=== PATIENT | male | born 1960 | race Caucasian/White ===

== ENCOUNTER 2016-05-01 19:52 | Emergency (ER) | payer MEDICAID ==
[~2016-05-01 19:52] MED LIST: AZITHROMYCIN 250 MG TAB PO SCH; predniSONE 20 MG TAB PO SCH
[2016-05-01] MEDS ORDERED: IPRATROPIUM/ALBUTEROL 3 ML DEYVIAL IH ONE (20:24)
[2016-05-01] MEDS ORDERED: NS 1,000 ML IV ONE (20:24)
[2016-05-01 20:56] LABS: % IMMATURE GRANULYOCYTES 0.2 % (0.0-1.1); ABSOLUTE IMMATURE GRANULOCYTES 0.01 10^3/uL (0.00-0.10); ADD DIFF? NO; ADD MORPH? NO; ADD SCAN? NO; ATYPICAL LYMPHOCYTE FLAG 30 (0-99); FRAGMENT RBC FLAG 0 (0-99); HEMATOCRIT 44.3 % (40.0-51.0); HEMOGLOBIN 16.1 g/dL (13.7-17.5); LEFT SHIFT FLG 10 (0-99); LIPEMIA HEMOLYSIS FLAG 90 (0-99); MEAN CELL HEMOGLOBIN 33.6 pg (27.9-34.1); MEAN CELL HEMOGLOBIN CONCENTR. 36.3 g/dL (32.4-36.7); MEAN CELL VOLUME 92.5 fL (81.5-99.8); PLATELET CLUMPS FLAG 0 (0-99); RED BLOOD CELL COUNT 4.79 10^6/uL (4.40-6.38); RED CELL DISTRIBUTION WIDTH 12.8 % (11.5-15.2)
[2016-05-01 21:10] LABS: ALANINE AMINOTRANSFERASE 50 IU/L (21-72); ALBUMIN 3.5 g/dL (3.5-5.0); ALKALINE PHOSPHATASE 71 IU/L (38-126); ANION GAP 10 mEq/L (8-16); ASPARTATE AMINOTRANSFERASE 47 IU/L (17-59); BILIRUBIN,TOTAL 1.3 mg/dL (0.1-1.4); BILIRUBIN-CONJUGATED 0.2 mg/dL (0.0-0.5); BILIRUBIN-UNCONJUGATED 1.1 mg/dL (0.0-1.1); CALCIUM 8.2 mg/dL (8.5-10.4); CARBON DIOXIDE 26 mEq/l (22-31); CHLORIDE 100 mEq/L (97-110); CREATININE 0.9 mg/dL (0.7-1.3); GLOMERULAR FILTRATION RATE > 60; GLUCOSE 82 mg/dL (70-100); POTASSIUM 4.1 mEq/L (3.5-5.2); SODIUM 136 mEq/L (134-144); TOTAL PROTEIN 6.5 g/dL (6.3-8.2)
--- NOTE | 2016-05-01 21:46 | DX ---
PA and Lateral Chest May 01, 2016 Clinical Indications: Dyspnea. Comparison: April 07, 2016. Findings: The lungs are clear, and no masses are found. The heart and pulmonary vessels are normal. There are no pleural effusions and no pneumothorax. The bones are unremarkable for this age. The lungs appear mildly hyperinflated. There is some flattening of the diaphragm on the lateral. Impression: Mild hyperinflation. Query COPD.
--- NOTE | 2016-05-01 21:53 | EDPHY ---
H & P Stated Complaint: dyspnea, prod cough, chills, NVD, subj fever Time Seen by Provider: 05/01/16 20:12 HPI/ROS: Chief complaint: Cold symptoms, nausea, vomiting and diarrhea History of present illness: This is a 55-year-old male who presents to the emergency department for evaluation of cold symptoms as well as nausea, vomiting and diarrhea. Patient reports the onset of symptoms over the last few days. Primarily is concerned about the cold symptoms which include tactile fevers, sore throat, persistent, wet cough and trouble breathing. He has had associated multiple episodes of vomiting and diarrhea described as nonbloody, nonbilious. Occasional abdominal cramping. He denies precipitating factors. He denies alleviating factors. He denies other associated signs or symptoms. Review of systems: A 10 point review of systems was obtained and other than described above was negative - Personal History Current Tetanus/Diphtheria Vaccine: Yes Current Tetanus Diphtheria and Acellular Pertussis (TDAP): Yes Tetanus Vaccine Date: 2013 - Medical/Surgical History Hx Asthma: Yes Hx Chronic Respiratory Disease: Yes Hx Diabetes: No Hx Cardiac Disease: No Hx Renal Disease: No Hx Cirrhosis: No Hx Alcoholism: No Hx HIV/AIDS: No Hx Splenectomy or Spleen Trauma: No Other PMH: CHRONIC PAIN, RA, COPD/ASTHMA, HEPATITIS (B,C,D,E,F), wears home O2( non compliant),"self medicates for pain," HEROIN ABUSE/IVDA, C diff. DENTAL CARIES, MIGRAINES, PTSD, "broken back", "broken neck" - Social History Smoking Status: Current every day smoker - Physical Exam Exam: General Appearance: Alert, nontoxic. Eyes: Pupils equal and round no pallor or injection. ENT: Tympanic membranes, external auditory canals, external ears and surrounding soft tissue including over the mastoids are unremarkable. Nasopharynx is not injected. There is no rhinorrhea. Oropharynx is mildly injected. There is no edema. There is no exudate. There is no asymmetry. The uvula is midline. No elevation of the tongue. There is no hoarseness, no drooling, no trismus, no stridor. Respiratory: There are no retractions, lungs are clear to auscultation. Cardiovascular: Regular rate and rhythm. Gastrointestinal: Abdomen is soft and non tender, no masses, bowel sounds normal. Neurological: Alert. Strength and sensation intact and symmetrical. No meningismus. Skin: Warm and dry, no rashes. Musculoskeletal: Neck is supple non tender. Extremities are symmetrical, full range of motion. Psychiatric: Patient is oriented X 3, there is no agitation. Constitutional: Initial Vital Signs Heart Rate 91 05/01/16 19:55 Respiratory Rate 18 05/01/16 19:55 Blood Pressure 103/66 05/01/16 19:55 O2 Sat (%) 91 L 05/01/16 19:55 O2 Delivery Mode Room Air O2 (L/minute) 2 Allergies/Adverse Reactions: acetaminophen [Acetaminophen] Allergy (Severe, Verified 04/06/16 22:25) heparin Allergy (Unknown, Verified 04/06/16 22:25) Heparin Analogues Allergy (Unknown, Verified 04/06/16 22:25) propoxyphene HCl [From Darvon] Allergy (Unknown, Verified 04/06/16 22:25) amoxicillin [Amoxicillin] Allergy (Verified 04/06/16 22:25) aspirin [Aspirin] Allergy (Verified 04/06/16 22:25) contrast dye Allergy (Uncoded 05/01/16 20:02) Home Medications: Medication Instructions Recorded Beclomethasone Qvar 40 [Qvar 40 1 puffs IH BID #1 mdi 02/17/16 (*)] Albuterol [Proventil Inhaler HFA 2 puffs IH Q4WA #1 mdi 03/14/16 (*)] AZITHROMYCIN [Z-PACK] 250 mg PO DAILY #6 tab 05/01/16 Dicyclomine 05/01/16 predniSONE 60 mg PO DAILY 2 Days 05/01/16 Medical Decision Making - Diagnostics Imaging: Chest x-ray shows changes likely consistent with COPD ED Course/Re-evaluation: Patient discussed with my secondary supervising physician Dr. Freddy Villanueva. Patient presents to the emergency department for evaluation of cold symptoms, nausea, vomiting and diarrhea. On presentation patient is nontoxic. He is afebrile, vital signs are stable. Physical exam does reveal wheezing. Blood studies are unremarkable. Flu swab is negative. Chest x-ray with changes consistent with COPD. Patient is given a DuoNeb. He is given a dose of prednisone. He remains well appearing with stable vital signs. I have had him walked around the emergency room and his pulse oximetry remained above 90%. Patient will therefore be discharged. He is given an inhaler. He will be given a very short course of prednisone. He is also given a Z-Kelby. These prescriptions are provided for him to ensure he gets the medications. He is discharged. Outpatient follow-up is discussed. This includes following up on his low platelets. Strict return precautions are given. Patient voiced understanding and agreement with plan. Differential Diagnosis: Included but not limited to pneumonia, bronchitis, COPD exacerbation, influenza - Data Points Laboratory Results: Laboratory Results 05/01/16 20:45 05/01/16 20:45 05/01/16 20:45 WBC 4.80 10^3/uL (3.80-9.50) RBC 4.79 10^6/uL (4.40-6.38) Hgb 16.1 g/dL (13.7-17.5) Hct 44.3 % (40.0-51.0) MCV 92.5 fL (81.5-99.8) MCH 33.6 pg (27.9-34.1) MCHC 36.3 g/dL (32.4-36.7) RDW 12.8 % (11.5-15.2) Plt Count 57 L 10^3/uL (150-400) MPV TNP Neut % (Auto) 64.6 % (39.3-74.2) Lymph % (Auto) 24.8 % (15.0-45.0) Saline % (Auto) 8.5 % (4.5-13.0) Eos % (Auto) 1.9 % (0.6-7.6) Baso % (Auto) 0.0 L % (0.3-1.7) Nucleat RBC Rel Count 0.0 % (0.0-0.2) Absolute Neuts (auto) 3.10 10^3/uL (1.70-6.50) Absolute Lymphs (auto) 1.19 10^3/uL (1.00-3.00) Absolute Monos (auto) 0.41 10^3/uL (0.30-0.80) Absolute Eos (auto) 0.09 10^3/uL (0.03-0.40) Absolute Basos (auto) 0.00 L 10^3/uL (0.02-0.10) Absolute Nucleated RBC 0.00 10^3/uL (0-0.01) Immature Gran % 0.2 % (0.0-1.1) Immature Gran # 0.01 10^3/uL (0.00-0.10) Platelet Estimate DECREASED L (ADEQ) Sodium 136 mEq/L (134-144) Potassium 4.1 mEq/L (3.5-5.2) Chloride 100 mEq/L (97-110) Carbon Dioxide 26 mEq/l (22-31) Anion Gap 10 mEq/L (8-16) BUN 10 mg/dL (7-23) Creatinine 0.9 mg/dL (0.7-1.3) Estimated GFR > 60 Glucose 82 mg/dL (70-100) Calcium 8.2 L mg/dL (8.5-10.4) Total Bilirubin 1.3 mg/dL (0.1-1.4) Conjugated Bilirubin 0.2 mg/dL (0.0-0.5) Unconjugated Bilirubin 1.1 mg/dL (0.0-1.1) AST 47 IU/L (17-59) ALT 50 IU/L (21-72) Alkaline Phosphatase 71 IU/L (38-126) Total Protein 6.5 g/dL (6.3-8.2) Albumin 3.5 g/dL (3.5-5.0) Lipase 64.0 IU/L (23-300) Influenza Typ A,B (DFA) NEGATIVE FOR FLU (NEGATIVE) Medications Given: Discontinued Medications Albuterol/Ipratropium (Duoneb) 3 ml IH EDNOW ONE Stop: 05/01/16 20:25 Last Admin: 05/01/16 20:45 Dose: 3 ml Sodium Chloride (Ns) 1,000 mls @ 0 mls/hr IV ONCE ONE PRN Reason: Wide Open Stop: 05/01/16 20:25 Last Admin: 05/01/16 20:30 Dose: 1,000 mls Departure - Departure Disposition: Home, Routine, Self-Care Clinical Impression: Acute bronchitis Qualifiers: Qualifier Code: (J20.9) Acute bronchitis, unspecified Vomiting Qualifiers: Qualifier Code: (R11.2) Nausea with vomiting, unspecified Diarrhea Qualifiers: Qualifier Code: (R19.7) Diarrhea, unspecified Condition: Good Instructions: Acute Bronchitis (ED) Additional Instructions: 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 [Primary Care Provider] - As per Instructions Moses Méndez MD [Medical Doctor] - As per Instructions Prescriptions: AZITHROMYCIN [Z-PACK] 250 mg PO DAILY #6 tab predniSONE 60 mg PO DAILY 2 Days
[2016-05-01] MEDS ORDERED: ALBUTEROL INH PREPACK MDI TAKEHOME ONE (21:55)
[2016-05-01 22:25] LABS: PLATELET COUNT 57 10^3/uL (150-400); PLATELET ESTIMATE DECREASED (ADEQ)
[2016-05-01] MEDS ORDERED: predniSONE 20 MG TAB PO ONE (22:49)
[2016-05-02] MEDS ORDERED: ALBUTEROL INH PREPACK MDI TAKEHOME ONE (00:12)
[2016-05-02] MEDS ORDERED: predniSONE 20 MG TAB ONE (00:12)
[2016-05-02] MEDS ORDERED: AZITHROMYCIN 250 MG TAB PO ONE (00:26)
[2016-05-02] MEDS ORDERED: PROMETHAZINE HCL 25 MG/ML VIAL IVP PRN (01:49)
[2016-05-02] MEDS ORDERED: ALBUTEROL 3 ML DEYVIAL IH PRN (01:51)
[2016-05-02] MEDS ORDERED: NS 1,000 ML IV SCH (02:00)
--- NOTE | 2016-05-02 02:20 | GHP ---
[f rep st] HISTORY AND PHYSICAL DATE OF ADMISSION: 05/02/2016 The patient is a 55-year-old gentleman with a history of severe COPD, who has been recommended for home oxygen, but is unable to obtain it secondary to homelessness. He presented to the ER tonight with nausea, vomiting ,and diarrhea. He notes muscle aches all over. He was last discharged from the hospital at the end of March under some contention. He has chronic breathing complaints, and these are no different. He does continue to smoke cigarettes. It is not clear that he had a flu shot this year. He said he has been eating poorly secondary to no appetite. He has not had hemoptysis or sputum that is different. REVIEW OF SYSTEMS: Complete 10-point review of systems conducted, negative except as noted in the HPI. PAST MEDICAL HISTORY: 1. COPD. 2. History of hepatitis B and hepatitis C. 3. History of heroin abuse. 4. Chronic pain. 5. PTSD. 6. Chronic fatigue. HOME MEDICATIONS: Appear to be QVAR, albuterol, and azithromycin, possibly prednisone. ALLERGIES: Acetaminophen, heparin, propoxyphene, amoxicillin, aspirin, and contrast dye. SOCIAL HISTORY: Homeless. Smokes cigarettes. History of polysubstance abuse. FAMILY HISTORY: Reviewed and unremarkable. PHYSICAL EXAM: VITAL SIGNS: Temp 37, blood pressure 103/66, pulse 91, breathing 18 times a minute, 91% on room air. He did fall to the 80s while asleep with good wave form. GENERAL: No acute distress. HEENT: Sclerae anicteric. Oropharynx clear. Mucous membranes dry. NECK: Supple without lymphadenopathy or JVD. LUNGS: Show distant breath sounds with good air movement. HEART: S1, S2. Not tachycardic. ABDOMEN: Soft. This is some diffuse lower quadrant tenderness possibly greater in the right. LOWER EXTREMITIES: Without edema. Calves nontender. SKIN: Without rash. NEUROLOGIC: Nonfocal. LABORATORY DATA: White count 4.8, hematocrit 44, platelets are 57,000, which is a new finding for him. Sodium 136, potassium 4.1, chloride 100, bicarb 26, BUN 10, creatinine 0.9. LFTs normal. Lipase normal. levels. Influenza negative. I discussed this case with Piotr Lund MD of the emergency department. Chest x- ray interpreted by me shows hyperinflation with COPD, otherwise unremarkable. ASSESSMENT/PLAN: A 55-year-old gentleman with hypoxia. 1. Hypoxia secondary to severe chronic obstructive pulmonary disease. I think it is not different from baseline. The ER is going to want to discharge him I think. Will try and obtain some home oxygen for him as an outpatient. 2. Nausea, vomiting. The patient appears to have a viral syndrome. Diarrhea is included, and I have ordered a Clostridium difficile given his recent antibiotics. 3. Abdominal pain. I think this is secondary to his viral syndrome. Pain is localized some on the right. At this point in time, I am not enthusiastic about appendicitis, but will follow. 4. Chronic obstructive pulmonary disease. I think he is at his baseline. We will continue his current level of care. He does not need additional steroids in my opinion at this point in time, nor does he need antibiotics. DISPOSITION: [facility] observation, likely home in the morning with oxygen. Arrangements have been made. /[id number]/MODL MTDD
[2016-05-02 08:25] VITALS: O2SAT 91
[2016-05-02] MEDS ORDERED: BECLOMETHASONE QVAR 80 MDI IH SCH (09:00)
--- NOTE | 2016-05-02 11:23 | HOSPPROG ---
Hospitalist Progress Note Assessment/Plan: patient is a 55-year-old gentleman with a history severe COPD who presented with hypoxemia. #. likely COPD exacerbation -met with Juan in ER/close to his baseline -on room air -prednisone, inhaler and azithromycin scripts have been filled #. nicotine dependence -continues to smoke #. hypoxemia -resolved #. abdominal pain with associated nausea and vomiting, diarrhea -overall feeling fine/ thinks he may of eaten something that caused these symptoms -wbc stable #. homelessness -suspect that is why he comes to ER frequently -will not stay at long term #.Plan: dc today with scripts Subjective: Juan is feeling overall fine/ no further abdominal pain Objective: Vital Signs Temp Pulse Resp BP Pulse Ox 36.4 C 57 L 16 119/67 91 L 05/02/16 10:32 05/02/16 10:32 05/02/16 10:32 05/02/16 10:32 05/02/16 10:32 - Physical Exam Constitutional: no apparent distress, appears nourished, not in pain Eyes: PERRL Ears, Nose, Mouth, Throat: hearing normal Cardiovascular: regular rate and rhythym Respiratory: no respiratory distress, expiratory wheeze (bases), rhonchi (few scattered) Gastrointestinal: normoactive bowel sounds Skin: warm Musculoskeletal: full muscle strength Neurologic: AAOx3 Psychiatric: interacting appropriately, not anxious ICD10 Worksheet Patient Problems: Problems Problem Status Diagnosed Acute bronchitis Acute COPD (chronic obstructive pulmonary disease) Acute Diarrhea Acute Vomiting Acute Hepatitis C Chronic Bronchitis Acute Chronic obstructive pulmonary disease with acute exacerbation Acute Facial abscess Acute HCAP (healthcare-associated pneumonia) Acute Pneumonia Acute Sepsis Acute
[2016-05-02 12:02] VITALS: BP 107/85; PULSE 93; RESP 20; TEMP 98.2
--- NOTE | 2016-05-02 12:17 | GDS ---
[f rep st] DISCHARGE SUMMARY DISCHARGE DIAGNOSES: 1. Chronic obstructive pulmonary disease exacerbation. 2. Nicotine dependence. 3. Hypoxemia. 4. Abdominal pain with associated nausea, vomiting, and diarrhea. 5. Homelessness. Briefly, the patient is a 55-year-old gentleman with a history of severe COPD, who has been recommended home O2 but is unable to obtain secondary to homelessness. He presented the ER with nausea, vomiting and diarrhea. He also has muscle aches overall. He was admitted for further care. HOSPITAL COURSE: 1. Likely COPD exacerbation. I met with the patient in the emergency room and have cared for him in the past. He is close to his baseline. He is on room air. Scripts were filled for prednisone, inhalers and azithromycin. 2. Nicotine dependence. He continues to smoke. 3. Hypoxemia, resolved. 4. Abdominal pain with associated nausea, vomiting, diarrhea. He overall has been feeling fine. He thinks he may have eaten something that caused these symptoms. White blood cell count is stable. 5. Homelessness. Suspect this is why he comes to the ER frequently. CONDITION AT DISCHARGE: Stable. Blood pressure is 119/67, heart rate is 57, respiratory rate 16, O2 saturation on room air 91%, temperature is 36.4 Celsius. MEDICATIONS AT DISCHARGE: Please see the EMR. DISCHARGE INSTRUCTIONS: 1. Take medications as prescribed. 2. If he develops any fever, chills, chest pain, shortness of breath, to return to the emergency room. 3. Also get further evaluation at [facility] because his platelet count is lower than his baseline. /[id number]/MODL MTDD
== END 2016-05-02 12:03 | disposition home or self-care (01) ==
LOC: UNDOADMIN 05-02 00:25
DX: J44.1 Chronic obstructive pulmonary disease with (acute) exacerbation (principal); R09.02 Hypoxemia; R11.2 Nausea with vomiting, unspecified
CPT/HCPCS: J7512

== ENCOUNTER 2016-05-10 22:32 | Emergency (ER) | payer MEDICAID ==
--- NOTE | 2016-05-10 22:48 | CPEKG ---
Heart Rate: 81 RR Interval: 741 P-R Interval: 144 QRSD Interval: 84 QT Interval: 364 QTC Interval: 423 P [place]: 70 QRS [place]: 82 T Wave [place]: 80 EKG Severity - NORMAL ECG - EKG Impression: SINUS RHYTHM Electronically Signed By: Patricia Solis 11-May-2016 06:00:34
[2016-05-10] MEDS ORDERED: IPRATROPIUM/ALBUTEROL 3 ML DEYVIAL IH ONE (22:59)
--- NOTE | 2016-05-10 22:59 | EDPHY ---
H & P Stated Complaint: SOB Time Seen by Provider: 05/10/16 22:49 HPI/ROS: HPI The patient presents with cough and shortness of breath which has been present for the last several days. It started slowly and has gotten progressively worse. He used his albuterol inhaler about 6 times today and felt that it became ineffective and that is what brought him in tonight. He also reports subjective fevers and chills. His cough is productive of a yellowish sputum. The patient is homeless. He has been recommended for home oxygen, however because of his social situation he does not have it. He was admitted to the hospital for 1 day on May 01 and was started on prednisone which he has now finished.. REVIEW OF SYSTEMS Constitutional: No fever, no chills. Eyes: No discharge. ENT: No sore throat. Cardiovascular: No chest pain, no palpitations. Respiratory: See HPI Gastrointestinal: No abdominal pain, no vomiting. Genitourinary: No hematuria. Musculoskeletal: No back pain. Skin: No rashes. Neurological: No headache. PMHx: COPD Soc Hx: homeless, + smoking tob PHYSICAL General Appearance: Alert, no distress Eyes: Pupils equal and round no pallor or injection ENT, Mouth: Mucous membranes moist Respiratory: He is breathing comfortably, sat of 93% on 2 L, diffuse expiratory wheezes Cardiovascular: Regular rate and rhythm Gastrointestinal: Abdomen is soft and non-tender, no masses, bowel sounds normal Neurological: A&O, moves all extremities Skin: Warm and dry, no rashes Musculoskeletal: Neck is supple non tender Extremities: symmetrical, full range of motion Psychiatric: Patient is oriented X 3, there is no agitation Source: Patient, Old records Exam Limitations: No limitations - Personal History Current Tetanus/Diphtheria Vaccine: Yes Current Tetanus Diphtheria and Acellular Pertussis (TDAP): Yes Tetanus Vaccine Date: 2013 - Medical/Surgical History Hx Asthma: Yes Hx Chronic Respiratory Disease: Yes Hx Diabetes: No Hx Cardiac Disease: No Hx Renal Disease: No Hx Cirrhosis: No Hx Alcoholism: No Hx HIV/AIDS: No Hx Splenectomy or Spleen Trauma: No Other PMH: CHRONIC PAIN, RA, COPD/ASTHMA, HEPATITIS (B,C,D,E,F), wears home O2( non compliant),"self medicates for pain," HEROIN ABUSE/IVDA, C diff. DENTAL CARIES, MIGRAINES, PTSD, "broken back", "broken neck" - Social History Smoking Status: Current every day smoker Constitutional: Initial Vital Signs Temperature (C) 36.6 C 05/10/16 22:37 Heart Rate 81 05/10/16 22:37 Respiratory Rate 36 H 05/10/16 22:37 Blood Pressure 115/62 05/10/16 22:37 O2 Sat (%) 88 L 05/10/16 22:37 O2 Delivery Mode Room Air O2 (L/minute) 2 Allergies/Adverse Reactions: acetaminophen [Acetaminophen] Allergy (Severe, Verified 05/10/16 22:36) heparin Allergy (Unknown, Verified 05/10/16 22:36) Heparin Analogues Allergy (Unknown, Verified 05/10/16 22:36) propoxyphene HCl [From Darvon] Allergy (Unknown, Verified 05/10/16 22:36) amoxicillin [Amoxicillin] Allergy (Verified 05/10/16 22:36) aspirin [Aspirin] Allergy (Verified 05/10/16 22:36) contrast dye Allergy (Uncoded 05/10/16 22:36) Home Medications: Medication Instructions Recorded Beclomethasone Qvar 40 [Qvar 40 1 puffs IH BID #1 mdi 02/17/16 (*)] Albuterol [Proventil Inhaler HFA 2 puffs IH Q4WA #1 mdi 03/14/16 (*)] AZITHROMYCIN [Z-PACK] 250 mg PO DAILY #6 tab 05/01/16 Doxycycline Hyclate [Vibramycin 100 mg PO BID 05/01/16 100 MG (*)] predniSONE 60 mg PO DAILY 2 Days 05/01/16 Doxycycline 100 mg Prepack#2 1 btl [facility] EDNOW #0 btl 05/11/16 [Vibramycin 100 mg Prepack#2] Doxycycline Hyclate [Vibramycin 100 mg PO BID #30 cap 05/11/16 100 MG (*)] predniSONE [Prednisone] 40 mg PO DAILY #16 tablet 05/11/16 Medical Decision Making ED Course/Re-evaluation: 10:45 p.m.- Initial patient encounter. I plan to start him on a DuoNeb been given a dose of prednisone. I will order a chest x-ray. 1:30 a.m.- The patient has received DuoNeb and then 20 minutes of a an albuterol nebulizer which he removed because he was feeling palpitations. His chest x-ray is unremarkable for any pneumonia. I feel he likely has a COPD exacerbation. He has improved, now with an oxygen saturation of 93% on room air. He will be discharged home with a prescription for doxycycline as well as prednisone with instructions to continue his albuterol. He is in agreement with this plan. Differential Diagnosis: This is a 55-year-old homeless man with COPD who presents with several days of cough, shortness of breath, subjective fevers. On exam he is slightly hypoxic at 88% on room air, he has wheezing throughout his lung benson but is in no respiratory distress. Differential diagnosis includes COPD with exacerbation, pneumonia, pneumothorax. I doubt PE given no chest pain. - Data Points Laboratory Results: Laboratory Results 05/10/16 22:50 05/10/16 22:50 05/10/16 22:50 WBC 7.67 10^3/uL (3.80-9.50) RBC 4.37 L 10^6/uL (4.40-6.38) Hgb 14.6 g/dL (13.7-17.5) Hct 41.8 % (40.0-51.0) MCV 95.7 fL (81.5-99.8) MCH 33.4 pg (27.9-34.1) MCHC 34.9 g/dL (32.4-36.7) RDW 13.5 % (11.5-15.2) Plt Count 116 L 10^3/uL (150-400) MPV 11.1 fL (8.7-11.7) Neut % (Auto) 36.7 L % (39.3-74.2) Lymph % (Auto) 49.9 H % (15.0-45.0) [place] % (Auto) 10.0 % (4.5-13.0) Eos % (Auto) 2.6 % (0.6-7.6) Baso % (Auto) 0.5 % (0.3-1.7) Nucleat RBC Rel Count 0.0 % (0.0-0.2) Absolute Neuts (auto) 2.81 10^3/uL (1.70-6.50) Absolute Lymphs (auto) 3.83 H 10^3/uL (1.00-3.00) Absolute Monos (auto) 0.77 10^3/uL (0.30-0.80) Absolute Eos (auto) 0.20 10^3/uL (0.03-0.40) Absolute Basos (auto) 0.04 10^3/uL (0.02-0.10) Absolute Nucleated RBC 0.00 10^3/uL (0-0.01) Immature Gran % 0.3 % (0.0-1.1) Immature Gran # 0.02 10^3/uL (0.00-0.10) Sodium 136 mEq/L (134-144) Potassium 4.6 mEq/L (3.5-5.2) Chloride 102 mEq/L (97-110) Carbon Dioxide 29 mEq/l (22-31) Anion Gap 5 mEq/L (8-16) BUN 21 mg/dL (7-23) Creatinine 1.0 mg/dL (0.7-1.3) Estimated GFR > 60 Glucose 84 mg/dL (70-100) Calcium 8.5 mg/dL (8.5-10.4) Troponin I < 0.012 ng/mL (0-0.034) Medications Given: Discontinued Medications Albuterol (Proventil Neb) 10 ml IH CONT ONE Stop: 05/11/16 00:10 Last Admin: 05/11/16 01:00 Dose: 10 ml Albuterol/Ipratropium (Duoneb) 3 ml IH EDNOW ONE Stop: 05/10/16 23:00 Last Admin: 05/10/16 23:16 Dose: 3 ml Doxycycline Hyclate (Vibramycin 100 Mg Prepack#2) 1 btl [facility] EDNOW ONE Stop: 05/11/16 01:47 Last Admin: 05/11/16 01:49 Dose: 1 btl Prednisone (Prednisone) 60 mg PO EDNOW ONE Stop: 05/10/16 23:01 Last Admin: 05/10/16 23:06 Dose: 60 mg Departure - Departure Disposition: Home, Routine, Self-Care Clinical Impression: Chronic obstructive pulmonary disease with acute exacerbation Condition: Good Instructions: COPD (Chronic Obstructive Pulmonary Disease) (ED) Additional Instructions: Please try and stop smoking. You should take the medications as prescribed. You should return to the emergency room if your worse in any way. Referrals: NONE *PRIMARY CARE P,. [Primary Care Provider] - As per Instructions Prescriptions: predniSONE [Prednisone] 40 mg PO DAILY #16 tablet Doxycycline Hyclate [Vibramycin 100 MG (*)] 100 mg PO BID #30 cap Doxycycline 100 mg Prepack#2 [Vibramycin 100 mg Prepack#2] [facility]
[2016-05-10] MEDS ORDERED: predniSONE 20 MG TAB PO ONE (23:00)
[2016-05-10 23:06] LABS: % IMMATURE GRANULYOCYTES 0.3 % (0.0-1.1); ABSOLUTE IMMATURE GRANULOCYTES 0.02 10^3/uL (0.00-0.10); ADD DIFF? NO; ADD MORPH? NO; ADD SCAN? NO; ATYPICAL LYMPHOCYTE FLAG 10 (0-99); FRAGMENT RBC FLAG 0 (0-99); HEMATOCRIT 41.8 % (40.0-51.0); HEMOGLOBIN 14.6 g/dL (13.7-17.5); LEFT SHIFT FLG 0 (0-99); LIPEMIA HEMOLYSIS FLAG 90 (0-99); MEAN CELL HEMOGLOBIN 33.4 pg (27.9-34.1); MEAN CELL HEMOGLOBIN CONCENTR. 34.9 g/dL (32.4-36.7); MEAN CELL VOLUME 95.7 fL (81.5-99.8); MEAN PLATELET VOLUME 11.1 fL (8.7-11.7); PLATELET CLUMPS FLAG 10 (0-99); PLATELET COUNT 116 10^3/uL (150-400); RED BLOOD CELL COUNT 4.37 10^6/uL (4.40-6.38); RED CELL DISTRIBUTION WIDTH 13.5 % (11.5-15.2)
[2016-05-10 23:23] LABS: ANION GAP 5 mEq/L (8-16); CALCIUM 8.5 mg/dL (8.5-10.4); CARBON DIOXIDE 29 mEq/l (22-31); CHLORIDE 102 mEq/L (97-110); GLOMERULAR FILTRATION RATE > 60; GLUCOSE 84 mg/dL (70-100); POTASSIUM 4.6 mEq/L (3.5-5.2); SODIUM 136 mEq/L (134-144)
[2016-05-10 23:34] LABS: TROPONIN I < 0.012 ng/mL (0-0.034)
--- NOTE | 2016-05-10 23:49 | DX ---
Chest, PA and Lateral History: Dyspnea, hypoxia Comparison: May 01, 2016 Findings: Moderately prominent lung volumes and perihilar bronchial wall thickening are again present and suggest underlying COPD/emphysema/asthma. There is no focal infiltrate or consolidation. Heart s ize is relatively small, consistent with a hyperinflated state. There is no adenopathy or mass lesion . There is no pleural effusion, pneumomediastinum or pneumothorax. Bones are unremarkable for age. Ox ygen tubing and a metallic necklace overlie the chest. Impression: Airways disease/COPD. No pneumonia.
[2016-05-11] MEDS ORDERED: ALBUTEROL 3 ML DEYVIAL IH ONE (00:09)
[2016-05-11 00:22] VITALS: TEMP 98.1
[2016-05-11] MEDS ORDERED: DOXYCYCLINE 100 MG PREPACK#2 BTL TAKEHOME ONE ×2 (01:44→01:46)
[2016-05-11 01:51] VITALS: BP 108/73; PULSE 79; RESP 16; O2SAT 93
== END 2016-05-11 01:52 | disposition home or self-care (01) ==
LOC: EEVIPCON 22:32
DX: J44.1 Chronic obstructive pulmonary disease with (acute) exacerbation (principal); F17.210 Nicotine dependence, cigarettes, uncomplicated

== ENCOUNTER 2016-05-16 03:06 | Emergency (ER) | payer MEDICAID ==
[~2016-05-16 03:06] MED LIST changes: -predniSONE 20 MG TAB PO SCH
[2016-05-16 03:15] VITALS: BP 133/77; PULSE 81; RESP 18; O2SAT 89
[2016-05-16] MEDS ORDERED: AZITHROMYCIN 250 MG TAB PO ONE (03:33)
--- NOTE | 2016-05-16 03:37 | EDPHY ---
H & P Stated Complaint: pt c/o pain in L ear and throat Time Seen by Provider: 05/16/16 03:29 HPI/ROS: CHIEF COMPLAINT: Sore throat, lymphadenopathy ear pain HISTORY OF PRESENT ILLNESS: Patient is a 55-year-old homeless man who comes to the emergency department complaining of a sore throat, anterior lymphadenopathy and left ear pain. States that he has had the symptoms for about 3 days. He states that he was put on doxycycline and steroids for a lung infection 1 week ago but lost the prescriptions. He has not had a fever. He denies any chest pain, nausea or GI symptoms. He denies shortness of breath. He does have sinus congestion. REVIEW OF SYSTEMS: Constitutional: denies: chills, fever, recent illness, recent injury EENTM: See HPI Respiratory: denies: cough, shortness of breath Cardiac: denies: chest pain, irregular heart rate, lightheadedness, palpitations Gastrointestinal/Abdominal: denies: abdominal pain, diarrhea, nausea, vomiting, blood streaked stools Genitourinary: denies: dysuria, frequency, hematuria, pain Musculoskeletal: denies: joint pain, muscle pain Skin: denies: lesions, rash, jaundice, bruising Neurological: denies: headache, numbness, paresthesia, tingling, dizziness, weakness Hematologic/Lymphatic: denies: blood clots, easy bleeding, easy bruising Immunologic/allergic: denies: HIV/AIDS, transplant EXAM: GENERAL: Well-appearing, well-nourished and in no acute distress. HEAD: Atraumatic, normocephalic. EYES: Pupils equal round and reactive to light, extraocular movements intact, sclera anicteric, conjunctiva are normal. ENT: Effusions behind bilateral tympanic membranes , anterior cervical lymphadenopathy, nares patent, health [place] pharynx, no abscess, no exudate. Moist mucous membranes. NECK: Normal range of motion, supple without lymphadenopathy or JVD. LUNGS: Breath sounds clear to auscultation bilaterally and equal. No wheezes rales or rhonchi. HEART: Regular rate and rhythm without murmurs, rubs or gallops. ABDOMEN: Soft, nontender, normoactive bowel sounds. No guarding, no rebound. No masses appreciated. BACK: No CVA tenderness, no spinal tenderness, step-offs or deformities EXTREMITIES: Normal range of motion, no pitting or edema. No clubbing or cyanosis. NEUROLOGICAL: Cranial nerves II through XII grossly intact. Normal speech, normal gait. 5/5 strength, normal movement in all extremities, normal sensation PSYCH: Normal mood, normal affect. SKIN: Warm, dry, normal turgor, no visible rashes or lesions. Source: Patient, Old records Exam Limitations: No limitations - Personal History Tetanus Vaccine Date: 2013 - Medical/Surgical History Hx Asthma: Yes Hx Chronic Respiratory Disease: Yes Hx Diabetes: No Hx Cardiac Disease: No Hx Renal Disease: No Hx Cirrhosis: No Hx Alcoholism: No Hx HIV/AIDS: No Hx Splenectomy or Spleen Trauma: No Other PMH: CHRONIC PAIN, RA, COPD/ASTHMA, HEPATITIS (B,C,D,E,F), wears home O2( non compliant),"self medicates for pain," HEROIN ABUSE/IVDA, C diff. DENTAL CARIES, MIGRAINES, PTSD, "broken back", "broken neck" - Family History Significant Family History: No pertinent family hx - Social History Smoking Status: Current every day smoker Alcohol Use: Heavy Drug Use: None Constitutional: Initial Vital Signs Heart Rate 81 05/16/16 03:11 Respiratory Rate 18 05/16/16 03:11 Blood Pressure 133/77 H 05/16/16 03:11 O2 Sat (%) 89 L 05/16/16 03:11 O2 Delivery Mode Room Air Allergies/Adverse Reactions: acetaminophen [Acetaminophen] Allergy (Severe, Verified 05/16/16 03:15) heparin Allergy (Unknown, Verified 05/16/16 03:15) Heparin Analogues Allergy (Unknown, Verified 05/16/16 03:15) propoxyphene HCl [From Darvon] Allergy (Unknown, Verified 05/16/16 03:15) amoxicillin [Amoxicillin] Allergy (Verified 05/16/16 03:15) aspirin [Aspirin] Allergy (Verified 05/16/16 03:15) contrast dye Allergy (Uncoded 05/10/16 22:36) Home Medications: Medication Instructions Recorded Beclomethasone Qvar 40 [Qvar 40 1 puffs IH BID #1 mdi 02/17/16 (*)] Albuterol [Proventil Inhaler HFA 2 puffs IH Q4WA #1 mdi 03/14/16 (*)] AZITHROMYCIN [Z-PACK] 250 mg PO DAILY #6 tab 01/10/17 Doxycycline 100 mg Prepack#2 1 btl TAKEHOME EDNOW #0 btl 05/11/16 [Vibramycin 100 mg Prepack#2] Doxycycline Hyclate [Vibramycin 100 mg PO BID #30 cap 05/11/16 100 MG (*)] predniSONE [Prednisone] 40 mg PO DAILY #16 tablet 05/11/16 AZITHROMYCIN [Z-PACK] 250 mg PO DAILY #4 tab 05/16/16 Medical Decision Making ED Course/Re-evaluation: I will start the patient on azithromycin to cover his sore throat currently as well as the recent diagnosis of bronchitis. He is happy with this plan and declines further workup or testing at this time. Discussed indications for returning. I will fill his prescriptions here with [facility] program. Differential Diagnosis: Partial list of the Differential diagnosis considered include but were not limited to; strep throat, pharyngitis, sinusitis, otitis media, bronchitis and although unlikely based on the history and physical exam, I also considered pneumonia, PE, acute coronary disease. I discussed these differential diagnoses and the plan with the patient as well as the usual and expected course. The patient understands that the diagnosis is provisional and that in medicine we are not always correct and that further workup is often warranted. Usual and customary warnings were given. All of the patient's questions were answered. The patient was instructed to return to the emergency department should the symptoms at all worsen or return, otherwise to followup with the physician as we discussed. - Data Points Medications Given: Discontinued Medications Azithromycin (Zithromax) 500 mg PO EDNOW ONE PRN Reason: Protocol Stop: 05/16/16 03:34 Last Admin: 05/16/16 03:41 Dose: 500 mg Dexamethasone (Decadron) 10 mg PO EDNOW ONE Stop: 05/16/16 03:59 Last Admin: 05/16/16 04:06 Dose: 10 mg Departure - Departure Disposition: Home, Routine, Self-Care Clinical Impression: Acute pharyngitis Qualifiers: Pharyngitis/tonsillitis etiology: unspecified etiology Qualifier Code: (J02.9) Acute pharyngitis, unspecified Condition: Fair Instructions: Pharyngitis (ED) Referrals: NONE *PRIMARY CARE P,. [Primary Care Provider] - As per Instructions Prescriptions: AZITHROMYCIN [Z-PACK] 250 mg PO DAILY #4 tab
[2016-05-16] MEDS ORDERED: DEXAMETHASONE 4 MG TAB PO ONE (03:58)
== END 2016-05-16 04:08 | disposition home or self-care (01) ==
DX: J02.9 Acute pharyngitis, unspecified (principal); J44.9 Chronic obstructive pulmonary disease, unspecified; F17.200 Nicotine dependence, unspecified, uncomplicated

== ENCOUNTER 2016-05-18 00:20 | Emergency (ER) | payer MEDICAID ==
[2016-05-18 00:27] VITALS: RESP 18
[2016-05-18] MEDS ORDERED: IBUPROFEN 200 MG TAB PO ONE (00:56)
[2016-05-18] MEDS ORDERED: IPRATROPIUM/ALBUTEROL 3 ML DEYVIAL IH ONE (00:57)
--- NOTE | 2016-05-18 01:02 | EDPHY ---
H & P Stated Complaint: pt c/o fever Time Seen by Provider: 05/18/16 00:31 HPI/ROS: HPI The patient presents with fever, he is not sure how long it has been going on, brought in by ambulance for evaluation. He says he thinks it may have been going on for the last 2 days. He has COPD and his cough is unchanged recently. He was seen in the emergency room 2 days ago and started on azithromycin which he says he has been taking. He was previously seen about 1 week ago by me for COPD exacerbation and did not finish his course of doxycycline. REVIEW OF SYSTEMS Constitutional: No fever, no chills. Eyes: No discharge. ENT: No sore throat. Cardiovascular: No chest pain, no palpitations. Respiratory: See HPI Gastrointestinal: No abdominal pain, no vomiting. Genitourinary: No hematuria. Musculoskeletal: No back pain. Skin: No rashes. Neurological: No headache. PMHx: COPD, hepatitis Soc Hx: Homeless PHYSICAL General Appearance: Alert, no distress Eyes: Pupils equal and round no pallor or injection ENT, Mouth: Mucous membranes moist Respiratory: No tachypnea or retractions, coarse breath sounds throughout all lung benson with prolonged I to E time Cardiovascular: Regular rate and rhythm Gastrointestinal: Abdomen is soft and non-tender, no masses, bowel sounds normal Neurological: A&O, moves all extremities Skin: Warm and dry, no rashes Musculoskeletal: Neck is supple non tender Extremities: symmetrical, full range of motion Psychiatric: Patient is oriented X 3, there is no agitation Source: Patient, EMS Exam Limitations: No limitations - Personal History Tetanus Vaccine Date: 2013 - Medical/Surgical History Hx Asthma: Yes Hx Chronic Respiratory Disease: Yes Hx Diabetes: No Hx Cardiac Disease: No Hx Renal Disease: No Hx Cirrhosis: No Hx Alcoholism: No Hx HIV/AIDS: No Hx Splenectomy or Spleen Trauma: No Other PMH: CHRONIC PAIN, RA, COPD/ASTHMA, HEPATITIS (B,C,D,E,F), wears home O2( non compliant),"self medicates for pain," HEROIN ABUSE/IVDA, C diff. DENTAL CARIES, MIGRAINES, PTSD, "broken back", "broken neck" - Social History Smoking Status: Current every day smoker Constitutional: Initial Vital Signs Temperature (C) 37.6 C 05/18/16 00:24 Heart Rate 88 05/18/16 00:24 Respiratory Rate 18 05/18/16 00:24 Blood Pressure 124/76 H 05/18/16 00:24 O2 Sat (%) 93 05/18/16 00:24 O2 Delivery Mode Room Air O2 (L/minute) 2 Allergies/Adverse Reactions: acetaminophen [Acetaminophen] Allergy (Severe, Verified 05/16/16 03:15) heparin Allergy (Unknown, Verified 05/16/16 03:15) Heparin Analogues Allergy (Unknown, Verified 05/16/16 03:15) propoxyphene HCl [From Darvon] Allergy (Unknown, Verified 05/16/16 03:15) amoxicillin [Amoxicillin] Allergy (Verified 05/16/16 03:15) aspirin [Aspirin] Allergy (Verified 05/16/16 03:15) contrast dye Allergy (Uncoded 05/10/16 22:36) Home Medications: Medication Instructions Recorded Beclomethasone Qvar 40 [Qvar 40 1 puffs IH BID #1 mdi 02/17/16 (*)] Albuterol [Proventil Inhaler HFA 2 puffs IH Q4WA #1 mdi 03/14/16 (*)] AZITHROMYCIN [Z-PACK] 250 mg PO DAILY #6 tab 05/01/16 Doxycycline 100 mg Prepack#2 1 btl TAKEHOME EDNOW #0 btl 05/11/16 [Vibramycin 100 mg Prepack#2] Doxycycline Hyclate [Vibramycin 100 mg PO BID #30 cap 05/11/16 100 MG (*)] predniSONE [Prednisone] 40 mg PO DAILY #16 tablet 05/11/16 AZITHROMYCIN [Z-PACK] 250 mg PO DAILY #4 tab 05/16/16 predniSONE [Prednisone] 40 mg PO DAILY #16 tablet 05/18/16 Medical Decision Making - Diagnostics Imaging: Chest x-ray two views shows hyperinflation, no infiltrate, interpreted by me. ED Course/Re-evaluation: 12:45 a.m.- Initial patient encounter. He is requesting oxygen though his sat is 93%. We will get a chest x-ray and flu swab. 2:20 a.m.- The patient received oxygen here. He was given a DuoNeb. Chest x-ray was performed showing no pneumonia. He refused influenza testing. He does not have a fever. He may have a mild COPD exacerbation. I have offered him some prednisone, albuterol, antibiotics. Given that he is just finishing a course of azithromycin, he does not want any additional antibiotics, I feel this is reasonable. He will be discharged. Differential Diagnosis: This is a 55-year-old male with homelessness, COPD who presents with fever. Here his temperature is 37.6, a low-grade fever. He has his usual cough without any worsening respiratory distress. His oxygen saturation is 93% on room air which is quite good for him. Differential diagnosis includes COPD exacerbation, pneumonia, influenza. - Data Points Medications Given: Discontinued Medications Albuterol Sulfate (Proventil Inh Prepack) 1 mdi TAKEHOME EDNOW ONE Stop: 05/18/16 02:28 Last Admin: 05/18/16 02:32 Dose: 1 mdi Albuterol/Ipratropium (Duoneb) 3 ml IH EDNOW ONE Stop: 05/18/16 00:58 Last Admin: 05/18/16 01:31 Dose: 3 ml Ibuprofen (Motrin) 400 mg PO EDNOW ONE Stop: 05/18/16 00:57 Last Admin: 05/18/16 01:16 Dose: 400 mg Departure - Departure Disposition: Home, Routine, Self-Care Clinical Impression: Fever, COPD (chronic obstructive pulmonary disease) Condition: Good Instructions: Albuterol (By breathing), Fever in Adults (ED) Referrals: [facility] [Outside] - As per Instructions Prescriptions: predniSONE [Prednisone] 40 mg PO DAILY #16 tablet
[2016-05-18] MEDS ORDERED: ALBUTEROL INH PREPACK MDI TAKEHOME ONE (02:27)
[2016-05-18 02:44] VITALS: BP 114/69; PULSE 80; TEMP 98.4; O2SAT 91
--- NOTE | 2016-05-18 08:17 | DX ---
PA and Lateral Chest May 18, 2016 0051 hours Indication: Cough and fever. Comparison: Two-view chest dated May 10, 2016. Findings: The lungs are well aerated and clear. No pneumothorax, consolidation, or effusion. Heart si ze normal. Impression: Clear lungs. No pneumonia.
== END 2016-05-18 02:44 | disposition home or self-care (01) ==
LOC: EDUNIT#
DX: R50.9 Fever, unspecified (principal); J44.9 Chronic obstructive pulmonary disease, unspecified; F17.200 Nicotine dependence, unspecified, uncomplicated

== ENCOUNTER 2016-05-20 04:59 | Emergency (ER) | payer MEDICAID ==
[2016-05-20] MEDS ORDERED: IPRATROPIUM/ALBUTEROL 3 ML DEYVIAL IH ONE (05:11)
[2016-05-20 05:16] VITALS: RESP 22
[2016-05-20] MEDS ORDERED: DOXYCYCLINE HYCLATE 100 MG CAP/TAB PO ONE (05:40)
[2016-05-20] MEDS ORDERED: predniSONE 20 MG TAB PO ONE (05:40)
--- NOTE | 2016-05-20 05:40 | EDPHY ---
H & P Stated Complaint: SOB, "MEDS NOT HELPING!", COUGH, FLU X2 YRS Time Seen by Provider: 05/20/16 05:09 HPI/ROS: HPI The patient presents with cough, sore throat which have been present for the last several months though worse today. The cough is productive of a clear to yellowish sputum, he denies any shortness of breath currently. He is brought in by ambulance. His sats are in the 90s. He has been seen several times recently in the emergency room. He did complete azithromycin but has lost his prescription for doxy Cyclen. He has taken prednisone recently. REVIEW OF SYSTEMS Constitutional: No fever, no chills. Eyes: No discharge. ENT: No sore throat. Cardiovascular: No chest pain, no palpitations. Respiratory: No cough, no shortness of breath. Gastrointestinal: No abdominal pain, no vomiting. Genitourinary: No hematuria. Musculoskeletal: No back pain. Skin: No rashes. Neurological: No headache. PMHx: COPD, qualifies her home oxygen, though is not on it because he is homeless Soc Hx: Homeless, positive tobacco use PHYSICAL General Appearance: Alert, no distress, occasional cough Eyes: Pupils equal and round no pallor or injection ENT, Mouth: Mucous membranes moist Respiratory: There are no retractions, normal respiratory rate, wheezes auscultated Cardiovascular: Regular rate and rhythm Gastrointestinal: Abdomen is soft and non-tender, no masses, bowel sounds normal Neurological: A&O, moves all extremities Skin: Warm and dry, no rashes Musculoskeletal: Neck is supple non tender Extremities: symmetrical, full range of motion Psychiatric: Patient is oriented X 3, there is no agitation Source: Patient, EMS - Personal History Current Tetanus/Diphtheria Vaccine: Yes Tetanus Vaccine Date: 2013 - Medical/Surgical History Hx Asthma: Yes Hx Chronic Respiratory Disease: Yes Hx Diabetes: No Hx Cardiac Disease: No Hx Renal Disease: No Hx Cirrhosis: No Hx Alcoholism: No Hx HIV/AIDS: No Hx Splenectomy or Spleen Trauma: No Other PMH: CHRONIC PAIN, RA, COPD/ASTHMA, HEPATITIS (B,C,D,E,F), C-DIFF, wears home O2(non compliant),"self medicates for pain," HEROIN ABUSE/IVDA, C diff. DENTAL CARIES, MIGRAINES, PTSD, "broken back", "broken neck", FLU X2 YRS - Social History Smoking Status: Current every day smoker Constitutional: Initial Vital Signs Temperature (C) 37.5 C 05/20/16 05:00 Heart Rate 98 05/20/16 05:00 Respiratory Rate 22 H 05/20/16 05:00 Blood Pressure 106/80 05/20/16 05:00 O2 Sat (%) 91 L 05/20/16 05:00 O2 Delivery Mode Room Air Allergies/Adverse Reactions: acetaminophen [Acetaminophen] Allergy (Severe, Verified 05/16/16 03:15) heparin Allergy (Unknown, Verified 05/16/16 03:15) Heparin Analogues Allergy (Unknown, Verified 05/16/16 03:15) propoxyphene HCl [From Darvon] Allergy (Unknown, Verified 05/16/16 03:15) amoxicillin [Amoxicillin] Allergy (Verified 05/16/16 03:15) aspirin [Aspirin] Allergy (Verified 05/16/16 03:15) contrast dye Allergy (Uncoded 05/10/16 22:36) Home Medications: Medication Instructions Recorded Beclomethasone Qvar 40 [Qvar 40 1 puffs IH BID #1 mdi 02/17/16 (*)] Albuterol [Proventil Inhaler HFA 2 puffs IH Q4WA #1 mdi 03/14/16 (*)] AZITHROMYCIN [Z-PACK] 250 mg PO DAILY #6 tab 05/01/16 Doxycycline 100 mg Prepack#2 1 btl TAKEHOME EDNOW #0 btl 05/11/16 [Vibramycin 100 mg Prepack#2] Doxycycline Hyclate [Vibramycin 100 mg PO BID #30 cap 05/11/16 100 MG (*)] predniSONE [Prednisone] 40 mg PO DAILY #16 tablet 05/11/16 AZITHROMYCIN [Z-PACK] 250 mg PO DAILY #4 tab 05/16/16 predniSONE [Prednisone] 40 mg PO DAILY #16 tablet 05/18/16 Albuterol 17 gm IH QID PRN #1 aerosol 05/20/16 Doxycycline 100 mg Prepack#2 1 btl TAKEHOME EDNOW #2 btl 05/20/16 [Vibramycin 100 mg Prepack#2] Doxycycline Hyclate 100 mg PO BID #14 tab 05/20/16 predniSONE [Prednisone] 40 mg PO DAILY #16 tablet 05/20/16 Medical Decision Making - Diagnostics Imaging: Chest x-ray two views shows no infiltrate, no effusion, interpreted by me, radiology interpretation is pending. Differential Diagnosis: This is a 55-year-old homeless male with frequent ER visits, with history of COPD who presents with cough and sore throat. On exam his sat is in the low 90s , though this is normal for him. He is not in any respiratory distress. Differential diagnosis includes acute exacerbation of COPD, pneumonia, viral URI. In the emergency room, the patient was given a DuoNeb. Chest x-ray was ordered and showed no infiltrate or signs of pneumonia. He likely has a COPD exacerbation and I have given him a prescription for prednisone as well as issued him an albuterol inhaler. I have given him a prescription for doxycycline, as he feels this has helped him the most in the past, however he is worried about his ability to pay. Thus, I have given a note to the therapeutic case manager to see if we can help him with this. - Data Points Medications Given: Discontinued Medications Albuterol/Ipratropium (Duoneb) 3 ml IH EDNOW ONE Stop: 05/20/16 05:12 Last Admin: 05/20/16 05:33 Dose: 3 ml Doxycycline Hyclate (Doxycycline Hyclate) 100 mg PO EDNOW ONE PRN Reason: Protocol Stop: 05/20/16 05:41 Last Admin: 05/20/16 05:48 Dose: 100 mg Doxycycline Hyclate (Vibramycin 100 Mg Prepack#2) 1 btl TAKEHOME EDNOW ONE Stop: 05/20/16 06:03 Last Admin: 05/20/16 06:47 Dose: 1 btl Prednisone (Prednisone) 60 mg PO EDNOW ONE Stop: 05/20/16 05:41 Last Admin: 05/20/16 05:48 Dose: 60 mg Departure - Departure Disposition: Home, Routine, Self-Care Clinical Impression: Chronic obstructive pulmonary disease with acute exacerbation Condition: Good Instructions: COPD (Chronic Obstructive Pulmonary Disease) (ED) Referrals: [facility] [Outside] - As per Instructions Prescriptions: Albuterol 17 gm IH QID PRN #1 aerosol PRN Reason: dyspnea Doxycycline Hyclate 100 mg PO BID #14 tab predniSONE [Prednisone] 40 mg PO DAILY #16 tablet Doxycycline 100 mg Prepack#2 [Vibramycin 100 mg Prepack#2] 1 btl TAKEHOME EDNOW #2 btl
[2016-05-20] MEDS ORDERED: DOXYCYCLINE 100 MG PREPACK#2 BTL TAKEHOME ONE (06:02)
[2016-05-20 06:43] VITALS: BP 112/73; PULSE 89; TEMP 99; O2SAT 90
--- NOTE | 2016-05-20 08:43 | DX ---
Chest, PA and Lateral May 20, 2016 History: Shortness of breath. Comparison: May 18, 2016. Findings: Heart size is within normal limits. Pulmonary vascularity appears normal. There is an emphy sematous configuration to the chest. The lungs are clear of acute consolidation. Minimal linear scarr ing is seen in the lingula. No evidence for pleural effusion or pneumothorax. Impression: No evidence for acute cardiopulmonary abnormality.
== END 2016-05-20 06:48 | disposition home or self-care (01) ==
LOC: EDUNIT#
DX: J44.1 Chronic obstructive pulmonary disease with (acute) exacerbation (principal); F17.200 Nicotine dependence, unspecified, uncomplicated

== ENCOUNTER 2016-07-15 16:56 | Emergency (ER) | payer MEDICAID ==
--- NOTE | 2016-07-15 17:43 | EDPHY ---
H & P Time Seen by Provider: 07/15/16 17:08 HPI/ROS: Chief complaint. Cough HPI. 55-year-old male history COPD presents with cough for 2 weeks. Slight shortness of breath especially with exertion. No fever. Some runny nose and congestion. Cough is productive yellow sputum. No fever or chest pain. Tells me does not need a chest x-ray just wants medication. ROS Constitutional. no fever/chills, no weakness Eyes. no problems with vision ENT. no sore throat, no nasal drainage Cardiovascular. no chest pain Respiratory. Cough and shortness of breath Abdominal. no abdominal pain, no nausea/vomiting, no diarrhea . no problems urinating MS. no calf pain/swelling, no neck/back pain, no joint pain Skin. no rash Lymph. no swollen glands Neuro. no headache, no dizziness, no difficulty walking or with speech Past Medical/Surgical History: Past medical history chronic pain, rheumatoid arthritis, COPD, hepatitis, Clostridium difficile, heroin abuse and IV drug use, migraines, PTSD, broken back, broken neck, flu for 2 years Social History: Homeless single daily smoker no recent alcohol Smoking Status: Current every day smoker Physical Exam: General Appearance: Alert well-developed male mild distress vital signs are stable Eyes: Pupils equal and round no pallor or injection. ENT, Mouth: Mucous membranes are moist. Respiratory: No retractions. End expiratory rhonchi Cardiovascular: Regular rate and rhythm. Gastrointestinal: Abdomen is soft and nontender, no masses, bowel sounds normal. Neurological: Awake and alert, sensory and motor exams grossly normal. Skin: Warm and dry, no rashes. Musculoskeletal: Neck is supple nontender. Extremities symmetrical, full range of motion. Psychiatric: Patient is oriented X 3, there is no agitation. Constitutional: Initial Vital Signs Temperature (C) 36.6 C 07/15/16 16:57 Heart Rate 79 07/15/16 16:57 Respiratory Rate 22 H 07/15/16 16:57 Blood Pressure 101/63 07/15/16 16:57 O2 Sat (%) 92 07/15/16 16:57 O2 Delivery Mode Room Air Allergies/Adverse Reactions: acetaminophen [Acetaminophen] Allergy (Severe, Verified 05/16/16 03:15) heparin Allergy (Unknown, Verified 05/16/16 03:15) Heparin Analogues Allergy (Unknown, Verified 05/16/16 03:15) propoxyphene HCl [From Darvon] Allergy (Unknown, Verified 05/16/16 03:15) amoxicillin [Amoxicillin] Allergy (Verified 05/16/16 03:15) aspirin [Aspirin] Allergy (Verified 05/16/16 03:15) contrast dye Allergy (Uncoded 05/10/16 22:36) Home Medications: Medication Instructions Recorded Ciprofloxacin [Cipro] 500 mg PO BID #14 tab 07/15/16 predniSONE 40 mg PO DAILY #14 tablet 07/15/16 Medical Decision Making ED Course/Re-evaluation: Patient declines chest x-ray. Patient and I discussed treatment plan and the need for follow-up. He expresses understanding and agreement Patient is written prescriptions. Differential Diagnosis: Clinically the patient does not have pneumonia. This is exacerbation of COPD. I have considered chronic bronchitis as well Departure - Departure Disposition: Home, Routine, Self-Care Clinical Impression: Chronic obstructive pulmonary disease with acute exacerbation Condition: Good Instructions: COPD (Chronic Obstructive Pulmonary Disease) (ED) Additional Instructions: Use inhaler using 2 puffs every 4 hours. Prednisone taper. Cipro as antibiotic. Return for worsening symptoms. Follow up [facility] if not improved in the next 2-3 days Referrals: NONE *PRIMARY CARE P,. [Primary Care Provider] - As per Instructions [facility] [Outside] - As per Instructions Prescriptions: Ciprofloxacin [Cipro] 500 mg PO BID #14 tab predniSONE 40 mg PO DAILY #14 tablet
[2016-07-15] MEDS ORDERED: ALBUTEROL INH PREPACK MDI TAKEHOME ONE (18:04)
[2016-07-15] MEDS ORDERED: predniSONE 20 MG TAB PO ONE (18:04)
[2016-07-15 18:21] VITALS: BP 150/86; PULSE 70; RESP 14; TEMP 98.4; O2SAT 94
== END 2016-07-15 18:20 | disposition home or self-care (01) ==
LOC: EEVIPCON 16:56
DX: J44.1 Chronic obstructive pulmonary disease with (acute) exacerbation (principal); F17.200 Nicotine dependence, unspecified, uncomplicated

== ENCOUNTER 2016-08-01 22:28 | Observation (INO) | payer MEDICAID ==
[2016-08-01] MEDS ORDERED: IPRATROPIUM/ALBUTEROL 3 ML DEYVIAL ONE (23:07)
[2016-08-01] MEDS ORDERED: IPRATROPIUM/ALBUTEROL 3 ML DEYVIAL IH ONE (23:10)
[2016-08-01] MEDS ORDERED: predniSONE 20 MG TAB PO ONE (23:53)
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
[2016-08-02] MEDS ORDERED: ALBUTEROL 3 ML DEYVIAL IH ONE (01:39)
[2016-08-02] MEDS ORDERED: ALBUTEROL 3 ML DEYVIAL IH PRN (07:19)
[2016-08-02] MEDS ORDERED: ONDANSETRON DISINTEGRATING 4 MG TAB PO PRN (07:19)
[2016-08-02] MEDS ORDERED: ONDANSETRON 4 MG/2 ML VIAL IVP PRN (07:19)
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
[2016-08-02 08:48] LABS: % IMMATURE GRANULYOCYTES 0.4 % (0.0-1.1); ABSOLUTE IMMATURE GRANULOCYTES 0.02 10^3/uL (0.00-0.10); ADD DIFF? NO; ADD MORPH? NO; ADD SCAN? NO; ATYPICAL LYMPHOCYTE FLAG 40 (0-99); FRAGMENT RBC FLAG 0 (0-99); HEMATOCRIT 38.9 % (40.0-51.0); HEMOGLOBIN 13.7 g/dL (13.7-17.5); LEFT SHIFT FLG 10 (0-99); LIPEMIA HEMOLYSIS FLAG 90 (0-99); MEAN CELL HEMOGLOBIN 33.7 pg (27.9-34.1); MEAN CELL HEMOGLOBIN CONCENTR. 35.2 g/dL (32.4-36.7); MEAN CELL VOLUME 95.6 fL (81.5-99.8); MEAN PLATELET VOLUME 10.9 fL (8.7-11.7); PLATELET CLUMPS FLAG 0 (0-99); PLATELET COUNT 82 10^3/uL (150-400); RED BLOOD CELL COUNT 4.07 10^6/uL (4.40-6.38); RED CELL DISTRIBUTION WIDTH 12.8 % (11.5-15.2)
[2016-08-02] MEDS ORDERED: guaiFENesin 600 MG TAB.ER PO SCH (09:00)
[2016-08-02 09:27] LABS: ANION GAP 8 mEq/L (8-16); CARBON DIOXIDE 30 mEq/l (22-31); CHLORIDE 100 mEq/L (97-110); CREATININE 0.7 mg/dL (0.7-1.3); GLOMERULAR FILTRATION RATE > 60; GLUCOSE 190 mg/dL (70-100); POTASSIUM 4.3 mEq/L (3.5-5.2); SODIUM 138 mEq/L (134-144)
[2016-08-02] MEDS: predniSONE 20 MG TAB PO SCH (09:35)
[2016-08-02] MEDS: AZITHROMYCIN 250 MG TAB PO SCH (09:35)
[2016-08-02] MEDS: NICOTINE 14 MG/24 HR PATCH TD SCH (09:36)
[2016-08-02] MEDS: IPRATROPIUM/ALBUTEROL 3 ML DEYVIAL IH SCH ×4 (10:38→22:40)
[2016-08-02] MEDS: IBUPROFEN 600 MG TAB PO PRN ×2 (13:58→22:08)
[2016-08-02 16:06] VITALS: O2SAT 90
[2016-08-02] MEDS ORDERED: guaiFENesin 200 MG/10 ML UDCUP PO PRN (20:36)
[2016-08-02 20:53] LABS: PHENCYCLIDINE URINE BCH < 6 ng/ml (NEGATIVE); PHENCYCLIDINE URINE BCH NEGATIVE (NEGATIVE); TETRAHYDROCANNABINOL URINE < 5 ng/mL (NEGATIVE); TETRAHYDROCANNABINOL URINE NEGATIVE (NEGATIVE)
[2016-08-02 21:11] VITALS: TEMP 97.8
[2016-08-03 06:07] VITALS: RESP 18
[2016-08-03] MEDS: IPRATROPIUM/ALBUTEROL 3 ML DEYVIAL IH SCH ×2 (06:32→10:49)
[2016-08-03 07:42] VITALS: BP 118/74; PULSE 57
[2016-08-03] MEDS: NICOTINE 14 MG/24 HR PATCH TD SCH (09:48)
[2016-08-03] MEDS: predniSONE 20 MG TAB PO SCH (09:49)
[2016-08-03] MEDS: AZITHROMYCIN 250 MG TAB PO SCH (09:49)
--- NOTE | 2016-08-03 20:39 | GDS ---
[f rep st] DISCHARGE SUMMARY DISCHARGE DIAGNOSES: 1. Chronic obstructive pulmonary disease with acute exacerbation. 2. Tobacco abuse. HISTORY: For details, please see the history and physical dated August 04, 2016. In brief, the audra delong is a 56-year-old male with history of COPD and ongoing tobacco use who presents to the emergency department with cough and shortness of breath. He was admitted to the hospital for acute exacerbat ion of his COPD. HOSPITAL COURSE: The patient is admitted to med/surg unit. His chest x-ray did not reveal pneumoni a. He was treated with nebulizers, prednisone and azithromycin. He maintained his oxygen saturation s around 90% on room air and did not require supplemental oxygen at discharge. He has been unable t o the obtain home oxygen in the past due to his homeless status. His flu swab was negative. DISPOSITION: Patient is discharged to the street in stable condition. FOLLOWUP: The patient is instructed to follow up at [facility]. DISCHARGE MEDICATIONS: Please see [facility] for complete updated outpatient medication list. New me dications on discharge include: 1. Prednisone taper over the next 12 days, 40 mg p.o. daily for 3 days, then 30 mg p.o. daily for 3 days, then 20 mg p.o. daily for 3 days, then 10 mg p.o. daily for 3 days. 2. Azithromycin 250 mg p.o. daily. No refills. 3. Flovent 1 puff inhaled twice daily. 4. Spiriva 18 mcg inhaled daily. 5. He will continue albuterol as well. /[id number]/MODL
== END 2016-08-03 11:15 | disposition home or self-care (01) ==
LOC: F2W 08-02 03:53
PROVIDERS: ADMIT Internal Medicine; ATTEND Internal Medicine
DX: J44.1 Chronic obstructive pulmonary disease with (acute) exacerbation (principal); Z72.0 Tobacco use
CPT/HCPCS: 71020; 99285; G0378; 80307; G0480

== ENCOUNTER 2016-08-04 20:55 | Emergency (ER) | payer MEDICAID ==
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
[2016-08-04] MEDS ORDERED: IPRATROPIUM/ALBUTEROL 3 ML DEYVIAL IH ONE (21:54)
[2016-08-04] MEDS ORDERED: predniSONE 20 MG TAB PO ONE (21:54)
[2016-08-04] MEDS ORDERED: ALBUTEROL INH PREPACK MDI TAKEHOME ONE (22:15)
[2016-08-04] MEDS ORDERED: CIPROFLOXACIN 500 MG TAB PO ONE (22:16)
[2016-08-04 22:40] VITALS: BP 124/86; PULSE 98; RESP 16; O2SAT 94
== END 2016-08-04 22:40 | disposition home or self-care (01) ==
LOC: EEVIPCON 20:55
DX: J44.9 Chronic obstructive pulmonary disease, unspecified (principal); F17.200 Nicotine dependence, unspecified, uncomplicated

== ENCOUNTER 2016-09-07 17:22 | Emergency (ER) | payer MEDICAID ==
[2016-09-07 17:27] VITALS: TEMP 98.1
[2016-09-07] MEDS ORDERED: IPRATROPIUM/ALBUTEROL 3 ML DEYVIAL IH ONE ×2 (17:48→18:33)
[2016-09-07] MEDS ORDERED: methylPREDNISolone SOD SUCC 125 MG/2 ML VIAL IM ONE (17:48)
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
[2016-09-07] MEDS ORDERED: predniSONE 20 MG TAB PO ONE (17:59)
[2016-09-07] MEDS ORDERED: predniSONE 20 MG TAB ONE (18:00)
[2016-09-07] MEDS ORDERED: IPRATROPIUM/ALBUTEROL 3 ML DEYVIAL ONE (18:24)
[2016-09-07 18:58] VITALS: BP 134/89; PULSE 92; RESP 16; O2SAT 92
== END 2016-09-07 18:58 | disposition home or self-care (01) ==
DX: J44.1 Chronic obstructive pulmonary disease with (acute) exacerbation (principal); F17.200 Nicotine dependence, unspecified, uncomplicated

== ENCOUNTER 2016-09-29 20:56 | Inpatient (IN) | payer MEDICAID ==
[2016-09-29] MEDS ORDERED: methylPREDNISolone SOD SUCC 125 MG/2 ML VIAL IVP ONE (22:10)
[2016-09-29] MEDS ORDERED: IPRATROPIUM/ALBUTEROL 3 ML DEYVIAL IH ONE (22:10)
--- NOTE | 2016-09-29 22:15 | EDPHY ---
H & P Stated Complaint: SOB - Personal History Current Tetanus/Diphtheria Vaccine: Yes Current Tetanus Diphtheria and Acellular Pertussis (TDAP): Yes Tetanus Vaccine Date: 2015 - Medical/Surgical History Hx Asthma: Yes Hx Chronic Respiratory Disease: Yes Hx Diabetes: No Hx Cardiac Disease: No Hx Renal Disease: No Hx Cirrhosis: No Hx Alcoholism: No Hx HIV/AIDS: No Hx Splenectomy or Spleen Trauma: No Other PMH: CHRONIC PAIN, RA, COPD/ASTHMA, HEPATITIS (B,C,D,E,F), C-DIFF, wears home O2(non compliant),"self medicates for pain," HEROIN ABUSE/IVDA, C diff. DENTAL CARIES, MIGRAINES, PTSD, "broken back", "broken neck", FLU X2 YRS - Social History Smoking Status: Heavy smoker Time Seen by Provider: 09/29/16 22:02 HPI/ROS: CHIEF COMPLAINT: Dyspnea HISTORY OF PRESENT ILLNESS: 56-year-old homeless male history of COPD, history of multiple admissions for COPD exacerbation arrives via ambulance from the [facility] after he requested a call 911 for complaints of dyspnea. States that he has been feeling dyspneic ever since being in the ER a few weeks ago and completing his prednisone taper. He also complains of intermittent hemoptysis. He does not have any inhaled medications. Denies chest pain. Denies syncope or near syncope. Denies headache. Denies abdominal pain. Per EMS he had a pre-hospital pulse oxygenation 76%, up to 94% on 4 L of oxygen. No home oxygen PRIMARY CARE PROVIDER:no PCP REVIEW OF SYSTEMS: A ten point review of systems was performed and is negative with the exception of the items mentioned in the HPI PAST MEDICAL & SURGICAL HISTORY: COPD. Danika hepatitis. SOCIAL HISTORY: Daily smoker. Homeless. PHYSICAL EXAM (Prior to examination, patient consented to physical exam, hands were washed and my usual and customary physical exam procedures followed) 1) GENERAL: Well-developed, well-nourished, alert and oriented. Appears to be in no acute distress. 2) HEAD: Normocephalic, atraumatic 3) HEENT: Sclera anicteric. 4) NECK: Full range of motion, no meningeal signs. 5) LUNGS: Bilateral end-expiratory wheeze and right lower lobe rales , no retractions or accessory muscle use 6) HEART: Regular rate and rhythm, no murmur, no heave, no gallop. 7) ABDOMEN: No guarding, no rebound, no focal tenderness, 8) MUSCULOSKELETAL: Moving all extremities, no focal areas of tenderness 9) BACK: No CVA tenderness 10) SKIN: No rash, no petechiae. DIFFERENTIAL DIAGNOSIS: In no particular include but limited to pulmonary embolus, COPD exacerbation, pulmonary infectious etiology (Hunter Yañez) Constitutional: Initial Vital Signs Temperature (C) 36.9 C 09/29/16 21:06 Heart Rate 80 09/29/16 21:06 Respiratory Rate 24 H 09/29/16 21:06 Blood Pressure 141/84 H 09/29/16 21:06 O2 Sat (%) 94 09/29/16 21:06 O2 Delivery Mode Nasal Cannula O2 (L/minute) 2 Allergies/Adverse Reactions: acetaminophen [Acetaminophen] Allergy (Severe, Verified 09/29/16 21:05) heparin Allergy (Unknown, Verified 09/29/16 21:05) Heparin Analogues Allergy (Unknown, Verified 09/29/16 21:05) propoxyphene HCl [From Darvon] Allergy (Unknown, Verified 09/29/16 21:05) amoxicillin [Amoxicillin] Allergy (Verified 09/29/16 21:05) aspirin [Aspirin] Allergy (Verified 09/29/16 21:05) contrast dye Allergy (Uncoded 09/29/16 21:05) Home Medications: Medication Instructions Recorded Multivitamins [Multivitamin (*)] 1 each PO DAILY 08/02/16 Albuterol [Proventil Inhaler HFA 1 - 2 puffs IH DAILY PRN #1 mdi 08/03/16 (*)] Azithromycin [Zithromax] 250 mg PO DAILY #4 tab 08/03/16 Fluticasone Hfa 110 Mcg [Flovent 1 puffs IH BID #1 mdi 08/03/16 110 MCG Hfa MDI (*)] Tiotropium Inhaler [Spiriva 18 mcg IH DAILY #1 mdi 08/03/16 Handihaler] predniSONE 40 mg PO DAILY #15 tablet 08/03/16 Ciprofloxacin [Cipro] 500 mg PO BID #14 tab 08/04/16 Albuterol Sulfate [Proair Hfa] 8.5 gm IH Q4-6PRN PRN #0 hfa.[email or web address] 09/07/16 predniSONE 50 mg PO DAILY #7 tablet 09/07/16 Medical Decision Making - Diagnostics EKG Interpretation: 12-lead EKG interpreted by me; official reading is in trace master. My interpretation is sinus rhythm rate 78 no acute ischemic changes. (William Donovan) Imaging Results: Imaging Impressions Chest X-Ray 09/29/16 22:02 Impression: Findings consistent with airways disease with superimposed basilar opacities right greater than left probably reflecting right basilar pneumonia and atelectasis versus left lower lung pneumonia. Follow-up is recommended to ensure complete resolution. If opacities persist CT could be considered in the future for further evaluation.. ED Course/Re-evaluation: I reviewed old medical records. He has history of hospitalization in July 2016. He is noted to have a new right lower lobe infiltrate. He will be started on cefepime for possible healthcare acquired pneumonia as well as atypical. He is maintaining saturations in the mid 70s on room air. Case discussed Dr. William Donovan who is familiar with the patient as well from prior hospitalizations. 10:40 p.m.: Phone consultation with hospitalist Dr. Clark wound patient. ( Hunter Yañez) Other Provider: PHYSICIAN DOCUMENTATION: The patient was evaluated and managed by the Physician Cosmetics Presser and myself. I have reviewed the chart and agree with the findings and plan of care as documented. In addition, I examined the patient myself at 2140. History confirmed as coughing and more short of breath for 2 weeks. Physical findings as follows: Diffuse rhonchi, but speaks in full sentences, no calf tenderness or swelling. Respiratory rate 24, but afebrile and not tachycardic and WBC less than 12,000. Does not meet SIRS criteria in the emergency department. Does not have sepsis in ED, HR <90. Empiric antibiotics for HCAP including cefepime and Levaquin, RAD treatment including steroids. Admission for pulmonary infection with severe hypoxemia. D-dimer 1.73, so CTA ordered. Prelim report reviewed at 655am on 09/30, negative for PE, bilateral pneumonia. I am the secondary supervising physician. (William Donovan) - Data Points Laboratory Results: Laboratory Results 09/29/16 22:32 09/29/16 22:32 09/29/16 09/29/16 09/29/16 22:32 22:32 22:32 WBC RBC Hgb Hct MCV MCH MCHC RDW Plt Count MPV Neut % (Auto) Lymph % (Auto) [place]auf[place] % (Auto) Eos % (Auto) Baso % (Auto) Nucleat RBC Rel Count Absolute Neuts (auto) Absolute Lymphs (auto) Absolute Monos (auto) Absolute Eos (auto) Absolute Basos (auto) Absolute Nucleated RBC Immature Gran % Immature Gran # D-Dimer 1.73 ug/mLFEU H ug/mLFEU (0.00-0.50) VBG Lactic Acid 1.0 mmol/L mmol/L (0.7-2.1) Sodium 132 mEq/L L mEq/L (134-144) Potassium 3.3 mEq/L L mEq/L (3.5-5.2) Chloride 96 mEq/L L mEq/L (97-110) Carbon Dioxide 27 mEq/l mEq/l (22-31) Anion Gap 9 mEq/L mEq/L (8-16) BUN 6 mg/dL L mg/dL (7-23) Creatinine 0.7 mg/dL mg/dL (0.7-1.3) Estimated GFR > 60 Glucose 104 mg/dL H mg/dL (70-100) Calcium 8.3 mg/dL L mg/dL (8.5-10.4) Troponin I < 0.012 ng/mL ng/mL (0-0.034) 09/29/16 22:32 WBC 11.89 10^3/uL H 10^3/uL (3.80-9.50) RBC 4.01 10^6/uL L 10^6/uL (4.40-6.38) Hgb 13.2 g/dL L g/dL (13.7-17.5) Hct 37.6 % L % (40.0-51.0) MCV 93.8 fL fL (81.5-99.8) MCH 32.9 pg pg (27.9-34.1) MCHC 35.1 g/dL g/dL (32.4-36.7) RDW 13.0 % % (11.5-15.2) Plt Count 80 10^3/uL L 10^3/uL (150-400) MPV 10.7 fL fL (8.7-11.7) Neut % (Auto) 73.5 % % (39.3-74.2) Lymph % (Auto) 18.0 % % (15.0-45.0) [place] % (Auto) 6.7 % % (4.5-13.0) Eos % (Auto) 0.6 % % (0.6-7.6) Baso % (Auto) 0.4 % % (0.3-1.7) Nucleat RBC Rel Count 0.0 % % (0.0-0.2) Absolute Neuts (auto) 8.74 10^3/uL H 10^3/uL (1.70-6.50) Absolute Lymphs (auto) 2.14 10^3/uL 10^3/uL (1.00-3.00) Absolute Monos (auto) 0.80 10^3/uL 10^3/uL (0.30-0.80) Absolute Eos (auto) 0.07 10^3/uL 10^3/uL (0.03-0.40) Absolute Basos (auto) 0.05 10^3/uL 10^3/uL (0.02-0.10) Absolute Nucleated RBC 0.00 10^3/uL 10^3/uL (0-0.01) Immature Gran % 0.8 % % (0.0-1.1) Immature Gran # 0.09 10^3/uL 10^3/uL (0.00-0.10) D-Dimer VBG Lactic Acid Sodium Potassium Chloride Carbon Dioxide Anion Gap BUN Creatinine Estimated GFR Glucose Calcium Troponin I Medications Given: Discontinued Medications Albuterol/Ipratropium (Duoneb) 3 ml IH EDNOW ONE Stop: 09/29/16 22:11 Last Admin: 09/29/16 22:30 Dose: 3 ml Diphenhydramine HCl (Benadryl Injection) 50 mg IVP EDNOW ONE Stop: 09/30/16 00:33 Last Admin: 09/30/16 00:45 Dose: 50 mg Cefepime HCl 2 gm/ Dextrose 100 mls @ 200 mls/hr IV EDNOW ONE PRN Reason: Protocol Stop: 09/29/16 23:59 Last Admin: 09/30/16 02:12 Dose: Not Given Levofloxacin/Dextrose (Levaquin 750 Mg (Premix)) 150 mls @ 100 mls/hr IV EDNOW ONE PRN Reason: Protocol Stop: 09/30/16 00:02 Last Admin: 09/29/16 23:17 Dose: 150 mls Methylprednisolone Sodium Succinate (Solu-Medrol) 125 mg IVP EDNOW ONE Stop: 09/29/16 22:11 Last Admin: 09/29/16 22:35 Dose: 125 mg Departure - Departure Disposition: [facility] Inpatient Acute Clinical Impression: HCAP (healthcare-associated pneumonia), Chronic obstructive pulmonary disease with acute exacerbation Pneumonia Qualifiers: Pneumonia type: due to unspecified organism Laterality: right Lung location: lower lobe of lung Qualified Code(s): J18.1 - Lobar pneumonia, unspecified organism Condition: Fair
--- NOTE | 2016-09-29 22:26 | CPEKG ---
Heart Rate: 78 RR Interval: 769 P-R Interval: 148 QRSD Interval: 90 QT Interval: 372 QTC Interval: 424 P [place]: 69 QRS [place]: 74 T Wave [place]: 85 EKG Severity - NORMAL ECG - EKG Impression: SINUS RHYTHM Electronically Signed By: William Donovan 29-Sep-2016 22:40:35
[2016-09-29 22:43] LABS: % IMMATURE GRANULYOCYTES 0.8 % (0.0-1.1); ABSOLUTE IMMATURE GRANULOCYTES 0.09 10^3/uL (0.00-0.10); ADD DIFF? NO; ADD MORPH? NO; ADD SCAN? NO; ATYPICAL LYMPHOCYTE FLAG 20 (0-99); FRAGMENT RBC FLAG 0 (0-99); HEMATOCRIT 37.6 % (40.0-51.0); HEMOGLOBIN 13.2 g/dL (13.7-17.5); LEFT SHIFT FLG 60 (0-99); LIPEMIA HEMOLYSIS FLAG 90 (0-99); MEAN CELL HEMOGLOBIN 32.9 pg (27.9-34.1); MEAN CELL HEMOGLOBIN CONCENTR. 35.1 g/dL (32.4-36.7); MEAN CELL VOLUME 93.8 fL (81.5-99.8); MEAN PLATELET VOLUME 10.7 fL (8.7-11.7); PLATELET CLUMPS FLAG 10 (0-99); PLATELET COUNT 80 10^3/uL (150-400); RED BLOOD CELL COUNT 4.01 10^6/uL (4.40-6.38)
[2016-09-29 23:00] LABS: ANION GAP 9 mEq/L (8-16); CALCIUM 8.3 mg/dL (8.5-10.4); CARBON DIOXIDE 27 mEq/l (22-31); CHLORIDE 96 mEq/L (97-110); CREATININE 0.7 mg/dL (0.7-1.3); GLOMERULAR FILTRATION RATE > 60; GLUCOSE 104 mg/dL (70-100); POTASSIUM 3.3 mEq/L (3.5-5.2); SODIUM 132 mEq/L (134-144)
[2016-09-29 23:12] LABS: TROPONIN I < 0.012 ng/mL (0-0.034)
[2016-09-29] MEDS ORDERED: CEFEPIME HCL 2 GM in D5W 100 ML IV ONE (23:30)
[2016-09-30] MEDS ORDERED: ONDANSETRON 4 MG/2 ML VIAL IVP PRN (00:18)
[2016-09-30] MEDS ORDERED: ALBUTEROL 3 ML DEYVIAL IH PRN (00:18)
[2016-09-30] MEDS ORDERED: IOPAMIDOL (ISOVUE 370) 100 ML BTL IV ONE (00:18)
[2016-09-30] MEDS ORDERED: ONDANSETRON DISINTEGRATING 4 MG TAB PO PRN (00:18)
[2016-09-30] MEDS ORDERED: LORazepam 2 MG/ML INJ IVP PRN (00:18)
[2016-09-30] MEDS ORDERED: NS 1,000 ML IV SCH (00:30)
--- NOTE | 2016-09-30 00:32 | PDGENHP ---
History and Physical - Chief Complaint shortness of breath - History of Present Illness patient is a 56-year-old male with a history of COPD, chronic respiratory failure (Although not able to maintain home O2 ) PTSD, chronic HCV/HBV infection who presents to the ED with complaint of shortness of breath and cough. he states his symptoms 1st started about 2 weeks ago after finishing a previous prescription of prednisone. he reports initially he had wheezing and dyspnea output, but then this became associated with a thick productive cough, intermittent fevers and chills. By day of presentation, patient states his symptoms were moderately severe, which is why he came to the ED. He denies any associated nausea vomiting or diarrhea, also denies any chest pain, palpitations or lightheadedness. On arrival to the ED patient was afebrile and hemodynamically stable, although hypoxic on room air. Labs revealed mild leukocytosis, and normal lactic acid, hypokalemia. Chest x-ray revealed new right lower lobe infiltrate , consistent with pneumonia. CT angio chest was then obtained, was negative for PE but did reveal multilobar right sided pneumonia. He was cultured and initiated on antibiotics. History Information - Allergies/Home Medication List Allergies/Adverse Reactions: acetaminophen [Acetaminophen] Allergy (Severe, Verified 09/29/16 21:05) heparin Allergy (Unknown, Verified 09/29/16 21:05) Heparin Analogues Allergy (Unknown, Verified 09/29/16 21:05) propoxyphene HCl [From Darvon] Allergy (Unknown, Verified 09/29/16 21:05) amoxicillin [Amoxicillin] Allergy (Verified 09/29/16 21:05) aspirin [Aspirin] Allergy (Verified 09/29/16 21:05) contrast dye Allergy (Uncoded 09/29/16 21:05) Home Medications: Multivitamins [Multivitamin (*)] 1 each PO DAILY 08/02/16 [Last Taken Unknown] I have personally reviewed and updated: family history, medical history, social history, surgical history - Past Medical History Additional medical history: copd. chronic hepatitis b andc. PTSD. chronic pain syndrome - Surgical History Additional surgical history: teeth extractions - Family History Positive for: non-pertinent - Social History Smoking Status: Heavy smoker Alcohol Use: Occasionally (no daily use per patient) Drug Use: Heroin (h/o heroin) Additional social history: homeless M Review of Systems ROS: 10pt was reviewed & negative except for what was stated in HPI & below Physical Exam Temp Pulse Resp BP Pulse Ox 36.9 C 77 20 123/90 H 89 L 09/29/16 21:06 09/29/16 23:15 09/29/16 23:15 09/29/16 23:15 09/29/16 23:15 O2 (L/minute) 8 Constitutional: no apparent distress, appears nourished, not in pain Eyes: PERRL, anicteric sclera, EOMI Ears, Nose, Mouth, Throat: moist mucous membranes, hearing normal, ears appear normal, no oral mucosal ulcers Cardiovascular: regular rate and rhythym, no murmur, rub, or gallop, No JVD, No edema Peripheral Pulses: 2+: dorsalis-pedis (R), dorsalis-pedis (L) Respiratory: no respiratory distress, no rales or rhonchi, clear to auscultation Gastrointestinal: normoactive bowel sounds, soft, non-tender abdomen, no palpable masses Genitourinary: no bladder fullness, no bladder tenderness Skin: warm, normal color, no rashes or abrasions, no fluctuance, no induration, No mottled Musculoskeletal: full muscle strength, no muscle tenderness, normal joint ROM, no joint effusions Neurologic: AAOx3, sensation intact bilaterally, CN II-XII Intact, No weakness, No numbness, No facial droop Psychiatric: interacting appropriately, not anxious, not encephalopathic, thought process linear Lab Data & Imaging Review 09/30/16 04:57 09/30/16 04:57 WBC 11.89 10^3/uL (3.80-9.50) H 09/29/16 22:32 RBC 4.01 10^6/uL (4.40-6.38) L 09/29/16 22:32 Hgb 13.2 g/dL (13.7-17.5) L 09/29/16 22:32 Hct 37.6 % (40.0-51.0) L 09/29/16 22:32 MCV 93.8 fL (81.5-99.8) 09/29/16 22:32 MCH 32.9 pg (27.9-34.1) 09/29/16 22:32 MCHC 35.1 g/dL (32.4-36.7) 09/29/16: RDW 13.0 % (11.5-15.2) 09/29/16: Plt Count 80 10^3/uL (150-400) L 09/29/16: MPV 10.7 fL (8.7-11.7) 09/29/16: Neut % (Auto) 73.5 % (39.3-74.2) 09/29/16: Lymph % (Auto) 18.0 % (15.0-45.0) 09/29/16: [place] % (Auto) 6.7 % (4.5-13.0) 09/29/16: Eos % (Auto) 0.6 % (0.6-7.6) 09/29/16: Baso % (Auto) 0.4 % (0.3-1.7) 09/29/16: Nucleat RBC Rel Count 0.0 % (0.0-0.2) 09/29/16: Absolute Neuts (auto) 8.74 10^3/uL (1.70-6.50) H 09/29/16: Absolute Lymphs (auto) 2.14 10^3/uL (1.00-3.00) 09/29/16: Absolute Monos (auto) 0.80 10^3/uL (0.30-0.80) 09/29/16: Absolute Eos (auto) 0.07 10^3/uL (0.03-0.40) 09/29/16: Absolute Basos (auto) 0.05 10^3/uL (0.02-0.10) 09/29/16: Absolute Nucleated RBC 0.00 10^3/uL (0-0.01) 09/29/16: Immature Gran % 0.8 % (0.0-1.1) 09/29/16: Immature Gran # 0.09 10^3/uL (0.00-0.10) 09/29/16: D-Dimer 1.73 ug/mLFEU (0.00-0.50) H 09/29/16:32 VBG Lactic Acid 1.0 mmol/L (0.7-2.1) 09/29/16 22:32 Sodium 132 mEq/L (134-144) L 09/29/16 22:32 Potassium 3.3 mEq/L (3.5-5.2) L 09/29/16 22:32 Chloride 96 mEq/L (97-110) L 09/29/16 22:32 Carbon Dioxide 27 mEq/l (22-31) 09/29/16 22:32 Anion Gap 9 mEq/L (8-16) 09/29/16 22:32 BUN 6 mg/dL (7-23) L 09/29/16 22:32 Creatinine 0.7 mg/dL (0.7-1.3) 09/29/16 22:32 Estimated GFR > 60 09/29/16 22:32 Glucose 104 mg/dL (70-100) H 09/29/16 22:32 Calcium 8.3 mg/dL (8.5-10.4) L 09/29/16 22:32 Troponin I < 0.012 ng/mL (0-0.034) 09/29/16 22:32 Visualized and Interpreted Chest x-ray results: Yes Chest X-Ray results: infiltrate (left lower lobe) EKG Interpretation: Positive for: normal sinsus rhythm Assessment & Plan Assessment: patient is a 56-year-old male with a history of COPD, chronic respiratory failure who presents to the ED with complaint of shortness of breath and productive cough. ED evaluation reveals acute COPD exacerbation as well as new right-sided multilobar pneumonia. Plan: # acute on chronic hypoxic respiratory failure Likely a combination of acute COPD exacerbation and acute pneumonia. CT angio has ruled out pulmonary embolism. He has been initiated on steroids, nebs with significant improvement in hypoxia. Antibiotics also initiated. - cont prednisone daily - cont duonebs standing and prn - supplemental O2 - cont pneumonia treatment # acute multilobar pneumonia Pneumonia involving bilateral lower lobes, R>L. Given recent hospitalizations, will cover for MRSA/gram neg bacteria. Was given levaquin in ED, will switch to vancomycin. - check sputum culture, influenza swab - f/u blood cultures - cont vancomycin/cefepime/azithromycin # dispo: admit to inpatient service for likely > 2MN stay # gen: regular diet DVT ppx: SCDs, allergy to heparin Full code
[2016-09-30 01:37] LABS: COLOR PALE YELLOW; LEUKOCYTE ESTERASE,URINE NEGATIVE (NEGATIVE); NITRITE,URINE NEGATIVE (NEGATIVE)
[2016-09-30 05:26] LABS: % IMMATURE GRANULYOCYTES 0.6 % (0.0-1.1); ABSOLUTE IMMATURE GRANULOCYTES 0.05 10^3/uL (0.00-0.10); ADD DIFF? NO; ADD MORPH? NO; ADD SCAN? NO; ATYPICAL LYMPHOCYTE FLAG 20 (0-99); FRAGMENT RBC FLAG 0 (0-99); HEMATOCRIT 39.4 % (40.0-51.0); HEMOGLOBIN 13.6 g/dL (13.7-17.5); LEFT SHIFT FLG 50 (0-99); LIPEMIA HEMOLYSIS FLAG 90 (0-99); MEAN CELL HEMOGLOBIN 32.4 pg (27.9-34.1); MEAN CELL HEMOGLOBIN CONCENTR. 34.5 g/dL (32.4-36.7); MEAN CELL VOLUME 93.8 fL (81.5-99.8); MEAN PLATELET VOLUME 10.8 fL (8.7-11.7); PLATELET CLUMPS FLAG 0 (0-99); PLATELET COUNT 70 10^3/uL (150-400); RED CELL DISTRIBUTION WIDTH 12.9 % (11.5-15.2)
[2016-09-30 05:31] LABS: INR 1.19 (0.83-1.16); PROTIME(PATIENT) 15.1 SEC (12.0-15.0)
[2016-09-30 05:32] LABS: APTT 28.6 SEC (23.0-38.0)
[2016-09-30 05:49] LABS: ANION GAP 7 mEq/L (8-16); CARBON DIOXIDE 29 mEq/l (22-31); CHLORIDE 100 mEq/L (97-110); CREATININE 0.8 mg/dL (0.7-1.3); GLOMERULAR FILTRATION RATE > 60; GLUCOSE 163 mg/dL (70-100); MAGNESIUM 1.9 mg/dL (1.6-2.3); POTASSIUM 4.3 mEq/L (3.5-5.2); SODIUM 136 mEq/L (134-144)
[2016-09-30 05:53] LABS: CREATINE KINASE-MB FRACTION 0.67 ng/mL (0-3.19); TROPONIN I < 0.012 ng/mL (0-0.034)
[2016-09-30] MEDS: IPRATROPIUM/ALBUTEROL 3 ML DEYVIAL IH SCH ×4 (06:08→20:49)
[2016-09-30] MEDS ORDERED: VANCOMYCIN HCL/NORMAL SALINE 250 ML IV SCH (08:30)
[2016-09-30] MEDS ORDERED: CEFEPIME HCL 1 GM in D5W 50 ML IV SCH (09:00)
[2016-09-30] MEDS ORDERED: AZITHROMYCIN IV 500 MG in D5W 250 ML IV SCH (09:00)
[2016-09-30] MEDS: predniSONE 20 MG TAB PO SCH (09:46)
--- NOTE | 2016-09-30 12:02 | HOSPPROG ---
Hospitalist Progress Note Assessment/Plan: 56 y/o male new ot my care 09/30 with # acute on chronic hypoxic respiratory failure Likely a combination of acute COPD exacerbation and acute pneumonia. CT angio has ruled out pulmonary embolism. He has been initiated on steroids, nebs with significant improvement in hypoxia. Antibiotics also initiated. - cont prednisone daily - cont duonebs standing and prn - supplemental O2 - cont pneumonia treatment # acute multilobar pneumonia Pneumonia involving bilateral lower lobes, R>L. - will continue levaquin monother - f/u blood cultures #chronic pain with opioid dependency -start oxyir # dispo: admit to inpatient service for likely > 2MN stay # gen: regular diet DVT ppx: SCDs, allergy to heparin Full code Subjective: reports pain all over. h/o chronic pain. requests narcotics Objective: Vital Signs Temp Pulse Resp BP Pulse Ox 36.9 C 88 29 H 107/64 91 L 09/30/16 11:24 09/30/16 11:24 09/30/16 11:24 09/30/16 11:24 09/30/16 11:24 Laboratory Results 09/30/16 04:57 09/30/16 04:57 09/29/16 09/30/16 10/01/16 05:59 05:59 05:59 Intake Total 420 350 Balance 420 350 PT 15.1 SEC (12.0-15.0) H 09/30/16 04:57 INR 1.19 (0.83-1.16) H 09/30/16 04:57 - Physical Exam Constitutional: chronically ill appearing Cardiovascular: regular rate and rhythym, no murmur, rub, or gallop Respiratory: no respiratory distress, rhonchi, No expiratory wheeze, No inspiratory crackles Gastrointestinal: normoactive bowel sounds, soft, non-tender abdomen, no palpable masses ICD10 Worksheet Patient Problems: Problems Problem Status Onset Pneumonia Acute Hepatitis C Chronic HCAP (healthcare-associated pneumonia) Acute Sepsis Acute Chronic obstructive pulmonary disease with acute exacerbation Acute COPD (chronic obstructive pulmonary disease) Acute Bronchitis Acute Facial abscess Acute Acute bronchitis Acute Pneumonia Acute
[2016-09-30] MEDS: oxyCODONE IR 5 MG TAB PO PRN ×2 (12:33→18:27)
[2016-09-30] MEDS: NICOTINE 7 MG/24 HR PATCH TD SCH (21:07)
[2016-10-01] MEDS: oxyCODONE IR 5 MG TAB PO PRN ×4 (01:10→19:31)
[2016-10-01] MEDS: IPRATROPIUM/ALBUTEROL 3 ML DEYVIAL IH SCH ×4 (05:42→21:50)
[2016-10-01] MEDS: predniSONE 20 MG TAB PO SCH (07:10)
[2016-10-01] MEDS: MULTIVITAMINS 1 EACH TAB PO SCH (07:11)
[2016-10-01] MEDS: NICOTINE 7 MG/24 HR PATCH TD SCH (07:11)
[2016-10-01] MEDS: guaiFENesin/CODEINE PHOS 10 ML UDCUP PO PRN ×3 (08:52→21:45)
--- NOTE | 2016-10-01 15:17 | HOSPPROG ---
Hospitalist Progress Note Assessment/Plan: 56 y/o male new to my care 09/30 with # acute on chronic hypoxic respiratory failure Likely a combination of acute COPD exacerbation and acute pneumonia. CT angio has ruled out pulmonary embolism. He has been initiated on steroids, nebs with significant improvement in hypoxia. Antibiotics also initiated. - cont prednisone daily - cont duonebs standing and prn - supplemental O2 - cont pneumonia treatment # acute multilobar pneumonia Pneumonia involving bilateral lower lobes, R>L. - will continue levaquin monother - f/u blood cultures #chronic pain with opioid dependency -start oxyir # dispo: admit to inpatient service for likely > 2MN stay # gen: regular diet DVT ppx: SCDs, allergy to heparin Full code Subjective: still short of breath. reports cough. no fever or chills. total body pain improved with oxyir Objective: Vital Signs Temp Pulse Resp BP Pulse Ox 37.1 C 62 16 114/72 84 L 10/01/16 08:00 10/01/16 11:34 10/01/16 11:34 10/01/16 08:00 10/01/16 11:34 Laboratory Results 09/30/16 04:57 09/30/16 04:57 09/30/16 10/01/16 10/02/16 05:59 05:59 05:59 Intake Total 420 2230 Balance 420 2230 PT 15.1 SEC (12.0-15.0) H 09/30/16 04:57 INR 1.19 (0.83-1.16) H 09/30/16 04:57 - Physical Exam Constitutional: chronically ill appearing Cardiovascular: regular rate and rhythym, no murmur, rub, or gallop Respiratory: reduced air movement, expiratory wheeze, rhonchi, No dullness to percussion Gastrointestinal: normoactive bowel sounds, soft, non-tender abdomen, no palpable masses, No guarding, No rebound ICD10 Worksheet Patient Problems: Problems Problem Status Onset Pneumonia Acute Hepatitis C Chronic HCAP (healthcare-associated pneumonia) Acute Sepsis Acute Chronic obstructive pulmonary disease with acute exacerbation Acute COPD (chronic obstructive pulmonary disease) Acute Bronchitis Acute Facial abscess Acute Acute bronchitis Acute Pneumonia Acute
[2016-10-02] MEDS: oxyCODONE IR 5 MG TAB PO PRN ×4 (04:50→23:31)
[2016-10-02] MEDS: guaiFENesin/CODEINE PHOS 10 ML UDCUP PO PRN ×4 (04:51→23:31)
[2016-10-02] MEDS: IPRATROPIUM/ALBUTEROL 3 ML DEYVIAL IH SCH ×4 (06:09→21:07)
[2016-10-02] MEDS: MULTIVITAMINS 1 EACH TAB PO SCH (08:59)
[2016-10-02] MEDS: NICOTINE 7 MG/24 HR PATCH TD SCH (08:59)
[2016-10-02] MEDS: predniSONE 20 MG TAB PO SCH (08:59)
--- NOTE | 2016-10-02 15:17 | HOSPPROG ---
Hospitalist Progress Note Assessment/Plan: 56 y/o male new to my care 09/30 with # acute on chronic hypoxic respiratory failure Likely a combination of acute COPD exacerbation and acute pneumonia. CT angio has ruled out pulmonary embolism. He has been initiated on steroids, nebs with significant improvement in hypoxia. Antibiotics also initiated. - cont prednisone daily - cont duonebs standing and prn - supplemental O2 - cont pneumonia treatment - Chest PT # acute multilobar pneumonia Pneumonia involving bilateral lower lobes, R>L. - will continue levaquin monotherapy - f/u blood cultures #chronic pain with opioid dependency -continue oxyir # dispo: admit to inpatient service for likely > 2MN stay # gen: regular diet DVT ppx: SCDs, allergy to heparin Full code Subjective: still short of breath. productive cough with thick sputum. no fever or chills Objective: Vital Signs Temp Pulse Resp BP Pulse Ox 36.7 C 83 20 129/79 H 87 L 10/02/16 07:47 10/02/16 10:16 10/02/16 10:16 10/02/16 07:47 10/02/16 10:16 Laboratory Results 09/30/16 04:57 09/30/16 04:57 10/01/16 10/02/16 10/03/16 05:59 05:59 05:59 Intake Total 2230 1500 Balance 2230 1500 PT 15.1 SEC (12.0-15.0) H 09/30/16 04:57 INR 1.19 (0.83-1.16) H 09/30/16 04:57 - Physical Exam Constitutional: chronically ill appearing Cardiovascular: regular rate and rhythym, no murmur, rub, or gallop Respiratory: no respiratory distress, reduced air movement, expiratory wheeze, rhonchi Gastrointestinal: normoactive bowel sounds, soft, non-tender abdomen, no palpable masses, No guarding, No rebound ICD10 Worksheet Patient Problems: Problems Problem Status Onset Pneumonia Acute Hepatitis C Chronic HCAP (healthcare-associated pneumonia) Acute Sepsis Acute Chronic obstructive pulmonary disease with acute exacerbation Acute COPD (chronic obstructive pulmonary disease) Acute Bronchitis Acute Facial abscess Acute Acute bronchitis Acute Pneumonia Acute
[2016-10-02] MEDS: guaiFENesin 600 MG TAB.ER PO SCH (20:10)
[2016-10-03] MEDS: oxyCODONE IR 5 MG TAB PO PRN ×4 (05:33→23:44)
[2016-10-03] MEDS: guaiFENesin/CODEINE PHOS 10 ML UDCUP PO PRN ×4 (05:34→23:44)
[2016-10-03] MEDS: IPRATROPIUM/ALBUTEROL 3 ML DEYVIAL IH SCH ×4 (05:54→21:12)
[2016-10-03] MEDS: guaiFENesin 600 MG TAB.ER PO SCH ×2 (07:41→20:22)
[2016-10-03] MEDS: MULTIVITAMINS 1 EACH TAB PO SCH (07:42)
[2016-10-03] MEDS: NICOTINE 7 MG/24 HR PATCH TD SCH (07:43)
[2016-10-03] MEDS: predniSONE 20 MG TAB PO SCH (07:43)
--- NOTE | 2016-10-03 13:47 | HOSPPROG ---
Hospitalist Progress Note Assessment/Plan: 56 y/o homeless male new to my care 09/30 with # acute on chronic hypoxic respiratory failure with persistent hypoxemia Likely a combination of acute COPD exacerbation and acute pneumonia. CT angio has ruled out pulmonary embolism. He has been initiated on steroids, nebs with significant improvement in hypoxia. Antibiotics also initiated. - cont prednisone daily - cont duonebs standing and prn - supplemental O2 - cont pneumonia treatment - Chest PT # acute multilobar pneumonia Pneumonia involving bilateral lower lobes, R>L. - will continue levaquin monotherapy - f/u blood cultures #chronic pain with opioid dependency -continue oxyir #h/o chronic hep b/c # dispo: admit to inpatient service for likely > 2MN stay # gen: regular diet DVT ppx: SCDs, allergy to heparin Full code Subjective: still with productive cough,wheezing, and feeling bad Objective: Vital Signs Temp Pulse Resp BP Pulse Ox 36.3 C 77 20 92/70 L 91 L 10/03/16 08:03 10/03/16 08:03 10/03/16 11:39 10/03/16 08:03 10/03/16 11:39 Microbiology 10/03/16 00:50 - Final Sputum, Expectorated Laboratory Results 09/30/16 04:57 09/30/16 04:57 10/02/16 10/03/16 10/04/16 05:59 05:59 05:59 Intake Total 1500 Balance 1500 PT 15.1 SEC (12.0-15.0) H 09/30/16 04:57 INR 1.19 (0.83-1.16) H 09/30/16 04:57 - Physical Exam Constitutional: no apparent distress, appears nourished, not in pain Cardiovascular: regular rate and rhythym, no murmur, rub, or gallop Respiratory: no respiratory distress, reduced air movement, expiratory wheeze, No rhonchi ICD10 Worksheet Patient Problems: Problems Problem Status Onset Pneumonia Acute Hepatitis C Chronic HCAP (healthcare-associated pneumonia) Acute Sepsis Acute Chronic obstructive pulmonary disease with acute exacerbation Acute COPD (chronic obstructive pulmonary disease) Acute Bronchitis Acute Facial abscess Acute Acute bronchitis Acute Pneumonia Acute
[2016-10-04] MEDS: IPRATROPIUM/ALBUTEROL 3 ML DEYVIAL IH SCH ×4 (05:15→21:38)
[2016-10-04] MEDS: oxyCODONE IR 5 MG TAB PO PRN ×4 (05:44→23:27)
[2016-10-04] MEDS: guaiFENesin/CODEINE PHOS 10 ML UDCUP PO PRN ×4 (05:45→23:27)
[2016-10-04] MEDS: guaiFENesin 600 MG TAB.ER PO SCH ×2 (07:28→21:04)
[2016-10-04] MEDS: MULTIVITAMINS 1 EACH TAB PO SCH (07:28)
[2016-10-04] MEDS: predniSONE 20 MG TAB PO SCH (07:28)
[2016-10-04] MEDS: NICOTINE 7 MG/24 HR PATCH TD SCH (07:29)
--- NOTE | 2016-10-04 12:43 | HOSPPROG ---
Hospitalist Progress Note Assessment/Plan: 56 y/o homeless male new to my care, chart reviewed. D/W Social work # acute on chronic hypoxic respiratory failure with persistent hypoxemia Likely a combination of acute COPD exacerbation and acute pneumonia. CT angio has ruled out pulmonary embolism. He has been initiated on steroids, nebs with significant improvement in hypoxia. Antibiotics also initiated. - cont prednisone daily - cont duonebs standing and prn - supplemental O2 as needed - cont pneumonia treatment - Chest PT # acute multilobar pneumonia Pneumonia involving bilateral lower lobes, R>L. - will continue levaquin monotherapy - blood cultures negative #chronic pain with opioid dependency -continue oxyir -no scripts at time of dc #h/o chronic hep b/c # dispo: anticipate DC in am if stable # gen: regular diet DVT ppx: SCDs, allergy to heparin Full code Subjective: Feeling better. Up in bed. Asking for pain meds. Objective: Vital Signs Temp Pulse Resp BP Pulse Ox 36.7 C 98 14 124/71 H 86 L 10/04/16 07:43 10/04/16 11:28 10/04/16 11:28 10/04/16 07:43 10/04/16 11:28 Microbiology 10/03/16 00:50 - Final Sputum, Expectorated Laboratory Results 09/30/16 04:57 09/30/16 04:57 10/03/16 10/04/16 10/05/16 05:59 05:59 05:59 Intake Total 1300 Output Total 750 Balance 550 PT 15.1 SEC (12.0-15.0) H 09/30/16 04:57 INR 1.19 (0.83-1.16) H 09/30/16 04:57 - Physical Exam Constitutional: appears nourished, chronically ill appearing, uncomfortable Eyes: PERRL, anicteric sclera, EOMI Ears, Nose, Mouth, Throat: moist mucous membranes, hearing normal, ears appear normal Cardiovascular: No JVD, No tachycardia, No edema Respiratory: no respiratory distress, no rales or rhonchi, reduced air movement Gastrointestinal: No tenderness, No ascites, No guarding Skin: warm, normal color, No erythema Musculoskeletal: full muscle strength, normal joint ROM, no joint effusions Neurologic: AAOx3 Psychiatric: not anxious, not encephalopathic, poor insight, poor judgement ICD10 Worksheet Patient Problems: Problems Problem Status Onset Pneumonia Acute Hepatitis C Chronic HCAP (healthcare-associated pneumonia) Acute Sepsis Acute Chronic obstructive pulmonary disease with acute exacerbation Acute COPD (chronic obstructive pulmonary disease) Acute Bronchitis Acute Facial abscess Acute Acute bronchitis Acute Pneumonia Acute
[2016-10-05] MEDS: IPRATROPIUM/ALBUTEROL 3 ML DEYVIAL IH SCH (05:22)
[2016-10-05] MEDS: guaiFENesin/CODEINE PHOS 10 ML UDCUP PO PRN (05:28)
[2016-10-05] MEDS: oxyCODONE IR 5 MG TAB PO PRN ×2 (05:28→11:22)
[2016-10-05 07:39] VITALS: BP 109/67; PULSE 85; RESP 18; TEMP 98.3; O2SAT 86
[2016-10-05] MEDS: predniSONE 20 MG TAB PO SCH (09:21)
[2016-10-05] MEDS: MULTIVITAMINS 1 EACH TAB PO SCH (09:22)
[2016-10-05] MEDS: guaiFENesin 600 MG TAB.ER PO SCH (09:22)
[2016-10-05] MEDS: NICOTINE 7 MG/24 HR PATCH TD SCH (09:23)
--- NOTE | 2016-10-05 14:47 | GDS ---
[f rep st] DISCHARGE SUMMARY DISCHARGE DIAGNOSES: 1. Bilateral lower lobe pneumonia. 2. Chronic back pain. 3. Acute on chronic hypoxemic respiratory failure. 4. Chronic hepatitis C. STUDIES AND PROCEDURES DONE: CT angio of the chest. PHYSICAL EXAMINATION: GENERAL: The patient is alert. VITAL SIGNS: Afebrile at 36.8, pulse is 85, respiratory rate is 18, blood pressure is 109/67. He is saturating 86% on room air. The patient h as been offered supplemental oxygen, but refusing at the time of disposition. HOSPITAL COURSE: The patient is a 56-year-old homeless male who was admitted to the [facility] to complaints of shortness of breath. He was evaluated and diagnosed with: 1. Acute on chronic hypoxemic respiratory failure with persistent hypoxemia. The patient was treat ed with prednisone during this hospitalization, and his condition has significantly improved. He castro s been ruled out for pulmonary emboli. He does continue to be hypoxemic; however, refusing suppleme ntal oxygen at the time of disposition. He does have baseline chronic hypoxemia and has refused sup plemental oxygen in the past. 2. Acute multilobar pneumonia. He was treated with Levaquin during this hospitalization. His symp toms have significantly improved. His blood cultures are negative. He has been provided a prescrip tion for Levaquin to continue a total of 10 days. 3. Chronic pain with opioid dependency. The patient has a history of IV drug use as well as opioid abuse. He is being provided a prescription for OxyIR #10 at the time of disposition, and a [facility] appointment in the outpatient setting. 4. Chronic hepatitis B and C. Again, he will follow up in the outpatient setting if wished. DISPOSITION: Patient will be discharged to the street independently. There are no pending studies. He has been offered home oxygen and has refused at the time of disposition. DISCHARGE MEDICATIONS: Please refer to EMR form. I have provided him a prescription for prednisone 20 mg daily #10, Levaquin 750 mg daily #4, and oxycodone IR 5 mg #10. I have discussed his disposi tion with the case hardener. They have arranged an appointment for him at [facility] for follow up in the outpatient setting. I spent greater than 35 minutes in the care, coordination and management of this patient's dispositi on. /[id number]/MODL
== END 2016-10-05 11:52 | disposition home or self-care (01) | DRG 193 ==
LOC: EDUNIT# → OBSVTOIN 22:46 → F3E 09-30 01:27
PROVIDERS: ADMIT Internal Medicine; ATTEND Internal Medicine
DX: J18.9 Pneumonia, unspecified organism (principal); J96.21 Acute and chronic respiratory failure with hypoxia; J44.1 Chronic obstructive pulmonary disease with (acute) exacerbation; B18.2 Chronic viral hepatitis C; B18.1 Chronic viral hepatitis B without delta-agent; G89.29 Other chronic pain; F11.20 Opioid dependence, uncomplicated; M06.9 Rheumatoid arthritis, unspecified; Z99.81 Dependence on supplemental oxygen; F17.210 Nicotine dependence, cigarettes, uncomplicated; Z59.0 Homelessness
CPT/HCPCS: 96365; J0456; J0692; J1200; J1956; J3370; Q9967

== ENCOUNTER 2016-10-10 23:12 | Emergency (ER) | payer MEDICAID ==
[2016-10-10 23:17] VITALS: O2SAT 90
[2016-10-10] MEDS ORDERED: predniSONE 20 MG TAB PO ONE (23:44)
[2016-10-10] MEDS ORDERED: IPRATROPIUM/ALBUTEROL 3 ML DEYVIAL IH ONE (23:44)
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
[2016-10-11 02:16] VITALS: BP 136/74; PULSE 64; RESP 16; TEMP 98.1
== END 2016-10-11 02:16 | disposition home or self-care (01) ==
DX: J44.9 Chronic obstructive pulmonary disease, unspecified (principal); F17.200 Nicotine dependence, unspecified, uncomplicated

== ENCOUNTER 2016-10-13 21:48 | Inpatient (IN) | payer MEDICAID ==
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
[2016-10-13] MEDS ORDERED: predniSONE 20 MG TAB PO ONE (22:10)
[2016-10-13] MEDS ORDERED: IPRATROPIUM/ALBUTEROL 3 ML DEYVIAL IH ONE (22:10)
[2016-10-13] MEDS ORDERED: NS 1,000 ML IV ONE (22:14)
[2016-10-13 22:50] LABS: % IMMATURE GRANULYOCYTES 0.4 % (0.0-1.1); ABSOLUTE IMMATURE GRANULOCYTES 0.04 10^3/uL (0.00-0.10); ADD DIFF? NO; ADD MORPH? NO; ADD SCAN? NO; ATYPICAL LYMPHOCYTE FLAG 10 (0-99); FRAGMENT RBC FLAG 0 (0-99); HEMOGLOBIN 14.3 g/dL (13.7-17.5); LEFT SHIFT FLG 0 (0-99); LIPEMIA HEMOLYSIS FLAG 90 (0-99); MEAN CELL HEMOGLOBIN 32.8 pg (27.9-34.1); MEAN CELL VOLUME 96.3 fL (81.5-99.8); MEAN PLATELET VOLUME 10.5 fL (8.7-11.7); PLATELET CLUMPS FLAG 0 (0-99); PLATELET COUNT 194 10^3/uL (150-400); RED BLOOD CELL COUNT 4.36 10^6/uL (4.40-6.38); RED CELL DISTRIBUTION WIDTH 12.7 % (11.5-15.2)
[2016-10-13] MEDS ORDERED: oxyCODONE IR 5 MG TAB PO PRN (22:56)
[2016-10-13] MEDS ORDERED: ALBUTEROL 3 ML DEYVIAL IH PRN (22:56)
[2016-10-13] MEDS ORDERED: ONDANSETRON 4 MG/2 ML VIAL IVP PRN (22:56)
[2016-10-13] MEDS ORDERED: ONDANSETRON DISINTEGRATING 4 MG TAB PO PRN (22:56)
[2016-10-13 23:06] LABS: ANION GAP 7 mEq/L (8-16); CALCIUM 8.6 mg/dL (8.5-10.4); CARBON DIOXIDE 28 mEq/l (22-31); CHLORIDE 102 mEq/L (97-110); CREATININE 0.8 mg/dL (0.7-1.3); GLOMERULAR FILTRATION RATE > 60; GLUCOSE 109 mg/dL (70-100); POTASSIUM 4.5 mEq/L (3.5-5.2); SODIUM 137 mEq/L (134-144)
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
[2016-10-14] MEDS: TEMAZEPAM 15 MG CAP PO PRN ×2 (00:07→18:42)
[2016-10-14] MEDS: IPRATROPIUM/ALBUTEROL 3 ML DEYVIAL IH SCH ×4 (05:34→20:47)
[2016-10-14] MEDS ORDERED: ALBUTEROL 60 PUFFS/8 GM MDI IH PRN (08:13)
[2016-10-14] MEDS ORDERED: ALBUTEROL 200 PUFFS/18 GM MDI IH PRN (08:20)
[2016-10-14] MEDS ORDERED: Herbals/Supplements -Info Only PO SCH (09:00)
[2016-10-14] MEDS: MULTIVITAMINS 1 EACH TAB PO SCH (09:34)
[2016-10-14] MEDS: guaiFENesin 600 MG TAB.ER PO SCH ×2 (09:34→19:57)
[2016-10-14] MEDS: ASCORBIC ACID 500 MG TAB PO SCH (09:34)
[2016-10-14] MEDS: predniSONE 20 MG TAB PO SCH (09:34)
--- NOTE | 2016-10-14 11:08 | HOSPPROG ---
Hospitalist Progress Note Assessment/Plan: 56y male with c/o sob. #COPD exacerbation noncompliant with meds continue prednisone nebs #Chronic back pain stable hx of IVDA and opiate abuse rec no narcotics at DC pt informed #Hx PNA no active infection procalcitonin is normal DC ABX CXR, personally reviewed, shows resolving process #Homeless baseline refuses resources #Dispo likely DC in am pt states he has a dr armand tomorrow at 1:[address] Vásquez. Subjective: Feeling well. Still SOB. No other issues. Objective: Vital Signs Temp Pulse Resp BP Pulse Ox 36.6 C 85 16 120/70 94 10/14/16 09:02 10/14/16 09:02 10/14/16 09:02 10/14/16 09:02 10/14/16 09:02 Microbiology 10/14/16 05:30 Respiratory Panel (PCR) - Final Nasal, Sinus - Swab No Organism Detected 10/13/16 10/14/16 10/15/16 05:59 05:59 05:59 Output Total 2 Balance -2 - Physical Exam Constitutional: no apparent distress, appears nourished, not in pain Eyes: PERRL, anicteric sclera, EOMI Ears, Nose, Mouth, Throat: moist mucous membranes, hearing normal, ears appear normal Cardiovascular: No JVD, No tachycardia, No edema Respiratory: no respiratory distress, no rales or rhonchi, reduced air movement Gastrointestinal: No tenderness, No ascites, No guarding Skin: warm, normal color, No erythema Musculoskeletal: normal joint ROM, no joint effusions, generalized weakness Neurologic: AAOx3 Psychiatric: not anxious, not encephalopathic, thought process linear ICD10 Worksheet Patient Problems: Problems Problem Status Onset Pneumonia Acute Hepatitis C Chronic HCAP (healthcare-associated pneumonia) Acute Sepsis Acute Chronic obstructive pulmonary disease with acute exacerbation Acute COPD (chronic obstructive pulmonary disease) Acute Bronchitis Acute Facial abscess Acute Acute bronchitis Acute Pneumonia Acute Shortness of breath Acute
[2016-10-14] MEDS ORDERED: oxyCODONE IR 5 MG TAB PO PRN (12:09)
[2016-10-15] MEDS: IPRATROPIUM/ALBUTEROL 3 ML DEYVIAL IH SCH ×2 (05:26→10:04)
[2016-10-15 09:14] VITALS: BP 99/64; RESP 18; TEMP 97.7
[2016-10-15] MEDS: MULTIVITAMINS 1 EACH TAB PO SCH (09:42)
[2016-10-15] MEDS: guaiFENesin 600 MG TAB.ER PO SCH (09:42)
[2016-10-15] MEDS: predniSONE 20 MG TAB PO SCH (09:42)
[2016-10-15] MEDS: ASCORBIC ACID 500 MG TAB PO SCH (09:43)
[2016-10-15 10:12] VITALS: PULSE 92; O2SAT 85
--- NOTE | 2016-10-15 16:19 | GDS ---
[f rep st] DISCHARGE SUMMARY DISCHARGE DIAGNOSES: Include: 1. Acute chronic obstructive pulmonary disease exacerbation, secondary to medication noncompliance. 2. Chronic back pain, with a history of continuous narcotic abuse. 3. Homelessness. 4. History of recent pneumonia. Patient has a normal procalcitonin at presentation. 5. Hepatitis B and C. 6. Posttraumatic stress disorder. 7. Tobacco abuse. HISTORY OF PRESENT ILLNESS: A 56-year-old homeless male, with known COPD, presents with complaints of shortness of breath. For details of patient's initial presentation, please see the history and p hysical dated 10/13/2016. CONSULTATIVE SERVICES: None. PROCEDURES: None. HOSPITAL COURSE: By issue: 1. Acute chronic obstructive pulmonary disease exacerbation. Pneumonia was ruled out with procalci tonin. Patient was initiated on prednisone burst and inhaled medications. He is being discharged w ith oral prednisone, Combivent inhaler, and breakthrough albuterol. Is to follow at the [facility] for ongoing management, and monitoring of his COPD. 2. Chronic pain, with continuous narcotic dependency. Patient was not provided narcotic prescripti ons during his hospital stay or at discharge. Again, to follow in the outpatient setting, and estab mariela with a PCP. DISCHARGE MEDICATIONS: Please reference med rec printed on 10/15/2016. PENDING STUDIES: At the time of this dictation include blood cultures drawn 10/13/2016, which are p reliminary no growth to date. FOLLOWUP APPOINTMENTS: Include with [facility] for management of his COPD. I spent greater than 30 minutes in the planning and coordination of this discharge. /[id number]/RAMILAL
== END 2016-10-15 12:25 | disposition home or self-care (01) | DRG 190 ==
LOC: EDUNIT# → F1N 23:33
PROVIDERS: ADMIT Student in an Organized Health Care Education/Training Program; ATTEND Hospitalist
DX: J44.1 Chronic obstructive pulmonary disease with (acute) exacerbation (principal); J18.9 Pneumonia, unspecified organism; J96.21 Acute and chronic respiratory failure with hypoxia; Z91.14 Patient's other noncompliance with medication regimen; F11.20 Opioid dependence, uncomplicated; M54.5 Low back pain; F17.210 Nicotine dependence, cigarettes, uncomplicated; F43.12 Post-traumatic stress disorder, chronic; B19.10 Unspecified viral hepatitis B without hepatic coma; B19.20 Unspecified viral hepatitis C without hepatic coma; Z59.0 Homelessness

== ENCOUNTER 2016-11-10 17:19 | Emergency (ER) | payer MEDICAID ==
[2016-11-10 17:30] VITALS: BP 105/71; PULSE 76; RESP 16; TEMP 97.2; O2SAT 95
--- NOTE | 2016-11-10 18:36 | EDPHY ---
H & P Time Seen by Provider: 11/10/16 18:29 HPI/ROS: CHIEF COMPLAINT: "I have got these things on my face" HISTORY OF PRESENT ILLNESS: 56-year-old male complaining of 5 days of tender lesions in the perioral and perinasal region. He is concerned that he has infection due to Staph. He states he has a prior MRSA history. Denies ocular complaints. Denies intraoral lesion. Denies intranasal lesion. Denies ear complaints. PHYSICAL EXAM (Prior to examination, patient consented to physical exam, hands were washed and my usual and customary physical exam procedures followed) 1) GENERAL: Well-developed, well-nourished, alert and oriented. Appears to be in no acute distress. 2) HEAD: Normocephalic 3) HEENT: sclera anicteric. No intraoral lesions. No intranasal lesions. Ears are unaffected. 4) LUNGS: Breathing comfortably. 5) SKIN: the patient has perioral and paranasal region, not followed dermatomal distribution he has erythematous, tender honey crusted lesions. Nonvesicular. Smoking Status: Heavy smoker Constitutional: Initial Vital Signs Temperature (C) 36.2 C 11/10/16 17:28 Heart Rate 76 11/10/16 17:28 Respiratory Rate 16 11/10/16 17:28 Blood Pressure 105/71 11/10/16 17:28 O2 Sat (%) 95 11/10/16 17:28 O2 Delivery Mode Room Air Allergies/Adverse Reactions: acetaminophen [Acetaminophen] Allergy (Severe, Verified 10/10/16 23:15) heparin Allergy (Unknown, Verified 10/10/16 23:15) Heparin Analogues Allergy (Unknown, Verified 10/10/16 23:15) propoxyphene HCl [From Darvon] Allergy (Unknown, Verified 10/10/16 23:15) amoxicillin [Amoxicillin] Allergy (Verified 10/10/16 23:15) Other-Enter Comments aspirin [Aspirin] Allergy (Verified 10/10/16 23:15) Iodinated Contrast- Oral and IV Dye [Iodinated Contrast Media - Oral and] Allergy (Verified 10/10/16 23:15) Other-Enter Comments Home Medications: Medication Instructions Recorded Multivitamins [Multivitamin (*)] 1 each PO DAILY 08/02/16 Albuterol [Proventil Inhaler HFA 1 - 2 puffs IH DAILY PRN #1 mdi 08/03/16 (*)] Ascorbic Acid [Vitamin C 500 mg 1,000 mg PO DAILY 09/30/16 (*)] Herbals/Supplements -Info Only 1 ea PO DAILY 09/30/16 Ipratropium/Albuterol [Combivent 1 inh IH BID #1 mdi 10/15/16 Respimat Inhal [place](*)] predniSONE 40 mg PO DAILY #8 tablet 10/15/16 Cephalexin [Keflex] 500 mg PO QID 10 Days 11/10/16 Sulfamethox/Tmp 800/160 mg 1 tab PO BID@1000,2200 10 Days 11/10/16 [Bactrim Ds] MDM/Departure - MDM ED Course/Re-evaluation: I think the patient's symptoms are more than likely secondary to impetigo. Doubt zoster. Doubt Peng-Oscar. Plan will be oral antibiotics. Recommend follow up in 2 days at the [facility]. Tetanus is up-to-date. Usual and customary wound precautions instructions provided.Care and management in consultation with secondary supervising physician Dr Galaviz . - Depart Disposition: Home, Routine, Self-Care Clinical Impression: Impetigo Condition: Good Instructions: Impetigo (ED) Additional Instructions: Return to the ER if you develop new or worsening symptoms or any other symptoms that concern you Prescriptions: Cephalexin [Keflex] 500 mg PO QID 10 Days Sulfamethox/Tmp 800/160 mg [Bactrim Ds] 1 tab PO BID@1000,2200 10 Days Referrals: [facility],. [Clinic] - 11/12/16
[2016-11-10] MEDS ORDERED: SULFAMETHOX/TMP 800/160 MG 1 TAB PO ONE (18:39)
[2016-11-10] MEDS ORDERED: CEPHALEXIN 500 MG CAP PO ONE (18:39)
== END 2016-11-10 18:48 | disposition home or self-care (01) ==
DX: L01.00 Impetigo, unspecified (principal); F17.200 Nicotine dependence, unspecified, uncomplicated

== ENCOUNTER 2016-11-13 11:53 | Emergency (ER) | payer MEDICAID ==
[~2016-11-13 11:53] MED LIST changes: -AZITHROMYCIN 250 MG TAB PO SCH; +predniSONE 20 MG TAB PO SCH
[2016-11-13 11:58] VITALS: PULSE 75; TEMP 97.7
[2016-11-13] MEDS ORDERED: predniSONE 20 MG TAB PO ONE (12:59)
[2016-11-13] MEDS ORDERED: IPRATROPIUM/ALBUTEROL 3 ML DEYVIAL IH ONE (12:59)
--- NOTE | 2016-11-13 13:04 | EDPHY ---
H & P Time Seen by Provider: 11/13/16 12:24 HPI/ROS: HPI Shortness of breath. History of COPD. 56-year-old male. Homeless. Long history of COPD. Multiple visits or Emergency Department for this. He was getting his primary care through [facility]. He reports that [facility] have abandoned him. He presents the emergency department complaining of progressive worsening shortness of breath over the last several days. He does not have an inhaler currently and he does not have any prednisone. He is requesting prescriptions for both these medications. No fever. He has a chronic nonproductive cough. ROS: Constitutional: No fever, no chills. No weakness. Eyes: No discharge. No changes in vision. ENT: No sore throat. No nasal congestion or rhinorrhea. Respiratory: As above. Cardiac: No chest pain, no palpitations. Gastrointestinal: No abdominal pain, no vomiting, no diarrhea. Genitourinary: No hematuria. No dysuria or increased frequency with urination. Musculoskeletal: No back pain. No neck pain. No myalgias or arthralgias. Skin: No rashes. Neurological: No headache. No focal weakness or altered sensation. Past medical history: Chronic pain, asthma/COPD, hepatitis, history of C diff, heroin abuse, PTSD, migraine headaches. Social history: Homeless. Smoker. Alcohol abuse. As above. Physical Exam: General Appearance: Alert, no distress. Disheveled. This patient is responding to questions appropriately and in full sentences. This patient appears well-hydrated and well-nourished. Eyes: Pupils equal and round no pallor or injection. No lid edema, erythema or injection. Respiratory: There are no retractions, decreased air movement bilaterally. No tachypnea at rest. Mild wheezing on exhalation. Cardiovascular: Regular rate and rhythm. No murmur. Neurological: Motor sensory function is grossly intact. Cranial nerves are normal. Gait is normal. Skin: Warm and dry, no rashes. Musculoskeletal: Neck is supple and nontender. Extremities are symmetrical. All joints range without pain or impingement. Psychiatric: No agitation. No depression. Database: EKG: Imaging: Chest x-ray was ordered but refused by patient. Procedures: Emergency department course: Vital signs reviewed. Patient given 80 mg of oral prednisone and started on to Atrovent/albuterol nebulizer treatments after my evaluation. 1:45 p.m., patient re-evaluated. He is feeling much better. Tachypnea resolved. Pulse oximetry is 94% on room air. Good air movement on repeat pulmonary exam. No wheezing I have filled his prescription for prednisone through our assistance program. I have also provided him with a take-home albuterol inhaler. I discussed follow-up with him. He feels comfortable going home. Return to emergency department precautions reviewed. All of his questions were answered. He was discharged in good condition. Differential Diagnosis: The differential diagnosis on this patient includes but is not limited to COPD exacerbation, bronchitis. Pneumonia, pneumothorax, CHF, other serious bacterial infection unlikely. This represents a partial list of diagnoses considered. These considerations are based on history, physical exam, past history, reassessment and diagnostic testing. Smoking Status: Heavy smoker Constitutional: Initial Vital Signs Temperature (C) 36.5 C 11/13/16 11:55 Heart Rate 75 11/13/16 11:55 Respiratory Rate 22 H 11/13/16 11:55 Blood Pressure 105/68 11/13/16 11:55 O2 Sat (%) 92 11/13/16 11:55 Allergies/Adverse Reactions: acetaminophen [Acetaminophen] Allergy (Severe, Verified 10/10/16 23:15) heparin Allergy (Unknown, Verified 10/10/16 23:15) Heparin Analogues Allergy (Unknown, Verified 10/10/16 23:15) propoxyphene HCl [From Darvon] Allergy (Unknown, Verified 10/10/16 23:15) amoxicillin [Amoxicillin] Allergy (Verified 10/10/16 23:15) Other-Enter Comments aspirin [Aspirin] Allergy (Verified 10/10/16 23:15) Iodinated Contrast- Oral and IV Dye [Iodinated Contrast Media - Oral and] Allergy (Verified 10/10/16 23:15) Other-Enter Comments Home Medications: Medication Instructions Recorded Multivitamins [Multivitamin (*)] 1 each PO DAILY 08/02/16 Albuterol [Proventil Inhaler HFA 1 - 2 puffs IH DAILY PRN #1 mdi 08/03/16 (*)] Ascorbic Acid [Vitamin C 500 mg 1,000 mg PO DAILY 09/30/16 (*)] Herbals/Supplements -Info Only 1 ea PO DAILY 09/30/16 Ipratropium/Albuterol [Combivent 1 inh IH BID #1 mdi 10/15/16 Respimat Inhal [place](*)] predniSONE 40 mg PO DAILY #8 tablet 10/15/16 Cephalexin [Keflex] 500 mg PO QID 10 Days 11/10/16 Sulfamethox/Tmp 800/160 mg 1 tab PO BID@1000,2200 10 Days 11/10/16 [Bactrim Ds] predniSONE [prednisone 20mg (RX)] 60 mg PO DAILY #9 tab 11/13/16 Medical Decision Making - Data Points Medications Given: Discontinued Medications Albuterol Sulfate (Proventil Inh Prepack) 1 mdi TAKEHOME EDNOW ONE Stop: 11/13/16 13:08 Last Admin: 11/13/16 13:14 Dose: 1 mdi Albuterol/Ipratropium (Duoneb) 6 ml IH EDNOW ONE Stop: 11/13/16 13:00 Last Admin: 11/13/16 13:14 Dose: 6 ml Prednisone (Prednisone) 80 mg PO EDNOW ONE Stop: 11/13/16 13:00 Last Admin: 11/13/16 13:13 Dose: 80 mg Departure - Departure Disposition: Home, Routine, Self-Care Clinical Impression: COPD exacerbation Condition: Good Instructions: COPD (Chronic Obstructive Pulmonary Disease) (ED), Chronic Lung Disease and Infection Prevention (ED) Additional Instructions: Read and follow provided instructions. Follow-up with your primary care physician in 1-2 days for re-evaluation. Take medication as prescribed. Albuterol inhaler: 1-2 puffs every 2-4 hours as needed for shortness of breath. Prednisone: 3 pills daily for 3 days. Return to the emergency department for worsening shortness of breath, cough, difficulty breathing or other serious concerns. Referrals: NONE *PRIMARY CARE P,. [Primary Care Provider] - As per Instructions Prescriptions: predniSONE [prednisone 20mg (RX)] 60 mg PO DAILY #9 tab
[2016-11-13] MEDS ORDERED: ALBUTEROL INH PREPACK MDI TAKEHOME ONE (13:07)
[2016-11-13 13:50] VITALS: BP 107/65; RESP 18; O2SAT 93
== END 2016-11-13 13:48 | disposition home or self-care (01) ==
DX: J44.1 Chronic obstructive pulmonary disease with (acute) exacerbation (principal); F17.200 Nicotine dependence, unspecified, uncomplicated
CPT/HCPCS: J7512

== ENCOUNTER 2016-12-06 10:45 | Emergency (ER) | payer MEDICAID ==
[2016-12-06] MEDS ORDERED: predniSONE 20 MG TAB PO ONE (11:44)
[2016-12-06] MEDS ORDERED: IPRATROPIUM/ALBUTEROL 3 ML DEYVIAL IH ONE (11:44)
--- NOTE | 2016-12-06 11:47 | EDPHY ---
H & P Stated Complaint: Here for refill of meds;ran out yesterday Time Seen by Provider: 12/06/16 11:41 HPI/ROS: CHIEF COMPLAINT: "I ran out of my inhaler" HISTORY OF PRESENT ILLNESS: 56-year-old homeless male history of COPD, smokes daily, complaining of wheezing since yesterday after running out of his inhaler. No chest pain. No syncope or near syncope. No back pain. No headache. No nausea or vomiting. No fever no chills. No coughing. PRIMARY CARE PROVIDER: the [facility] REVIEW OF SYSTEMS: A ten point review of systems was performed and is negative with the exception of the items mentioned in the HPI PAST MEDICAL & SURGICAL HISTORY: COPD. Hepatitis. SOCIAL HISTORY: daily smoker PHYSICAL EXAM (Prior to examination, patient consented to physical exam, hands were washed and my usual and customary physical exam procedures followed) 1) GENERAL: Well-developed, well-nourished, alert and oriented. Appears to be in no acute distress.Speaking full sentences 2) HEAD: Normocephalic, atraumatic 3) HEENT: Pupils equal, round, reactive to light bilaterally. Sclera anicteric. Nasopharynx, oropharynx, clear, no lesions. 4) NECK: Full range of motion, no meningeal signs. 5) LUNGS: Bilateral end-expiratory wheeze no retractions or accessory muscle use 6) HEART: Regular rate and rhythm, no murmur, no heave, no gallop. 7) ABDOMEN: No guarding, no rebound, no focal tenderness, negative McBurney's, negative Nath's, negative Rovsing's, negative peritoneal sign, 8) MUSCULOSKELETAL: Moving all extremities, no focal areas of tenderness, no obvious trauma. No peripheral edema or discoloration. 9) BACK: No CVA tenderness, no midline vertebral tenderness, no fluctuance, no step-off, no obvious trauma, no visual or palpable abnormality. 10) SKIN: No rash, no petechiae. 11) Psychiatric: Patient is oriented X 3, there is no agitation. DIFFERENTIAL DIAGNOSIS: [ in no particular include but limited to acute COPD exacerbation, pulmonary embolus, pneumonia, bronchitis - Personal History Tetanus Vaccine Date: 2015 - Medical/Surgical History Hx Asthma: Yes Hx Chronic Respiratory Disease: Yes Hx Diabetes: No Hx Cardiac Disease: No Hx Renal Disease: No Hx Cirrhosis: No Hx Alcoholism: No Hx HIV/AIDS: No Hx Splenectomy or Spleen Trauma: No Other PMH: CHRONIC PAIN, RA, COPD/ASTHMA, HEPATITIS (B,C,D,E,F), C-DIFF, wears home O2(non compliant),"self medicates for pain," HEROIN ABUSE/IVDA, C diff. DENTAL CARIES, MIGRAINES, PTSD, "broken back", "broken neck", FLU X2 YRS - Social History Smoking Status: Heavy smoker Constitutional: Initial Vital Signs Temperature (C) 36.7 C 12/06/16 10:51 Heart Rate 72 12/06/16 10:51 Respiratory Rate 18 12/06/16 10:51 Blood Pressure 100/71 12/06/16 10:51 O2 Sat (%) 91 L 12/06/16 10:51 O2 Delivery Mode Room Air Allergies/Adverse Reactions: acetaminophen [Acetaminophen] Allergy (Severe, Verified 12/06/16 10:51) heparin Allergy (Unknown, Verified 12/06/16 10:51) Heparin Analogues Allergy (Unknown, Verified 12/06/16 10:51) propoxyphene HCl [From Darvon] Allergy (Unknown, Verified 12/06/16 10:51) amoxicillin [Amoxicillin] Allergy (Verified 12/06/16 10:51) Other-Enter Comments aspirin [Aspirin] Allergy (Verified 12/06/16 10:51) Iodinated Contrast- Oral and IV Dye [Iodinated Contrast Media - Oral and] Allergy (Verified 12/06/16 10:51) Other-Enter Comments Home Medications: Medication Instructions Recorded Albuterol [Proventil Inhaler HFA 1 - 2 puffs IH DAILY PRN #1 mdi 08/03/16 (*)] Ipratropium/Albuterol [Combivent 1 inh IH BID #1 mdi 10/15/16 Respimat Inhal [place](*)] predniSONE 40 mg PO DAILY #8 tablet 10/15/16 predniSONE [prednisone 20mg (RX)] 60 mg PO DAILY #9 tab 11/13/16 Albuterol [Proventil Inhaler HFA 1 - 2 puffs IH Q4PRN PRN #1 mdi 12/06/16 (*)] predniSONE [Prednisone] 20 mg PO DAILY #9 tablet 12/06/16 Medical Decision Making ED Course/Re-evaluation: 12:35 p.m.: Re-evaluation given DuoNeb treatment and prednisone. Feeling improvement he would like to be discharged. Plan will be discharged with albuterol meter dose inhaler and prednisone. Doubt PE. Doubt MD. Usual and customary respiratory precautions and instructions provided. - Data Points Medications Given: Discontinued Medications Albuterol/Ipratropium (Duoneb) 3 ml IH EDNOW ONE Stop: 12/06/16 11:45 Last Admin: 12/06/16 11:58 Dose: 3 ml Prednisone (Prednisone) 60 mg PO EDNOW ONE Stop: 12/06/16 11:45 Last Admin: 12/06/16 11:58 Dose: 60 mg Departure - Departure Disposition: Home, Routine, Self-Care Clinical Impression: Exacerbation of asthma, Medication refill Condition: Good Instructions: Asthma (ED) Additional Instructions: Return to the emergency department if you develop shortness of breath, chest pain or any other symptoms that concern you Referrals: [facility],. [Clinic] - 2-3 days, call for appt. Prescriptions: Albuterol [Proventil Inhaler HFA (*)] 1 - 2 puffs IH Q4PRN PRN #1 mdi PRN Reason: Cough, Moderate predniSONE [Prednisone] 20 mg PO DAILY #9 tablet
[2016-12-06 12:58] VITALS: BP 133/89; PULSE 66; RESP 16; TEMP 97.5; O2SAT 93
== END 2016-12-06 12:58 | disposition home or self-care (01) ==
DX: J45.901 Unspecified asthma with (acute) exacerbation (principal); F17.200 Nicotine dependence, unspecified, uncomplicated; Z76.0 Encounter for issue of repeat prescription

== ENCOUNTER 2017-01-17 21:30 | Emergency (ER) | payer MEDICAID ==
[2017-01-17] MEDS ORDERED: ALBUTEROL INH PREPACK MDI TAKEHOME ONE (21:38)
[2017-01-17] MEDS ORDERED: predniSONE 20 MG TAB PO ONE (21:38)
[2017-01-17 21:39] VITALS: BP 123/78; PULSE 78; RESP 22; TEMP 97.7; O2SAT 91
--- NOTE | 2017-01-17 21:52 | EDPHY ---
H & P Time Seen by Provider: 01/17/17 21:31 HPI/ROS: CHIEF COMPLAINT: Shortness of breath, cough HISTORY OF PRESENT ILLNESS: 56-year-old male with a history of COPD presents with shortness of breath and cough. He ran out of his inhaler a few days ago and has developed increased wheezing and shortness of breath. Associated with a moist cough. No fever or nasal congestion. He feels better after 2 breathing treatments by EMS. REVIEW OF SYSTEMS: Constitutional: No fever, no chills Eyes: No visual changes ENT: No sore throat Cardiac: No chest pain Gastrointestinal: No nausea, no vomiting, no abdominal pain Genitourinary: no dysuria Musculoskeletal: No leg pain or swelling Skin: No rash Neurological: No headache Psychiatric: No depression Past Medical/Surgical History: COPD Rheumatoid arthritis Hepatitis Social History: Homeless Smoking Status: Heavy smoker Physical Exam: General Appearance: Alert, argumentative Eyes: Pupils equal and round, no conjunctival pallor or injection ENT, Mouth: Mucous membranes moist Neck: Normal inspection Respiratory: normal respiratory rate, diffuse expiratory wheezing Cardiovascular: Regular rate and rhythm Gastrointestinal: Abdomen is soft and nontender Neurological: A&O, nonfocal, normal gait Skin: Warm and dry, no rash Extremities: normal inspection Psychiatric: Mood and affect normal Constitutional: Initial Vital Signs Temperature (C) 36.5 C 01/17/17 21:37 Heart Rate 78 01/17/17 21:37 Respiratory Rate 22 H 01/17/17 21:37 Blood Pressure 123/78 H 01/17/17 21:37 O2 Sat (%) 91 L 01/17/17 21:37 O2 Delivery Mode Room Air Allergies/Adverse Reactions: acetaminophen [Acetaminophen] Allergy (Severe, Verified 12/06/16 10:51) heparin Allergy (Unknown, Verified 12/06/16 10:51) Heparin Analogues Allergy (Unknown, Verified 12/06/16 10:51) propoxyphene HCl [From Darvon] Allergy (Unknown, Verified 12/06/16 10:51) amoxicillin [Amoxicillin] Allergy (Verified 12/06/16 10:51) Other-Enter Comments aspirin [Aspirin] Allergy (Verified 12/06/16 10:51) Iodinated Contrast- Oral and IV Dye [Iodinated Contrast Media - Oral and] Allergy (Verified 12/06/16 10:51) Other-Enter Comments Home Medications: Medication Instructions Recorded Albuterol [Proventil Inhaler HFA 1 - 2 puffs IH DAILY PRN #1 mdi 08/03/16 (*)] Ipratropium/Albuterol [Combivent 1 inh IH BID #1 mdi 10/15/16 Respimat Inhal [place](*)] predniSONE 40 mg PO DAILY #8 tablet 10/15/16 predniSONE [prednisone 20mg (RX)] 60 mg PO DAILY #9 tab 11/13/16 Albuterol [Proventil Inhaler HFA 1 - 2 puffs IH Q4PRN PRN #1 mdi 12/06/16 (*)] Ipratropium/Albuterol [Combivent 1 inh IH QID #1 mdi 12/06/16 Respimat Inhal [place](*)] predniSONE [Prednisone] 20 mg PO DAILY #9 tablet 12/06/16 Beclomethasone Qvar 40 [Qvar 40 1 puffs IH BID #1 mdi 01/17/17 (*)] guaiFENesin/DEXTROMETHORPHAN 10 ml PO Q6 PRN #120 ml 01/17/17 [Robitussin Dm Oral Liquid (*)] predniSONE 1 tab PO DAILY #15 tab 01/17/17 Medical Decision Making ED Course/Re-evaluation: This patient presents with a COPD exacerbation. Oxygen saturation 91-92% on room air. This patient refuses further breathing treatments. Prednisone 60 mg orally given. Albuterol inhaler dispensed and prescriptions given for prednisone and a steroid inhaler. - Data Points Medications Given: Discontinued Medications Albuterol Sulfate (Proventil Inh Prepack) 1 mdi TAKEHOME EDNOW ONE Stop: 01/17/17 21:39 Last Admin: 01/17/17 21:44 Dose: 1 mdi Prednisone (Prednisone) 60 mg PO EDNOW ONE Stop: 01/17/17 21:39 Last Admin: 01/17/17 21:43 Dose: 60 mg Departure - Departure Condition: Fair Referrals: Patient,NotPresent [Primary Care Provider] - As per Instructions Prescriptions: Beclomethasone Qvar 40 [Qvar 40 (*)] 1 puffs IH BID #1 mdi guaiFENesin/DEXTROMETHORPHAN [Robitussin Dm Oral Liquid (*)] 10 ml PO Q6 PRN # 120 ml PRN Reason: cough predniSONE 1 tab PO DAILY #15 tab
== END 2017-01-17 21:52 | disposition home or self-care (01) ==
LOC: EDUNIT#
DX: J44.1 Chronic obstructive pulmonary disease with (acute) exacerbation (principal); F17.200 Nicotine dependence, unspecified, uncomplicated

== ENCOUNTER 2017-01-30 08:53 | Emergency (ER) | payer MEDICAID ==
[2017-01-30 09:01] VITALS: BP 132/91; PULSE 63; RESP 18; TEMP 97.5; O2SAT 91
[2017-01-30] MEDS ORDERED: SULFAMETHOX/TMP 800/160 MG 1 TAB PO ONE (09:25)
[2017-01-30] MEDS ORDERED: CEPHALEXIN 500 MG CAP PO ONE (09:25)
--- NOTE | 2017-01-30 09:29 | EDPHY ---
H & P Stated Complaint: "Staph infection" on face x several days;wants meds Time Seen by Provider: 01/30/17 09:19 HPI/ROS: CHIEF COMPLAINT: Facial infection HISTORY OF PRESENT ILLNESS: The patient is a 56-year-old man who comes to the emergency department complaining of cellulitis and small abscess is in his heart and mustache. He has had these before and states that he was treated with the antibiotics that we use for anthrax. He says it rapidly improved. He has been draining the small abscess on his chin. No fever. He is here requesting antibiotics. REVIEW OF SYSTEMS: Constitutional: denies: chills, fever, recent illness, recent injury EENTM: denies: blurred vision, double vision, nose congestion Respiratory: denies: cough, shortness of breath Cardiac: denies: chest pain, irregular heart rate, lightheadedness, palpitations Gastrointestinal/Abdominal: denies: abdominal pain, diarrhea, nausea, vomiting, blood streaked stools Genitourinary: denies: dysuria, frequency, hematuria, pain Musculoskeletal: denies: joint pain, muscle pain Skin: See HPI Neurological: denies: headache, numbness, paresthesia, tingling, dizziness, weakness Hematologic/Lymphatic: denies: blood clots, easy bleeding, easy bruising Immunologic/allergic: denies: HIV/AIDS, transplant EXAM: GENERAL: Well-appearing, well-nourished and in no acute distress. HEAD: Atraumatic, normocephalic. EYES: Pupils equal round and reactive to light, extraocular movements intact, sclera anicteric, conjunctiva are normal. ENT: TMs normal, nares patent, oropharynx clear without exudates. Moist mucous membranes. NECK: Normal range of motion, supple without lymphadenopathy or JVD. LUNGS: Breath sounds clear to auscultation bilaterally and equal. No wheezes rales or rhonchi. HEART: Regular rate and rhythm without murmurs, rubs or gallops. ABDOMEN: Soft, nontender, normoactive bowel sounds. No guarding, no rebound. No masses appreciated. BACK: No CVA tenderness, no spinal tenderness, step-offs or deformities EXTREMITIES: Normal range of motion, no pitting or edema. No clubbing or cyanosis. NEUROLOGICAL: Cranial nerves II through XII grossly intact. Normal speech, normal gait. 5 strength, normal movement in all extremities, normal sensation PSYCH: Normal mood, normal affect. SKIN: Mild dry scaly cellulitis with previously drained small abscess on Dsouza, small amount of cellulitis under mustache as well. Source: Patient Exam Limitations: No limitations - Personal History Current Tetanus Diphtheria and Acellular Pertussis (TDAP): Yes Tetanus Vaccine Date: 2015 - Medical/Surgical History Hx Asthma: Yes Hx Chronic Respiratory Disease: Yes Hx Diabetes: No Hx Cardiac Disease: No Hx Renal Disease: No Hx Cirrhosis: No Hx Alcoholism: No Hx HIV/AIDS: No Hx Splenectomy or Spleen Trauma: No Other PMH: CHRONIC PAIN, RA, COPD/ASTHMA, HEPATITIS (B,C,D,E,F), C-DIFF, wears home O2(non compliant),"self medicates for pain," HEROIN ABUSE/IVDA, C diff. DENTAL CARIES, MIGRAINES, PTSD, "broken back", "broken neck", FLU X2 YRS - Family History Significant Family History: No pertinent family hx - Social History Smoking Status: Heavy smoker Alcohol Use: Sober Drug Use: None Constitutional: Initial Vital Signs Temperature (C) 36.4 C 01/30/17 08:58 Heart Rate 63 01/30/17 08:58 Respiratory Rate 18 01/30/17 08:58 Blood Pressure 132/91 H 01/30/17 08:58 O2 Sat (%) 91 L 01/30/17 08:58 O2 Delivery Mode Room Air Allergies/Adverse Reactions: acetaminophen [Acetaminophen] Allergy (Severe, Verified 01/30/17 09:01) heparin Allergy (Unknown, Verified 12/06/16 10:51) Heparin Analogues Allergy (Unknown, Verified 12/06/16 10:51) propoxyphene HCl [From Darvon] Allergy (Unknown, Verified 12/06/16 10:51) amoxicillin [Amoxicillin] Allergy (Verified 12/06/16 10:51) Other-Enter Comments aspirin [Aspirin] Allergy (Verified 12/06/16 10:51) Iodinated Contrast- Oral and IV Dye [Iodinated Contrast Media - Oral and] Allergy (Verified 12/06/16 10:51) Other-Enter Comments Home Medications: Medication Instructions Recorded Albuterol [Proventil Inhaler HFA 1 - 2 puffs IH DAILY PRN #1 mdi 08/03/16 (*)] Ipratropium/Albuterol [Combivent 1 inh IH BID #1 mdi 10/15/16 Respimat Inhal Preston(*)] predniSONE 40 mg PO DAILY #8 tablet 10/15/16 predniSONE [prednisone 20mg (RX)] 60 mg PO DAILY #9 tab 11/13/16 Albuterol [Proventil Inhaler HFA 1 - 2 puffs IH Q4PRN PRN #1 mdi 12/06/16 (*)] Ipratropium/Albuterol [Combivent 1 inh IH QID #1 mdi 12/06/16 Respimat Inhal Preston(*)] predniSONE [Prednisone] 20 mg PO DAILY #9 tablet 12/06/16 Beclomethasone Qvar 40 [Qvar 40 1 puffs IH BID #1 mdi 01/17/17 (*)] guaiFENesin/DEXTROMETHORPHAN 10 ml PO Q6 PRN #120 ml 01/17/17 [Robitussin Dm Oral Liquid (*)] predniSONE 1 tab PO DAILY #15 tab 01/17/17 Cephalexin [Keflex] 500 mg PO TID #21 cap 01/30/17 Sulfamethox/Tmp 800/160 mg 1 tab PO BID #14 tab 01/30/17 [Bactrim Ds] Medical Decision Making ED Course/Re-evaluation: I will start the patient on Bactrim and Keflex. He states that this worked well for him last time. He declines further workup or testing. He does not currently need I and D . Differential Diagnosis: Partial list of the Differential diagnosis considered include but were not limited to; cellulitis, abscess, and although unlikely based on the history and physical exam, I also considered sepsis, foreign body. I discussed these differential diagnoses and the plan with the patient as well as the usual and expected course. The patient understands that the diagnosis is provisional and that in medicine we are not always correct and that further workup is often warranted. Usual and customary warnings were given. All of the patient's questions were answered. The patient was instructed to return to the emergency department should the symptoms at all worsen or return, otherwise to followup with the physician as we discussed. - Data Points Medications Given: Discontinued Medications Cephalexin HCl (Keflex) 500 mg PO EDNOW ONE PRN Reason: Protocol Stop: 01/30/17 09:26 Last Admin: 01/30/17 09:35 Dose: 500 mg Trimethoprim/Sulfamethoxazole (Bactrim Ds) 1 ea PO EDNOW ONE PRN Reason: Protocol Stop: 01/30/17 09:26 Last Admin: 01/30/17 09:35 Dose: 1 ea Departure - Departure Disposition: Home, Routine, Self-Care Clinical Impression: Facial abscess Cellulitis Qualifiers: Site of cellulitis: face Qualified Code(s): L03.211 - Cellulitis of face Condition: Fair Instructions: Cellulitis (ED), Abscess (ED) Referrals: NONE *PRIMARY CARE P,. [Primary Care Provider] - As per Instructions [facility]. [Clinic] - As per Instructions Prescriptions: Cephalexin [Keflex] 500 mg PO TID #21 cap Sulfamethox/Tmp 800/160 mg [Bactrim Ds] 1 tab PO BID #14 tab
== END 2017-01-30 09:39 | disposition home or self-care (01) ==
LOC: EEVIPCON 08:53
DX: L02.01 Cutaneous abscess of face (principal); L03.211 Cellulitis of face; J44.9 Chronic obstructive pulmonary disease, unspecified; F17.200 Nicotine dependence, unspecified, uncomplicated; Z79.82 Long term (current) use of aspirin

== ENCOUNTER 2017-02-03 21:27 | Emergency (ER) | payer MEDICAID ==
[~2017-02-03 21:27] MED LIST changes: +CEPHALEXIN 500 MG CAP PO SCH; +SULFAMETHOX/TMP 800/160 MG 1 TAB PO SCH; -predniSONE 20 MG TAB PO SCH
[2017-02-03 21:43] VITALS: BP 111/65; PULSE 65; RESP 16; TEMP 97.9; O2SAT 90
--- NOTE | 2017-02-03 22:40 | EDPHY ---
H & P Time Seen by Provider: 02/03/17 22:27 HPI/ROS: CHIEF COMPLAINT: Facial cellulitis HISTORY OF PRESENT ILLNESS: 56-year-old homeless male presents to the emergency department with recurring facial cellulitis. Patient has a history of MRI say. He was prescribed Keflex and Bactrim and took 4 days of this medication but ran out because he doubled up on his doses of medication thinking that this might work better. No fevers or chills. No reported trauma. He did express pus from the wound on his own just a few days ago. No headache. REVIEW OF SYSTEMS: Constitutional: No fever, no chills. Eyes: No double or blurry vision. ENT: No sore throat. Respiratory: No cough, no shortness of breath. Cardiac: No chest pain. Gastrointestinal: No abdominal pain, vomiting or diarrhea. Genitourinary: No dysuria. Musculoskeletal: No neck or back pain. Skin: As above Neurological: No headache. Past Medical/Surgical History: Chronic pain, rheumatoid arthritis, COPD, hepatitis, C diff, MRI say, substance abuse, migraine headaches, PTSD Social History: Homeless Smoking Status: Current some day smoker Physical Exam: General Appearance: Alert, no distress. Afebrile. No apparent distress. Eyes: Pupils equal and round. Extraocular motions are all intact. ENT: Mouth: Mucous membranes moist. Poor dentition. Respiratory: No wheezing, rhonchi, or rales, lungs are clear to auscultation. Cardiovascular: Regular rate and rhythm. Gastrointestinal: Abdomen is soft and nontender, no masses, no rebound or guarding, bowel sounds normal. Neurological: Alert and oriented x 3, cranial nerves II through XII grossly intact Skin: Warm and dry, no rashes. Patient has redness and some mild swelling to the anterior aspect of his chin. There is an overlying abrasion noted. No pustules. No areas of fluctuance. No submandibular swelling. No oral lesions or swelling. Musculoskeletal: Nontender to palpate along the cervical, thoracic or lumbar spine. Neck is supple. Extremities: Full range of motion and no peripheral edema. Psychiatric: Patient is oriented X 3, there is no agitation. Constitutional: Initial Vital Signs Temperature (C) 36.6 C 02/03/17 21:41 Heart Rate 65 02/03/17 21:41 Respiratory Rate 16 02/03/17 21:41 Blood Pressure 111/65 10/15/17 21:41 O2 Sat (%) 90 L 02/03/17 21:41 O2 Delivery Mode Room Air Allergies/Adverse Reactions: acetaminophen [Acetaminophen] Allergy (Severe, Verified 01/30/17 09:01) heparin Allergy (Unknown, Verified 12/06/16 10:51) Heparin Analogues Allergy (Unknown, Verified 12/06/16 10:51) propoxyphene HCl [From Darvon] Allergy (Unknown, Verified 12/06/16 10:51) amoxicillin [Amoxicillin] Allergy (Verified 12/06/16 10:51) Other-Enter Comments aspirin [Aspirin] Allergy (Verified 12/06/16 10:51) Iodinated Contrast- Oral and IV Dye [Iodinated Contrast Media - Oral and] Allergy (Verified 12/06/16 10:51) Other-Enter Comments Home Medications: Medication Instructions Recorded Albuterol [Proventil Inhaler HFA 1 - 2 puffs IH DAILY PRN #1 mdi 08/03/16 (*)] Ipratropium/Albuterol [Combivent 1 inh IH BID #1 mdi 10/15/16 Respimat Inhal Downey(*)] predniSONE 40 mg PO DAILY #8 tablet 10/15/16 predniSONE [prednisone 20mg (RX)] 60 mg PO DAILY #9 tab 11/13/16 Albuterol [Proventil Inhaler HFA 1 - 2 puffs IH Q4PRN PRN #1 mdi 12/06/16 (*)] Ipratropium/Albuterol [Combivent 1 inh IH QID #1 mdi 12/06/16 Respimat Inhal Downey(*)] predniSONE [Prednisone] 20 mg PO DAILY #9 tablet 12/06/16 Beclomethasone Qvar 40 [Qvar 40 1 puffs IH BID #1 mdi 01/17/17 (*)] guaiFENesin/DEXTROMETHORPHAN 10 ml PO Q6 PRN #120 ml 01/17/17 [Robitussin Dm Oral Liquid (*)] predniSONE 1 tab PO DAILY #15 tab 01/17/17 Cephalexin [Keflex] 500 mg PO TID #21 cap 01/30/17 Sulfamethox/Tmp 800/160 mg 1 tab PO BID #14 tab 01/30/17 [Bactrim Ds] Cephalexin [Keflex] 500 mg PO QID #20 cap 02/03/17 Sulfamethox/Tmp 800/160 mg 1 tab PO BID #10 tab 02/03/17 [Bactrim DS] Medical Decision Making ED Course/Re-evaluation: 56-year-old male with a history of MRI say presents with recurring cellulitis to his chin. I do not appreciate obvious abscess. I do not think the patient needs incision and drainage. He will be prescribed Keflex and Bactrim for additional 5 days. He was encouraged to [facility]. He was also encouraged to return if he developed fever, facial swelling especially submandibular swelling or any other concerns. Patient verbalized understanding and agreed. His medications were filled through the [facility]. Differential Diagnosis: Including but not limited to cellulitis, abscess, abrasion. Departure - Departure Disposition: Home, Routine, Self-Care Clinical Impression: Facial cellulitis Condition: Good Instructions: Cellulitis (ED) Additional Instructions: Keflex and Bactrim as prescribed for 5 days. Follow up with [facility] after completion of antibiotics to recheck. Return to the emergency department sooner if you develop increased swelling, difficulty swallowing or breathing, fevers or chills, or if you feel worse in any way. Referrals: [facility],. [Clinic] - 2-3 days without fail Prescriptions: Cephalexin [Keflex] 500 mg PO QID #20 cap Sulfamethox/Tmp 800/160 mg [Bactrim DS] 1 tab PO BID #10 tab
== END 2017-02-03 23:43 | disposition home or self-care (01) ==
DX: L03.211 Cellulitis of face (principal); J44.9 Chronic obstructive pulmonary disease, unspecified; F17.200 Nicotine dependence, unspecified, uncomplicated

== ENCOUNTER 2017-02-26 08:28 | Inpatient (IN) | payer MEDICAID ==
--- NOTE | 2017-02-26 08:44 | CPEKG ---
Heart Rate: 72 RR Interval: 833 P-R Interval: 136 QRSD Interval: 84 QT Interval: 388 QTC Interval: 425 P [place]: 73 QRS [place]: 75 T Wave [place]: 78 EKG Severity - NORMAL ECG - EKG Impression: SINUS RHYTHM Electronically Signed By: William Donovan 26-Feb-2017 08:47:29
[2017-02-26] MEDS ORDERED: IPRATROPIUM/ALBUTEROL 3 ML DEYVIAL IH ONE (08:45)
[2017-02-26] MEDS ORDERED: ALBUTEROL 3 ML DEYVIAL IH ONE (09:08)
--- NOTE | 2017-02-26 09:09 | EDPHY ---
H & P Smoking Status: Light smoker Time Seen by Provider: 02/26/17 09:02 HPI/ROS: CHIEF COMPLAINT: Productive cough, short of breath HISTORY OF PRESENT ILLNESS: 56-year-old homeless male presents to the emergency department by ambulance feeling short of breath. The patient is concerned that he has recurring pneumonia. He has a productive cough over last 1 week. He feels increasingly short of breath. He thinks that he had a fever of 103 degrees on Saturday, 2 days ago. No known ill contacts. No recent travel. He does have a history of COPD. He does smoke cigarettes. He denies chest pain. Denies headache. Denies any reported trauma. No abdominal pain or vomiting. REVIEW OF SYSTEMS: Constitutional: No fever, no chills. Eyes: No double or blurry vision. ENT: No sore throat. Respiratory: Cough, shortness of breath Cardiac: No chest pain. Gastrointestinal: No abdominal pain, vomiting or diarrhea. Genitourinary: No dysuria. Musculoskeletal: No neck or back pain. Skin: No rashes. Neurological: No headache. (Chrissy Duganrina Christ) Past Medical/Surgical History: COPD, hepatitis, chronic pain, rheumatoid arthritis, Clostridium difficile, home oxygen - noncompliant, substance abuse, migraine headaches, PTSD, orthopedic injuries, pneumonia in October of 2016 (Chrissy Dugansolis Polo) Social History: Homeless (Rose Dugan) Physical Exam: General Appearance: Alert, tachypneic. Initial room air saturation was 83%. 94% on 3 L nasal cannula oxygen. Blood pressure 132/81, heart rate 77, temperature 36.6 degrees. Eyes: Pupils equal and round. Extraocular motions are all intact. ENT: Mouth: Mucous membranes moist. Respiratory: Diffuse expiratory wheezing throughout. Decreased breath sounds in the bases. Cardiovascular: Regular rate and rhythm. Gastrointestinal: Abdomen is soft and nontender, no masses, no rebound or guarding, bowel sounds normal. Neurological: Alert and oriented x 3, cranial nerves II through XII grossly intact Skin: Warm and dry, no rashes. Musculoskeletal: Nontender to palpate along the cervical, thoracic or lumbar spine. Neck is supple. Extremities: Full range of motion and no peripheral edema. Psychiatric: Patient is oriented X 3, there is no agitation. (Chrissy Duganrina Christ) Constitutional: Initial Vital Signs Temperature (C) 36.6 C 11/07/17 08:32 Heart Rate 77 02/26/17 08:32 Respiratory Rate 20 02/26/17 08:32 Blood Pressure 132/81 H 02/26/17 08:32 O2 Sat (%) 83 L 02/26/17 08:32 O2 Delivery Mode Nasal Cannula O2 (L/minute) 3 Allergies/Adverse Reactions: acetaminophen [Acetaminophen] Allergy (Severe, Verified 01/30/17 09:01) heparin Allergy (Unknown, Verified 12/06/16 10:51) Heparin Analogues Allergy (Unknown, Verified 12/06/16 10:51) propoxyphene HCl [From Darvon] Allergy (Unknown, Verified 12/06/16 10:51) amoxicillin [Amoxicillin] Allergy (Verified 12/06/16 10:51) Other-Enter Comments aspirin [Aspirin] Allergy (Verified 12/06/16 10:51) Iodinated Contrast- Oral and IV Dye [Iodinated Contrast Media - Oral and] Allergy (Verified 12/06/16 10:51) Other-Enter Comments Home Medications: Medication Instructions Recorded Albuterol [Proventil Inhaler HFA 1 - 2 puffs IH DAILY PRN #1 mdi 08/03/16 (*)] Beclomethasone Qvar 40 [Qvar 40 1 puffs IH BID #1 mdi 01/17/17 (*)] Ascorbic Acid [Vitamin C 500 mg 1,000 mg PO DAILY 02/26/17 (*)] Herbals/Supplements -Info Only 1 ea PO DAILY 02/26/17 Multivitamins [Multivitamin (*)] 1 each PO DAILY 02/26/17 Medical Decision Making - Diagnostics Imaging: Discussed imaging studies w/ call center associate Radiologist, I viewed and interpreted images myself - Diagnostics EKG Interpretation: 12-lead EKG interpreted by me; official reading is in trace master. My interpretation is sinus rhythm no ischemic changes. (William Donovan) Imaging Results: Imaging Impressions Chest X-Ray 02/26/17 08:45 Impression: 1. Lingular consolidation/pneumonia. 2. Hyperexpanded lungs compatible with underlying COPD/emphysema or air- trapping. ED Course/Re-evaluation: 56-year-old homeless male presents to the emergency department with shortness of breath and productive cough. The patient was treated for pneumonia in October of 2016. He is noncompliant with his home oxygen. Patient was given a DuoNeb with some relief. He was given additional albuterol nebulizer. Chest x-ray was obtained which reveals left lower lobe pneumonia. The patient was last hospitalized in September of 2016. The patient tells me that he has not been hospitalized since that time and specifically not the last 90 days. He will be treated for community-acquired pneumonia with 750 mg of Levaquin IV. Blood cultures are pending. Laboratory tests are pending including lactate. Patient does not meet SIRS criteria. Patient will be admitted to the hospitalist. (Rose Dugan) Differential Diagnosis: Shortness of breath including but not limited to pulmonary infectious process, COPD, asthma, pulmonary embolus and congestive heart failure. (Rose Dugan) - Data Points Laboratory Results: Laboratory Results 02/26/17 08:39 02/26/17 08:39 02/26/17 02/26/17 02/26/17 10:05 08:39 08:39 WBC 6.41 10^3/uL 10^3/uL (3.80-9.50) RBC 4.37 10^6/uL L 10^6/uL (4.40-6.38) Hgb 14.6 g/dL g/dL (13.7-17.5) Hct 41.0 % % (40.0-51.0) MCV 93.8 fL fL (81.5-99.8) MCH 33.4 pg pg (27.9-34.1) MCHC 35.6 g/dL g/dL (32.4-36.7) RDW 12.7 % % (11.5-15.2) Plt Count 101 10^3/uL L 10^3/uL (150-400) MPV 11.2 fL fL (8.7-11.7) Neut % (Auto) 53.1 % % (39.3-74.2) Lymph % (Auto) 28.7 % % (15.0-45.0) Reynolds % (Auto) 13.7 % H % (4.5-13.0) Eos % (Auto) 3.7 % % (0.6-7.6) Baso % (Auto) 0.5 % % (0.3-1.7) Nucleat RBC Rel Count 0.0 % % (0.0-0.2) Absolute Neuts (auto) 3.40 10^3/uL 10^3/uL (1.70-6.50) Absolute Lymphs (auto) 1.84 10^3/uL 10^3/uL (1.00-3.00) Absolute Monos (auto) 0.88 10^3/uL H 10^3/uL (0.30-0.80) Absolute Eos (auto) 0.24 10^3/uL 10^3/uL (0.03-0.40) Absolute Basos (auto) 0.03 10^3/uL 10^3/uL (0.02-0.10) Absolute Nucleated RBC 0.00 10^3/uL 10^3/uL (0-0.01) Immature Gran % 0.3 % % (0.0-1.1) Immature Gran # 0.02 10^3/uL 10^3/uL (0.00-0.10) VBG Lactic Acid 1.0 mmol/L mmol/L (0.7-2.1) Sodium 139 mEq/L mEq/L (134-144) Potassium 4.0 mEq/L mEq/L (3.5-5.2) Chloride 102 mEq/L mEq/L (97-110) Carbon Dioxide 27 mEq/l mEq/l (22-31) Anion Gap 10 mEq/L mEq/L (8-16) BUN 12 mg/dL mg/dL (7-23) Creatinine 0.9 mg/dL mg/dL (0.7-1.3) Estimated GFR > 60 Glucose 103 mg/dL H mg/dL (70-100) Calcium 8.6 mg/dL mg/dL (8.5-10.4) Medications Given: Albuterol/Ipratropium (Duoneb) 3 ml IH QID BRAYDEN Stop: 08/25/17 15:59 Last Admin: 02/26/17 15:29 Dose: 3 ml Oxycodone HCl (Oxycodone Ir) 5 - 10 mg PO Q3HRS PRN PRN Reason: Pain, Severe Able to Take PO Stop: 03/08/17 12:12 Last Admin: 02/26/17 13:02 Dose: 10 mg Discontinued Medications Albuterol (Proventil Neb) 3 ml IH EDNOW ONE Stop: 02/26/17 09:09 Last Admin: 02/26/17 09:26 Dose: 3 ml Albuterol/Ipratropium (Duoneb) 3 ml IH EDNOW ONE Stop: 02/26/17 08:46 Last Admin: 02/26/17 08:48 Dose: 3 ml Levofloxacin/Dextrose (Levaquin 750 Mg (Premix)) 150 mls @ 100 mls/hr IV EDNOW ONE PRN Reason: Protocol Stop: 02/26/17 11:05 Last Admin: 02/26/17 10:25 Dose: 150 mls Departure - Departure Disposition: [facility] Inpatient Acute Clinical Impression: Pneumonia Qualifiers: Pneumonia type: due to unspecified organism Laterality: left Lung location: lower lobe of lung Qualified Code(s): J18.1 - Lobar pneumonia, unspecified organism Dyspnea Qualifiers: Dyspnea type: unspecified Qualified Code(s): R06.00 - Dyspnea, unspecified Condition: Fair
[2017-02-26 09:37] LABS: % IMMATURE GRANULYOCYTES 0.3 % (0.0-1.1); ABSOLUTE IMMATURE GRANULOCYTES 0.02 10^3/uL (0.00-0.10); ADD DIFF? NO; ADD MORPH? NO; ADD SCAN? NO; ATYPICAL LYMPHOCYTE FLAG 20 (0-99); FRAGMENT RBC FLAG 0 (0-99); HEMOGLOBIN 14.6 g/dL (13.7-17.5); LEFT SHIFT FLG 10 (0-99); LIPEMIA HEMOLYSIS FLAG 90 (0-99); MEAN CELL HEMOGLOBIN 33.4 pg (27.9-34.1); MEAN CELL HEMOGLOBIN CONCENTR. 35.6 g/dL (32.4-36.7); MEAN CELL VOLUME 93.8 fL (81.5-99.8); MEAN PLATELET VOLUME 11.2 fL (8.7-11.7); PLATELET CLUMPS FLAG 0 (0-99); PLATELET COUNT 101 10^3/uL (150-400); RED BLOOD CELL COUNT 4.37 10^6/uL (4.40-6.38); RED CELL DISTRIBUTION WIDTH 12.7 % (11.5-15.2)
[2017-02-26 09:44] LABS: ANION GAP 10 mEq/L (8-16); CALCIUM 8.6 mg/dL (8.5-10.4); CARBON DIOXIDE 27 mEq/l (22-31); CHLORIDE 102 mEq/L (97-110); CREATININE 0.9 mg/dL (0.7-1.3); GLOMERULAR FILTRATION RATE > 60; GLUCOSE 103 mg/dL (70-100); SODIUM 139 mEq/L (134-144)
[2017-02-26] MEDS ORDERED: ZOLPIDEM TARTRATE 5 MG TAB PO PRN (12:13)
[2017-02-26] MEDS ORDERED: ONDANSETRON DISINTEGRATING 4 MG TAB PO PRN (12:13)
[2017-02-26] MEDS ORDERED: ACETAMINOPHEN 325 MG TAB PO PRN (12:13)
[2017-02-26] MEDS ORDERED: ALBUTEROL 3 ML DEYVIAL IH PRN (12:13)
[2017-02-26] MEDS ORDERED: ONDANSETRON 4 MG/2 ML VIAL IVP PRN (12:13)
[2017-02-26] MEDS ORDERED: PROMETHAZINE HCL 25 MG/ML INJ IVP PRN (12:13)
[2017-02-26] MEDS: oxyCODONE IR 5 MG TAB PO PRN ×3 (13:02→23:02)
[2017-02-26] MEDS: IPRATROPIUM/ALBUTEROL 3 ML DEYVIAL IH SCH ×2 (15:29→21:44)
--- NOTE | 2017-02-26 17:58 | PDGENHP ---
History and Physical - Chief Complaint sob, cough, pain - History of Present Illness 56 yo M with hx of homelessness and copd presenting with cough, sob, fever. He states he has been around "300" sick people recently. He has been told in the past that he requires continuous o2 but given his homelessness he has not been able to do that. He also expresses beliefs that he is being kept homeless in order to require him to continue to be hospitalized and make money for the hospital. He states that until he has housing he will continue to come back to the hospital. He also states that he has pain everywhere and that this is also worse recently. History Information - Allergies/Home Medication List Allergies/Adverse Reactions: acetaminophen [Acetaminophen] Allergy (Severe, Verified 01/30/17 09:01) heparin Allergy (Unknown, Verified 12/06/16 10:51) Heparin Analogues Allergy (Unknown, Verified 12/06/16 10:51) propoxyphene HCl [From Darvon] Allergy (Unknown, Verified 12/06/16 10:51) amoxicillin [Amoxicillin] Allergy (Verified 12/06/16 10:51) Other-Enter Comments aspirin [Aspirin] Allergy (Verified 12/06/16 10:51) Iodinated Contrast- Oral and IV Dye [Iodinated Contrast Media - Oral and] Allergy (Verified 12/06/16 10:51) Other-Enter Comments Home Medications: Ascorbic Acid [Vitamin C 500 mg (*)] 1,000 mg PO DAILY 02/26/17 [Last Taken Unknown] Herbals/Supplements -Info Only 1 ea PO DAILY 02/26/17 [Last Taken Unknown] Multivitamins [Multivitamin (*)] 1 each PO DAILY 02/26/17 [Last Taken Unknown] I have personally reviewed and updated: family history, medical history, social history, surgical history - Past Medical History COPD Additional medical history: copd. chronic hepatitis b andc. PTSD. chronic pain syndrome - Surgical History Additional surgical history: teeth extractions - Family History Positive for: non-pertinent - Social History Smoking Status: Light smoker Alcohol Use: Occasionally (previously heavy, states he currently only uses intermittetnly) Drug Use: Other (prior heroin abuse, now sober per his report) Additional social history: homeless M Review of Systems Review of Systems: ROS: 10pt was reviewed & negative except for what was stated in HPI & below Physical Exam Physical Exam: Temp Pulse Resp BP Pulse Ox 37.2 C 7 L 18 118/72 92 02/26/17 15:16 02/26/17 15:30 02/26/17 15:30 02/26/17 15:16 02/26/17 15:30 O2 (L/minute) 2 Constitutional: no apparent distress, appears nourished Eyes: PERRL, anicteric sclera Ears, Nose, Mouth, Throat: moist mucous membranes, poor dentition Cardiovascular: regular rate and rhythym, no murmur, rub, or gallop, No edema Respiratory: no respiratory distress, reduced air movement, expiratory wheeze Gastrointestinal: normoactive bowel sounds, soft, non-tender abdomen Genitourinary: no bladder tenderness Skin: warm, normal color Musculoskeletal: full muscle strength, no muscle tenderness Neurologic: AAOx3 Psychiatric: interacting appropriately, not anxious, not encephalopathic Lab Data & Imaging Review 02/26/17 08:39 02/26/17 08:39 WBC 6.41 10^3/uL (3.80-9.50) 02/26/17 08:39 RBC 4.37 10^6/uL (4.40-6.38) L 02/26/17 08:39 Hgb 14.6 g/dL (13.7-17.5) 02/26/17 08:39 Hct 41.0 % (40.0-51.0) 02/26/17 08:39 MCV 93.8 fL (81.5-99.8) 02/26/17 08:39 MCH 33.4 pg (27.9-34.1) 02/26/17 08:39 MCHC 35.6 g/dL (32.4-36.7) 02/26/17 08:39 RDW 12.7 % (11.5-15.2) 02/26/17 08:39 Plt Count 101 10^3/uL (150-400) L 02/26/17 08:39 MPV 11.2 fL (8.7-11.7) 02/26/17 08:39 Neut % (Auto) 53.1 % (39.3-74.2) 02/26/17 08:39 Lymph % (Auto) 28.7 % (15.0-45.0) 02/26/17 08:39 Morrill % (Auto) 13.7 % (4.5-13.0) H 02/26/17 08:39 Eos % (Auto) 3.7 % (0.6-7.6) 02/26/17 08:39 Baso % (Auto) 0.5 % (0.3-1.7) 02/26/17 08:39 Nucleat RBC Rel Count 0.0 % (0.0-0.2) 02/26/17 08:39 Absolute Neuts (auto) 3.40 10^3/uL (1.70-6.50) 02/26/17 08:39 Absolute Lymphs (auto) 1.84 10^3/uL (1.00-3.00) 02/26/17 08:39 Absolute Monos (auto) 0.88 10^3/uL (0.30-0.80) H 02/26/17 08:39 Absolute Eos (auto) 0.24 10^3/uL (0.03-0.40) 02/26/17 08:39 Absolute Basos (auto) 0.03 10^3/uL (0.02-0.10) 02/26/17 08:39 Absolute Nucleated RBC 0.00 10^3/uL (0-0.01) 02/26/17 08:39 Immature Gran % 0.3 % (0.0-1.1) 02/26/17 08:39 Immature Gran # 0.02 10^3/uL (0.00-0.10) 02/26/17 08:39 VBG Lactic Acid 1.0 mmol/L (0.7-2.1) 02/26/17 10:05 Sodium 139 mEq/L (134-144) 02/26/17 08:39 Potassium 4.0 mEq/L (3.5-5.2) 02/26/17 08:39 Chloride 102 mEq/L (97-110) 02/26/17 08:39 Carbon Dioxide 27 mEq/l (22-31) 02/26/17 08:39 Anion Gap 10 mEq/L (8-16) 02/26/17 08:39 BUN 12 mg/dL (7-23) 02/26/17 08:39 Creatinine 0.9 mg/dL (0.7-1.3) 02/26/17 08:39 Estimated GFR > 60 02/26/17 08:39 Glucose 103 mg/dL (70-100) H 02/26/17 08:39 Calcium 8.6 mg/dL (8.5-10.4) 02/26/17 08:39 Nasal Influenza A PCR NEGATIVE FOR FLU A (NEGATIVE) 02/26/17 16:20 Nasal Influenza B PCR NEGATIVE FOR FLU B (NEGATIVE) 02/26/17 16:20 Visualized and Interpreted Chest x-ray results: Yes Chest X-Ray results: infiltrate (lingular) Visualized and Interpreted EKG results: Yes EKG Interpretation: Positive for: normal sinsus rhythm Assessment & Plan Assessment: Dyspnea (Acute) Pneumonia (Acute) 56 yo homeless man presenting with pna, copd exacerbation # copd with acute exacerbation: in setting of pna, started on scheduled nebs, will hold off on steroids as air movement is reasonable at this time # pna: lingular pna noted on cxr, started on levofloxacin, flu swab pending, blood cultures pending # acute on chronic hypoxic respiratory failure: o2 sats as low as 80% on RA, has been told in the past he needs continuous o2 but has not had the means to obtain it,hoping will improve and due to above # hep b/c: will check lfts # chronic pain: hx of opiate abuse, will work to limit opiate use while in house # dispo: homeless, will likely dc back to street Patient new to my care. Old records reviewed and summarized as above. Care plan reviewed with ER doctor as above.
[2017-02-26] MEDS: BECLOMETHASONE QVAR 40 MDI IH SCH (21:43)
[2017-02-26] MEDS ORDERED: BENZONATATE 100 MG CAP PO PRN (21:57)
[2017-02-27] MEDS: IPRATROPIUM/ALBUTEROL 3 ML DEYVIAL IH SCH ×4 (05:47→21:49)
[2017-02-27] MEDS: oxyCODONE IR 5 MG TAB PO PRN ×4 (06:03→20:50)
[2017-02-27] MEDS: ASCORBIC ACID 500 MG TAB PO SCH (09:38)
[2017-02-27] MEDS: MULTIVITAMINS 1 EACH TAB PO SCH (09:38)
[2017-02-27] MEDS: BECLOMETHASONE QVAR 40 MDI IH SCH ×2 (09:40→21:48)
[2017-02-27] MEDS: ENOXAPARIN 40 MG/0.4 ML SYR SC SCH (09:40)
[2017-02-27 10:07] LABS: % IMMATURE GRANULYOCYTES 0.3 % (0.0-1.1); ABSOLUTE IMMATURE GRANULOCYTES 0.02 10^3/uL (0.00-0.10); ADD DIFF? NO; ADD MORPH? NO; ADD SCAN? NO; ATYPICAL LYMPHOCYTE FLAG 60 (0-99); FRAGMENT RBC FLAG 0 (0-99); HEMATOCRIT 38.2 % (40.0-51.0); HEMOGLOBIN 13.7 g/dL (13.7-17.5); LEFT SHIFT FLG 0 (0-99); LIPEMIA HEMOLYSIS FLAG 90 (0-99); MEAN CELL HEMOGLOBIN 34.1 pg (27.9-34.1); MEAN CELL HEMOGLOBIN CONCENTR. 35.9 g/dL (32.4-36.7); MEAN PLATELET VOLUME 10.5 fL (8.7-11.7); PLATELET CLUMPS FLAG 20 (0-99); PLATELET COUNT 76 10^3/uL (150-400); RED BLOOD CELL COUNT 4.02 10^6/uL (4.40-6.38); RED CELL DISTRIBUTION WIDTH 13.1 % (11.5-15.2)
[2017-02-27 10:43] LABS: ANION GAP 9 mEq/L (8-16); CALCIUM 8.5 mg/dL (8.5-10.4); CARBON DIOXIDE 32 mEq/l (22-31); CHLORIDE 101 mEq/L (97-110); CREATININE 0.8 mg/dL (0.7-1.3); GLOMERULAR FILTRATION RATE > 60; GLUCOSE 76 mg/dL (70-100); POTASSIUM 4.4 mEq/L (3.5-5.2); SODIUM 142 mEq/L (134-144)
[2017-02-27] MEDS: FLU VACC QS 2017-18 (3YR+)/PF 0.5 ML SYR (FLUARIX QUAD) IM ONE ×2 (12:10→22:05)
[2017-02-27] MEDS ORDERED: IBUPROFEN 200 MG TAB PO PRN (15:23)
--- NOTE | 2017-02-27 15:24 | HOSPPROG ---
Hospitalist Progress Note Assessment/Plan: 56 yo homeless man presenting with pna, copd exacerbation # copd with acute exacerbation: in setting of pna, started on scheduled nebs, will hold off on steroids in part due to patient preference but also seems to be improving without it. Today with significant wheeze that improved with neb. Not quite ready for dc. # pna: lingular pna noted on cxr, started on levofloxacin, flu swab negative, blood cultures pending # acute on chronic hypoxic respiratory failure: o2 sats as low as 80% on RA, has been told in the past he needs continuous o2 but has not had the means to obtain it, still requiring 2-3 L of o2 to maintain o2 sats > 90%, continue nebs , IS, ambulation, abx. # hep b/c: will check lfts # chronic pain: hx of opiate abuse, will work to limit opiate use while in house however patient continues to c/o severe pain # dispo: homeless, will likely dc back to street given limited dispo options, CM involved Subjective: no significant overnight events, he still has sob today but some improvement since yesterday Objective: Vital Signs Temp Pulse Resp BP Pulse Ox 36.5 C 66 14 130/69 H 93 02/27/17 11:17 02/27/17 11:17 02/27/17 11:17 02/27/17 11:17 02/27/17 11:17 Laboratory Results 02/27/17 09:58 02/27/17 09:58 02/26/17 02/27/17 02/28/17 05:59 05:59 05:59 Intake Total 2190 Balance 2190 awake alert anicteric op clear, poor dentition rrr no mrg diffuse wheeze, decreased bs throughout, normal wob soft nt nd no cce warm dry well perfused oriented appropriate ICD10 Worksheet Patient Problems: Problems Problem Status Onset Pneumonia Acute Hepatitis C Chronic HCAP (healthcare-associated pneumonia) Acute Sepsis Acute Chronic obstructive pulmonary disease with acute exacerbation Acute COPD (chronic obstructive pulmonary disease) Acute Bronchitis Acute Facial abscess Acute Acute bronchitis Acute Pneumonia Acute Shortness of breath Acute Cellulitis Acute Dyspnea Acute
--- NOTE | 2017-02-27 15:37 | ASMTCMCOM ---
CM Note CM Note Notes: Pt. is a 56-year-old disabled man with a hx. of previous admissions and ER visits to [facility]. This admission, Pt. in for a cough, shortness of breath and PNA. Hx. smoking, COPD, chronic pain syndrome, Hep B and C, homelessness, PTSD, heroin use, ETOH use. SWer has worked w/ Pt. in the past. SWer finds Pt. a difficult person to work with. Last d/c was in September 2016 at Pt. d/c'ed to the streets. Current plan: Await OT recommendations. KWAKU/MARIA ELENA to follow for d/c POC. Date Signed: 02/27/2017 03:37 PM Electronically Signed By:Bertha Ramirez LCSW
--- NOTE | 2017-02-27 16:20 | PDMN ---
Medical Necessity Medical necessity: Change to IP, as of 02/27/17, per MD; los >2 mn for ongoing management/tx of COPD exacerbation in setting of pna; hx homelessness; per progress note & order 02/27/17
[2017-02-27 17:32] LABS: BILIRUBIN,TOTAL 0.3 mg/dL (0.1-1.4); BILIRUBIN-CONJUGATED 0.1 mg/dL (0.0-0.5); BILIRUBIN-UNCONJUGATED 0.2 mg/dL (0.0-1.1); TOTAL PROTEIN 5.5 g/dL (6.3-8.2)
[2017-02-28] MEDS: oxyCODONE IR 5 MG TAB PO PRN ×6 (00:01→21:20)
[2017-02-28] MEDS ORDERED: MELATONIN 3 MG TAB PO PRN (00:26)
[2017-02-28] MEDS: IPRATROPIUM/ALBUTEROL 3 ML DEYVIAL IH SCH ×4 (05:42→21:55)
[2017-02-28] MEDS: BECLOMETHASONE QVAR 40 MDI IH SCH ×2 (07:54→21:55)
[2017-02-28] MEDS: ASCORBIC ACID 500 MG TAB PO SCH (12:08)
[2017-02-28] MEDS: MULTIVITAMINS 1 EACH TAB PO SCH (12:08)
[2017-02-28] MEDS: ENOXAPARIN 40 MG/0.4 ML SYR SC SCH (16:00)
--- NOTE | 2017-02-28 16:29 | HOSPPROG ---
Hospitalist Progress Note Assessment/Plan: 56 yo homeless man presenting with pna, copd exacerbation copd with acute exacerbation: in setting of pna, started on scheduled nebs, will hold off on steroids in part due to patient preference but also seems to be improving without it. Today with significant wheeze that improved with neb. Not quite ready for dc. pna: lingular pna noted on cxr, started on levofloxacin, flu swab negative, blood cultures pending blood cx neg thus far acute on chronic hypoxic respiratory failure: o2 sats as low as 80% on RA, has been told in the past he needs continuous o2 but has not had the means to obtain it, still requiring 2-3 L of o2 to maintain o2 sats > 90%, continue nebs , IS, ambulation, abx. hep b/c: will check lfts chronic pain: hx of opiate abuse, will work to limit opiate use while in house however patient continues to c/o severe pain # dispo: homeless, will likely dc back to street given limited dispo options, CM involved Subjective: angry. wheezing Objective: Vital Signs Temp Pulse Resp BP Pulse Ox 36.7 C 56 L 10 L 119/76 93 02/28/17 15:04 02/28/17 16:15 02/28/17 16:15 02/28/17 15:04 02/28/17 16:15 02/27/17 02/28/17 03/01/17 05:59 05:59 05:59 Intake Total 1740 Balance 1740 - Physical Exam Constitutional: no apparent distress, appears nourished Eyes: PERRL, EOMI Ears, Nose, Mouth, Throat: moist mucous membranes, hearing normal Cardiovascular: regular rate and rhythym, no murmur, rub, or gallop Respiratory: other (not wheezing when I arrived but significant wheezing on exam ) Gastrointestinal: normoactive bowel sounds, soft, non-tender abdomen Genitourinary: no bladder fullness, No hong in urethra Skin: warm, normal color Musculoskeletal: full muscle strength Neurologic: AAOx3 ICD10 Worksheet Patient Problems: Problems Problem Status Onset Dyspnea Acute Pneumonia Acute Acute bronchitis Acute Bronchitis Acute COPD (chronic obstructive pulmonary disease) Acute Cellulitis Acute Chronic obstructive pulmonary disease with acute exacerbation Acute Facial abscess Acute HCAP (healthcare-associated pneumonia) Acute Pneumonia Acute Sepsis Acute Shortness of breath Acute Hepatitis C Chronic
[2017-03-01] MEDS: oxyCODONE IR 5 MG TAB PO PRN ×3 (01:25→12:29)
[2017-03-01] MEDS: IPRATROPIUM/ALBUTEROL 3 ML DEYVIAL IH SCH ×2 (05:22→12:01)
[2017-03-01] MEDS: ASCORBIC ACID 500 MG TAB PO SCH (09:03)
[2017-03-01] MEDS: ENOXAPARIN 40 MG/0.4 ML SYR SC SCH (09:03)
[2017-03-01] MEDS: MULTIVITAMINS 1 EACH TAB PO SCH (09:03)
[2017-03-01 11:00] VITALS: BP 131/76; TEMP 98
[2017-03-01] MEDS: BECLOMETHASONE QVAR 40 MDI IH SCH (11:19)
[2017-03-01 12:09] VITALS: PULSE 60; RESP 14; O2SAT 80
--- NOTE | 2017-03-01 12:58 | HOSPPROG ---
Hospitalist Progress Note Assessment/Plan: 56 yo homeless man presenting with pna, copd exacerbation copd with acute exacerbation: in setting of pna, started on scheduled nebs, will hold off on steroids in part due to patient preference but also seems to be improving without it. Today with significant wheeze that improved with neb. breathing well today pna: lingular pna noted on cxr, started on levofloxacin, flu swab negative, blood cultures pending blood cx neg thus far acute on chronic hypoxic respiratory failure: o2 sats as low as 80% on RA, has been told in the past he needs continuous o2 but has not had the means to obtain it, still requiring 2-3 L of o2 to maintain o2 sats > 90%, continue nebs , IS, ambulation, abx. homelessness precludes outpt 02 hep b/c: will check lfts chronic pain: hx of opiate abuse, will work to limit opiate use while in house however patient continues to c/o severe pain # dispo: home today >30 minutes on dc Subjective: syringes, white powder and tourniquest found in room. obviously intoxicated during my interview Objective: Vital Signs Temp Pulse Resp BP Pulse Ox 36.7 C 60 14 131/76 H 80 L 03/01/17 10:59 03/01/17 12:03 03/01/17 12:03 03/01/17 10:59 03/01/17 12:03 02/28/17 03/01/17 03/02/17 05:59 05:59 05:59 Intake Total 1740 500 Balance 1740 500 - Physical Exam Constitutional: no apparent distress, appears nourished Eyes: PERRL, anicteric sclera Ears, Nose, Mouth, Throat: moist mucous membranes, hearing normal Cardiovascular: regular rate and rhythym, no murmur, rub, or gallop Respiratory: no respiratory distress, No expiratory wheeze Gastrointestinal: normoactive bowel sounds, soft, non-tender abdomen Genitourinary: no bladder fullness Skin: warm Musculoskeletal: full muscle strength Neurologic: AAOx3, other (sedated) ICD10 Worksheet Patient Problems: Problems Problem Status Onset Dyspnea Acute Pneumonia Acute Acute bronchitis Acute Bronchitis Acute COPD (chronic obstructive pulmonary disease) Acute Cellulitis Acute Chronic obstructive pulmonary disease with acute exacerbation Acute Facial abscess Acute HCAP (healthcare-associated pneumonia) Acute Pneumonia Acute Sepsis Acute Shortness of breath Acute Hepatitis C Chronic
--- NOTE | 2017-03-01 14:14 | ASDISCHSUM ---
Discharge Information Plan Status:Home with No Needs Medically Cleared to Leave: Discharge Date:03/01/2017 01:32 PM CM D/C Disposition:Home, Routine, Self-Care ADT D/C Disposition:Home, Routine, Self-Care Projected Discharge Date:03/01/2017 01:32 PM Transportation at D/C: Discharge Delay Reason: Follow-Up Date:03/01/2017 01:32 PM Discharge Slot: Final Diagnosis: Placement Information Patient Contact Information Contact Name:NIXON Relationship: Address: Home Phone: Work Phone: City: Alternate Phone: State/Zip Code: Email: Financial Information Financial Class: Primary Plan Desc:[employer] [place] IP Primary Plan Number:[id number] Secondary Plan Desc: Secondary Plan Number: Assessment Information LACE LACE Acuity / Level of Care Answers: Was the patient admitted to hospital via the emergency department? Yes: Comorbidities - select Answers: Chronic pulmonary disease all that apply Emergency dept visits in Answers: 4+ last 6 months Score: 9 Date Signed: 02/26/2017 11:01 AM Electronically Signed By:Bertha Cameron RN [facility] CM Progress Note CM Note CM Note Notes: Pt. is a 56-year-old disabled man with a hx. of previous admissions and ER visits to [facility]. This admission, Pt. in for a cough, shortness of breath and PNA. Hx. smoking, COPD, chronic pain syndrome, Hep B and C, homelessness, PTSD, heroin use, ETOH use. Ej has worked w/ Pt. in the past. Ej finds Pt. a difficult person to work with. Last d/c was in September 2016 at Pt. d/c'ed to the streets. Current plan: Await OT recommendations. KWAKU/[facility] ELENA to follow for d/c POC. Date Signed: 02/27/2017 03:37 PM Electronically Signed By:Bertha Ramirez LCSW [facility] CM Progress Note CM Note CM Note Notes: industrial staff nurse found injection materials in Pt.'s room today. Security called. RNs report Pt. had a needle, tourniquet, white "balls" or pills, and a cup to "cook" with. Pt. has been refusing OT and PT. Pt. d/c'ed today. Pt. upset about d/c and gathered his things quickly per RN. Did sign d/c paperwork and then asked RN to send scripts to Farida at [facility] and [place]. Pt. left on his own independently - likely to ruth. Date Signed: 03/01/2017 03:16 PM Electronically Signed By:Bertha Ramirez LCSW Intervention Information Intervention Type:*Incorrect Registration Date of Service:02/26/2017 12:29 PM Patient Type:Inpatient Staff Member:ASHLYN Cristina, Erum Hours: Discipline: Severity: Comment:
--- NOTE | 2017-03-01 15:16 | ASMTCMCOM ---
CM Note CM Note Notes: staff readiness officer found injection materials in Pt.'s room today. Security called. RNs report Pt. had a needle, tourniquet, white "balls" or pills, and a cup to "cook" with. Pt. has been refusing OT and PT. Pt. d/c'ed today. Pt. upset about d/c and gathered his things quickly per RN. Did sign d/c paperwork and then asked RN to send scripts to Farida at [facility] and [place]. Pt. left on his own independently - likely to [place]. Date Signed: 03/01/2017 03:16 PM Electronically Signed By:Bertha Ramirez LCSW
--- NOTE | 2017-03-01 20:13 | GDS ---
[f rep st] DISCHARGE SUMMARY DISCHARGE DIAGNOSES: 1. Chronic obstructive pulmonary disease with acute exacerbation. 2. Chronic hypoxemic respiratory failure. 3. Suspected surreptitious heroin use in his room. 4. Lingular pneumonia. HOSPITAL COURSE: Please see admission history and physical by Dr. Seble Slater. The patient pres ented on the with cough, shortness of breath, and fever. He was hypoxemic. He was initiated on levofloxacin as a result of the chest x-ray findings. He did not have sepsis. The patient did well. He was afebrile. He had baseline hypoxia. On the day of discharge, the patient had some white pow zita syringes and a tourniquet in his room. These are found earlier in the day. When I saw him, he w as fairly obviously intoxicated. He was discharged home to complete a 7-day course of antibiotics, a s well as refills on Qvar and albuterol. Given his homeless status and difficult personality, we monique e not able set him up with oxygen as an outpatient. /[id number]/MODL
== END 2017-03-01 13:32 | disposition home or self-care (01) | DRG 190 ==
LOC: EDUNIT# → INTOOBSV 10:09 → F3E 11:26 → OBSVTOIN 02-27 15:20
PROVIDERS: ADMIT Internal Medicine; ATTEND Internal Medicine
DX: J44.1 Chronic obstructive pulmonary disease with (acute) exacerbation (principal); J18.8 Other pneumonia, unspecified organism; J96.11 Chronic respiratory failure with hypoxia; G89.29 Other chronic pain; M06.9 Rheumatoid arthritis, unspecified; F43.10 Post-traumatic stress disorder, unspecified; F11.90 Opioid use, unspecified, uncomplicated; Z91.19 Patient's noncompliance with other medical treatment and regimen; Z99.81 Dependence on supplemental oxygen; Z59.0 Homelessness; Z72.0 Tobacco use
CPT/HCPCS: 96365; G0008; G0378; J1650; J1956

== ENCOUNTER 2017-03-07 10:10 | Emergency (ER) | payer MEDICAID ==
[2017-03-07 10:18] VITALS: RESP 18
[2017-03-07] MEDS ORDERED: IPRATROPIUM/ALBUTEROL 3 ML DEYVIAL IH ONE (10:38)
[2017-03-07] MEDS ORDERED: methylPREDNISolone SOD SUCC 125 MG/2 ML VIAL IVP ONE (10:38)
--- NOTE | 2017-03-07 10:41 | EDPHY ---
H & P Stated Complaint: Productive cough "worsening", dc'd [facility] 1 week ago same Time Seen by Provider: 03/07/17 10:32 HPI/ROS: CHIEF COMPLAINT: Shortness of breath HISTORY OF PRESENT ILLNESS: Patient is a 56-year-old homeless man with a history of COPD who comes to the emergency department complaining of shortness of breath and increased cough. He was admitted on the of this month and discharged on the on Levaquin. He states that he has not been taking his Levaquin. He left rather abruptly because he was caught using IV drugs in the hospital. He states that he has used his albuterol inhaler twice this morning without significant relief. He denies fevers. No chest pain. No nausea vomiting. He is been prescribed several times home oxygen but has not been compliant because of his homeless situation. REVIEW OF SYSTEMS: Constitutional: denies: chills, fever, recent illness, recent injury EENTM: denies: blurred vision, double vision, nose congestion Respiratory: See HPI Cardiac: denies: chest pain, irregular heart rate, lightheadedness, palpitations Gastrointestinal/Abdominal: denies: abdominal pain, diarrhea, nausea, vomiting, blood streaked stools Genitourinary: denies: dysuria, frequency, hematuria, pain Musculoskeletal: denies: joint pain, muscle pain Skin: denies: lesions, rash, jaundice, bruising Neurological: denies: headache, numbness, paresthesia, tingling, dizziness, weakness Hematologic/Lymphatic: denies: blood clots, easy bleeding, easy bruising Immunologic/allergic: denies: HIV/AIDS, transplant EXAM: GENERAL: Well-appearing, well-nourished and in no acute distress. HEAD: Atraumatic, normocephalic. EYES: Pupils equal round and reactive to light, extraocular movements intact, sclera anicteric, conjunctiva are normal. ENT: TMs normal, nares patent, oropharynx clear without exudates. Moist mucous membranes. NECK: Normal range of motion, supple without lymphadenopathy or JVD. LUNGS: Bilateral wheezing HEART: Regular rate and rhythm without murmurs, rubs or gallops. ABDOMEN: Soft, nontender, normoactive bowel sounds. No guarding, no rebound. No masses appreciated. BACK: No CVA tenderness, no spinal tenderness, step-offs or deformities EXTREMITIES: Normal range of motion, no pitting or edema. No clubbing or cyanosis. NEUROLOGICAL: Cranial nerves II through XII grossly intact. Normal speech, normal gait. 5/5 strength, normal movement in all extremities, normal sensation PSYCH: Normal mood, normal affect. SKIN: Warm, dry, normal turgor, no visible rashes or lesions. Source: Patient Exam Limitations: No limitations - Personal History Current Tetanus/Diphtheria Vaccine: Unsure Current Tetanus Diphtheria and Acellular Pertussis (TDAP): Unsure Tetanus Vaccine Date: 2015 - Medical/Surgical History Hx Asthma: Yes Hx Chronic Respiratory Disease: Yes Hx Diabetes: No Hx Cardiac Disease: No Hx Renal Disease: No Hx Cirrhosis: Yes Hx Alcoholism: No Hx HIV/AIDS: No Hx Splenectomy or Spleen Trauma: Yes Other PMH: CHRONIC PAIN, RA, COPD/ASTHMA, HEPATITIS (B,C,D,E,F), C-DIFF, wears home O2(non compliant),"self medicates for pain," HEROIN ABUSE/IVDA, C diff. DENTAL CARIES, MIGRAINES, PTSD, "broken back", "broken neck", FLU X2 YRS, Pneum (November 05) - Family History Significant Family History: No pertinent family hx - Social History Smoking Status: Light smoker Alcohol Use: Sober Drug Use: None Constitutional: Initial Vital Signs Temperature (C) 36.6 C 03/07/17 10:15 Heart Rate 78 03/07/17 10:15 Respiratory Rate 18 03/07/17 10:15 Blood Pressure 123/75 H 03/07/17 10:15 O2 Sat (%) 90 L 03/07/17 10:15 O2 Delivery Mode Room Air O2 (L/minute) 2 Allergies/Adverse Reactions: acetaminophen [Acetaminophen] Allergy (Severe, Verified 01/30/17 09:01) heparin Allergy (Unknown, Verified 12/06/16 10:51) Heparin Analogues Allergy (Unknown, Verified 12/06/16 10:51) propoxyphene HCl [From Darvon] Allergy (Unknown, Verified 12/06/16 10:51) amoxicillin [Amoxicillin] Allergy (Verified 12/06/16 10:51) Other-Enter Comments aspirin [Aspirin] Allergy (Verified 02/27/17 15:28) Iodinated Contrast- Oral and IV Dye [Iodinated Contrast Media - Oral and] Allergy (Verified 12/06/16 10:51) Other-Enter Comments Home Medications: Medication Instructions Recorded Albuterol 03/07/17 levOFLOXACIN [levAQUIN] 750 mg PO DAILY #10 tab 03/07/17 Medical Decision Making - Diagnostics Imaging: Discussed imaging studies w/ call center receptionist Radiologist ED Course/Re-evaluation: Patient's x-ray is improved significantly. He is saturating her to 90% on room air. I will treat with a DuoNeb and observed. He will also receive Levaquin while he is here and a new prescription. 12:45 a.m. the patient is doing well. He is at his baseline as student saturation which is in the high 80s. He has been recommended oxygen at home but has difficulty with this because of his homeless status. 2:05 p.m. the patient is doing well. He has received IV Levaquin. His x-ray is improved compared to previous. He is requesting that we fill his prescriptions here on the map program. He is mildly hypoxic which is his baseline. He is supposed to be wearing oxygen at home for years but does not. Differential Diagnosis: Partial list of the Differential diagnosis considered include but were not limited to; pneumonia, bronchitis, COPD and although unlikely based on the history and physical exam, I also considered pneumothorax, acute coronary disease. I discussed these differential diagnoses and the plan with the patient as well as the usual and expected course. The patient understands that the diagnosis is provisional and that in medicine we are not always correct and that further workup is often warranted. Usual and customary warnings were given. All of the patient's questions were answered. The patient was instructed to return to the emergency department should the symptoms at all worsen or return, otherwise to followup with the physician as we discussed. - Data Points Laboratory Results: Laboratory Results 03/07/17 11:25 03/07/17 11:25 Medications Given: Discontinued Medications Albuterol (Proventil Neb) 6 ml IH EDNOW ONE Stop: 03/07/17 13:01 Last Admin: 03/07/17 13:12 Dose: 6 ml Albuterol/Ipratropium (Duoneb) 3 ml IH EDNOW ONE Stop: 03/07/17 10:39 Last Admin: 03/07/17 11:39 Dose: 3 ml Levofloxacin/Dextrose (Levaquin 750 Mg (Premix)) 150 mls @ 100 mls/hr IV EDNOW ONE PRN Reason: Protocol Stop: 03/07/17 12:07 Last Admin: 03/07/17 12:38 Dose: 150 mls Methylprednisolone Sodium Succinate (Solu-Medrol) 125 mg IVP EDNOW ONE Stop: 03/07/17 10:39 Last Admin: 03/07/17 11:39 Dose: 125 mg Departure - Departure Disposition: Home, Routine, Self-Care Clinical Impression: Pneumonia Qualifiers: Pneumonia type: due to unspecified organism Laterality: left Lung location: unspecified part of lung Qualified Code(s): J18.9 - Pneumonia, unspecified organism Condition: Fair Instructions: Pneumonia (ED) Referrals: NONE *PRIMARY CARE P,. [Primary Care Provider] - As per Instructions [facility],. [Clinic] - As per Instructions Prescriptions: levOFLOXACIN [levAQUIN] 750 mg PO DAILY #10 tab
[2017-03-07 11:40] LABS: % IMMATURE GRANULYOCYTES 0.4 % (0.0-1.1); ABSOLUTE IMMATURE GRANULOCYTES 0.02 10^3/uL (0.00-0.10); ADD DIFF? NO; ADD MORPH? NO; ADD SCAN? NO; ATYPICAL LYMPHOCYTE FLAG 20 (0-99); FRAGMENT RBC FLAG 0 (0-99); HEMATOCRIT 40.5 % (40.0-51.0); HEMOGLOBIN 14.9 g/dL (13.7-17.5); LEFT SHIFT FLG 0 (0-99); LIPEMIA HEMOLYSIS FLAG 90 (0-99); MEAN CELL HEMOGLOBIN 34.4 pg (27.9-34.1); MEAN CELL HEMOGLOBIN CONCENTR. 36.8 g/dL (32.4-36.7); MEAN CELL VOLUME 93.5 fL (81.5-99.8); MEAN PLATELET VOLUME 10.6 fL (8.7-11.7); PLATELET CLUMPS FLAG 0 (0-99); PLATELET COUNT 85 10^3/uL (150-400); RED BLOOD CELL COUNT 4.33 10^6/uL (4.40-6.38); RED CELL DISTRIBUTION WIDTH 13.2 % (11.5-15.2)
[2017-03-07 11:48] LABS: INR 1.06 (0.83-1.16); PROTIME(PATIENT) 13.7 SEC (12.0-15.0)
[2017-03-07 11:49] LABS: APTT 26.9 SEC (23.0-38.0)
[2017-03-07 11:59] LABS: ANION GAP 7 mEq/L (8-16); BILIRUBIN,TOTAL 0.7 mg/dL (0.1-1.4); CALCIUM 8.6 mg/dL (8.5-10.4); CARBON DIOXIDE 30 mEq/l (22-31); CHLORIDE 104 mEq/L (97-110); CREATININE 0.8 mg/dL (0.7-1.3); GLOMERULAR FILTRATION RATE > 60; GLUCOSE 85 mg/dL (70-100); POTASSIUM 4.3 mEq/L (3.5-5.2); SODIUM 141 mEq/L (134-144)
[2017-03-07] MEDS ORDERED: ALBUTEROL 3 ML DEYVIAL IH ONE (13:00)
[2017-03-07 14:16] VITALS: BP 138/76; PULSE 85; TEMP 97.5; O2SAT 90
== END 2017-03-07 14:15 | disposition home or self-care (01) ==
DX: J18.9 Pneumonia, unspecified organism (principal); J44.9 Chronic obstructive pulmonary disease, unspecified; F17.200 Nicotine dependence, unspecified, uncomplicated
CPT/HCPCS: 96365; J1956; J2930

== ENCOUNTER 2017-04-14 17:23 | Observation (INO) | payer MEDICAID ==
--- NOTE | 2017-04-14 18:43 | EDPHY ---
HPI/HX/ROS/PE/MDM Narrative: CHIEF COMPLAINT: Trouble breathing, chest pain HISTORY OF PRESENT ILLNESS: The patient is a homeless 56 y/o male with a history of COPD, asthma, emphysema, and pneumonia (09/2016 and 02/2017) complaining of difficulty breathing, chest pain, and rapid heart rate worsened over the last 2 weeks. His symptoms are worse with exertion. He is producing green and bloody sputum. He is supposed to be using 3L of oxygen but is not. Patient tells me that he is homeless and so he has never been able to be qualified for home O2 therapy. He denies fever, abdominal pain, vomiting or other associated symptoms. He denies IV drug use in the past 2 weeks. He has an unspecified cardiac condition with a pacemaker recommended for bradycardia and tachycardia. He continues to smoke daily. He reports using his inhaler several times today with minimal relief. No fever, chills, palpitations, vomiting, diarrhea, urinary complaints, headache , lightheadedness. REVIEW OF SYSTEMS: Aside from elements discussed in the HPI, a comprehensive 10-point review of systems was reviewed and is negative. PAST MEDICAL HISTORY: COPD, asthma, emphysema, pneumonia (09/2016 and 02/2017) , positive PPD but negative sputum tuberculosis, unspecified cardiac issue, bradycardia, tachycardia SOCIAL HISTORY: Homeless, IV drug user, daily smoker VITAL SIGNS: Reviewed by me GENERAL: Alert, visibly tachypneic with supraclavicular retractions. Speaking in full word sentences. Smells of cigarette smoke. HEENT: Atraumatic. Eyes: No icterus, no injection. Mouth: moist mucous membranes. No erythema or lesions. Neck: supple with no adenopathy. LUNGS: Coarse wheezes throughout, supraclavicular retractions, no rhonchi or rales. CARDIAC: Regular rate and rhythm, no rubs, murmurs or gallops. ABDOMEN: Soft, nontender, nondistended, bowel sounds normal. BACK: No CVA tenderness. EXTREMITIES: Track mckeon. No trauma. No edema. Range of motion is normal throughout. NEURO: Alert and oriented, grossly nonfocal. SKIN: Warm and dry, no rash. PSYCHIATRIC: Normal mentation, no agitation. ED Course: 12-LEAD EKG: Please see the full report in [facility]. My interpretation: Normal sinus rhythm X-ray: Chest x-ray was obtained. I viewed the images myself on the PACS system. My interpretation of the images is: negative for acute processes. The radiologist interpretation is negative for acute processes. I discussed the x- ray findings with the patient. The patient presents with worsened difficulty breathing, chest pain, and tachycardia. He has an extensive pulmonary history and was treated for pneumonia in February and completed his course of antibiotics. He denies nausea , vomiting or other symptoms. He has not been using the prescribed oxygen. Plan for chest X-ray, labs, and EKG. The patient's workup has been largely unremarkable. After two nebulizers treatments, patient is noted to desaturate to mid 70s. O2 saturation is 93% on 2 L. Overall the patient states that he feels somewhat better but on exam continues to have diffuse wheezing. Plan for admission to the hospital. On review of the patient's notes I do recognize that he has a history of being a very difficult patient. He has a history of being hypoxic on room air requiring continuous home O2 therapy which she cannot qualify 4. However, I do not see documentation of sats in the mid 70s. I believe that a short admission to the hospital for aggressive nebulization, fluids, and steroids is appropriate at this time. Patient will be admitted to Dr. Bishnu Brooke, hospitalist service. MDM: Differential diagnosis for the patient's shortness of breath was considered including but not limited to pulmonary infectious processes, COPD exacerbation, pulmonary emboli, pulmonary edema, congestive heart failure, and cardiac causes. - Data Points Imaging Results: CXR: Impression: 1. Hyperexpanded lungs compatible underlying COPD/emphysema. 2. Mild residual interstitial markings in the lingula from previous consolidation/pneumonia. No new consolidation is seen. Dictated By: Yaw Mckee MD Laboratory Results: Laboratory Results 04/14/17 20:20 04/14/17 20:20 Medications Given: Albuterol/Ipratropium (Duoneb) 3 ml IH QID [facility] Stop: 10/12/17 05:59 Last Admin: 04/15/17 14:18 Dose: 3 ml Budesonide (Pulmicort 0.25mg/2ml Neb) 0.25 mg IH BID [facility] Stop: 10/12/17 08:59 Last Admin: 04/15/17 10:14 Dose: Not Given Ibuprofen (Motrin) 400 mg PO Q4HRS PRN PRN Reason: Pain, Inflammatory Stop: 10/11/17 21:21 Last Admin: 04/15/17 13:28 Dose: 400 mg Lidocaine (Lidoderm 5%) 1 ea TD DAILY PRN PRN Reason: Pain, Breakthrough Stop: 10/12/17 08:59 Last Admin: 04/15/17 05:07 Dose: 1 ea Nicotine (Nicoderm Cq) 14 mg TD DAILY [facility] Stop: 10/12/17 08:59 Last Admin: 04/15/17 14:00 Dose: Not Given Oxycodone HCl (Oxycodone Ir) 5 mg PO Q8HRS PRN PRN Reason: Pain, Severe Able to Take PO Stop: 04/24/17 22:17 Last Admin: 04/15/17 08:39 Dose: 5 mg Prednisone (Prednisone) 40 mg PO DAILY [facility] Stop: 10/12/17 12:14 Last Admin: 04/15/17 13:54 Dose: 40 mg Discontinued Medications Albuterol (Proventil Neb) 3 ml IH EDNOW ONE Stop: 04/14/17 18:56 Last Admin: 04/14/17 19:21 Dose: 3 ml Albuterol (Proventil Neb) 3 ml IH EDNOW ONE Stop: 04/14/17 20:07 Last Admin: 04/14/17 20:12 Dose: 3 ml Albuterol/Ipratropium (Duoneb) 3 ml IH EDNOW ONE Stop: 04/14/17 18:56 Last Admin: 04/14/17 19:21 Dose: 3 ml Sodium Chloride (Ns) 1,000 mls @ 0 mls/hr IV ONCE ONE; Wide Open PRN Reason: Protocol Stop: 04/14/17 21:02 Last Admin: 04/14/17 21:22 Dose: 1,000 mls Prednisone (Prednisone) 60 mg PO EDNOW ONE Stop: 04/14/17 18:56 Last Admin: 04/14/17 19:19 Dose: 60 mg General Time Seen by Provider: 04/14/17 18:42 Initial Vital Signs: Initial Vital Signs Temperature (C) 36.7 C 04/14/17 17:30 Heart Rate 86 04/14/17 17:30 Respiratory Rate 20 04/14/17 17:30 Blood Pressure 110/67 04/14/17 17:30 O2 Sat (%) 95 04/14/17 17:30 O2 Delivery Mode Room Air Allergies/Adverse Reactions: acetaminophen [Acetaminophen] Allergy (Severe, Verified 04/14/17 17:29) heparin Allergy (Unknown, Verified 04/14/17 17:29) Heparin Analogues Allergy (Unknown, Verified 04/14/17 17:29) propoxyphene HCl [From Darvon] Allergy (Unknown, Verified 04/14/17 17:29) amoxicillin [Amoxicillin] Allergy (Verified 04/14/17 17:29) Other-Enter Comments aspirin [Aspirin] Allergy (Verified 04/14/17 17:29) Iodinated Contrast- Oral and IV Dye [Iodinated Contrast Media - Oral and] Allergy (Verified 04/14/17 17:29) Other-Enter Comments Home Medications: Medication Instructions Recorded Albuterol Sulfate [Proair Hfa] 2 puffs IH QID PRN 04/14/17 Ascorbic Acid [Vitamin C 500 mg 500 mg PO BID 04/14/17 (*)] Beclomethasone Qvar 40 [Qvar 40 1 puffs IH BID 04/14/17 (*)] Multivitamins [Multivitamin (*)] 1 each PO DAILY 04/14/17 [place]-3 Fatty Acids/Fish Oil 1 each PO DAILY 04/14/17 [[place] 3 1,000 mg Softgel] Departure - Departure Disposition: [facility] Inpatient Acute Clinical Impression: COPD exacerbation, Hypoxemia Condition: Fair Report Scribed for: Mercedes Marcos Report Scribed by: Alyce Melgar Date of Report: 04/14/17 Time of Report: 19:02 Physician Review and Approval Statement: Portions of this note were transcribed by a medical technologist clinical. I personally performed a history, physical exam, medical decision making, and confirmed accuracy of information the transcribed note.
[2017-04-14] MEDS ORDERED: ALBUTEROL 3 ML DEYVIAL IH ONE ×2 (18:55→20:06)
[2017-04-14] MEDS ORDERED: IPRATROPIUM/ALBUTEROL 3 ML DEYVIAL IH ONE (18:55)
[2017-04-14] MEDS ORDERED: predniSONE 20 MG TAB PO ONE (18:55)
--- NOTE | 2017-04-14 19:19 | CPEKG ---
Heart Rate: 61 RR Interval: 984 P-R Interval: 164 QRSD Interval: 94 QT Interval: 412 QTC Interval: 415 P [place]: 79 QRS [place]: 80 T Wave [place]: 77 EKG Severity - NORMAL ECG - EKG Impression: SINUS RHYTHM Electronically Signed By: Mercedes Marcos 14-Apr-2017 20:34:33
[2017-04-14 20:26] LABS: % IMMATURE GRANULYOCYTES 0.2 % (0.0-1.1); ABSOLUTE IMMATURE GRANULOCYTES 0.02 10^3/uL (0.00-0.10); ADD DIFF? NO; ADD MORPH? NO; ADD SCAN? NO; ATYPICAL LYMPHOCYTE FLAG 10 (0-99); FRAGMENT RBC FLAG 0 (0-99); HEMATOCRIT 44.4 % (40.0-51.0); HEMOGLOBIN 16.3 g/dL (13.7-17.5); LEFT SHIFT FLG 0 (0-99); LIPEMIA HEMOLYSIS FLAG 90 (0-99); MEAN CELL HEMOGLOBIN 34.5 pg (27.9-34.1); MEAN CELL HEMOGLOBIN CONCENTR. 36.7 g/dL (32.4-36.7); MEAN CELL VOLUME 94.1 fL (81.5-99.8); MEAN PLATELET VOLUME 10.7 fL (8.7-11.7); PLATELET CLUMPS FLAG 0 (0-99); PLATELET COUNT 144 10^3/uL (150-400); RED BLOOD CELL COUNT 4.72 10^6/uL (4.40-6.38)
[2017-04-14 20:49] LABS: ALANINE AMINOTRANSFERASE 49 IU/L (21-72); ALKALINE PHOSPHATASE 83 IU/L (38-126); ANION GAP 10 mEq/L (8-16); ASPARTATE AMINOTRANSFERASE 35 IU/L (17-59); BILIRUBIN,TOTAL 1.2 mg/dL (0.1-1.4); BILIRUBIN-CONJUGATED 0.3 mg/dL (0.0-0.5); BILIRUBIN-UNCONJUGATED 0.9 mg/dL (0.0-1.1); CALCIUM 9.1 mg/dL (8.5-10.4); CARBON DIOXIDE 27 mEq/l (22-31); CHLORIDE 102 mEq/L (97-110); GLOMERULAR FILTRATION RATE > 60; GLUCOSE 94 mg/dL (70-100); POTASSIUM 4.3 mEq/L (3.5-5.2); SODIUM 139 mEq/L (134-144); TOTAL PROTEIN 7.1 g/dL (6.3-8.2)
[2017-04-14 21:01] LABS: TROPONIN I < 0.012 ng/mL (0.000-0.034)
[2017-04-14] MEDS ORDERED: NS 1,000 ML IV ONE (21:01)
[2017-04-14] MEDS ORDERED: diphenhydrAMINE 25 MG CAP PO PRN (21:22)
[2017-04-14] MEDS ORDERED: ALBUTEROL 200 PUFFS/18 GM MDI IH PRN (21:45)
--- NOTE | 2017-04-14 22:04 | GHP ---
[f rep st] HISTORY AND PHYSICAL DATE OF ADMISSION: 04/14/2017 CHIEF COMPLAINT: Shortness of breath. HISTORY OF PRESENT ILLNESS: The patient is a 56-year-old homeless gentleman with a past medical hist ory of COPD. His baseline oxygen saturation apparently runs in the 80 percentile and has been recomm ended for home oxygen. However, due to him not having an address, we have had some difficulties sett ing up oxygen therapy for him. He states throughout the day today, he got progressively more short o f breath and had increased wheezing when he was in the emergency room. Per verbal report, he had oxy gen saturations that were in the 70 percentile. It did improve after receiving breathing treatments. He is being admitted for observation overnight to ensure stability. Otherwise, no acute infectious process is suspected. His chest x-ray did not reveal any new pneumonia. He was recently in the [facility] and did have evidence of pneumonia at that time. PAST MEDICAL HISTORY: 1. COPD. 2. Chronic hepatitis B and C. PAST SURGICAL HISTORY: Tooth extractions. MEDICATIONS: At home: 1. QVAR 1 inhalation twice a day. 2. Albuterol p.r.n. ALLERGIES: 1. Acetaminophen. 2. Heparin. 3. Propoxyphene. 4. Amoxicillin. 5. Aspirin. 6. Contrast media. SOCIAL HISTORY: Patient is a current smoker. He does have a history of prior IV drug abuse and occa sional alcohol use, but previously heavier. FAMILY HISTORY: Unknown. REVIEW OF SYSTEMS: CONSTITUTIONAL: No complaints of any fevers or chills. ENT: He did have recent pneumonia, but over the past few days no new upper respiratory tract infecti on symptoms. CARDIOVASCULAR: No complaints of chest pains or palpitations. RESPIRATORY: Positive for increased shortness of breath. No productive cough. GI: No nausea, vomiting, diarrhea, or constipation. : No report of any difficulty with urination. NEUROLOGIC: No complaints of headaches or focal weakness. HEMATOLOGIC: No history of any deep vein thrombosis or pulmonary embolism. PSYCHIATRIC: No history of anxiety or depression listed. ENDOCRINE: No history of diabetes or thyroid abnormalities. SKIN: No new skin rashes. MUSCULOSKELETAL: No focal joint pains. PHYSICAL EXAMINATION: VITAL SIGNS: Temperature 36.7, blood pressure is 110/67, heart rate 86, respi rations 20, saturating 70% on room air by verbal report. GENERAL: He appears comfortable, awake, alert, conversant, no acute distress. HEENT: Extraocular movements intact. No scleral icterus noted. No jaundice of the skin appreciated . NECK: No thyroid enlargement noted. CHEST: Bilateral moderate wheezing noted. Good breath sounds throughout with normal respiratory eff ort. HEART: Regular. No murmurs appreciated. ABDOMEN: Soft, nontender, nondistended. : No Pro catheter in place. EXTREMITIES: No significant pitting edema. NEUROLOGIC: Cranial nerves 2-12 appear intact. 5/5 strength throughout. LABORATORY DATA: White blood cell count 9, hemoglobin 16, platelets 144. Sodium 139, potassium 4.3, chloride 102, bicarb 27, BUN 15, creatinine 1.0, glucose 94, AST 35, ALT 49, alkaline phosphatase 83 , bilirubin 1.2. Troponin less than 0.012. Chest x-ray showed evidence of COPD. No new infiltrates . ASSESSMENT/PLAN: 1. Acute on chronic hypoxic respiratory failure secondary to chronic obstructive pulmonary disease. I suspect this may be all chronic obstructive pulmonary disease exacerbation. No definite evidence to suggest a new infectious process. He was actually saturating at 96% with his nasal cannula away f rom his nose during my evaluation. This was of course after breathing treatments. I think it is nighat sonable to continue breathing treatments and monitor overnight to ensure stability and no evidence of infectious process developing. Will continue with DuoNeb nebulizers q.i.d., as well as Pulmicort tw ice a day. 2. Disposition. Social work consult for any disposition needs potentially to look more into potenti al for oxygen outside the hospital. /[id number]/MODL
[2017-04-14] MEDS ORDERED: LIDOCAINE 5% 1 EA PATCH TD PRN (22:20)
[2017-04-14] MEDS: oxyCODONE IR 5 MG TAB PO PRN (23:57)
[2017-04-15] MEDS: IBUPROFEN 200 MG TAB PO PRN ×2 (05:08→13:28)
[2017-04-15] MEDS: IPRATROPIUM/ALBUTEROL 3 ML DEYVIAL IH SCH ×4 (05:53→22:12)
--- NOTE | 2017-04-15 08:05 | HOSPPROG ---
Hospitalist Progress Note Assessment/Plan: 56-y/o homeless M, current smoker, prior IVDA, COPD, p/w acute hypoxia with reported sats as low as 70s%. Satting in 80s% on arrival. Reports progressively worsening SOB. Recent PNA admission at this facility. Chart reviewed. First encounter with patient in this admission. CXR personally interpreted shows no consolidation. ECG personally interpreted shows SR with slow RWP. #. COPD exacerbation: scheduled pulmonary toilet still has significant wheezing will add steroids now #. acute hypoxic respiratory failure: has not been able to get O2 setup #. homelessness: lack of physical address making it difficult to get O2 setup #. Dispo: uncertain due to ongoign O2 needs will have CM discuss SNF rehab stay as he frequently is admitted to respiratory distress DVT ppx: will add mechanical ppx due to pt listing heparin products as allergy Subjective: + sob. No cp. Feels he is unfairly treated by "the system" due to being homeless. Objective: Vital Signs Temp Pulse Resp BP Pulse Ox 98 F 93 20 114/68 90 L 04/15/17 07:40 04/15/17 07:40 04/15/17 07:40 04/15/17 07:40 04/15/17 07:40 04/14/17 04/15/17 04/16/17 05:59 05:59 05:59 Intake Total 480 Output Total 275 Balance 205 - Physical Exam Constitutional: no apparent distress, cachectic Ears, Nose, Mouth, Throat: moist mucous membranes Cardiovascular: regular rate and rhythym Respiratory: reduced air movement, expiratory wheeze, No inspiratory crackles Skin: warm, normal color Neurologic: other (no focal weakness detected) Psychiatric: agitated ICD10 Worksheet Patient Problems: Problems Problem Status Onset COPD exacerbation Acute Hypoxemia Acute Acute bronchitis Acute Bronchitis Acute COPD (chronic obstructive pulmonary disease) Acute Cellulitis Acute Chronic obstructive pulmonary disease with acute exacerbation Acute Dyspnea Acute Facial abscess Acute HCAP (healthcare-associated pneumonia) Acute Pneumonia Acute Pneumonia Acute Sepsis Acute Shortness of breath Acute Hepatitis C Chronic
[2017-04-15] MEDS: oxyCODONE IR 5 MG TAB PO PRN ×2 (08:39→16:34)
[2017-04-15] MEDS: BUDESONIDE 0.25MG/2ML DEYVIAL (5/POUCH) IH SCH ×2 (10:14→22:10)
--- NOTE | 2017-04-15 13:04 | ASMTCMCOM ---
CM Note CM Note Notes: Patient admitted for acute on chronic COPD exacerbation. Has hx of many visits to [facility] ED, is homeless, and can be difficult to deal with. Per notes, would benefit from home 02, complicated by homelessness. When I spoke with patient, he was pleasant but edgy. He gets riled up when asked if he would be willing to stay at the [facility], says he is not willing to give up his rights, be searched, etc. He says that the government owes him 7 years of SSI payments, he has been trying to get housing for 22 years, etc. He is, he says, amenable to a SNF stay, although he knows this is a temporary solution. He does not have any skilled needs, however, and I explained that this would probably disqualify him. I have started the ULTC 100, and patient will also need to be screened for LTC Medicaid if he decides that he wants to go to a SNF. Case Management will check in with him tomorrow regarding the feasibility of this plan; otherwise, patient will likely discharge back to the streets. Date Signed: 04/15/2017 01:04 PM Electronically Signed By:Yvrose Thompson RN
[2017-04-15] MEDS: predniSONE 20 MG TAB PO SCH (13:54)
[2017-04-15] MEDS: NICOTINE 14 MG/24 HR PATCH TD SCH (14:00)
[2017-04-15] MEDS ORDERED: PATCH REMOVAL 1 EA PATCH TD SCH (21:00)
[2017-04-16] MEDS: oxyCODONE IR 5 MG TAB PO PRN ×2 (00:27→08:25)
[2017-04-16] MEDS: IPRATROPIUM/ALBUTEROL 3 ML DEYVIAL IH SCH ×2 (05:48→09:58)
[2017-04-16] MEDS: BUDESONIDE 0.25MG/2ML DEYVIAL (5/POUCH) IH SCH (08:24)
[2017-04-16] MEDS: predniSONE 20 MG TAB PO SCH (08:25)
[2017-04-16] MEDS: NICOTINE 14 MG/24 HR PATCH TD SCH (08:26)
[2017-04-16 08:39] VITALS: BP 110/73; PULSE 62; RESP 20; TEMP 97.5; O2SAT 88
--- NOTE | 2017-04-16 11:01 | ASDISCHSUM ---
Discharge Information Plan Status:Homeless/Long Term Medically Cleared to Leave: Discharge Date:04/16/2017 10:19 AM D/C Disposition:Against Medical Advice ADT D/C Disposition:Home, Routine, Self-Care Projected Discharge Date:04/16/2017 10:19 AM Transportation at D/C:Self Discharge Delay Reason: Follow-Up Date:04/16/2017 10:19 AM Discharge Slot: Final Diagnosis: Placement Information Patient Contact Information Contact Name:NIXON Relationship: Address: Home Phone: Work Phone: City: Alternate Phone: State/PFSweb Code: Email: Financial Information Financial Class: Primary Plan Desc:MEDICAID HEALTH FIRST TROUBLE LOCATER Primary Plan Number:[id number] Secondary Plan Desc: Secondary Plan Number: Assessment Information [facility] CM Progress Note CM Note CM Note Notes: Patient admitted for acute on chronic COPD exacerbation. Has hx of many visits to [facility] ED, is homeless, and can be difficult to deal with. Per notes, would benefit from home 02, complicated by homelessness. When I spoke with patient, he was pleasant but edgy. He gets riled up when asked if he would be willing to stay at the Long Term, says he is not willing to give up his rights, be searched, etc. He says that the government owes him 7 years of SSI payments, he has been trying to get housing for 22 years, etc. He is, he says, amenable to a SNF stay, although he knows this is a temporary solution. He does not have any skilled needs, however, and I explained that this would probably disqualify him. I have started the ULTC 100, and patient will also need to be screened for LTC Medicaid if he decides that he wants to go to a SNF. Case Management will check in with him tomorrow regarding the feasibility of this plan; otherwise, patient will likely discharge back to the streets. Date Signed: 04/15/2017 01:04 PM Electronically Signed By:Yvrose Thompson RN Intervention Information
--- NOTE | 2017-04-16 12:49 | GDS ---
[f rep st] DISCHARGE SUMMARY DISCHARGE DIAGNOSES: 1. Chronic obstructive pulmonary disease exacerbation. 2. Chronic pain. 3. Acute hypoxemic respiratory failure. 4. Homelessness. STUDIES AND PROCEDURES DONE: Chest x-ray. PHYSICAL EXAM: GENERAL: The patient is alert. VITAL SIGNS: Afebrile at 36.4, pulse 62, respirator y rate is 20, blood pressure is 110/73, saturating 90% on room air. I have seen and evaluated the saud gloria on the day of discharge. HOSPITAL COURSE: The patient is a 56-year-old male who presented to the emergency room with complain ts of shortness of breath. He was evaluated and diagnosed with: 1. Chronic obstructive pulmonary disease exacerbation. During this hospitalization, he was treated with breathing treatments as well as prednisone. His condition has improved. He is tolerating room air and no longer requiring supplemental oxygen. He has been provided a prescription for prednisone at the time of disposition. 2. Acute hypoxemic respiratory failure. This is in the setting of a COPD exacerbation, and has reso lved. 3. Homelessness. The patient has been offered resources including a half-way bed, and he has refused at this time. He states that he will return to the street as before. DISPOSITION: The patient will be discharged independently. There are no pending studies. DISCHARGE MEDICATIONS: Please refer to EMR form. I have provided the patient a prescription for pre dnisone at the time of disposition; however, he states that he will not take this medication. I spent greater than 35 minutes in the care, coordination, and management of this patient's dispositi on. /[id number]/MODL
== END 2017-04-16 10:19 | disposition home or self-care (01) ==
LOC: EEVIPCON 20:21 → F3E 21:05
PROVIDERS: ADMIT Internal Medicine; ATTEND Internal Medicine
DX: J44.1 Chronic obstructive pulmonary disease with (acute) exacerbation (principal); G89.4 Chronic pain syndrome; J96.01 Acute respiratory failure with hypoxia; F17.200 Nicotine dependence, unspecified, uncomplicated; Z59.0 Homelessness
CPT/HCPCS: 71020; 93005; 99285; G0378; J7626

== ENCOUNTER 2017-04-16 22:27 | Emergency (ER) | payer MEDICAID ==
[2017-04-16] MEDS ORDERED: IPRATROPIUM/ALBUTEROL 3 ML DEYVIAL IH ONE ×2 (22:42→23:10)
[2017-04-16] MEDS ORDERED: IPRATROPIUM/ALBUTEROL 3 ML DEYVIAL ONE (22:42)
--- NOTE | 2017-04-16 22:42 | EDPHY ---
H & P Stated Complaint: sob recent admission and dc today Time Seen by Provider: 04/16/17 22:41 HPI/ROS: HPI: This is a 56-year-old male presents with Chief Complaint: Shortness of breath Location: Chest Quality: Shortness of breath Duration: Several hours Signs and Symptoms: No fever, + wheezing, no chest pain, no palpitation, no nausea, no vomiting, no diarrhea, no abdominal pain, + shortness of breath Timing: Acute on chronic Severity: Hozv-ap-vozkksky Context: Patient is currently homeless, history of COPD is recommended to be on home supplemental oxygen but mental health case manager is currently working on obtaining this for patient, discharge for the hospital today with a recent admission for COPD exacerbation from 04/14-. Patient reports that his last nebulizer treatment was this morning prior to discharge. He reports he did not obtain his medications at discharge including his prednisone, inhalers and other medications. He is also requesting his sleeping bag and certificate. Patient was in room 390. Patient reports he did not want to go to the [facility]. After further questioning patient admits that he signed out AMA without his prescription for prednisone and is now requesting refills of his inhalers. Modifying Factors: None Comment: ROS: see HPI Constitutional: No fever, no chills, no weight loss Eyes: No blurred vision Respiratory: + shortness of breath, no cough Cardiovascular: No chest pain Gastrointestinal: No nausea, no vomiting, no diarrhea Genitourinary: No dysuria Extremities: No myalgias Neurologic: No weakness, no numbness Skin: No rashes Hematologic: No bruising, no bleeding MEDICAL/SURGICAL/SOCIAL HISTORY: Medical history: CHRONIC PAIN, RA, COPD/ASTHMA, HEPATITIS (B,C,D,E,F), C-DIFF, wears home O2(non compliant),"self medicates for pain," HEROIN ABUSE/IVDA, C diff. DENTAL CARIES, MIGRAINES, PTSD, "broken back", "broken neck", FLU X2 YRS, Pneum (November 05) Surgical history: Denies Social history: Homeless CONSTITUTIONAL: Adult white male, no respiratory distress, nontoxic in appearance, awake and alert, no obvious distress HEENT: Atraumatic and normocephalic, PERRL, EOMI. Tympanic membranes clear. Oropharynx clear, no exudate and moist pink mucosa. Airway patent. No lymphadenopathy. No meningismus. Cardiovascular: Normal S1/S2, regular rate, regular rhythm, without murmur rub or gallop. PULMONARY/CHEST: Symmetrical and nontender. Faint expiratory wheezes bilaterally. Good air movement. No accessory muscle usage. ABDOMEN: Soft, nondistended, nontender, no rebound, no guarding, no peritoneal signs, no masses or organomegaly. No CVAT. EXTREMITIES: 2/2 pulses, strength 5/5, no deformities, no clubbing, no cyanosis or edema. NEUROLOGICAL: no focal neuro deficits. GCS 15. SKIN: Warm and dry, no erythema. no rash. Good capillary refill. Source: Patient Exam Limitations: No limitations - Personal History Current Tetanus/Diphtheria Vaccine: Yes Current Tetanus Diphtheria and Acellular Pertussis (TDAP): Yes Tetanus Vaccine Date: 2015 - Medical/Surgical History Hx Asthma: Yes Hx Chronic Respiratory Disease: Yes Hx Diabetes: No Hx Cardiac Disease: No Hx Renal Disease: No Hx Cirrhosis: Yes Hx Alcoholism: No Hx HIV/AIDS: No Hx Splenectomy or Spleen Trauma: Yes Other PMH: CHRONIC PAIN, RA, COPD/ASTHMA, HEPATITIS (B,C,D,E,F), C-DIFF, wears home O2(non compliant),"self medicates for pain," HEROIN ABUSE/IVDA, C diff. DENTAL CARIES, MIGRAINES, PTSD, "broken back", "broken neck", FLU X2 YRS, Pneum (November 05) - Social History Smoking Status: Current every day smoker Constitutional: Initial Vital Signs Temperature (C) 36.4 C 04/16/17 22:32 Heart Rate 87 04/16/17 22:32 Respiratory Rate 26 H 04/16/17 22:32 Blood Pressure 123/81 H 04/16/17 22:32 O2 Sat (%) 87 L 04/16/17 22:32 O2 Delivery Mode Room Air Allergies/Adverse Reactions: acetaminophen [Acetaminophen] Allergy (Severe, Verified 04/14/17 17:29) heparin Allergy (Unknown, Verified 04/14/17 17:29) Heparin Analogues Allergy (Unknown, Verified 04/14/17 17:29) propoxyphene HCl [From Darvon] Allergy (Unknown, Verified 04/14/17 17:29) amoxicillin [Amoxicillin] Allergy (Verified 04/14/17 17:29) Other-Enter Comments aspirin [Aspirin] Allergy (Verified 04/14/17 17:29) Iodinated Contrast- Oral and IV Dye [Iodinated Contrast Media - Oral and] Allergy (Verified 04/14/17 17:29) Other-Enter Comments Home Medications: Medication Instructions Recorded Albuterol Sulfate [Proair Hfa] 2 puffs IH QID PRN 04/14/17 Beclomethasone Qvar 40 [Qvar 40 1 puffs IH BID 04/14/17 (*)] Multivitamins [Multivitamin (*)] 1 each PO DAILY 04/14/17 [place]-3 Fatty Acids/Fish Oil 1 each PO DAILY 04/14/17 [[place] 3 1,000 mg Softgel] Beclomethasone Qvar 80 [Qvar 80 2 puffs IH BID #1 mdi 04/16/17 (*)] Ibuprofen [Motrin (*)] 400 mg PO Q4HRS PRN tab 04/16/17 predniSONE 50 mg PO DAILY #5 tablet 04/16/17 Medical Decision Making ED Course/Re-evaluation: O2 sats 86-88% on room air upon arrival Afebrile no systemic signs. Patient given DuoNeb x2 and p.o. prednisone 60 mg Security counseled for patient to obtain his belongings. learning and development associate already working on obtaining supplemental home oxygen for the patient. 2335: Reassessed patient. Security has given patient all of his belongings back. Improved aeration and O2 saturation status post prednisone and 2 DuoNeb. Patient given albuterol inhaler to take home and a prescription for Qvar refill and prednisone 50 mg for the next 5 days. This patient was seen under the supervision of my secondary supervising physician. I evaluated care for this patient independently. Discussed this patient with Dr. Padron who did not see the patient. Differential Diagnosis: Differential diagnosis includes but is not limited to COPD, COPD exacerbation, out of medications. - Data Points Medications Given: Discontinued Medications Albuterol/Ipratropium (Duoneb) 3 ml IH EDNOW ONE Stop: 04/16/17 22:43 Last Admin: 04/16/17 22:47 Dose: 3 ml Albuterol/Ipratropium (Duoneb) 3 ml IH EDNOW ONE Stop: 04/16/17 23:11 Last Admin: 04/16/17 23:30 Dose: 3 ml Prednisone (Prednisone) 60 mg PO EDNOW ONE Stop: 04/16/17 22:45 Last Admin: 04/16/17 22:59 Dose: 60 mg Departure - Departure Disposition: Home, Routine, Self-Care Clinical Impression: Has run out of medications COPD (chronic obstructive pulmonary disease) Qualifiers: COPD type: emphysema Emphysema type: unspecified Qualified Code(s): J43.9 - Emphysema, unspecified Condition: Good Instructions: COPD (Chronic Obstructive Pulmonary Disease) (ED) Referrals: [facility],. [Clinic] - As per Instructions Prescriptions: Beclomethasone Qvar 80 [Qvar 80 (*)] 2 puffs IH BID #1 mdi predniSONE 50 mg PO DAILY #5 tablet
[2017-04-16] MEDS ORDERED: predniSONE 20 MG TAB PO ONE (22:44)
[2017-04-16] MEDS ORDERED: ALBUTEROL INH PREPACK MDI TAKEHOME ONE (23:37)
[2017-04-17 01:06] VITALS: BP 123/73; PULSE 73; RESP 20; TEMP 98.1; O2SAT 86
== END 2017-04-17 01:00 | disposition home or self-care (01) ==
DX: J43.9 Emphysema, unspecified (principal); J45.909 Unspecified asthma, uncomplicated; F17.200 Nicotine dependence, unspecified, uncomplicated; Z76.0 Encounter for issue of repeat prescription

== ENCOUNTER 2017-04-26 16:14 | Emergency (ER) | payer MEDICAID ==
[2017-04-26 16:29] VITALS: RESP 18; TEMP 97.9
[2017-04-26] MEDS ORDERED: ALBUTEROL INH PREPACK MDI TAKEHOME ONE (17:14)
--- NOTE | 2017-04-26 17:14 | EDPHY ---
H & P Stated Complaint: chronic resp problems/is out of his steroids and inhalers Time Seen by Provider: 04/26/17 17:06 HPI/ROS: CHIEF COMPLAINT: Wrist pain, need refill HISTORY OF PRESENT ILLNESS: The patient is a 56-year-old homeless man who has a history of COPD who is not compliant with his medications traditionally as well as rheumatoid arthritis and chronic pain. He was admitted over [facility] for COPD exacerbation. He he denies shortness of breath today but states that he is at his baseline. He states that he when out of his albuterol however and would like a refill. He also states that he is having bilateral wrist and shoulder pain that he is consistent with his rheumatoid arthritis. He states that it did not help when he took the steroid burst that he was prescribed by [facility]. He denies any trauma. No swelling. No erythema or injuries. REVIEW OF SYSTEMS: Constitutional: denies: chills, fever, recent illness, recent injury EENTM: denies: blurred vision, double vision, nose congestion Respiratory: See HPI Cardiac: denies: chest pain, irregular heart rate, lightheadedness, palpitations Gastrointestinal/Abdominal: denies: abdominal pain, diarrhea, nausea, vomiting, blood streaked stools Genitourinary: denies: dysuria, frequency, hematuria, pain Musculoskeletal: See HPI Skin: denies: lesions, rash, jaundice, bruising Neurological: denies: headache, numbness, paresthesia, tingling, dizziness, weakness Hematologic/Lymphatic: denies: blood clots, easy bleeding, easy bruising Immunologic/allergic: denies: HIV/AIDS, transplant EXAM: GENERAL: Well-appearing, well-nourished and in no acute distress. HEAD: Atraumatic, normocephalic. EYES: Pupils equal round and reactive to light, extraocular movements intact, sclera anicteric, conjunctiva are normal. ENT: TMs normal, nares patent, oropharynx clear without exudates. Moist mucous membranes. NECK: Normal range of motion, supple without lymphadenopathy or JVD. LUNGS: Mild diffuse wheezing, no rhonchi HEART: Regular rate and rhythm without murmurs, rubs or gallops. ABDOMEN: Soft, nontender, normoactive bowel sounds. No guarding, no rebound. No masses appreciated. BACK: No CVA tenderness, no spinal tenderness, step-offs or deformities EXTREMITIES: Normal range of motion, no pitting or edema. No clubbing or cyanosis. No swelling, no erythema NEUROLOGICAL: Cranial nerves II through XII grossly intact. Normal speech, normal gait. 5/5 strength, normal movement in all extremities, normal sensation PSYCH: Normal mood, normal affect. SKIN: Warm, dry, normal turgor, no visible rashes or lesions. Source: Patient, Old records Exam Limitations: No limitations - Personal History Current Tetanus/Diphtheria Vaccine: Yes Tetanus Vaccine Date: 2015 - Medical/Surgical History Hx Asthma: Yes Hx Chronic Respiratory Disease: Yes Hx Diabetes: No Hx Cardiac Disease: No Hx Renal Disease: No Hx Cirrhosis: Yes Hx Alcoholism: No Hx HIV/AIDS: No Hx Splenectomy or Spleen Trauma: Yes Other PMH: CHRONIC PAIN, RA, COPD/ASTHMA, HEPATITIS (B,C,D,E,F), C-DIFF, wears home O2(non compliant),"self medicates for pain," HEROIN ABUSE/IVDA, C diff. DENTAL CARIES, MIGRAINES, PTSD, "broken back", "broken neck", FLU X2 YRS, Pneum (November 05) - Family History Significant Family History: No pertinent family hx - Social History Smoking Status: Current every day smoker Alcohol Use: Sober Drug Use: None Constitutional: Initial Vital Signs Temperature (C) 36.6 C 04/26/17 16:26 Heart Rate 72 04/26/17 16:26 Respiratory Rate 18 04/26/17 16:26 Blood Pressure 104/84 H 04/26/17 16:26 O2 Sat (%) 89 L 04/26/17 16:26 O2 Delivery Mode Room Air Allergies/Adverse Reactions: acetaminophen [Acetaminophen] Allergy (Severe, Verified 04/26/17 16:25) heparin Allergy (Unknown, Verified 04/26/17 16:25) Heparin Analogues Allergy (Unknown, Verified 04/26/17 16:25) propoxyphene HCl [From Darvon] Allergy (Unknown, Verified 04/26/17 16:25) amoxicillin [Amoxicillin] Allergy (Verified 04/26/17 16:25) Other-Enter Comments aspirin [Aspirin] Allergy (Verified 04/26/17 16:25) Iodinated Contrast- Oral and IV Dye [Iodinated Contrast Media - Oral and] Allergy (Verified 04/26/17 16:25) Other-Enter Comments Home Medications: Medication Instructions Recorded Albuterol Sulfate [Proair Hfa] 2 puffs IH QID PRN 04/14/17 Beclomethasone Qvar 40 [Qvar 40 1 puffs IH BID 04/14/17 (*)] Multivitamins [Multivitamin (*)] 1 each PO DAILY 04/14/17 [place]-3 Fatty Acids/Fish Oil 1 each PO DAILY 04/14/17 [[place] 3 1,000 mg Softgel] Beclomethasone Qvar 80 [Qvar 80 2 puffs IH BID #1 mdi 04/16/17 (*)] Ibuprofen [Motrin (*)] 400 mg PO Q4HRS PRN tab 04/16/17 predniSONE 50 mg PO DAILY #5 tablet 04/16/17 Medical Decision Making ED Course/Re-evaluation: The patient is here for refill his medications and also is requesting pain medication for his arthritis. I will treat her with ibuprofen. He states that he is not supposed to take Tylenol because he has hepatitis. A I will refill his albuterol as well and have reiterated him the need for him to follow up with his primary care doctor. He states that last time he was in the hospital daily offered "respid" but he is addicted to living outside. His oxygen was 90 % on room air while I was in the room which is the best I have ever seen him. Differential Diagnosis: Partial list of the Differential diagnosis considered include but were not limited to; COPD, medication refill, arthritis and although unlikely based on the history and physical exam, I also considered septic joint, gout, trauma, PE , acute coronary disease, CHF, pneumonia. I discussed these differential diagnoses and the plan with the patient as well as the usual and expected course. The patient understands that the diagnosis is provisional and that in medicine we are not always correct and that further workup is often warranted. Usual and customary warnings were given. All of the patient's questions were answered. The patient was instructed to return to the emergency department should the symptoms at all worsen or return, otherwise to followup with the physician as we discussed. - Data Points Medications Given: Discontinued Medications Albuterol Sulfate (Proventil Inh Prepack) 1 mdi BRIAN QUINN ONE Stop: 04/26/17 17:15 Last Admin: 04/26/17 17:54 Dose: 1 mdi Ibuprofen (Motrin) 600 mg PO EDNOW ONE Stop: 04/26/17 17:16 Last Admin: 04/26/17 17:53 Dose: 600 mg Departure - Departure Disposition: Home, Routine, Self-Care Clinical Impression: Arthritis COPD (chronic obstructive pulmonary disease) Qualifiers: COPD type: unspecified COPD Qualified Code(s): J44.9 - Chronic obstructive pulmonary disease, unspecified Condition: Fair Instructions: Albuterol (By breathing), COPD (Chronic Obstructive Pulmonary Disease) (ED), Arthritis (ED) Referrals: [facility],. [Clinic] - 1-2 days without fail
[2017-04-26] MEDS ORDERED: IBUPROFEN 600 MG TAB PO ONE (17:15)
[2017-04-26 18:23] VITALS: BP 110/89; PULSE 89; O2SAT 91
== END 2017-04-26 18:23 | disposition home or self-care (01) ==
LOC: EEVIPCON 16:14
DX: M06.9 Rheumatoid arthritis, unspecified (principal); J44.9 Chronic obstructive pulmonary disease, unspecified; F17.200 Nicotine dependence, unspecified, uncomplicated

== ENCOUNTER 2017-05-06 19:53 | Emergency (ER) | payer MEDICAID ==
[2017-05-06 20:00] VITALS: TEMP 97.7; O2SAT 91
[2017-05-06] MEDS ORDERED: IPRATROPIUM/ALBUTEROL 3 ML DEYVIAL IH ONE (20:48)
[2017-05-06] MEDS ORDERED: predniSONE 20 MG TAB PO ONE (20:48)
--- NOTE | 2017-05-06 20:54 | EDPHY ---
H & P Stated Complaint: SOB Time Seen by Provider: 05/06/17 20:45 HPI/ROS: CHIEF COMPLAINT: COPD exacerbation HISTORY OF PRESENT ILLNESS: The patient is a 56-year-old homeless man with a history of COPD who comes to the emergency department because he states he needs a place to stay. He is complaining of shortness of breath. He is supposed to wear 3 L of oxygen but is traditionally not compliant. He has been placed several times but states that he is addicted to the outside. He repeatedly refuses help and care. Currently he is saturating 93% on room air which is the best I have ever seen. REVIEW OF SYSTEMS: Constitutional: denies: chills, fever, recent illness, recent injury EENTM: denies: blurred vision, double vision, nose congestion Respiratory: See HPI Cardiac: denies: chest pain, irregular heart rate, lightheadedness, palpitations Gastrointestinal/Abdominal: denies: abdominal pain, diarrhea, nausea, vomiting, blood streaked stools Genitourinary: denies: dysuria, frequency, hematuria, pain Musculoskeletal: denies: joint pain, muscle pain Skin: denies: lesions, rash, jaundice, bruising Neurological: denies: headache, numbness, paresthesia, tingling, dizziness, weakness Hematologic/Lymphatic: denies: blood clots, easy bleeding, easy bruising Immunologic/allergic: denies: HIV/AIDS, transplant EXAM: GENERAL: Well-appearing, well-nourished and in no acute distress. HEAD: Atraumatic, normocephalic. EYES: Pupils equal round and reactive to light, extraocular movements intact, sclera anicteric, conjunctiva are normal. ENT: TMs normal, nares patent, oropharynx clear without exudates. Moist mucous membranes. NECK: Normal range of motion, supple without lymphadenopathy or JVD. LUNGS: Bilateral wheezing HEART: Regular rate and rhythm without murmurs, rubs or gallops. ABDOMEN: Soft, nontender, normoactive bowel sounds. No guarding, no rebound. No masses appreciated. BACK: No CVA tenderness, no spinal tenderness, step-offs or deformities EXTREMITIES: Normal range of motion, no pitting or edema. No clubbing or cyanosis. NEUROLOGICAL: Cranial nerves II through XII grossly intact. Normal speech, normal gait. 5/5 strength, normal movement in all extremities, normal sensation PSYCH: Normal mood, normal affect. SKIN: Warm, dry, normal turgor, no visible rashes or lesions. Source: Patient, Old records - Personal History Current Tetanus/Diphtheria Vaccine: Unsure Current Tetanus Diphtheria and Acellular Pertussis (TDAP): Unsure Tetanus Vaccine Date: 2015 - Medical/Surgical History Hx Asthma: Yes Hx Chronic Respiratory Disease: Yes Hx Diabetes: No Hx Cardiac Disease: No Hx Renal Disease: No Hx Cirrhosis: Yes Hx Alcoholism: No Hx HIV/AIDS: No Hx Splenectomy or Spleen Trauma: Yes Other PMH: CHRONIC PAIN, RA, COPD/ASTHMA, HEPATITIS (B,C,D,E,F), C-DIFF, wears home O2(non compliant),"self medicates for pain," HEROIN ABUSE/IVDA, C diff. DENTAL CARIES, MIGRAINES, PTSD, "broken back", "broken neck", FLU X2 YRS, Pneum (November 05) - Family History Significant Family History: No pertinent family hx - Social History Smoking Status: Current every day smoker Alcohol Use: Heavy Drug Use: Marijuana Constitutional: Initial Vital Signs Temperature (C) 36.5 C 05/06/17 19:57 Heart Rate 82 05/06/17 19:57 Respiratory Rate 19 05/06/17 19:57 Blood Pressure 128/86 H 05/06/17 19:57 O2 Sat (%) 91 L 05/06/17 19:57 O2 Delivery Mode Room Air Allergies/Adverse Reactions: acetaminophen [Acetaminophen] Allergy (Severe, Verified 04/26/17 16:25) heparin Allergy (Unknown, Verified 04/26/17 16:25) Heparin Analogues Allergy (Unknown, Verified 04/26/17 16:25) propoxyphene HCl [From Darvon] Allergy (Unknown, Verified 04/26/17 16:25) amoxicillin [Amoxicillin] Allergy (Verified 04/26/17 16:25) Other-Enter Comments aspirin [Aspirin] Allergy (Verified 04/26/17 16:25) Iodinated Contrast- Oral and IV Dye [Iodinated Contrast Media - Oral and] Allergy (Verified 04/26/17 16:25) Other-Enter Comments Home Medications: Medication Instructions Recorded Albuterol Sulfate [Proair Hfa] 2 puffs IH QID PRN 04/14/17 Beclomethasone Qvar 40 [Qvar 40 1 puffs IH BID 04/14/17 (*)] Multivitamins [Multivitamin (*)] 1 each PO DAILY 04/14/17 [place]-3 Fatty Acids/Fish Oil 1 each PO DAILY 04/14/17 [[place] 3 1,000 mg Softgel] Beclomethasone Qvar 80 [Qvar 80 2 puffs IH BID #1 mdi 04/16/17 (*)] Ibuprofen [Motrin (*)] 400 mg PO Q4HRS PRN tab 04/16/17 predniSONE 50 mg PO DAILY #5 tablet 04/16/17 Albuterol [Proventil Inhaler] 1 - 2 puffs IH Q4H #1 mdi 05/06/17 predniSONE 60 mg PO DAILY #9 tab 05/06/17 Medical Decision Making ED Course/Re-evaluation: Patient is very difficult. He is noncompliant with all help given him in the past. Currently is wheezing however looks well and is saturating 93% on room air. I will treat him with a DuoNeb and steroid burst , otherwise I think he will be able to be discharged. Differential Diagnosis: Partial list of the Differential diagnosis considered include but were not limited to; COPD exacerbation, nursing home seeking and although unlikely based on the history and physical exam, I also considered pneumonia, PE, acute coronary disease, pulmonary edema. I discussed these differential diagnoses and the plan with the patient as well as the usual and expected course. The patient understands that the diagnosis is provisional and that in medicine we are not always correct and that further workup is often warranted. Usual and customary warnings were given. All of the patient's questions were answered. The patient was instructed to return to the emergency department should the symptoms at all worsen or return, otherwise to followup with the physician as we discussed. - Data Points Medications Given: Discontinued Medications Albuterol/Ipratropium (Duoneb) 3 ml IH EDNOW ONE Stop: 05/06/17 20:49 Last Admin: 05/06/17 20:53 Dose: 3 ml Prednisone (Prednisone) 60 mg PO EDNOW ONE Stop: 05/06/17 20:49 Last Admin: 05/06/17 20:53 Dose: 60 mg Departure - Departure Disposition: Home, Routine, Self-Care Clinical Impression: COPD (chronic obstructive pulmonary disease) Qualifiers: COPD type: chronic bronchitis Chronic bronchitis type: simple Qualified Code(s) : J41.0 - Simple chronic bronchitis Condition: Fair Instructions: COPD (Chronic Obstructive Pulmonary Disease) (ED) Referrals: NONE *PRIMARY CARE P,. [Primary Care Provider] - As per Instructions Prescriptions: Albuterol [Proventil Inhaler] 1 - 2 puffs IH Q4H #1 mdi predniSONE 60 mg PO DAILY #9 tab
[2017-05-06 21:20] VITALS: BP 122/79; PULSE 74; RESP 16
== END 2017-05-06 21:19 | disposition home or self-care (01) ==
DX: J41.0 Simple chronic bronchitis (principal); F17.200 Nicotine dependence, unspecified, uncomplicated
CPT/HCPCS: J7512

== ENCOUNTER 2017-05-12 20:25 | Emergency (ER) | payer MEDICAID ==
[2017-05-12 20:35] VITALS: BP 127/72; PULSE 80; RESP 18; TEMP 97.9; O2SAT 91
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
[2017-05-12] MEDS ORDERED: SULFAMETHOX/TMP 800/160 MG 1 TAB PO ONE (21:17)
[2017-05-12] MEDS ORDERED: ALBUTEROL INH PREPACK MDI TAKEHOME ONE (21:18)
== END 2017-05-12 21:15 ==
LOC: EDUNIT#
DX: L08.9 Local infection of the skin and subcutaneous tissue, unspecified (principal); J41.0 Simple chronic bronchitis; F17.200 Nicotine dependence, unspecified, uncomplicated

== ENCOUNTER 2017-05-13 21:22 | Emergency (ER) | payer MEDICAID ==
[2017-05-13 21:28] VITALS: BP 110/60; PULSE 85; RESP 16; TEMP 97.3; O2SAT 91
[2017-05-13] MEDS ORDERED: SULFAMET/TMP DS PREPACK#2 BTL TAKEHOME ONE (21:42)
--- NOTE | 2017-05-13 21:42 | EDPHY ---
H & P Smoking Status: Current every day smoker Time Seen by Provider: 05/13/17 21:38 HPI/ROS: CHIEF COMPLAINT: Left 4th digit wound recheck HISTORY OF PRESENT ILLNESS: 56-year-old male familiar to emergency department staff. He has seen the ER yesterday for a left 4th digit proximal phalanx dorsal aspect lesion which was indurated, nonfluctuant. He was started on Bactrim which he took the last dose of this morning, did not feels prescription. He is in the ER for recheck. Denies lymphangitic streaking. No fever or chills. No limitations in range of motion. PHYSICAL EXAM (Prior to examination, patient consented to physical exam, hands were washed and my usual and customary physical exam procedures followed) 1) GENERAL: Well-developed, well-nourished, alert and oriented. Appears to be in no acute distress. 2) HEAD: Normocephalic 3) HEENT: sclera anicteric 4) LUNGS: Breathing comfortably. 5) SKIN: Left 4th digit dorsal aspect proximal phalanx for regular lesion. The full range of motion at the MCP PIP D IP. Negative kanavel. No pain along the flexor aspect or flexor tendon sheath. No lymphangitic streak (Otilio,Hunter Brittany) Constitutional: Initial Vital Signs Temperature (C) 36.3 C 05/13/17 21:26 Heart Rate 85 05/13/17 21:26 Respiratory Rate 16 05/13/17 21:26 Blood Pressure 110/60 05/13/17 21:26 O2 Sat (%) 91 L 05/13/17 21:26 O2 Delivery Mode Room Air Allergies/Adverse Reactions: acetaminophen [Acetaminophen] Allergy (Severe, Verified 04/26/17 16:25) heparin Allergy (Unknown, Verified 04/26/17 16:25) Heparin Analogues Allergy (Unknown, Verified 04/26/17 16:25) propoxyphene HCl [From Darvon] Allergy (Unknown, Verified 04/26/17 16:25) amoxicillin [Amoxicillin] Allergy (Verified 04/26/17 16:25) Other-Enter Comments aspirin [Aspirin] Allergy (Verified 04/26/17 16:25) Iodinated Contrast- Oral and IV Dye [Iodinated Contrast Media - Oral and] Allergy (Verified 04/26/17 16:25) Other-Enter Comments Home Medications: Medication Instructions Recorded Albuterol Sulfate [Proair Hfa] 2 puffs IH QID PRN 04/14/17 Beclomethasone Qvar 40 [Qvar 40 1 puffs IH BID 04/14/17 (*)] Multivitamins [Multivitamin (*)] 1 each PO DAILY 04/14/17 [place]-3 Fatty Acids/Fish Oil 1 each PO DAILY 04/14/17 [[place] 3 1,000 mg Softgel] Beclomethasone Qvar 80 [Qvar 80 2 puffs IH BID #1 mdi 04/16/17 (*)] Ibuprofen [Motrin (*)] 400 mg PO Q4HRS PRN tab 04/16/17 predniSONE 50 mg PO DAILY #5 tablet 04/16/17 Albuterol [Proventil Inhaler] 1 - 2 puffs IH Q4H #1 mdi 05/06/17 predniSONE 60 mg PO DAILY #9 tab 05/06/17 Sulfamethox/Tmp 800/160 mg 1 tab PO BID #14 tab 05/12/17 [Bactrim Ds] MDM/Departure - MDM Medications Given: Discontinued Medications Trimethoprim/Sulfamethoxazole (Bactrim Ds [place]#2) [facility] Stop: 05/13/17 21:43 Last Admin: 05/13/17 21:51 Dose: 1 btl ED Course/Re-evaluation: 9:46 pm: I reviewed the patient's old medical records. This patient's wound is indurated nonfluctuant. I do not think that incision and drainages currently indicated or appropriate at this time, however in may become indicated in the near future. He has negative kanavel sign, no signs of deep space infection or abscess. I do not think that emergent hand surgery consultation is indicated. I have recommended continued Bactrim, he has prescription with him which he did not get filled yet. He has been given further dosages of Bactrim in the emergency department as he last took a dose 12 hr ago. He is agreeable with this plan. Usual and customary wound precautions instructions provided. Care of patient under supervision of secondary supervising physician Dr Mercedes Marcos (Hunter Yañez) The patient was evaluated and managed by the Physician [employer].My co- signature indicates that I have reviewed this chart and I agree with the findings and plan of care as documented. I am the secondary supervising physician. (Mercedes Marcos) - Depart Disposition: Home, Routine, Self-Care Clinical Impression: Furuncle of finger of left hand Condition: Good Instructions: Sulfamethoxazole/Trimethoprim (By mouth), Furunculosis and Carbunculosis (ED) Additional Instructions: Return to the ER if you develop redness, swelling, discharge, warmth to the wound, red streaks going up your arm or any other symptoms that concern you. Referrals: Jermaine Lorenzo MD [Medical Doctor] - 1-2 days without fail
== END 2017-05-13 22:08 | disposition home or self-care (01) ==
DX: L02.522 Furuncle left hand (principal); F17.200 Nicotine dependence, unspecified, uncomplicated

== ENCOUNTER 2017-05-17 15:09 | Emergency (ER) | payer MEDICAID ==
[2017-05-17 15:14] VITALS: TEMP 97.9
[2017-05-17] MEDS ORDERED: IPRATROPIUM/ALBUTEROL 3 ML DEYVIAL IH ONE (16:07)
[2017-05-17] MEDS ORDERED: predniSONE 20 MG TAB PO ONE (16:07)
--- NOTE | 2017-05-17 16:08 | EDPHY ---
H & P Time Seen by Provider: 05/17/17 16:00 HPI/ROS: CHIEF COMPLAINT: Finger infection HISTORY OF PRESENT ILLNESS: Patient has a history of MRSA was here in our emergency department on May 13 placed on Bactrim. He is left ring finger is still a little swollen is now started to drain pus. He is able to bend and extend the finger. No pain in the palm. Normal motor and sensory distally. No recent injury or fracture. REVIEW OF SYSTEMS: Eye: no change in vision ENT: no sore throat Cardiac: no chest pain or syncope Pulmonary: Chronic cough and chronically short of breath not really changed from usual Abdomen: no vomiting, diarrhea, abdominal pain Musculoskeletal: Patient complains of left wrist pain with no recent injury but thinks it is broken, asking for xray. Chronic pain stable. Skin: no rash Neuro: no headache Constitutional: no fever : no urinary symptoms A comprehensive 10 point review of systems is otherwise negative aside from elements mentioned in the history of present illness. PAST MEDICAL HISTORY: Includes chronic pain, COPD, hepatitis. Clostridium difficile, migraine headaches, PTSD. Social history: Tobacco smoker, homeless General Appearance: Alert and conversant, cooperative. Eyes: No scleral icterus. ENT, Mouth: Normal mucous membranes. Respiratory: Expiratory wheezing but speaks in full sentences and no rhonchi or rales or focal lung sounds. Cardiovascular: Regular rate and rhythm. Gastrointestinal: Abdomen is soft and non tender. Neurological: Alert, face symmetric, normal motor and sensory in extremities. Skin: Patient has a 1 cm area of slight erythema just proximal to the PIP joint on the left ring finger with a central area which is draining small amount of pus. He can flex and extend it and does not have proximal tenderness on exam, normal mal distal motor sensory and capillary refill.. Musculoskeletal: No peripheral edema. Little bit of decreased range of motion of the left wrist and some diffuse bony tenderness but no swelling. Psychiatric: Not agitated. Emergency Department course/MDM: Patient is asking me for a "medical order for home oxygen" to be given to him right now, for a "30 day respite bed to be awarded to him tonight," and for tetracycline prescription for his finger which he says is better than bactrim for his usual skin infections. DuoNeb, oral prednisone, left wrist x-ray. Patient was recommended local anesthesia, incision and drainage of his left finger but refused. He was warned of the risks of refusal including worsening infection, disability of the hand and even finger amputation. He clearly has capacity to make decisions regarding his care and continues to refuse. He also refused x-ray of the infected finger. Does not have evidence of tenosynovitis. No palmar tenderness or proximal tenderness to palpation. Can flex and extend. DuoNeb and prednisone. Patient denies any chest pain to me. X-ray of the left wrist does not show fracture. Oxygen saturation about 90% on room air and he speaks in full sentences and is not short of breath on discharge. Smoking Status: Current every day smoker Constitutional: Initial Vital Signs Temperature (C) 36.6 C 05/17/17 15:11 Heart Rate 75 05/17/17 15:11 Respiratory Rate 18 05/17/17 15:11 Blood Pressure 118/64 05/17/17 15:11 O2 Sat (%) 89 L 05/17/17 15:11 O2 Delivery Mode Room Air O2 (L/minute) 2 Allergies/Adverse Reactions: acetaminophen [Acetaminophen] Allergy (Severe, Verified 04/26/17 16:25) heparin Allergy (Unknown, Verified 04/26/17 16:25) Heparin Analogues Allergy (Unknown, Verified 04/26/17 16:25) propoxyphene HCl [From Darvon] Allergy (Unknown, Verified 04/26/17 16:25) amoxicillin [Amoxicillin] Allergy (Verified 04/26/17 16:25) Other-Enter Comments aspirin [Aspirin] Allergy (Verified 04/26/17 16:25) Iodinated Contrast- Oral and IV Dye [Iodinated Contrast Media - Oral and] Allergy (Verified 04/26/17 16:25) Other-Enter Comments Home Medications: Medication Instructions Recorded Albuterol Sulfate [Proair Hfa] 2 puffs IH QID PRN 04/14/17 Beclomethasone Qvar 40 [Qvar 40 1 puffs IH BID 04/14/17 (*)] Multivitamins [Multivitamin (*)] 1 each PO DAILY 04/14/17 [place]-3 Fatty Acids/Fish Oil 1 each PO DAILY 04/14/17 [[place] 3 1,000 mg Softgel] Beclomethasone Qvar 80 [Qvar 80 2 puffs IH BID #1 mdi 04/16/17 (*)] Ibuprofen [Motrin (*)] 400 mg PO Q4HRS PRN tab 04/16/17 predniSONE 50 mg PO DAILY #5 tablet 04/16/17 Albuterol [Proventil Inhaler] 1 - 2 puffs IH Q4H #1 mdi 05/06/17 predniSONE 60 mg PO DAILY #9 tab 05/06/17 Sulfamethox/Tmp 800/160 mg 1 tab PO BID #14 tab 05/12/17 [Bactrim Ds] Doxycycline Hyclate 100 mg PO Q12 #20 tablet 05/17/17 predniSONE [prednisone 20mg (RX)] 40 mg PO DAILY 4 Days tab 05/17/17 Medical Decision Making - Diagnostics Imaging Results: Imaging Impressions Wrist X-Ray 05/17/17 16:07 Impression: 1. 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 2. No acute fracture. Differential Diagnosis: Differential considered including but not limited to tenosynovitis, abscess, finger cellulitis, felon, paronychia, osteomyelitis. - Data Points Medications Given: Discontinued Medications Albuterol/Ipratropium (Duoneb) 3 ml IH EDNOW ONE Stop: 05/17/17 16:08 Last Admin: 05/17/17 16:28 Dose: 3 ml Prednisone (Prednisone) 60 mg PO EDNOW ONE Stop: 05/17/17 16:08 Last Admin: 05/17/17 16:28 Dose: 60 mg Departure - Departure Disposition: Home, Routine, Self-Care Clinical Impression: Finger infection, Abrasion of left ring finger with infection Condition: Good Instructions: Doxycycline (By mouth) Additional Instructions: Left wrist Xray shows arthritis no fracture. Referrals: [facility],. [Clinic] - As per Instructions Prescriptions: Doxycycline Hyclate 100 mg PO Q12 #20 tablet predniSONE [prednisone 20mg (RX)] 40 mg PO DAILY 4 Days tab
[2017-05-17 18:07] VITALS: BP 135/86; PULSE 81; RESP 16; O2SAT 91
== END 2017-05-17 18:07 | disposition home or self-care (01) ==
LOC: EEVIPCON 15:09
DX: L08.9 Local infection of the skin and subcutaneous tissue, unspecified (principal); F17.200 Nicotine dependence, unspecified, uncomplicated; J44.9 Chronic obstructive pulmonary disease, unspecified
CPT/HCPCS: J7512

== ENCOUNTER 2017-06-03 16:07 | Emergency (ER) | payer MEDICAID ==
[~2017-06-03 16:07] MED LIST changes: -CEPHALEXIN 500 MG CAP PO SCH; +DOXYCYCLINE HYCLATE 100 MG CAP/TAB PO SCH; -SULFAMETHOX/TMP 800/160 MG 1 TAB PO SCH
[2017-06-03 16:15] VITALS: RESP 24
[2017-06-03] MEDS ORDERED: IPRATROPIUM/ALBUTEROL 3 ML DEYVIAL IH ONE (17:26)
[2017-06-03] MEDS ORDERED: DOXYCYCLINE HYCLATE 100 MG CAP/TAB PO ONE (17:28)
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
[2017-06-03 18:30] VITALS: BP 149/92; PULSE 88; TEMP 97.7; O2SAT 93
== END 2017-06-03 18:30 | disposition home or self-care (01) ==
DX: J20.9 Acute bronchitis, unspecified (principal); J44.9 Chronic obstructive pulmonary disease, unspecified; F17.200 Nicotine dependence, unspecified, uncomplicated

== ENCOUNTER 2017-06-05 18:00 | Emergency (ER) | payer MEDICAID ==
[2017-06-05 18:10] VITALS: BP 98/69; PULSE 76; RESP 18; TEMP 98.2; O2SAT 92
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
== END 2017-06-05 19:02 | disposition home or self-care (01) ==
DX: J20.9 Acute bronchitis, unspecified (principal); J44.9 Chronic obstructive pulmonary disease, unspecified; F17.200 Nicotine dependence, unspecified, uncomplicated

== ENCOUNTER 2017-06-10 11:16 | Emergency (ER) | payer MEDICAID ==
[2017-06-10 11:22] VITALS: BP 135/75; PULSE 72; RESP 20; TEMP 97.7; O2SAT 93
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
== END 2017-06-10 14:10 | disposition home or self-care (01) ==
DX: J45.901 Unspecified asthma with (acute) exacerbation (principal)

== ENCOUNTER 2017-06-14 20:04 | Emergency (ER) | payer MEDICAID ==
[2017-06-14 20:13] VITALS: TEMP 98.2
[2017-06-14] MEDS ORDERED: IPRATROPIUM/ALBUTEROL 3 ML DEYVIAL IH ONE (20:18)
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
[2017-06-14 20:49] VITALS: BP 116/82; PULSE 78; RESP 18; O2SAT 97
== END 2017-06-14 21:04 | disposition home or self-care (01) ==
DX: R06.02 Shortness of breath (principal); J44.9 Chronic obstructive pulmonary disease, unspecified; F17.200 Nicotine dependence, unspecified, uncomplicated

== ENCOUNTER 2017-06-17 16:03 | Emergency (ER) | payer MEDICAID ==
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
[2017-06-17 18:30] VITALS: BP 138/70; PULSE 70; RESP 16; TEMP 97.9; O2SAT 89
[2017-06-17] MEDS ORDERED: ALBUTEROL INH PREPACK MDI TAKEHOME ONE (18:35)
--- NOTE | 2017-06-17 18:38 | EDPHY ---
H & P Stated Complaint: wants inhaler. SOB Time Seen by Provider: 06/17/17 18:36 HPI/ROS: CHIEF COMPLAINT: Requesting inhaler HISTORY OF PRESENT ILLNESS: The patient is homeless and presents emergency department requesting an inhaler. The patient has a history of known COPD. The patient is a smoker. The patient denies any fever, cough or congestion. The patient denies additional complaints. The patient unfortunately presents to the emergency department frequently losing his inhaler. The patient denies any abdominal pain, vomiting or diarrhea. REVIEW OF SYSTEMS: A comprehensive 10 point review of systems is otherwise negative aside from elements mentioned in the history of present illness. Source: Patient Exam Limitations: No limitations - Personal History Current Tetanus/Diphtheria Vaccine: Yes Current Tetanus Diphtheria and Acellular Pertussis (TDAP): Yes Tetanus Vaccine Date: 2015 - Medical/Surgical History Hx Asthma: Yes Hx Chronic Respiratory Disease: Yes Hx Diabetes: No Hx Cardiac Disease: No Hx Renal Disease: No Hx Cirrhosis: Yes Hx Alcoholism: No Hx HIV/AIDS: No Hx Splenectomy or Spleen Trauma: Yes Other PMH: CHRONIC PAIN, RA, COPD/ASTHMA, HEPATITIS (B,C,D,E,F), C-DIFF, wears home O2(non compliant),"self medicates for pain," HEROIN ABUSE/IVDA, C diff. DENTAL CARIES, MIGRAINES, PTSD, "broken back", "broken neck", FLU X2 YRS, Pneum (November 05) - Social History Smoking Status: Heavy smoker - Physical Exam Exam: General Appearance: Alert, no distress Eyes: Pupils equal and round no pallor or injection ENT, Mouth: Mucous membranes moist Respiratory: Distant breath sounds, expiratory wheezing Cardiovascular: Regular rate and rhythm Gastrointestinal: Abdomen is soft and nontender, no masses, bowel sounds normal Neurological: A&O, normal motor function, normal sensory exam, normal cranial nerves Skin: Warm and dry, no rashes Musculoskeletal: Neck is supple nontender Extremities: symmetrical, full range of motion Constitutional: Initial Vital Signs Temperature (C) 36.6 C 06/17/17 18:28 Heart Rate 70 06/17/17 18:28 Respiratory Rate 16 06/17/17 18:28 Blood Pressure 138/70 H 06/17/17 18:28 O2 Sat (%) 89 L 06/17/17 18:28 O2 Delivery Mode Room Air Allergies/Adverse Reactions: acetaminophen [Acetaminophen] Allergy (Severe, Verified 06/17/17 18:28) heparin Allergy (Unknown, Verified 06/17/17 18:28) Heparin Analogues Allergy (Unknown, Verified 06/17/17 18:28) propoxyphene HCl [From Darvon] Allergy (Unknown, Verified 06/17/17 18:28) amoxicillin [Amoxicillin] Allergy (Verified 06/17/17 18:28) Other-Enter Comments aspirin [Aspirin] Allergy (Verified 06/17/17 18:28) Iodinated Contrast- Oral and IV Dye [Iodinated Contrast Media - Oral and] Allergy (Verified 06/17/17 18:28) Other-Enter Comments Home Medications: Medication Instructions Recorded Albuterol 06/17/17 Medical Decision Making ED Course/Re-evaluation: The patient has been provided an albuterol MDI inhaler. He is not acutely hypoxemic. He is advised to follow up with [facility]. Departure - Departure Disposition: Home, Routine, Self-Care Clinical Impression: COPD (chronic obstructive pulmonary disease) Condition: Good Instructions: Chronic Bronchitis (ED) Additional Instructions: 1. Please follow up with your primary care provider [facility]. Referrals: [facility],. [Clinic] - As per Instructions
== END 2017-06-17 19:14 | disposition home or self-care (01) ==
DX: J44.9 Chronic obstructive pulmonary disease, unspecified (principal); F17.200 Nicotine dependence, unspecified, uncomplicated

== ENCOUNTER 2017-07-16 14:25 | Emergency (ER) | payer MEDICAID ==
[2017-07-16 14:34] VITALS: BP 105/69
--- NOTE | 2017-07-16 14:59 | EDPHY ---
H & P Stated Complaint: SOB Time Seen by Provider: 07/16/17 14:58 HPI/ROS: CHIEF COMPLAINT: "I'm breathing fine but can't get enough oxygen." HISTORY OF PRESENT ILLNESS: The patient is a 56 y/o male well-known to this department with 26 prior ED visits in the last year complaining of inability to "get enough oxygen." His medical history includes COPD, asthma, chronic pain, IV drug abuse, and hepatitis. He was seen here last month requesting prescription refills and case management worked to arrange PCP follow up, but he has routinely missed these appointments and says he "fell asleep" prior to the last appointment case management scheduled on his behalf. He tells me he does not take any medications for any of his medial conditions. Today he states , "I don't get enough oxygen in my body" and says "ain't nothing different" with his symptoms today compared to other days. History limited by patient's limited cooperation during assessment. REVIEW OF SYSTEMS: Limited as patient is unwilling to answer most questions. Chronic abdominal pain from hepatitis. Past medical history: Chronic pain, COPD/asthma, hepatitis, c-diff, IV drug abuse, migraines, PTSD, "broken back and neck" Past surgical history: Noncontributory Social history: Patient refuses to answer questions, records show he is a heavy smoker. Denies having a PCP. Reviewed prior medical records including ED note and case management note from 06/17/17. General Appearance: Alert. Vital signs reviewed. Pulse ox 89% at triage on room air. Respiratory rate 20. Afebrile. Eyes: Pupils equal and round, no conjunctival injection, no discharge. Anicteric. ENT, Mouth: Mucous membranes are moist, no oropharyngeal erythema or edema. Neck: No lymphadenopathy, supple. Trachea midline. Respiratory: Lungs have wheezes bilaterally to auscultation and poor air exchange; no rales or rhonchi. Speaking in full sentences without apparent dyspnea. Cardiovascular: Regular rate and rhythm; no murmur, rub, or gallop. Gastrointestinal: Abdomen is soft and nontender, no masses or organomegaly. Skin: Warm and dry, no rashes on exposed skin, normal color. Extremities: No lower extremity edema, no calf tenderness or swelling. Neurological: Alert and oriented. Moving all four extremities easily and equally. Psychiatric: Hostile. - Personal History Current Tetanus/Diphtheria Vaccine: Yes Current Tetanus Diphtheria and Acellular Pertussis (TDAP): Yes Tetanus Vaccine Date: 2015 - Medical/Surgical History Hx Asthma: Yes Hx Chronic Respiratory Disease: Yes Hx Diabetes: No Hx Cardiac Disease: No Hx Renal Disease: No Hx Cirrhosis: Yes Hx Alcoholism: No Hx HIV/AIDS: No Hx Splenectomy or Spleen Trauma: Yes Other PMH: CHRONIC PAIN, RA, COPD/ASTHMA, HEPATITIS (B,C,D,E,F), C-DIFF, wears home O2(non compliant),"self medicates for pain," HEROIN ABUSE/IVDA, C diff. DENTAL CARIES, MIGRAINES, PTSD, "broken back", "broken neck", FLU X2 YRS, Pneum (November 05) - Social History Smoking Status: Heavy smoker Constitutional: Initial Vital Signs Temperature (C) 36.6 C 07/16/17 14:32 Heart Rate 84 07/16/17 14:32 Respiratory Rate 20 07/16/17 14:32 Blood Pressure 105/69 07/16/17 14:32 O2 Sat (%) 89 L 07/16/17 14:32 O2 Delivery Mode Room Air O2 (L/minute) 4 Allergies/Adverse Reactions: acetaminophen [Acetaminophen] Allergy (Severe, Verified 07/16/17 14:32) heparin Allergy (Unknown, Verified 07/16/17 14:32) Heparin Analogues Allergy (Unknown, Verified 07/16/17 14:32) propoxyphene HCl [From Darvon] Allergy (Unknown, Verified 07/16/17 14:32) amoxicillin [Amoxicillin] Allergy (Verified 07/16/17 14:32) Other-Enter Comments aspirin [Aspirin] Allergy (Verified 07/16/17 14:32) Iodinated Contrast- Oral and IV Dye [Iodinated Contrast Media - Oral and] Allergy (Verified 07/16/17 14:32) Other-Enter Comments Home Medications: Medication Instructions Recorded Albuterol 06/17/17 Albuterol [Proventil Inhaler HFA 1 - 2 puffs IH Q4 #1 mdi 07/16/17 (*)] Medical Decision Making ED Course/Re-evaluation: This is a confrontative 56 y/o male with COPD and long history of non- compliance who presents to the ED stating he is not getting enough oxygen. He is reclining in the bed and speaking in full sentences without apparent dyspnea. He has diffuse wheezing on auscultation and is mildly hypoxemic at 89% . Plan for 60mg PO prednisone, duo neb, and case management consult. 1539: Reevaluated patient. He is lying on the bed not using the nebulizer. It's unclear if he used this treatment or not while staff was out of the room. He continues to have diffuse wheezing and an SpO2 of 88%. He is resistant to further breathing treatments here and says this will make him worse. He says, "the only way to get better is bed rest and the only way to get bed rest is to be admitted to the hospital." 1605: Patient is turning off the O2 when the RN steps out of the room and holding the nebulizer away from himself. He refuses to breath in through his nose with the cannula on when the SpO2 monitor is on his finger. 1611: Reevaluated patient to discuss recommended breathing treatments. He denies purposefully turning off the nebulizers to avoid treatment for his complaint and reiterates that he is here for oxygen. Lung sounds are unchanged and he is still hypoxemic in the 80s. He is becoming very agitated and yelling at me to tell the court to order a home for him and if not he threatens to return to the ED more frequently, stating, "you're going to see me a lot more down here. I pay you people millions of dollars." I've recommended using the nebulizer treatment and a chest x-ray to evaluate for infiltrate. Chest x-ray reviewed by me- no infiltrate, findings consistent with COPD. 1630: Patient referred from x-ray and began screaming at the RN when she attempted to give him a nebulizer treatment. development manager is currently speaking with patient about outpatient resources. He is yelling at her that he can't follow through with any outpatient resources because he is homeless and is threatening to call 911. Has his behavior has been escalating I requested a it security project manager outside of the room. I've asked him to try the nebulizer treatment to completion, which he agrees to. Within one minute his SpO2 increased to 89% during the treatment. He then jumped off the bed to call 911 because "I want the police here to watch the it security project manager." He is refusing to continue treatment. I have been unable to convince him that wearing oxygen and taking the breathing treatments would be beneficial. He continues to escalate. I suspect that he will be discharged against medical advice. 1645: As I walked into the room to discuss AMA paperwork, I found patient had already walked out of the department and off the property. I had written him a prescription for an albuterol inhaler but I do not believe that he took it with him. Differential Diagnosis: Shortness of breath including but not limited to pulmonary infectious process, COPD, asthma, pulmonary embolus and congestive heart failure. - Data Points Medications Given: Discontinued Medications Albuterol (Proventil Neb) 3 ml IH EDNOW ONE Stop: 07/16/17 15:49 Last Admin: 07/16/17 15:50 Dose: 3 ml Albuterol (Proventil Neb) 3 ml IH EDNOW ONE Stop: 07/16/17 16:17 Last Admin: 07/16/17 16:19 Dose: 3 ml Albuterol/Ipratropium (Duoneb) 3 ml IH EDNOW ONE Stop: 07/16/17 15:09 Last Admin: 07/16/17 15:11 Dose: 3 ml Prednisone (Prednisone) 60 mg PO EDNOW ONE Stop: 07/16/17 15:09 Last Admin: 07/16/17 15:12 Dose: 60 mg Departure - Departure Disposition: Against Medical Advice Clinical Impression: COPD (chronic obstructive pulmonary disease) Qualifiers: COPD type: emphysema Emphysema type: other Qualified Code(s): J43.8 - Other emphysema Condition: Good Instructions: COPD (Chronic Obstructive Pulmonary Disease) (ED) Additional Instructions: If you wish to arrange follow up care, please contact [phone] to find a provider currently accepting Medicaid. Use albuterol inhaler as prescribed. Referrals: Rosa Little MD [[facility] Primary Care Provider] - As per Instructions Prescriptions: Albuterol [Proventil Inhaler HFA (*)] 1 - 2 puffs IH Q4 #1 mdi Report Scribed for: Nicolasa Mcnulty Report Scribed by: Gilda Mathis Date of Report: 07/16/17 Time of Report: 15:14 Physician Review and Approval Statement: 07/17/17 13:53 Portions of this note were transcribed by the medical billing and coding instructor. I, Dr. Nicolasa Mcnulty, personally performed the history, physical exam, and medical decision- making; and confirmed the accuracy of the information in the transcribed note.
[2017-07-16] MEDS ORDERED: IPRATROPIUM/ALBUTEROL 3 ML DEYVIAL IH ONE (15:08)
[2017-07-16] MEDS ORDERED: predniSONE 20 MG TAB PO ONE (15:08)
[2017-07-16] MEDS ORDERED: ALBUTEROL 3 ML DEYVIAL IH ONE ×2 (15:48→16:16)
[2017-07-16] MEDS ORDERED: ALBUTEROL 3 ML DEYVIAL ONE (16:16)
--- NOTE | 2017-07-16 17:51 | ASMTCMCOM ---
CM Note CM Note Notes: Pt presented to the ED for the 11th time in 2018. Pt here for shortness of breath and "not getting enough oxygen." Pt was refusing to keep oxygen via nasal cannula on, and refusing breathing treatments because "they just make me worse." Please refer to previous 06/17 CM note (and various past CM Assessment Notes under 'Patient Care' tab from 2017 and prior) regarding previous CM efforts to establish a PCP for patient and re: his non-compliance. Spoke with patient and provided a pamphlet for [facility] clinics and the centralized scheduling # and informed patient that he can call and see if there are any other providers accepting new Medicaid patients and get an appointment. This CM explained that due to various previous attempts/efforts to assist patient with PCP coordination and his non-compliance & verbal abuse, we will no longer be making additional calls on his behalf. Patient knows how to utilize a phone to call 911 from a patient room and has also made phone calls from the ED waiting area. Pt is extremely difficult and challenging to assist. Not able to confirm if patient is actively abusing IV drugs or other substances. Patient would benefit from mental health eval but he refuses any and all interventions other than admission to the hospital "for bed rest" or a 30-day respite bed stay. Even if patient meets criteria for admission, he refuses interventions, refuses to wear oxygen, refuses to keep SpO2 monitoring on, and verbally abuses staff. Pt has a history of leaving AMA. 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 Pt ultimately was going to be discharged AMA since he was refusing any and all medications, interventions, etc. But patient left before he signed AMA paperwork. CM available for further assistance if needed. Date Signed: 07/16/2017 05:50 PM Electronically Signed By:Bertha Cameron RN
--- NOTE | 2017-07-16 17:52 | ASMTLACE ---
MELANIE Acuity / Level of Answers: No Care: Did the patient have an inpatient admission? Comorbidities - select Answers: Chronic pulmonary disease all that apply Mild liver or renal disease # of Emergency department Answers: 12+ visits in the last 6 months Social determinants Answers: History of substance abuse (ETOH, street drugs, prescription drugs, etc.) Homelessness (street, custodial) Mental health diagnosis (anxiety, depression, pers onality disorders, etc.) Lack of community resources and/or lack of social support (no pcp, lives alone, transportation, jordy d) Score: 23 Date Signed: 07/16/2017 05:51 PM Electronically Signed By:Bertha Cameron RN
--- NOTE | 2017-07-16 17:55 | ASDISCHSUM ---
Discharge Information Plan Status:Homeless/Senior Living Medically Cleared to Leave: Discharge Date:07/16/2017 04:55 PM CM D/C Disposition:Streets (Homeless) ADT D/C Disposition:Against Medical Advice Projected Discharge Date:07/16/2017 04:55 PM Transportation at D/C:None or Unknown Discharge Delay Reason: Follow-Up Date:07/16/2017 04:55 PM Discharge Slot: Final Diagnosis: Placement Information Patient Contact Information Contact Name:NIXON Relationship: Address: Home Phone: Work Phone: City: Alternate Phone: State/Zip Code: Email: Financial Information Financial Class:Medicaid Primary Plan Desc:[employer] Primary Plan Number:[id number] Secondary Plan Desc: Secondary Plan Number: Assessment Information [facility] CM Progress Note CM Note CM Note Notes: Pt presented to the ED for the 11th time in 2018. Pt here for shortness of breath and "not getting enough oxygen." Pt was refusing to keep oxygen via nasal cannula on, and refusing breathing treatments because "they just make me worse." Please refer to previous 06/17 CM note (and various past CM Assessment Notes under 'Patient Care' tab from 2017 and prior) regarding previous CM efforts to establish a PCP for patient and re: his non-compliance. Spoke with patient and provided a pamphlet for [facility] clinics and the centralized scheduling # and informed patient that he can call and see if there are any other providers accepting new Medicaid patients and get an appointment. This CM explained that due to various previous attempts/efforts to assist patient with PCP coordination and his non-compliance & verbal abuse, we will no longer be making additional calls on his behalf. Patient knows how to utilize a phone to call 911 from a patient room and has also made phone calls from the ED waiting area. Pt is extremely difficult and challenging to assist. Not able to confirm if patient is actively abusing IV drugs or other substances. Patient would benefit from mental health eval but he refuses any and all interventions other than admission to the hospital "for bed rest" or a 30-day respite bed stay. Even if patient meets criteria for admission, he refuses interventions, refuses to wear oxygen, refuses to keep SpO2 monitoring on, and verbally abuses staff. Pt has a history of leaving AMA. 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 Pt ultimately was going to be discharged AMA since he was refusing any and all medications, interventions, etc. But patient left before he signed AMA paperwork. CM available for further assistance if needed. Date Signed: 07/16/2017 05:50 PM Electronically Signed By:Bertha Cameron RN LACE LACE Acuity / Level of Answers: No Care: Did the patient have an inpatient admission? Comorbidities - select Answers: Chronic pulmonary disease all that apply Mild liver or renal disease # of Emergency department Answers: 12+ visits in the last 6 months Social determinants Answers: History of substance abuse (ETOH, street drugs, prescription drugs, etc.) Homelessness (street, skilled nursing) Mental health diagnosis (anxiety, depression, pers onality disorders, etc.) Lack of community resources and/or lack of social support (no pcp, lives alone, transportation, jordy d) Score: 23 Date Signed: 07/16/2017 05:51 PM Electronically Signed By:Bertha Cameron RN Intervention Information
== END 2017-07-16 16:55 | disposition left against medical advice (07) ==
DX: J43.8 Other emphysema (principal); F17.200 Nicotine dependence, unspecified, uncomplicated
CPT/HCPCS: J7512; J7613

== ENCOUNTER 2017-07-17 17:24 | Inpatient (IN) | payer MEDICAID ==
--- NOTE | 2017-07-17 17:30 | EDPHY ---
H & P Time Seen by Provider: 07/17/17 17:29 HPI/ROS: CHIEF COMPLAINT: Short of breath HISTORY OF PRESENT ILLNESS: This is a 56-year-old male with a history of COPD who is known to me from his emergency department visit yesterday. He returns today with worsening shortness of breath. This is his 27th emergency department visit this year. He has a history of medical noncompliance and is currently not using any medications for his COPD. All attempts to arrange primary care for him have failed --due to behavioral difficulties on his part/ medical noncompliance on his part/failure to keep appointments. He arrives today by ambulance. He called because of shortness of breath. He does not report any new symptoms today. He has a continued chronic cough and chronic shortness of breath. He does not have chest pain. He tells me that he has cut back on cigarette smoking but continues to smoke. He denies use of alcohol or illicit drugs. REVIEW OF SYSTEMS: Patient not cooperative with full review of systems. He reports a chronic cough and chronic shortness of breath. Past medical history: 1. COPD 2. Hepatitis 3. History of IVDA 4. Reported history of back and neck fracture 5. Tobacco abuse 6. Migraine headaches 7. PTSD Social history: He is homeless. He smokes cigarettes daily. He denies the use of alcohol. General Appearance: Alert. Vital signs reviewed. Pulse ox 88-89% on room air. Eyes: Pupils equal and round, no conjunctival injection, no discharge. Anicteric. ENT, Mouth: Mucous membranes are slightly dry, no oropharyngeal erythema or edema. Neck: No lymphadenopathy, supple. Trachea midline. Respiratory: Diffuse bilateral wheezing. Cardiovascular: Regular rate and rhythm; no murmur, rub, or gallop. Gastrointestinal: Abdomen is soft with mild right upper quadrant tenderness, no masses or organomegaly, bowel sounds normal. Skin: Warm and dry, no rashes on exposed skin, normal color. Back: Nontender to palpation over the thoracolumbar spine. No CVAT. Extremities: No lower extremity edema, no calf tenderness or swelling. Neurological: Alert and oriented. Moving all four extremities easily and equally. Psychiatric: Argumentative. - Personal History Tetanus Vaccine Date: 2015 - Medical/Surgical History Hx Asthma: Yes Hx Chronic Respiratory Disease: Yes Hx Diabetes: No Hx Cardiac Disease: No Hx Renal Disease: No Hx Cirrhosis: Yes Hx Alcoholism: No Hx HIV/AIDS: No Hx Splenectomy or Spleen Trauma: Yes Other PMH: CHRONIC PAIN, RA, COPD/ASTHMA, HEPATITIS (B,C,D,E,F), C-DIFF, wears home O2(non compliant),"self medicates for pain," HEROIN ABUSE/IVDA, C diff. DENTAL CARIES, MIGRAINES, PTSD, "broken back", "broken neck", FLU X2 YRS, Pneum (November 05) - Social History Smoking Status: Heavy smoker Constitutional: Initial Vital Signs Temperature (C) 36.5 C 07/17/17 17:49 Heart Rate 69 07/17/17 17:49 Respiratory Rate 18 07/17/17 17:49 Blood Pressure 122/87 H 07/17/17 17:49 O2 Sat (%) 89 L 07/17/17 17:49 O2 Delivery Mode Room Air Allergies/Adverse Reactions: acetaminophen [Acetaminophen] Allergy (Severe, Verified 07/16/17 14:32) heparin Allergy (Unknown, Verified 07/16/17 14:32) Heparin Analogues Allergy (Unknown, Verified 07/16/17 14:32) propoxyphene HCl [From Darvon] Allergy (Unknown, Verified 07/16/17 14:32) amoxicillin [Amoxicillin] Allergy (Verified 07/16/17 14:32) Other-Enter Comments aspirin [Aspirin] Allergy (Verified 07/16/17 14:32) Iodinated Contrast- Oral and IV Dye [Iodinated Contrast Media - Oral and] Allergy (Verified 07/16/17 14:32) Other-Enter Comments Home Medications: Medication Instructions Recorded Albuterol 06/17/17 Albuterol [Proventil Inhaler HFA 1 - 2 puffs IH Q4 #1 mdi 07/16/17 (*)] Medical Decision Making ED Course/Re-evaluation: The patient is known to me from yesterday's emergency department visit during which he became agitated, combative, and left against medical advice. During that visit he refused to complete albuterol nebulizer treatments. He did take 60 mg of prednisone yesterday. He returns today with persistent shortness of breath. When he arrived he was completing a DuoNeb that have been given by the paramedics. He agreed to take prednisone again today. He is reluctant to take frequent breathing treatments because he feels that the albuterol will damage his heart. Patient was re-evaluated at 6:00 p.m.. His pulse ox is 84% on room air. He continues with diffuse wheezing. He did take the prednisone. He agrees to wear supplemental oxygen. He agrees to hospitalization and put on a hospital gown. As above, he does not like to receive frequent albuterol treatments so he has only been given one thus far. I told him that I will be giving him another albuterol treatment in about half an hour. Chest x-ray was done yesterday. There is no evidence of infiltrate. I reviewed that x-ray. Dr. Martin has accepted his admission. Differential Diagnosis: Shortness of breath including but not limited to pulmonary infectious process, COPD, asthma, pulmonary embolus and congestive heart failure. - Data Points Medications Given: Discontinued Medications Prednisone (Prednisone) 60 mg PO EDNOW ONE Stop: 07/17/17 17:34 Last Admin: 07/17/17 17:47 Dose: 60 mg Departure - Departure Disposition: [facility] Inpatient Acute Clinical Impression: COPD exacerbation, Hypoxia Condition: Fair
[2017-07-17] MEDS ORDERED: predniSONE 20 MG TAB PO ONE ×2 (17:33→20:20)
[2017-07-17] MEDS ORDERED: ONDANSETRON 4 MG/2 ML VIAL IVP PRN (20:17)
[2017-07-17] MEDS ORDERED: ONDANSETRON DISINTEGRATING 4 MG TAB PO PRN (20:17)
[2017-07-17] MEDS ORDERED: ALBUTEROL 3 ML DEYVIAL IH PRN (20:17)
[2017-07-17] MEDS ORDERED: NICOTINE 21 MG/24 HR PATCH TD ONE (20:21)
--- NOTE | 2017-07-17 20:24 | PDGENHP ---
History and Physical - Chief Complaint SOB - History of Present Illness This is a 56-year-old male with a history of COPD and multiple ED visits p/w with worsening shortness of breath. He has a history of medical noncompliance and is currently not using any medications for his COPD. All attempts to arrange primary care for him have failed --due to behavioral difficulties on his part/medical noncompliance on his part/failure to keep appointments. He is wheezy and Short of breath. He has been afebrile. He smokes tobacco daily He denies cp, palpitations, leg swelling. Past medical history: 1. COPD 2. Hepatitis 3. History of IVDA 4. Reported history of back and neck fracture 5. Tobacco abuse 6. Migraine headaches 7. PTSD Social history: He is homeless. He smokes cigarettes daily. He denies the use of alcohol. CXR dated 07/16 reviewed personally, no e/o pneumonia History Information - Allergies/Home Medication List Allergies/Adverse Reactions: acetaminophen [Acetaminophen] Allergy (Severe, Verified 07/16/17 14:32) heparin Allergy (Unknown, Verified 07/16/17 14:32) Heparin Analogues Allergy (Unknown, Verified 07/16/17 14:32) propoxyphene HCl [From Darvon] Allergy (Unknown, Verified 07/16/17 14:32) amoxicillin [Amoxicillin] Allergy (Verified 07/16/17 14:32) Other-Enter Comments aspirin [Aspirin] Allergy (Verified 07/16/17 14:32) Iodinated Contrast- Oral and IV Dye [Iodinated Contrast Media - Oral and] Allergy (Verified 07/16/17 14:32) Other-Enter Comments Home Medications: Albuterol [Proventil Inhaler HFA (*)] 1 - 2 puffs IH Q4H PRN 07/17/17 [Last Taken Unknown] I have personally reviewed and updated: medical history, social history - Past Medical History COPD Additional medical history: copd. chronic hepatitis b andc. PTSD. chronic pain syndrome - Surgical History Additional surgical history: teeth extractions - Family History Positive for: non-pertinent - Social History Smoking Status: Heavy smoker Additional social history: homeless M Review of Systems Review of Systems: ROS: 10pt was reviewed & negative except for what was stated in HPI & below Physical Exam Physical Exam: Temp Pulse Resp BP Pulse Ox 36.4 C 64 18 127/83 H 92 03/28/18 20:03 07/17/17 20:03 07/17/17 20:03 07/17/17 20:03 07/17/17 20:03 O2 (L/minute) 2.5 Constitutional: no apparent distress Eyes: PERRL Ears, Nose, Mouth, Throat: moist mucous membranes, hearing normal Cardiovascular: regular rate and rhythym, No edema Respiratory: reduced air movement, expiratory wheeze Gastrointestinal: normoactive bowel sounds, soft, non-tender abdomen Skin: warm Musculoskeletal: full muscle strength Neurologic: AAOx3 Psychiatric: interacting appropriately, not anxious, not encephalopathic Lymph, Heme, Immunologic: No petechiae Assessment & Plan Assessment: COPD with exacerbation Hypoxemia Low back pain Tobacco abuse plan: Provide additional Prednisone today Start Prednisone 60mg daily tomorrow scheduled nebs, prn nebs. Although he has not tolerated in the past pain mgmt for low back pain SCD's full code
[2017-07-17] MEDS: oxyCODONE IR 5 MG TAB PO PRN (20:47)
[2017-07-17] MEDS: IPRATROPIUM/ALBUTEROL 3 ML DEYVIAL IH SCH (20:54)
[2017-07-18] MEDS: oxyCODONE IR 5 MG TAB PO PRN ×5 (00:56→18:44)
[2017-07-18 03:53] LABS: PLATELET COUNT 138 10^3/uL (150-400)
[2017-07-18] MEDS: IPRATROPIUM/ALBUTEROL 3 ML DEYVIAL IH SCH ×5 (05:38→22:54)
[2017-07-18] MEDS ORDERED: predniSONE 20 MG TAB PO SCH ×2 (09:00→09:51)
[2017-07-18] MEDS ORDERED: NICOTINE 21 MG/24 HR PATCH TD PRN (09:53)
[2017-07-18] MEDS ORDERED: IBUPROFEN 600 MG TAB PO PRN (09:53)
[2017-07-18] MEDS ORDERED: LORazepam 0.5 MG TAB PO PRN (09:53)
--- NOTE | 2017-07-18 09:58 | HOSPPROG ---
Hospitalist Progress Note Assessment/Plan: * COPD exacerbation -still hypoxic and wheezy -prednisone, nebs -check resp PCR * Tobacco dependence -patch * DJD with pain -short term oxycodone, wean rapidly -unable to take APAP or NSAIDS due to "hepatitis" * Hep C - previous IVDA * Hyperkalemia - mild -recheck in am Subjective: c/o pain due to lack of ambulation and lack of jacuzzi, long standing arthritis. severe cough Objective: Vital Signs Temp Pulse Resp BP Pulse Ox 37.0 C 60 14 137/84 H 93 07/18/17 07:45 07/18/17 07:45 07/18/17 07:45 07/18/17 07:45 07/18/17 07:45 Laboratory Results 07/18/17 03:40 07/18/17 03:40 07/17/17 07/18/17 07/19/17 05:59 05:59 05:59 Intake Total 500 Balance 500 CXR viewed, my personal interpretation is - hyperexpanded, no PNA OLD chart reviewed - multiple previous visits, previous CTA negative for PE, Hep C positive - Physical Exam Constitutional: no apparent distress, appears nourished, not in pain Cardiovascular: regular rate and rhythym, no murmur, rub, or gallop Respiratory: expiratory wheeze, inspiratory crackles, respiratory distress, rhonchi Gastrointestinal: normoactive bowel sounds, soft, non-tender abdomen, no palpable masses Skin: no rashes or abrasions, no fluctuance, no induration Neurologic: AAOx3, sensation intact bilaterally Psychiatric: interacting appropriately, not anxious, not encephalopathic, thought process linear ICD10 Worksheet Patient Problems: Problems Problem Status Onset COPD exacerbation Acute Hypoxia Acute Acute bronchitis Acute Bronchitis Acute COPD (chronic obstructive pulmonary disease) Acute COPD exacerbation Acute Cellulitis Acute Chronic obstructive pulmonary disease with acute exacerbation Acute Dyspnea Acute Facial abscess Acute HCAP (healthcare-associated pneumonia) Acute Hypoxemia Acute Pneumonia Acute Pneumonia Acute Sepsis Acute Shortness of breath Acute Hepatitis C Chronic
[2017-07-18] MEDS ORDERED: BENZONATATE 100 MG CAP PO PRN (09:59)
[2017-07-18] MEDS: MULTIVITAMINS 1 EACH TAB PO SCH (10:04)
[2017-07-18] MEDS: guaiFENesin/CODEINE PHOS 10 ML UDCUP PO PRN ×2 (10:04→22:37)
--- NOTE | 2017-07-18 12:17 | ASMTCASEMG ---
Living Arrangements What is your living Answers: Alone arrangement? Who do you live with? Type Of Residence What kind of residence do Answers: Homeless you live in? Discharge Plan Comments Coordination Status Comments Notes: Pts case discussed in tx rounds this AM. Pt is a 56 y/o man admitted for COPD exacerbation. According to nursing report pt did not sleep all night and pt reports that prednisone causes him to be manic. Pt is requesting 30 day SNF stay. Therapies have been ordered. Awaiting therapies to assess. Needs are TBD. CM to follow. Plan: TBD Date Signed: 07/18/2017 12:17 PM Electronically Signed By:DI Deal
--- NOTE | 2017-07-18 15:10 | PDMN ---
Medical Necessity Medical necessity: Change to IP, as of 07/18/17, per MD; los >2 mn for ongoing management of COPD exacerbation, DJD w/pain & hyperkalemia; admit for further workup/monitoring, respiratory supportive care, pain management & therapies; hx hep C, homelessness; per progress note & order 07/18/17
[2017-07-19] MEDS: oxyCODONE IR 5 MG TAB PO PRN ×2 (00:51→07:00)
[2017-07-19 04:17] LABS: PLATELET COUNT 132 10^3/uL (150-400)
[2017-07-19] MEDS: IPRATROPIUM/ALBUTEROL 3 ML DEYVIAL IH SCH ×3 (07:01→16:46)
[2017-07-19] MEDS: MULTIVITAMINS 1 EACH TAB PO SCH (09:37)
[2017-07-19 11:38] VITALS: RESP 18
--- NOTE | 2017-07-19 13:59 | ASMTCMCOM ---
CM Note CM Note Notes: Pts case discussed in tx rounds. Therapies have cleared pt to be independent. Pt does not qualify for a 30 day SNF stay. CM met w/ pt for dispo planning. Pt is amendable to having CM make a new pcp appointment. CM scheduled pt w/ Dr. Calderon for 07/24 at 10:15AM. Pt reports that he sleeps outside and does not utilize the correction. CM available for changes. Plan: Independent Date Signed: 07/19/2017 01:58 PM Electronically Signed By:DI Deal
[2017-07-19] MEDS ORDERED: OLANZapine DISINTEGR 5 MG TAB PO ONE (15:10)
[2017-07-19] MEDS ORDERED: OLANZapine DISINTEGR 5 MG TAB PO PRN (15:11)
--- NOTE | 2017-07-19 15:15 | HOSPPROG ---
Hospitalist Progress Note Assessment/Plan: * COPD exacerbation -still hypoxic and wheezy -prednisone, nebs * Tobacco dependence -patch * DJD with chronic pain -no indication to start narcotics * Hep C - previous IVDA * Possible psychosis - ideas of persecution - ? schizophrenia -try Zyprexa Subjective: Upset about lack of narcotics. Thinks rich people get them and he is being denied because of his social status. Blames the goverment and money laundering for his lack of housing. Objective: Vital Signs Temp Pulse Resp BP Pulse Ox 36.8 C 68 18 129/80 H 90 L 07/19/17 08:00 07/19/17 11:33 07/19/17 11:33 07/19/17 08:00 07/19/17 11:33 Microbiology 07/19/17 09:45 - Final Sputum, Expectorated 07/19/17 09:45 Respiratory Panel (PCR) - Final Nasal, Sinus - Swab No Organism Detected Laboratory Results 07/19/17 03:37 07/19/17 03:37 07/18/17 07/19/17 07/20/17 05:59 05:59 05:59 Intake Total 800 Balance 800 - Physical Exam Constitutional: no apparent distress, appears nourished, not in pain Cardiovascular: regular rate and rhythym, no murmur, rub, or gallop Respiratory: no respiratory distress, expiratory wheeze, bronchial breath sounds , rhonchi, No respiratory distress Gastrointestinal: normoactive bowel sounds, soft, non-tender abdomen, no palpable masses Skin: no rashes or abrasions, no fluctuance, no induration Neurologic: AAOx3, sensation intact bilaterally Psychiatric: agitated, poor insight, poor judgement, No interacting appropriately, No thought process linear ICD10 Worksheet Patient Problems: Problems Problem Status Onset COPD exacerbation Acute Hypoxia Acute Acute bronchitis Acute Bronchitis Acute COPD (chronic obstructive pulmonary disease) Acute COPD exacerbation Acute Cellulitis Acute Chronic obstructive pulmonary disease with acute exacerbation Acute Dyspnea Acute Facial abscess Acute HCAP (healthcare-associated pneumonia) Acute Hypoxemia Acute Pneumonia Acute Pneumonia Acute Sepsis Acute Shortness of breath Acute Hepatitis C Chronic
[2017-07-19 15:39] VITALS: BP 142/73; TEMP 97.8
[2017-07-19 16:49] VITALS: PULSE 68; O2SAT 92
--- NOTE | 2017-07-19 20:48 | GDS ---
[f rep st] DISCHARGE SUMMARY Please note this is an against medical advice discharge. DIAGNOSES: 1. Chronic obstructive pulmonary disease exacerbation. 2. Tobacco dependence. 3. Degenerative arthritis with chronic pain. 4. Hepatitis C and previous IV drug abuse. 5. Possible schizophrenia. HISTORY: The patient is a 56-year-old male who smokes, has known COPD, presented with a COPD exacerb ation. He was admitted to the hospital, treated with prednisone and nebulizers. He remained hypoxic throughout his hospitalization. He refused to wear oxygen even when he was in the hospital. He was very narcotic-seeking, getting very angry when I discontinued narcotics. He has a history of chroni c pain due to degenerative arthritis and does not take narcotics as an outpatient, but was very insis tent on receiving them while he was here. Once narcotics were weaned, he became extremely angry and agitated and left against medical advice. He seems to have a lot of ideas of persecution, feeling like the government and other people money la undering is the source of all of his problems. Continued to accuse me of withholding narcotics only because he was not rich and lacked social status. I spent an extensive amount of time trying to reas on with him, but that was of no use. Despite this, I did not find him to be suicidal or homicidal an d I think this is probably his baseline state. He has been homeless for over 25 years. I did feel h e had decisional capacity to sign out AMA. DISCHARGE MEDICATIONS: The patient left against medical advice and did not wait for physician visit or any prescriptions upon hospital discharge. We did attempt to a followup appointment as he does no t have a primary care doctor but he left without receiving information regarding that appointment. /[id number]/MODL
== END 2017-07-19 17:00 | disposition left against medical advice (07) | DRG 192 ==
LOC: EDUNIT# → F2W 19:45 → OBSVTOIN 07-18 09:50 → F3E 07-19 15:32
PROVIDERS: ADMIT Family Medicine; ATTEND Family Medicine
DX: J44.1 Chronic obstructive pulmonary disease with (acute) exacerbation (principal); F17.200 Nicotine dependence, unspecified, uncomplicated; G89.29 Other chronic pain; B19.20 Unspecified viral hepatitis C without hepatic coma; F20.9 Schizophrenia, unspecified; M19.90 Unspecified osteoarthritis, unspecified site; Z76.5 Malingerer [conscious simulation]; Z91.19 Patient's noncompliance with other medical treatment and regimen; Z59.0 Homelessness
CPT/HCPCS: G0378; J7512

== ENCOUNTER 2017-07-21 09:45 | Emergency (ER) | payer MEDICAID ==
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
[2017-07-21 09:53] VITALS: BP 128/68; PULSE 72; TEMP 98.1
[2017-07-21 10:17] VITALS: RESP 20; O2SAT 91
--- NOTE | 2017-07-21 13:40 | ASMTCMCOM ---
CM Note CM Note Notes: Pt presented to the ED for the 13th time this year. This CM is very familiar with patient. See CM Assessment Report from 07/16/17; also please refer to previous notes/reports for additional information. This CM went to speak to patient and asked if he would like resources and assistance with being able to stay at the [facility]; pt declined "I don't stay at the shelters." This CM asked if patient would be willing to sign a behavioral contract with [facility] in order to receive follow-up care; pt stated "No, I don't want anything to do with them." Reviewed chart: patient was admitted 07/18/17 for COPD exacerbation. Patient continued to refuse to wear oxygen while hospitalized and exhibited narcotic seeking behaviors. Pt ultimately left AMA. CM had set up an appt with a new PCP for patient: Dr Calderon on 07/24/17 at 10:15a.m. but patient left the building without discharge paperwork and before he could learn on the appointment. By the time this CM learned this, patient had already been discharged from the ED and left. This CM to follow up with Dr Calderon's office tomorrow re:pt's appt. *If/when patient returns to the ED before 07/24/17, please inform patient of appt and/or if during business hours, see if you can get him a day-of appt and provide a Medicaid cab directly to appt. Patient has been assisted and provided with PCP appts before; pt typically no-shows for one reason or another. Date Signed: 07/21/2017 01:40 PM Electronically Signed By:Bertha Cameron RN
--- NOTE | 2017-07-21 13:43 | ASDISCHSUM ---
Discharge Information Plan Status:Homeless/Skilled Nursing Medically Cleared to Leave: Discharge Date:07/21/2017 10:16 AM CM D/C Disposition:Streets (Homeless) ADT D/C Disposition:Home, Routine, Self-Care Projected Discharge Date:07/21/2017 10:16 AM Transportation at D/C:None or Unknown Discharge Delay Reason: Follow-Up Date:07/21/2017 10:16 AM Discharge Slot: Final Diagnosis: Placement Information Patient Contact Information Contact Name:REDDYRosita Relationship: Address: Home Phone: Work Phone: City: Alternate Phone: State/Zip Code: Email: Financial Information Financial Class:Medicaid Primary Plan Desc:MEDICA[employer] HEALTH FIRST [employer] Primary Plan Number:[id number] Secondary Plan Desc: Secondary Plan Number: Assessment Information [facility] CM Progress Note CM Note CM Note Notes: Pt presented to the ED for the 13th time this year. This CM is very familiar with patient. See CM Assessment Report from 07/16/17; also please refer to previous notes/reports for additional information. This CM went to speak to patient and asked if he would like resources and assistance with being able to stay at the [facility]; pt declined "I don't stay at the shelters." This CM asked if patient would be willing to sign a behavioral contract with [facility] in order to receive follow-up care; pt stated "No, I don't want anything to do with them." Reviewed chart: patient was admitted 07/18/17 for COPD exacerbation. Patient continued to refuse to wear oxygen while hospitalized and exhibited narcotic seeking behaviors. Pt ultimately left AMA. CM had set up an appt with a new PCP for patient: Dr Calderon on 07/24/17 at 10:15a.m. but patient left the building without discharge paperwork and before he could learn on the appointment. By the time this CM learned this, patient had already been discharged from the ED and left. This CM to follow up with Dr Calderon's office tomorrow re:pt's appt. *If/when patient returns to the ED before 07/24/17, please inform patient of appt and/or if during business hours, see if you can get him a day-of appt and provide a Medicaid cab directly to appt. Patient has been assisted and provided with PCP appts before; pt typically no-shows for one reason or another. Date Signed: 07/21/2017 01:40 PM Electronically Signed By:Bertha Cameron RN Intervention Information
== END 2017-07-21 10:16 | disposition home or self-care (01) ==
LOC: EDUNIT# → EDBD
DX: J44.1 Chronic obstructive pulmonary disease with (acute) exacerbation (principal)

== ENCOUNTER 2017-07-29 19:54 | Emergency (ER) | payer MEDICAID ==
--- NOTE | 2017-07-29 20:38 | EDPHY ---
H & P Smoking Status: Heavy smoker Time Seen by Provider: 07/29/17 20:34 HPI/ROS: CHIEF COMPLAINT: "Give me some antibiotics and an inhaler" HISTORY OF PRESENT ILLNESS: 56-year-old male walked to the ER requesting antibiotics for cellulitis to his chin. History of cutaneous MRSA. This has been present for 2 weeks. Informs that he was seen at [facility] few days ago "and they didn't do shit and didn't give me any antibiotics". Patient is familiar to emergency department staff. Patient denies trauma to this area. He has a known history of COPD and medication and medical noncompliance. History of daily tobacco use. REVIEW OF SYSTEMS: A ten point review of systems was performed and is negative with the exception of the items mentioned in the HPI PAST MEDICAL & SURGICAL HISTORY: COPD. Hepatitis. Cutaneous MRSA. SOCIAL HISTORY:Daily tobacco use PHYSICAL EXAM (Prior to examination, patient consented to physical exam, hands were washed and my usual and customary physical exam procedures followed) 1) GENERAL: Well-developed, well-nourished, alert and oriented. Agitated. Observed walking pulling a suitcase with no signs of respiratory distress. 2) HEAD: Normocephalic, atraumatic 3) HEENT: Pupils equal, round, reactive to light bilaterally. Sclera anicteric. Nasopharynx, oropharynx, clear, no lesions. Floor of mouth soft. No evidence of Huan's angina. The patient's chin he has crusted tissue which is tender erythematous. Nonfluctuant. Submandibular and submental spaces are soft. 4) NECK: Full range of motion, no meningeal signs. 5) LUNGS: Patient will not allow me to auscultate his lungs. (Hunter Yañez) Constitutional: Initial Vital Signs Temperature (C) 36.7 C 07/29/17 20:32 Heart Rate 74 07/29/17 20:32 Respiratory Rate 18 07/29/17 20:32 Blood Pressure 125/72 H 07/29/17 20:32 O2 Sat (%) 86 L 07/29/17 20:32 O2 Delivery Mode Room Air Allergies/Adverse Reactions: acetaminophen [Acetaminophen] Allergy (Severe, Verified 07/21/17 09:49) heparin Allergy (Unknown, Verified 07/21/17 09:49) Heparin Analogues Allergy (Unknown, Verified 07/21/17 09:49) propoxyphene HCl [From Darvon] Allergy (Unknown, Verified 07/21/17 09:49) amoxicillin [Amoxicillin] Allergy (Verified 07/21/17 09:49) Other-Enter Comments aspirin [Aspirin] Allergy (Verified 07/21/17 09:49) Iodinated Contrast- Oral and IV Dye [Iodinated Contrast Media - Oral and] Allergy (Verified 07/21/17 09:49) Other-Enter Comments Home Medications: Medication Instructions Recorded Albuterol [Proventil Inhaler HFA 1 - 2 puffs IH Q4H PRN 07/17/17 (*)] Albuterol [Proventil Inhaler HFA 1 - 2 puffs IH Q4PRN PRN #1 mdi 07/29/17 (*)] Sulfamethox/Tmp 800/160 mg 1 tab PO BID@1000,2200 10 Days tab 07/29/17 [Bactrim Ds] MDM/Departure - [facility] ED Course/Re-evaluation: Patient is familiar to emergency department staff. He has a history of medication noncompliance. Regarding his skin lesion on his chin, has a history of cutaneous MRSA states that he responds well to Bactrim. This will be prescribed to him. He does not allow me to evaluate for possible abscess. He has history of COPD, history of chronic tobacco abuse, history of medication noncompliance. He is noted to be hypoxemic at 86%. He will not allow me to auscultate his lungs. States that he has a prescription for albuterol meter dose inhaler and would like to leave. He does not want further intervention. Of the the patient took decision-making capacity. I spent greater than 3 min discussing and counseling about smoking/tobacco cessation. The patient walked out visibly upset. Care of patient under supervision of secondary supervising physician Dr Mcnulty . (Hunter Yañez) The patient was evaluated and managed by the physician bus assistant. I have reviewed this chart and I agree with the findings and plan of care as documented , as indicated by my signature. I am the secondary supervising physician. ( Nicolasa Mcnulty) - Depart Disposition: Home, Routine, Self-Care Clinical Impression: Facial cellulitis, History of COPD, Hypoxemia Condition: Good Instructions: Sulfamethoxazole/Trimethoprim (By mouth), Albuterol (By breathing ), Cellulitis (ED), COPD (Chronic Obstructive Pulmonary Disease) (ED), Hypoxemia (DC) Prescriptions: Albuterol [Proventil Inhaler HFA (*)] 1 - 2 puffs IH Q4PRN PRN #1 mdi PRN Reason: Cough, Moderate Sulfamethox/Tmp 800/160 mg [Bactrim Ds] 1 tab PO BID@1000,2200 10 Days tab Referrals: [facility],. [Clinic] - 1-2 days without fail
[2017-07-29 21:13] VITALS: BP 123/75
== END 2017-07-29 21:13 | disposition home or self-care (01) ==
DX: L03.211 Cellulitis of face (principal); J44.9 Chronic obstructive pulmonary disease, unspecified; R09.02 Hypoxemia; F17.200 Nicotine dependence, unspecified, uncomplicated

== ENCOUNTER 2017-08-05 16:18 | Emergency (ER) | payer MEDICAID ==
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
[2017-08-05] MEDS ORDERED: IPRATROPIUM/ALBUTEROL 3 ML DEYVIAL ONE (16:58)
[2017-08-05] MEDS ORDERED: IPRATROPIUM/ALBUTEROL 3 ML DEYVIAL IH ONE (16:59)
[2017-08-05] MEDS ORDERED: predniSONE 20 MG TAB PO ONE (17:05)
[2017-08-05] MEDS ORDERED: DOXYCYCLINE HYCLATE 100 MG CAP/TAB PO ONE (17:05)
[2017-08-05] MEDS ORDERED: ALBUTEROL INH PREPACK MDI TAKEHOME ONE ×2 (17:34→17:35)
[2017-08-05 17:40] VITALS: BP 107/59
== END 2017-08-05 17:42 | disposition home or self-care (01) ==
DX: J44.9 Chronic obstructive pulmonary disease, unspecified (principal); F17.200 Nicotine dependence, unspecified, uncomplicated; Z91.14 Patient's other noncompliance with medication regimen
CPT/HCPCS: J7512

== ENCOUNTER 2017-09-01 16:04 | Emergency (ER) | payer MEDICAID ==
[2017-09-01 16:07] VITALS: BP 101/74
--- NOTE | 2017-09-01 16:14 | EDPHY ---
HPI/HX/ROS/PE/MDM Narrative: CHIEF COMPLAINT: Shortness of breath HPI: This patient is a homeless 57 year old male with history of COPD complaining of worsening shortness of breath. He is well known to this emergency department with 29 prior visits in the past year. He states "This is the same thing that's been going on for four years", and when I ask how we can assist him today, he states "You can't do what needs to be done but you can give me Prednisone and an inhaler". He is reluctant to provide further history at this time. REVIEW OF SYSTEMS: Aside from elements discussed in the HPI, a comprehensive 10-point review of systems was reviewed and is negative. PMH: COPD, Hepatitis, History of IVDA, Reported history of back and neck fracture, Migraine headaches, PTSD SOCIAL HISTORY: Daily tobacco use. Homeless. Denies alcohol abuse. PHYSICAL EXAM: General:Patient is alert, in no acute distress. ENT:Eyes are normal to inspection. ENT inspection normal. Respiratory:No respiratory distress. Mild bilateral expiratory wheezes. Cardiovascular: Regular rate and rhythm. Strong peripheral pulses. Normal cap refill. Skin: Normal color. Warm and dry. Extremities: Normal appearance. Full range of motion. Neuro: Oriented x3. No focal deficits. ED Course: 57 y/o male presents with shortness of breath. He requests prednisone and an albuterol inhaler. Plan to provide him with these medications. He declines any further assistance or interventions at this time. Plan to discharge in good condition. Follow up and return precautions discussed. General Time Seen by Provider: 09/01/17 16:12 Initial Vital Signs: Initial Vital Signs Temperature (C) 36.7 C 09/01/17 16:06 Heart Rate 93 09/01/17 16:06 Respiratory Rate 20 09/01/17 16:06 Blood Pressure 101/74 09/01/17 16:06 O2 Sat (%) 94 09/01/17 16:06 O2 Delivery Mode Room Air Allergies/Adverse Reactions: acetaminophen [Acetaminophen] Allergy (Severe, Verified 09/01/17 16:06) heparin Allergy (Unknown, Verified 09/01/17 16:06) Heparin Analogues Allergy (Unknown, Verified 09/01/17 16:06) propoxyphene HCl [From Darvon] Allergy (Unknown, Verified 09/01/17 16:06) amoxicillin [Amoxicillin] Allergy (Verified 09/01/17 16:06) Other-Enter Comments aspirin [Aspirin] Allergy (Verified 09/01/17 16:06) Iodinated Contrast- Oral and IV Dye [Iodinated Contrast Media - Oral and] Allergy (Verified 09/01/17 16:06) Other-Enter Comments Home Medications: Medication Instructions Recorded Albuterol [Proventil Inhaler HFA 1 - 2 puffs IH Q4H PRN 07/17/17 (*)] Albuterol [Proventil Inhaler HFA 1 - 2 puffs IH Q4PRN PRN #1 mdi 07/29/17 (*)] Sulfamethox/Tmp 800/160 mg 1 tab PO BID@1000,2200 10 Days tab 07/29/17 [Bactrim Ds] Doxycycline Hyclate 100 mg PO BID #14 tab 08/05/17 predniSONE 50 mg PO DAILY #5 tablet 08/05/17 Departure - Departure Disposition: Home, Routine, Self-Care Clinical Impression: COPD exacerbation Condition: Good Instructions: COPD (Chronic Obstructive Pulmonary Disease) (ED), Prednisone ( By mouth), Albuterol (By breathing) Additional Instructions: 1. Take Prednisone as prescribed. 2. Use your albuterol inhaler as directed. 3. Return to the emergency department for fever, chest pain, shortness of breath , or other worsening of condition. Referrals: NONE *PRIMARY CARE P,. [Primary Care Provider] - As per Instructions [facility],. [Clinic] - As per Instructions Report Scribed for: Moses Kenny Report Scribed by: Mary Greer Date of Report: 09/01/17 Time of Report: 16:14 Physician Review and Approval Statement: Portions of this note were transcribed by an ED scribe. I personally performed the history, physical exam, and medical decision making; and confirm the accuracy of the information in the transcribed note.
[2017-09-01] MEDS ORDERED: predniSONE 20 MG TAB PO ONE (16:19)
[2017-09-01] MEDS ORDERED: ALBUTEROL INH PREPACK MDI TAKEHOME ONE (16:19)
== END 2017-09-01 16:33 | disposition home or self-care (01) ==
DX: J44.1 Chronic obstructive pulmonary disease with (acute) exacerbation (principal); F17.200 Nicotine dependence, unspecified, uncomplicated
CPT/HCPCS: J7512

== ENCOUNTER 2017-09-09 22:01 | Emergency (ER) | payer MEDICAID ==
[2017-09-09] MEDS ORDERED: IPRATROPIUM/ALBUTEROL 3 ML DEYVIAL IH ONE (22:08)
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
[2017-09-09] MEDS ORDERED: predniSONE 20 MG TAB PO ONE (22:55)
[2017-09-09] MEDS ORDERED: ALBUTEROL INH PREPACK MDI TAKEHOME ONE (23:58)
[2017-09-10] MEDS ORDERED: predniSONE 20 MG TAB PO SCH
[2017-09-10 00:03] VITALS: BP 112/68
--- NOTE | 2017-09-11 17:40 | ASMTCMCOM ---
CM Note CM Note Notes: Received a CM consult order re: scheduling a follow-up appt for pt at [facility]. Unfortunately, [facility] will not re-establish patient with their services unless he signs a behavioral contract. Pt has adamantly declined/refused to sign a behavioral contract with [facility] and has also strongly stated he "wants nothing to do with [facility]." Please see various CM notes from past visits regarding pt's high utilization of the ED for asthma inhalers, wanting to be admitted and/or provided respite, etc. Pt has a longstanding history of behavioral issues while at [facility]; please see RN notes as well. Pt had previously been seen by ED CM on 07/21/17. CM had scheduled pt an appt with Dr Calderon at [facility] for 07/24/17 but pt left before CM could inform him of appt. If pt returns to ED: attempt to get pt an appt with Dr Calderon again or some other PCP who might still be accepting new Medicaid patients. [facility] is not an option for pt unless he is willing to sign a behavioral contract. If pharmacies are open, specifically the [facility], pt's inhaler prescription can be faxed to the pharmacy and his Medicaid should cover the Rxn; but if there is a small co-pay that pt cannot afford, the Rxn can be paid for through funds or [facility] (as long as it is less than $20). CM available for further assistance if needed. Date Signed: 09/11/2017 05:40 PM Electronically Signed By:Bertha Cameron RN
--- NOTE | 2017-09-11 17:41 | ASDISCHSUM ---
Discharge Information Plan Status:Homeless/Residential Medically Cleared to Leave: Discharge Date:09/10/2017 01:07 AM CM D/C Disposition:Streets (Homeless) ADT D/C Disposition:Home, Routine, Self-Care Projected Discharge Date:09/10/2017 01:07 AM Transportation at D/C:None or Unknown Discharge Delay Reason: Follow-Up Date:09/10/2017 01:07 AM Discharge Slot: Final Diagnosis: Placement Information Patient Contact Information Contact Name:REDDYRosita Relationship: Address: Home Phone: Work Phone: City: Alternate Phone: State/Zip Code: Email: Financial Information Financial Class:Medicaid Primary Plan Desc:[employer] Primary Plan Number:[id number] Secondary Plan Desc: Secondary Plan Number: Assessment Information [facility] CM Progress Note CM Note CM Note Notes: Received a CM consult order re: scheduling a follow-up appt for pt at [facility]. Unfortunately, [facility] will not re-establish patient with their services unless he signs a behavioral contract. Pt has adamantly declined/refused to sign a behavioral contract with [facility] and has also strongly stated he "wants nothing to do with [facility]." Please see various CM notes from past visits regarding pt's high utilization of the ED for asthma inhalers, wanting to be admitted and/or provided respite, etc. Pt has a longstanding history of behavioral issues while at [facility]; please see RN notes as well. Pt had previously been seen by ED CM on 07/21/17. CM had scheduled pt an appt with Dr Calderon at [facility] for 07/24/17 but pt left before CM could inform him of appt. If pt returns to ED: attempt to get pt an appt with Dr Calderon again or some other PCP who might still be accepting new Medicaid patients. [facility] is not an option for pt unless he is willing to sign a behavioral contract. If pharmacies are open, specifically the [facility], pt's inhaler prescription can be faxed to the pharmacy and his Medicaid should cover the Rxn; but if there is a small co-pay that pt cannot afford, the Rxn can be paid for through funds or [facility] (as long as it is less than $20). CM available for further assistance if needed. Date Signed: 09/11/2017 05:40 PM Electronically Signed By:Bertha Cameron RN Intervention Information
== END 2017-09-10 01:07 | disposition home or self-care (01) ==
LOC: EDUNIT#
DX: J44.1 Chronic obstructive pulmonary disease with (acute) exacerbation (principal); F17.200 Nicotine dependence, unspecified, uncomplicated
CPT/HCPCS: J7512

== ENCOUNTER 2017-09-18 15:03 | Emergency (ER) | payer MEDICAID ==
--- NOTE | 2017-09-18 15:19 | EDPHY ---
HPI/HX/ROS/PE/MDM Narrative: CHIEF COMPLAINT: Shortness of breath HISTORY OF PRESENT ILLNESS: The patient is a 57 y/o male, well known to our emergency department, with a history of COPD complaining of shortness of breath and subjective fever since running out of his albuterol inhaler 3 days ago. He states he takes 60mg Prednisone daily. He arrives in this emergency department around every 10 days as this is when he runs out of his inhaler. Patient is homeless. He is noted to be hypoxic on room air but has not been placed on home O2 as he does not have an address her home. He also has not had primary care physician treatment as he is no longer welcome at [facility] due to behavioral issues. Currently he denies any fevers or chills. He denies a significant change in his sputum. Denies any vomiting or diarrhea. Does report that he short of breath does not have an inhaler. On 09/11/17, 7 days ago, patient was again evaluated in the emergency department. Case management at that time was noted to be working to establish a primary care physician for the patient with Dr. Calderon. Does also been recommendations that the patient should be on a inhaled steroid, however, because he is medicated it is been difficult to obtain this prescription. REVIEW OF SYSTEMS: Aside from elements discussed in the HPI, a comprehensive 10-point review of systems was reviewed and is negative. PAST MEDICAL HISTORY: COPD, hepatitis SOCIAL HISTORY: Homeless, smoker, single VITAL SIGNS: Reviewed by me GENERAL: Slightly agitated, well-developed, well-nourished. HEENT: Atraumatic. Eyes: No icterus, no injection. Mouth: poor dentition, moist mucous membranes. No erythema or lesions. Neck: supple with no adenopathy. LUNGS: Tachypneic, visibly working to breath. Supraclavicular, intercostal, and subcostal retractions. Paradoxical abdominal breathing. Harsh wheezes with prolonged expiratory phase. CARDIAC: Difficult to auscultate over respiratory wheezes. Regular rate and rhythm. ABDOMEN: Soft, nontender, nondistended, bowel sounds normal. BACK: No CVA tenderness. EXTREMITIES: No trauma. No edema. Range of motion is normal throughout. NEURO: Alert and oriented, grossly nonfocal. SKIN: Warm and dry, no rash. PSYCHIATRIC: Normal mentation, no agitation. Portions of this note were transcribed by a medical insurance verifier. I personally performed a history, physical exam, medical decision making, and confirmed accuracy of information the transcribed note. ED Course: The patient is a 57 y/o male with a history of COPD who is frequently seen in this emergency department presenting with shortness of breath and since running out of his albuterol inhaler 3 days ago. On exam, he is visibly tachypneic and working to breath. He has supraclavicular, intercostal, and subcostal retractions as well as paradoxical abdominal breathing. There are harsh wheezes bilaterally with a prolonged expiratory phase. Labs, chest x-ray, EKG ordered. DuoNeb, albuterol inhaler, 125mg IV Solu-Medrol , and 1L IV NS administered. 1554: 12-LEAD EKG: Please see the full report in [facility]. My interpretation: Normal sinus rhythm with a rate of 83. 1620: I reviewed patient's chest x-ray; no infiltrate visualized. 1705: Consulted with case management regarding this patient. Case management will attempt to make the patient an appointment with a primary care physician and also investigate the ability for us to prescribe an inhaled steroid such as Pulmicort. 182: Reassessed patient. He is resting more comfortably although he does continue to have wheezes. Additional albuterol inhaler administered. Patient continued to improve her and reports his breathing feels much better after additional nebs and fluid. He was sleeping comfortably in the emergency department 1951: Reassessed patient and discussed follow up with Dr. Calderon. I have prescribed him an Albuterol inhaler, Prednisone, and a Pulmicort inhaler. Return precautions provided; patient is comfortable with this plan. MDM: Differential diagnosis for the patient's shortness of breath was considered including but not limited to pulmonary infectious processes, COPD exacerbation, pulmonary emboli, pulmonary edema, congestive heart failure, and cardiac causes. - Data Points Imaging Results: CXR: Impression: Emphysema with chronic pulmonary artery hypertension. No pneumonia. Dictated By: Moses Schmid MD Imaging: I viewed and interpreted images myself Laboratory Results: Laboratory Results 09/18/17 18:43 09/18/17 16:10 Medications Given: Discontinued Medications Albuterol (Proventil Neb) 3 ml IH EDNOW ONE Stop: 09/18/17 15:36 Last Admin: 09/18/17 16:34 Dose: 3 ml Albuterol (Proventil Neb) 3 ml IH EDNOW ONE Stop: 09/18/17 18:23 Last Admin: 09/18/17 18:38 Dose: 3 ml Albuterol Sulfate (Proventil Inh Prepack) 1 mdi TAKEHOME EDNOW ONE Stop: 09/18/17 19:53 Last Admin: 09/18/17 20:29 Dose: 1 mdi Albuterol/Ipratropium (Duoneb) 3 ml IH EDNOW ONE Stop: 09/18/17 15:36 Last Admin: 09/18/17 16:35 Dose: 3 ml Sodium Chloride (Ns) 1,000 mls @ 0 mls/hr IV ONCE ONE; Wide Open PRN Reason: Protocol Stop: 09/18/17 15:36 Last Admin: 09/18/17 16:33 Dose: 1,000 mls Methylprednisolone Sodium Succinate (Solu-Medrol) 125 mg IVP EDNOW ONE Stop: 09/18/17 15:36 Last Admin: 09/18/17 16:34 Dose: 125 mg General Time Seen by Provider: 09/18/17 15:16 Initial Vital Signs: Initial Vital Signs Temperature (C) 36.4 C 09/18/17 15:17 Heart Rate 89 09/18/17 15:17 Respiratory Rate 24 H 09/18/17 15:17 Blood Pressure 144/83 H 09/18/17 15:17 O2 Sat (%) 92 09/18/17 15:17 O2 Delivery Mode Room Air Allergies/Adverse Reactions: acetaminophen [Acetaminophen] Allergy (Severe, Verified 09/09/17 22:07) heparin Allergy (Unknown, Verified 09/09/17 22:07) Heparin Analogues Allergy (Unknown, Verified 09/09/17 22:07) propoxyphene HCl [From Darvon] Allergy (Unknown, Verified 09/09/17 22:07) amoxicillin [Amoxicillin] Allergy (Verified 09/09/17 22:07) Other-Enter Comments aspirin [Aspirin] Allergy (Verified 09/09/17 22:07) Iodinated Contrast- Oral and IV Dye [Iodinated Contrast Media - Oral and] Allergy (Verified 09/09/17 22:07) Other-Enter Comments Home Medications: Medication Instructions Recorded Albuterol [Proventil Inhaler HFA 1 - 2 puffs IH Q4H PRN 07/17/17 (*)] Albuterol [Proventil Inhaler HFA 1 - 2 puffs IH Q4PRN PRN #1 mdi 07/29/17 (*)] Sulfamethox/Tmp 800/160 mg 1 tab PO BID@1000,2200 10 Days tab 07/29/17 [Bactrim Ds] Doxycycline Hyclate 100 mg PO BID #14 tab 08/05/17 predniSONE 50 mg PO DAILY #5 tablet 08/05/17 predniSONE 60 mg PO DAILY #15 tab 09/01/17 predniSONE 60 mg PO DAILY #9 tab 09/10/17 Albuterol Hfa Anes Only [Proair 2 puffs IH QID #1 mdi 09/18/17 Hfa Icu (*)] Budesonide 180 Mcg INH [Pulmicort 1 puffs IH BID #1 mdi 09/18/17 180Mcg Flexhaler (*)] predniSONE [prednisone 10mg (RX)] 40 mg PO DAILY 3 Days tab 09/18/17 Departure - Departure Disposition: Home, Routine, Self-Care Clinical Impression: Shortness of breath Condition: Good Instructions: Albuterol (By breathing), Shortness of Breath (ED) Additional Instructions: Follow up with [facility] to make an appointment with Dr. Tata Calderon. Given that we do not have a phone number or contact for you, you will need to call and schedule an appointment. PLEASE establish a primary care provider-Dr. Calderon, or another provider. As a reminder, you may be able to re-establish services at [facility] IF you are willing to sign a behavioral contract. You may contact The [facility] at : Use the Albuterol inhaler as prescribed Take Prednisone as prescribed. Please make sure to fill this prescription as well. Fill the Pulmicort inhaler. Referrals: Tata Calderon MD [Medical Doctor] - As per Instructions Prescriptions: Albuterol Hfa Anes Only [Proair Hfa Icu (*)] 2 puffs IH QID #1 mdi Budesonide 180 Mcg INH [Pulmicort 180Mcg Flexhaler (*)] 1 puffs IH BID #1 mdi predniSONE [prednisone 10mg (RX)] 40 mg PO DAILY 3 Days tab Report Scribed for: Mercedes Marcos Report Scribed by: Lian Nevarez Date of Report: 09/18/17 Time of Report: 15:18
[2017-09-18] MEDS ORDERED: NS 1,000 ML IV ONE (15:35)
[2017-09-18] MEDS ORDERED: IPRATROPIUM/ALBUTEROL 3 ML DEYVIAL IH ONE (15:35)
[2017-09-18] MEDS ORDERED: methylPREDNISolone SOD SUCC 125 MG/2 ML VIAL IVP ONE (15:35)
--- NOTE | 2017-09-18 15:55 | CPEKG ---
Heart Rate: 83 RR Interval: 723 P-R Interval: 136 QRSD Interval: 76 QT Interval: 356 QTC Interval: 419 P [place]: 78 QRS [place]: 76 T Wave [place]: 79 EKG Severity - NORMAL ECG - EKG Impression: SINUS RHYTHM Electronically Signed By: Mercedes Marcos 19-Sep-2017 00:01:07
[2017-09-18] MEDS: ALBUTEROL 3 ML DEYVIAL IH ONE ×2 (16:29→16:34)
[2017-09-18] MEDS ORDERED: ALBUTEROL 3 ML DEYVIAL IH ONE (18:22)
[2017-09-18] MEDS ORDERED: ALBUTEROL INH PREPACK MDI TAKEHOME ONE (19:52)
[2017-09-18 20:40] VITALS: BP 132/79
--- NOTE | 2017-09-19 10:54 | ASMTCMCOM ---
CM Note CM Note Notes: Please see ER report for details re patient's presentation the the ER, as well as CM note from 09/11/17. I met with patient to discuss follow up. Patient tells me that he knew he was supposed to follow up with Dr. Calderon but that he was told at the [facility] that he cannot be seen due to a delinquint account of $123. I encouraged patient to call Dr. Calderon's office at [facility], explaining that she is no longer with the [facility]. I also reminded patient that he can resume care at [facility] IF he agrees to sign a behavioral contract. Given that it is after office hours and the patient does not have a cell phone or other contact information, I stressed that he will need to call for this follow up and establish a PCP for his prescriptions and care. I looked into MAPPING patient's needed steroid inhaler. Per [facility], any steroid inhaler would cost us $200-$900. I did not MAP this for the patient. The patient does have Medicaid and can fill any prescriptions at a pharmacy of his choice. I discussed this with Dr. Marcos. Patient asked me for transportation assistance and/or for me to call him a Medicaid cab. I told patient he could call a cab himself, and reminded him that it was after 5 pm and it was unlikely that he would be able to obtain a Medicaid cab at this time. Date Signed: 09/19/2017 10:54 AM Electronically Signed By:Aleksandra Baumann RN
== END 2017-09-18 20:41 | disposition home or self-care (01) ==
LOC: EDUNIT#
DX: R06.02 Shortness of breath (principal); J44.9 Chronic obstructive pulmonary disease, unspecified; F17.200 Nicotine dependence, unspecified, uncomplicated; E86.9 Volume depletion, unspecified
CPT/HCPCS: 96374; J2930; J7613

== ENCOUNTER 2017-10-02 22:01 | Emergency (ER) | payer MEDICAID ==
[2017-10-02 22:11] VITALS: BP 105/81
--- NOTE | 2017-10-02 22:15 | EDPHY ---
H & P Stated Complaint: SAME PREVIOUS C/O TODAY/FATIGUE Time Seen by Provider: 10/02/17 22:15 HPI/ROS: HPI CHIEF COMPLAINT: Multiple complaints, cough, dehydration, fatigue HISTORY OF PRESENT ILLNESS: Patient is a very pleasant 57-year-old male well known to myself as well as the emergency room, he has a history of COPD he has med noncompliance additionally he is homeless, he presents emergency room with multiple complaints this evening he states that he has had increasing cough, he is dehydrated from being outside and feels fatigued. He denies any chest pain, denies abdominal pain, denies fever. Denies change in his sputum. Past Medical History: COPD, hepatitis-C from IV drug use, schizophrenia Past Surgical History: Denies recent surgery Social History: Smokes marijuana regularly. Family History: Noncontributory ROS REVIEW OF SYSTEMS: A comprehensive 10 point review of systems is otherwise negative aside from elements mentioned in the history of present illness. Exam Constitutional nontoxic appearing triage nursing summary reviewed, vital signs reviewed, awake/alert. Eyes normal conjunctivae and sclera, EOMI, PERRLA. HENT normal inspection, atraumatic, moist mucus membranes, no epistaxis, neck supple/ no meningismus, no raccoon eyes. Respiratory decreased breath sounds bilaterally with faint wheezing. Cardiovascular rate normal, regular rhythm, no murmur, no edema, distal pulses normal. Gastrointestinal soft, non-tender, no rebound, no guarding, normal bowel sounds, no distension, no pulsatile mass. Genitourinary no CVA tenderness. Musculoskeletal no midline vertebral tenderness, full range of motion, no calf swelling, no tenderness of extremities, no meningismus, good pulses, neurovascularly intact. Skin pink, warm, & dry, no rash, skin atraumatic. Neurologic awake, alert and oriented x 3, AAOx3, moves all 4 extremities equally, motor intact, sensory intact, CN II-XII intact, normal cerebellar, normal vision, normal speech. Psychiatric normal mood/affect. Heme/Lymph/Immune no lymphadenopathy. Differential Diagnosis: Includes but is not limited to in a particular order bronchitis, viral syndrome, upper respiratory tract infection, pneumonia, COPD exacerbation, dehydration, electrolyte disturbance Medical Decision Making: Plan for this patient IV establishment with IV fluid bolus 1 L normal saline, DuoNeb breathing treatment, check basic blood work, chest x-ray, and re-evaluate. Re-evaluation: 1240: Patient removed his IV and walked out of the emergency room. I went to go discuss his lab results and x-ray with him however he is leaving the emergency room and does not want here for me. I did review his blood work. He did receive a DuoNeb breathing treatment here. His x-ray showed some patchiness in his right lower lung base which was going to place him on azithromycin for. Distally was going to given prescription for albuterol however he has declined and left the emergency room. Source: Patient - Personal History Current Tetanus Diphtheria and Acellular Pertussis (TDAP): Yes Tetanus Vaccine Date: 2015 - Medical/Surgical History Hx Asthma: Yes Hx Chronic Respiratory Disease: Yes Hx Diabetes: No Hx Cardiac Disease: No Hx Renal Disease: No Hx Cirrhosis: Yes Hx Alcoholism: No Hx HIV/AIDS: No Hx Splenectomy or Spleen Trauma: Yes Other PMH: CHRONIC PAIN, RA, COPD/ASTHMA, HEPATITIS (B,C,D,E,F), C-DIFF, wears home O2(non compliant),"self medicates for pain," HEROIN ABUSE/IVDA, C diff. DENTAL CARIES, MIGRAINES, PTSD, "broken back", "broken neck", FLU X2 YRS, Pneum (November 05), POSS SCHIZOPHRENIA - Social History Smoking Status: Current some day smoker Constitutional: Initial Vital Signs Temperature (C) 36.6 C 10/02/17 22:08 Heart Rate 91 10/02/17 22:08 Respiratory Rate 22 H 10/02/17 22:08 Blood Pressure 105/81 H 10/02/17 22:08 O2 Sat (%) 87 L 10/02/17 22:08 O2 Delivery Mode Nasal Cannula O2 (L/minute) 3 Allergies/Adverse Reactions: acetaminophen [Acetaminophen] Allergy (Severe, Verified 09/09/17 22:07) heparin Allergy (Unknown, Verified 09/09/17 22:07) Heparin Analogues Allergy (Unknown, Verified 09/09/17 22:07) propoxyphene HCl [From Darvon] Allergy (Unknown, Verified 09/09/17 22:07) amoxicillin [Amoxicillin] Allergy (Verified 09/09/17 22:07) Other-Enter Comments aspirin [Aspirin] Allergy (Verified 09/09/17 22:07) Iodinated Contrast- Oral and IV Dye [Iodinated Contrast Media - Oral and] Allergy (Verified 09/09/17 22:07) Other-Enter Comments Home Medications: Medication Instructions Recorded NK [No Known Home Meds] 10/02/17 Medical Decision Making - Diagnostics Imaging Results: Imaging Impressions Chest X-Ray 10/02/17 22:21 Impression: 1. Increasing patchy opacities in the right lung base could be related to infection or aspiration. Follow-up to resolution is recommended. 2. Chronic airways disease. - Data Points Laboratory Results: Laboratory Results 10/02/17 22:45 10/02/17 22:45 10/02/17 10/02/17 22:45 22:45 WBC 4.07 10^3/uL 10^3/uL (3.80-9.50) RBC 5.83 10^6/uL 10^6/uL (4.40-6.38) Hgb 19.0 g/dL H g/dL (13.7-17.5) Hct 54.9 % H % (40.0-51.0) MCV 94.2 fL fL (81.5-99.8) MCH 32.6 pg pg (27.9-34.1) MCHC 34.6 g/dL g/dL (32.4-36.7) RDW 12.7 % % (11.5-15.2) Plt Count 119 10^3/uL L 10^3/uL (150-400) MPV 9.8 fL fL (8.7-11.7) Neut % (Auto) 57.3 % % (39.3-74.2) Lymph % (Auto) 32.2 % % (15.0-45.0) [place] % (Auto) 6.9 % % (4.5-13.0) Eos % (Auto) 3.2 % % (0.6-7.6) Baso % (Auto) 0.2 % L % (0.3-1.7) Nucleat RBC Rel Count 0.0 % % (0.0-0.2) Absolute Neuts (auto) 2.33 10^3/uL 10^3/uL (1.70-6.50) Absolute Lymphs (auto) 1.31 10^3/uL 10^3/uL (1.00-3.00) Absolute Monos (auto) 0.28 10^3/uL L 10^3/uL (0.30-0.80) Absolute Eos (auto) 0.13 10^3/uL 10^3/uL (0.03-0.40) Absolute Basos (auto) 0.01 10^3/uL L 10^3/uL (0.02-0.10) Absolute Nucleated RBC 0.00 10^3/uL 10^3/uL (0-0.01) Immature Gran % 0.2 % % (0.0-1.1) Immature Gran # 0.01 10^3/uL 10^3/uL (0.00-0.10) Sodium 140 mEq/L mEq/L (135-145) Potassium 4.1 mEq/L mEq/L (3.3-5.0) Chloride 103 mEq/L mEq/L (97-110) Carbon Dioxide 30 mEq/l mEq/l (22-31) Anion Gap 7 mEq/L L mEq/L (8-16) BUN 14 mg/dL mg/dL (7-23) Creatinine 0.7 mg/dL mg/dL (0.7-1.3) Estimated GFR > 60 Glucose 129 mg/dL H mg/dL (70-100) Calcium 8.6 mg/dL mg/dL (8.5-10.4) Medications Given: Sodium Chloride (Ns) 1,000 mls @ 0 mls/hr IV ONCE ONE; Wide Open PRN Reason: Protocol Last Admin: 10/02/17 22:47 Dose: 1,000 mls Discontinued Medications Albuterol/Ipratropium (Duoneb) 3 ml IH EDNOW ONE Stop: 10/02/17 22:21 Last Admin: 10/02/17 22:25 Dose: 3 ml Departure - Departure Disposition: Against Medical Advice Clinical Impression: COPD (chronic obstructive pulmonary disease) Qualifiers: COPD type: unspecified COPD Qualified Code(s): J44.9 - Chronic obstructive pulmonary disease, unspecified Condition: Fair Instructions: COPD (Chronic Obstructive Pulmonary Disease) (ED) Referrals: NONE *PRIMARY CARE P,. [Primary Care Provider] - As per Instructions
[2017-10-02] MEDS ORDERED: NS 1,000 ML IV ONE (22:20)
[2017-10-02] MEDS ORDERED: IPRATROPIUM/ALBUTEROL 3 ML DEYVIAL IH ONE (22:20)
[2017-10-02] MEDS ORDERED: IPRATROPIUM/ALBUTEROL 3 ML DEYVIAL ONE (22:21)
[2017-10-02 23:30] LABS: PLATELET COUNT 119 10^3/uL (150-400)
== END 2017-10-03 00:59 | disposition left against medical advice (07) ==
LOC: EEVIPCON 22:01
DX: J44.9 Chronic obstructive pulmonary disease, unspecified (principal); F17.200 Nicotine dependence, unspecified, uncomplicated; E86.9 Volume depletion, unspecified

== ENCOUNTER → 2017-10-02 | Emergency (ER) | payer MEDICAID ==
[2017-10-02 12:00] VITALS: BP 94/64
== END ==
DX: Z53.21 Procedure and treatment not carried out due to patient leaving prior to being seen by health care provider (principal)

== ENCOUNTER 2017-10-04 11:26 | Emergency (ER) | payer MEDICAID ==
[2017-10-04 11:46] VITALS: BP 105/71
== END 2017-10-04 13:00 | disposition left against medical advice (07) ==
DX: Z53.21 Procedure and treatment not carried out due to patient leaving prior to being seen by health care provider (principal)

== ENCOUNTER 2017-10-07 21:29 | Inpatient (IN) | payer MEDICAID ==
[2017-10-07] MEDS ORDERED: methylPREDNISolone SOD SUCC 125 MG/2 ML VIAL IVP ONE (21:37)
[2017-10-07] MEDS ORDERED: IPRATROPIUM/ALBUTEROL 3 ML DEYVIAL IH ONE (21:37)
--- NOTE | 2017-10-07 21:40 | EDPHY ---
H & P - Personal History Tetanus Vaccine Date: 2015 - Medical/Surgical History Hx Asthma: Yes Hx Chronic Respiratory Disease: Yes Hx Diabetes: No Hx Cardiac Disease: No Hx Renal Disease: No Hx Cirrhosis: Yes Hx Alcoholism: No Hx HIV/AIDS: No Hx Splenectomy or Spleen Trauma: Yes Other PMH: CHRONIC PAIN, RA, COPD/ASTHMA, HEPATITIS (B,C,D,E,F), C-DIFF, wears home O2(non compliant),"self medicates for pain," HEROIN ABUSE/IVDA, C diff. DENTAL CARIES, MIGRAINES, PTSD, "broken back", "broken neck", FLU X2 YRS, Pneum (November 05), POSS SCHIZOPHRENIA - Social History Smoking Status: Current some day smoker Time Seen by Provider: 10/07/17 21:37 HPI/ROS: CHIEF COMPLAINT: "Make me better" HISTORY OF PRESENT ILLNESS: 57-year-old male well known to emergency department staff history of COPD, history of medication noncompliance, homelessness, arrives from the homeless long term via ambulance complaining of cough, dyspnea. Pulse oxygenation 78% on room air. Feeling improvement after DuoNeb x1 via EMS. Denies: Chest pain, back pain, abdominal pain, fever, chills, change in sputum. REVIEW OF SYSTEMS: A ten point review of systems was performed and is negative with the exception of the items mentioned in the HPI PAST MEDICAL & SURGICAL HISTORY: Hepatitis-C. COPD. Schizophrenia. SOCIAL HISTORY:Daily tobacco abuse. Daily marijuana abuse. PHYSICAL EXAM (Prior to examination, patient consented to physical exam, hands were washed and my usual and customary physical exam procedures followed) 1) GENERAL: Well-developed, well-nourished, alert and oriented. Speaking full sentences. 2) HEAD: Normocephalic, atraumatic 3) HEENT: Pupils equal, round, reactive to light bilaterally. Sclera anicteric. Nasopharynx, oropharynx, clear, no lesions. Moist mucous membrane 4) NECK: Full range of motion, no meningeal signs. 5) LUNGS: Bilateral end-expiratory wheeze. Bibasilar rales 6) HEART: Regular rate and rhythm, no murmur, no heave, no gallop. 7) ABDOMEN: No guarding, no rebound, no focal tenderness, negative McBurney's, negative Nath's, negative Rovsing's, negative peritoneal sign, 8) MUSCULOSKELETAL: Moving all extremities, no focal areas of tenderness, no obvious trauma. No peripheral edema or discoloration. 9) BACK: No CVA tenderness, no midline vertebral tenderness, no fluctuance, no step-off, no obvious trauma, no visual or palpable abnormality. 10) SKIN: No rash, no petechiae. 11) Psychiatric: Patient is oriented X 3, there is no agitation. DIFFERENTIAL DIAGNOSIS: In no particular order including but not limited to COPD exacerbation, pulmonary embolus, pneumonia, pneumothorax, bronchitis, (Otilio,Hunter Brittany) Constitutional: Initial Vital Signs Temperature (C) 37 C 10/07/17 21:29 Heart Rate 98 10/07/17 21:29 Respiratory Rate 28 H 10/07/17 21:29 Blood Pressure 121/78 H 10/07/17 21:29 O2 Sat (%) 97 10/07/17 21:29 O2 Delivery Mode Non-Rebreather Mask O2 (L/minute) 12 Allergies/Adverse Reactions: acetaminophen [Acetaminophen] Allergy (Severe, Verified 10/04/17 11:43) heparin Allergy (Unknown, Verified 10/04/17 11:43) Heparin Analogues Allergy (Unknown, Verified 10/04/17 11:43) propoxyphene HCl [From Darvon] Allergy (Unknown, Verified 10/04/17 11:43) amoxicillin [Amoxicillin] Allergy (Verified 10/04/17 11:43) Other-Enter Comments aspirin [Aspirin] Allergy (Verified 10/04/17 11:43) Iodinated Contrast- Oral and IV Dye [Iodinated Contrast Media - Oral and] Allergy (Verified 10/04/17 11:43) Other-Enter Comments Home Medications: Medication Instructions Recorded Albuterol [Proventil Inhaler HFA 1 - 2 puffs IH Q4H PRN #1 mdi 10/12/17 (*)] Tiotropium Inhaler [Spiriva 18 mcg IH DAILY #1 mdi 10/12/17 Inhaler] predniSONE 5 mg PO DAILY #10 tab 10/12/17 Medical Decision Making ED Course/Re-evaluation: 9:48 p.m.: I reviewed old medical records. I am familiar with this patient. He agrees to receive treatment in the emergency department. He apologizes to me for walking out from the emergency department a few days ago. I saw this patient independently based on established practice protocols. Care of patient under supervision of secondary supervising physician Dr Marcos with whom I discussed case. 10:20 p.m.: Re-evaluation. He remains hypoxic. I recommended admission. Based on his prior history of a leaving hospital against medical advice he and I had a lengthy discussion and he apologizes to me at this time and he agrees to stay in the hospital 10:30 p.m.: Phone consultation with hospitalist Dr. Zuniga who will admit patient (Hunter Yañez) Other Provider: The patient was evaluated and managed by the Physician Flotation Tender. I discussed the patient's presentation and course with the physician legal support assistant and agree with the evaluation. My co-signature indicates that I have reviewed this chart and I agree with the findings and plan of care as documented. I am the secondary supervising physician. (Mercedes Marcos) - Data Points Laboratory Results: Laboratory Results 10/07/17 20:55 10/07/17 20:55 Medications Given: Discontinued Medications Albuterol/Ipratropium (Duoneb) 3 ml IH EDNOW ONE Stop: 10/07/17 21:38 Last Admin: 10/07/17 22:15 Dose: 3 ml Albuterol/Ipratropium (Duoneb) 3 ml IH QID BRAYDEN Stop: 04/06/18 05:59 Last Admin: 10/09/17 04:59 Dose: Not Given Albuterol/Ipratropium (Duoneb) 3 ml IH QID PRN PRN Reason: Short of Breath/Dyspnea Stop: 04/06/18 05:59 Last Admin: 10/12/17 05:42 Dose: 3 ml Azithromycin (Zithromax) 250 mg PO DAILY BRAYDEN PRN Reason: Protocol Stop: 11/07/17 08:59 Last Admin: 10/08/17 07:27 Dose: 250 mg Azithromycin (Zithromax) 500 mg PO ONCE ONE Stop: 10/07/17 23:16 Last Admin: 10/08/17 00:55 Dose: 500 mg Sodium Chloride (Ns) 2,200 mls @ 4,400 mls/hr 30 ml/kg infuse over 30 min ( 2200 ml) IV EDNOW ONE PRN Reason: Protocol Stop: 10/07/17 22:41 Last Admin: 10/07/17 22:16 Dose: 2,200 mls Levofloxacin/Dextrose (Levaquin 750 Mg (Premix)) 150 mls @ 100 mls/hr IV DAILY BRAYDEN PRN Reason: Protocol Stop: 11/06/17 22:59 Last Admin: 10/08/17 07:28 Dose: 150 mls Ceftriaxone Sodium/Dextrose (Rocephin 1 Gm (Premix)) 50 mls @ 100 mls/hr IV DAILY BRAYDEN PRN Reason: Protocol Stop: 11/07/17 08:59 Last Admin: 10/12/17 08:11 Dose: 50 mls Levofloxacin (Levaquin) 750 mg PO ONCE ONE PRN Reason: Protocol Stop: 10/09/17 10:01 Last Admin: 10/09/17 09:32 Dose: 750 mg Levofloxacin (Levaquin) 750 mg PO DAILY10 BRAYDEN Stop: 10/13/17 10:01 Last Admin: 10/12/17 09:57 Dose: 750 mg Methylprednisolone Sodium Succinate (Solu-Medrol) 125 mg IVP EDNOW ONE Stop: 10/07/17 21:38 Last Admin: 10/07/17 22:15 Dose: 125 mg Nicotine (Nicoderm Cq) 7 mg TD DAILY BRAYDEN Stop: 04/06/18 19:29 Last Admin: 10/12/17 08:11 Dose: 7 mg Oxycodone HCl (Oxycodone Ir) 5 mg PO Q4HRS PRN PRN Reason: Pain, Severe Able to Take PO Stop: 10/18/17 04:49 Last Admin: 10/12/17 08:10 Dose: 5 mg Prednisone (Prednisone) 40 mg PO DAILY BRAYDEN Stop: 04/06/18 08:59 Last Admin: 10/12/17 08:10 Dose: 40 mg Departure - Departure Disposition: [facility] Clinical Impression: Hypoxemia, COPD exacerbation Pneumonia Qualifiers: Pneumonia type: due to unspecified organism Laterality: right Lung location: lower lobe of lung Qualified Code(s): J18.1 - Lobar pneumonia, unspecified organism Condition: Fair
[2017-10-07 22:05] LABS: PLATELET COUNT 177 10^3/uL (150-400)
[2017-10-07] MEDS ORDERED: NS 2,200 ML IV ONE (22:12)
[2017-10-07] MEDS ORDERED: ALBUTEROL 3 ML DEYVIAL IH PRN (22:33)
[2017-10-07] MEDS ORDERED: ONDANSETRON 4 MG/2 ML VIAL IVP PRN (22:33)
[2017-10-07] MEDS ORDERED: ONDANSETRON DISINTEGRATING 4 MG TAB PO PRN (22:33)
[2017-10-07] MEDS ORDERED: AZITHROMYCIN 250 MG TAB PO ONE (23:15)
--- NOTE | 2017-10-08 00:54 | PDGENHP ---
History and Physical - Chief Complaint Shortness of breath - History of Present Illness 57 yo M w/ hx of COPD, tobacco abuse, chronic pain, and possible schizophrenia presents with shortness of breath. Patient was brought in from retirement via EMS for SOB, cough, and hypoxia. This O2 sat was 78% on RA per EMS. His symptoms improved after Duoneb en route but he still required non rebreather to maintain sats upon arrival in the ED. At the time of my evaluation he is improved with only minimal wheezing and modestly increased work of breathing. He denies symptoms to me currently and seems somewhat somnolent. History Information - Allergies/Home Medication List Allergies/Adverse Reactions: acetaminophen [Acetaminophen] Allergy (Severe, Verified 10/04/17 11:43) heparin Allergy (Unknown, Verified 10/04/17 11:43) Heparin Analogues Allergy (Unknown, Verified 10/04/17 11:43) propoxyphene HCl [From Darvon] Allergy (Unknown, Verified 10/04/17 11:43) amoxicillin [Amoxicillin] Allergy (Verified 10/04/17 11:43) Other-Enter Comments aspirin [Aspirin] Allergy (Verified 10/04/17 11:43) Iodinated Contrast- Oral and IV Dye [Iodinated Contrast Media - Oral and] Allergy (Verified 10/04/17 11:43) Other-Enter Comments Home Medications: Albuterol 10/04/17 [Last Taken Unknown] I have personally reviewed and updated: family history, medical history - Past Medical History COPD Additional medical history: copd. chronic hepatitis b andc. PTSD. chronic pain syndrome - Surgical History Additional surgical history: teeth extractions - Family History Additional family history: Asked, denies - Social History Smoking Status: Current some day smoker Additional social history: homeless M Review of Systems Review of Systems: ROS: 10pt was reviewed & negative except for what was stated in HPI & below Physical Exam Physical Exam: Temp Pulse Resp BP Pulse Ox 36.5 C 81 12 126/74 H 99 10/08/17 00:12 10/08/17 00:12 10/08/17 00:12 10/08/17 00:12 10/08/17 00:12 O2 (L/minute) 12 FIO2 (%) 100 Constitutional: not in pain, chronically ill appearing Eyes: PERRL, EOMI Ears, Nose, Mouth, Throat: moist mucous membranes, no oral mucosal ulcers Cardiovascular: regular rate and rhythym, systolic murmur Respiratory: expiratory wheeze, rhonchi Gastrointestinal: normoactive bowel sounds, soft, non-tender abdomen Skin: warm, normal color Musculoskeletal: full muscle strength, no muscle tenderness Neurologic: AAOx3, CN II-XII Intact Psychiatric: interacting appropriately, not anxious Lab Data & Imaging Review 10/07/17 20:55 10/07/17 20:55 WBC 13.08 10^3/uL (3.80-9.50) H 10/07/17 20:55 RBC 4.29 10^6/uL (4.40-6.38) L 10/07/17 20:55 Hgb 14.2 g/dL (13.7-17.5) 10/07/17 20:55 Hct 41.0 % (40.0-51.0) 10/07/17 20:55 MCV 95.6 fL (81.5-99.8) 10/07/17 20:55 MCH 33.1 pg (27.9-34.1) 10/07/17 20:55 MCHC 34.6 g/dL (32.4-36.7) 10/07/17 20:55 RDW 13.0 % (11.5-15.2) 10/07/17 20:55 Plt Count 177 10^3/uL (150-400) 10/07/17 20:55 MPV 10.3 fL (8.7-11.7) 10/07/17 20:55 Neut % (Auto) 74.0 % (39.3-74.2) 10/07/17 20:55 Lymph % (Auto) 16.5 % (15.0-45.0) 10/07/17 20:55 [place] % (Auto) 7.6 % (4.5-13.0) 10/07/17 20:55 Eos % (Auto) 1.3 % (0.6-7.6) 10/07/17 20:55 Baso % (Auto) 0.3 % (0.3-1.7) 10/07/17 20:55 Nucleat RBC Rel Count 0.0 % (0.0-0.2) 10/07/17 20:55 Absolute Neuts (auto) 9.68 10^3/uL (1.70-6.50) H 10/07/17 20:55 Absolute Lymphs (auto) 2.16 10^3/uL (1.00-3.00) 10/07/17 20:55 Absolute Monos (auto) 0.99 10^3/uL (0.30-0.80) H 10/07/17 20:55 Absolute Eos (auto) 0.17 10^3/uL (0.03-0.40) 10/07/17 20:55 Absolute Basos (auto) 0.04 10^3/uL (0.02-0.10) 10/07/17 20:55 Absolute Nucleated RBC 0.00 10^3/uL (0-0.01) 10/07/17 20:55 Immature Gran % 0.3 % (0.0-1.1) 10/07/17 20:55 Immature Gran # 0.04 10^3/uL (0.00-0.10) 10/07/17 20:55 Sodium 132 mEq/L (135-145) L 10/07/17 20:55 Potassium 4.3 mEq/L (3.3-5.0) 10/07/17 20:55 Chloride 89 mEq/L (97-110) L 10/07/17 20:55 Carbon Dioxide 32 mEq/l (22-31) H 10/07/17 20:55 Anion Gap 11 mEq/L (8-16) 10/07/17 20:55 BUN 35 mg/dL (7-23) H 10/07/17 20:55 Creatinine 1.2 mg/dL (0.7-1.3) 10/07/17 20:55 Estimated GFR > 60 10/07/17 20:55 Glucose 102 mg/dL (70-100) H 10/07/17 20:55 Calcium 8.9 mg/dL (8.5-10.4) 10/07/17 20:55 Procalcitonin 0.16 ng/mL (0.02-0.10) H 10/07/17 20:55 Imaging Review: Imaging Impressions Chest X-Ray 10/07/17 21:37 Impression: New lingular consolidation (atelectasis versus pneumonia). Visualized and Interpreted Chest x-ray results: Yes Chest X-Ray results: other (Lingular consolidation) Assessment & Plan Assessment: 57 yo M w/ COPD, tobacco abuse, ?schizophrenia, and chronic pain p/w COPD exacerbation. Plan: 1. COPD w/ acute exacerbation - Exacerbation possibly 2/2 pneumonia in combination with continued tobacco use and lack of daily controller medication. Symptoms, hypoxia, and work of breathing much improved after initial steroids and nebulization in the ED. - Admit to SDU for close monitoring - Duonebs QID, albuterol PRN - Azithromycin, prednisone x5 days 2. Suspected pneumonia - Lingular consolidation noted on CXR in combination with above acute presentation. - Will treat for CAP with CTX, Azithro - Blood cultures, procalcitonin ordered 3. AHRF - 2/2 COPD exacerbation; treat acute pathologies as above and wean O2 as able. Requiring non-rebreather to maintain sats on admission. - Incentive spirometer 4. Suspected schizophrenia - Patient frequently leaves AMA but has been deemed to have decision making capacity. He denies SI/HI currently. 5. Chronic pain - 2/2 DJD, not on opiates as outpatient. 6. Hep C - 2/2 previous IVDU. Diet - Regular Code - Full Ppx - SCDs (heparin allergy listed) Dispo - Admit under inpatient status
[2017-10-08] MEDS: oxyCODONE IR 5 MG TAB PO PRN ×5 (04:54→22:04)
[2017-10-08 05:15] LABS: PLATELET COUNT 150 10^3/uL (150-400)
[2017-10-08] MEDS: IPRATROPIUM/ALBUTEROL 3 ML DEYVIAL IH SCH ×4 (06:15→22:34)
[2017-10-08] MEDS: predniSONE 20 MG TAB PO SCH (07:28)
[2017-10-08] MEDS ORDERED: AZITHROMYCIN 250 MG TAB PO SCH (09:00)
[2017-10-08] MEDS ORDERED: AZITHROMYCIN IV 500 MG in D5W 250 ML IV SCH (09:00)
--- NOTE | 2017-10-08 10:49 | PDMN ---
Medical Necessity Medical necessity: est los>2mn for COPD w/acute exacerbation possibly r/t PNA , lack of daily controller medication and tobacco use, and acute hypoxic resp failure; admit ICU/SDU for close monitoring, nebs, IV abx, NRB to maintain O2 sats, follow cx; comorbid Hep C, chronic pain, suspected schizophrenia w/hx leaving AMA frequently; per order and H&P 10/07/17
--- NOTE | 2017-10-08 14:23 | HOSPPROG ---
Hospitalist Progress Note Assessment/Plan: 57 yo M w/ COPD, tobacco abuse, unclear psychiatric hx, and chronic pain p/w COPD exacerbation. Plan: # COPD w/ acute exacerbation - Exacerbation possibly 2/2 pneumonia in combination with continued tobacco use and lack of daily controller medication. - Admit to SDU for close monitoring - Duonebs QID, albuterol PRN - Azithromycin, prednisone x5 days #.Suspected pneumonia - Lingular consolidation noted on CXR in combination with above acute presentation. - Will treat for CAP with CTX, Azithro - Blood cultures pending, procalcitonin slightly high # AHRF - 2/2 COPD exacerbation; treat acute pathologies as above and wean O2 as able. Requiring non-rebreather to maintain sats on admission. - Incentive spirometer # psychiatric - unclear diagnosis but patient somewhat pressured in speech and thinking slightly disorganized, does not appear grossly psychotic, denies hi/si # Chronic pain - 2/2 DJD, not on opiates as outpatient. # Hep C - 2/2 previous IVDU. Diet - Regular Code - Full Ppx - SCDs (heparin allergy listed) Dispo - Admit under inpatient status Patient new to my care. Old records reviewed and summarized as above. Care plan reviewed with Dr. Lynn. Subjective: no significant overnight events, patient currently feeling poorly-- sob, states he has wheezes and "crackles" Objective: Vital Signs Temp Pulse Resp BP Pulse Ox 36.9 C 81 20 110/62 92 10/08/17 11:43 10/08/17 11:43 10/08/17 11:43 10/08/17 11:43 10/08/17 11:43 Microbiology 10/08/17 04:45 Respiratory Panel (PCR) - Final Nasal, Sinus - Swab No Organism Detected Laboratory Results 10/08/17 04:45 10/08/17 04:45 10/07/17 10/08/17 10/09/17 05:59 05:59 05:59 Intake Total 800 Balance 800 anicteric op clear rrr no mrg scattered wheeze rhonchi increased wob soft nt nd no cce warm dry well perfused oriented slightly anxious/agitated - Time Spent With Patient Time Spent with Patient: greater than 35 minutes Time Spent with Patient: Greater than 35 minutes spent on this patients care, greater than 50% of time spent counseling, educating, and coordinating care regarding the above mentioned plan. ICD10 Worksheet Patient Problems: Problems Problem Status Onset COPD exacerbation Acute Hypoxemia Acute Pneumonia Acute Acute bronchitis Acute Bronchitis Acute COPD (chronic obstructive pulmonary disease) Acute COPD exacerbation Acute Cellulitis Acute Chronic obstructive pulmonary disease with acute exacerbation Acute Dyspnea Acute Facial abscess Acute HCAP (healthcare-associated pneumonia) Acute Hypoxia Acute Pneumonia Acute Sepsis Acute Shortness of breath Acute Hepatitis C Chronic
--- NOTE | 2017-10-08 16:31 | ASMTCMCOM ---
CM Note CM Note Notes: Pt has been admitted with a COPD exacerbation. He is homeless with a hx of COPD, PTSD and possible schizophrenia and medication noncompliance. He has left AMA in the past. He has been in the ED 22 times since April, including this visit. He asked to speak with SW and said he wants a "30 day respite stay at d/c." Informed him his d/c plan will be dependent on his needs which are too soon to assess. CM will follow for any d/c needs. Date Signed: 10/08/2017 04:31 PM Electronically Signed By:SERJIO Rowley
--- NOTE | 2017-10-08 17:41 | GHP ---
[f rep st] HISTORY AND PHYSICAL DATE OF ADMISSION: 10/07/2017 REFERRING PHYSICIAN: Seble Slater MD REASON FOR REFERRAL: Evaluation and management of pneumonia and possible COPD. HISTORY OF PRESENT ILLNESS: The patient is a 57-year-old homeless male who has a history of COPD, po ssible schizophrenia, and recurrent bronchitis/pneumonia, who was brought from a correction due to short ness of breath, cough, and hypoxemia, with room oxygen saturations of 78% on room air. His symptoms improved with a DuoNeb, but he remained hypoxemic. He was evaluated in the emergency department and found to have a lingular infiltrate consistent with pneumonia. He was started on azithromycin, ceftr iaxone, and Levaquin. He reports that he still continued to feel chest congestion and coughing, and can tell that he has pneumonia. He denies any fevers. PAST MEDICAL HISTORY: 1. COPD. 2. Chronic hepatitis B and C. 3. PTSD. 4. Chronic pain syndrome. MEDICATIONS: At the time of admission include albuterol. ALLERGIES: Acetaminophen, heparin. SOCIAL HISTORY: The patient is homeless. He smokes cigarettes and marijuana intermittently. The pa tient denies alcohol use. FAMILY HISTORY: Unremarkable. REVIEW OF SYSTEMS: A 10-point review of systems adds nothing to the history of present illness. PHYSICAL EXAMINATION: GENERAL: The patient is awake, alert, and mildly agitated. VITAL SIGNS: His blood pressure is 114/54, with a heart rate of 84. His oxygen saturations are 93% on room air. He is afebrile. HEENT: Normocephalic and atraumatic. No icterus. NECK: No JVD. Trachea is midline. CHEST: He has some bilateral wheezes and a few basilar rales on the left. CARDIAC: Regular rate and rhythm without murmur. ABDOMEN: Soft, nontender. Bowel sounds are present. EXTREMITIES: No c lubbing, cyanosis, or edema. LABORATORY: White blood count is 7.8, down from 13.1 at admission. Hemoglobin is 13.6. A chemistry group is unremarkable. A procalcitonin is 0.16. A chest x-ray shows an infiltrate in the left ling amanda with some elevation at the diaphragm. The images were reviewed by me. ASSESSMENT: 1. Acute pneumonia. The patient had a chest x-ray as well as a cough, dyspnea, and hypoxemia consis tent with pneumonia. He has been appropriately treated with IV antibiotics as well as IV steroids an d bronchodilators, and has had some improvement, particularly in his oxygen saturations. He still fe els chest congestion. 2. The patient likely has a component of chronic obstructive pulmonary disease exacerbation in addit ion to his pneumonia, with audible wheezes on exam and improvement with bronchodilators. RECOMMENDATIONS: 1. Narrow antibiotics to ceftriaxone and p.o. Levaquin. 2. Will continue p.o. steroids, with a taper of 3-5 days upon discharge if still having symptoms of cough, as well as bronchodilators. 3. The patient can be transferred to a med/surg room. He should probably complete a 5-7 day course of Levaquin, and ceftriaxone can be discontinued at the time of discharge. /[id number]/MODL
[2017-10-08] MEDS: NICOTINE 7 MG/24 HR PATCH TD SCH ×2 (19:31→21:42)
[2017-10-09] MEDS: oxyCODONE IR 5 MG TAB PO PRN ×5 (02:04→22:03)
[2017-10-09] MEDS: IPRATROPIUM/ALBUTEROL 3 ML DEYVIAL IH SCH (04:59)
[2017-10-09] MEDS: NICOTINE 7 MG/24 HR PATCH TD SCH (08:12)
[2017-10-09] MEDS: predniSONE 20 MG TAB PO SCH (08:13)
--- NOTE | 2017-10-09 17:57 | HOSPPROG ---
Hospitalist Progress Note Assessment/Plan: 57 yo M w/ COPD, tobacco abuse, unclear psychiatric hx, and chronic pain p/w COPD exacerbation. Plan: # COPD w/ acute exacerbation - Exacerbation 2/2 pneumonia in combination with continued tobacco use and lack of daily controller medication. - Duonebs QID, albuterol PRN, short course of prednisone #.Suspected pneumonia - Lingular consolidation noted on CXR in combination with above acute presentation. - Will treat for CAP with CTX, levofloxacin - Blood cultures pending, procalcitonin slightly high # AHRF - 2/2 COPD exacerbation; treat acute pathologies as above and wean O2 as able. Requiring non-rebreather to maintain sats on admission. - Incentive spirometer # psychiatric - unclear diagnosis but patient somewhat pressured in speech and thinking slightly disorganized, does not appear grossly psychotic, denies hi/si # Chronic pain - 2/2 DJD, not on opiates as outpatient. # Hep C - 2/2 previous IVDU. Diet - Regular Code - Full Ppx - SCDs (heparin allergy listed) Dispo - Admit under inpatient status, patient homeless Care plan reviewed with Dr. Lynn. Subjective: no significant overnight events, patient agitated but otherwise doing well Objective: Vital Signs Temp Pulse Resp BP Pulse Ox 36.7 C 87 18 129/63 H 88 L 10/09/17 16:00 10/09/17 16:00 10/09/17 16:00 10/09/17 16:00 10/09/17 16:00 Laboratory Results 10/08/17 04:45 10/08/17 04:45 10/08/17 10/09/17 10/10/17 05:59 05:59 05:59 Intake Total 800 950 Output Total 700 Balance 800 250 anicteric op clear rrr no mrg scattered wheeze rhonchi increased wob soft nt nd no cce warm dry well perfused oriented slightly anxious/agitated ICD10 Worksheet Patient Problems: Problems Problem Status Onset COPD exacerbation Acute Hypoxemia Acute Pneumonia Acute Acute bronchitis Acute Bronchitis Acute COPD (chronic obstructive pulmonary disease) Acute COPD exacerbation Acute Cellulitis Acute Chronic obstructive pulmonary disease with acute exacerbation Acute Dyspnea Acute Facial abscess Acute HCAP (healthcare-associated pneumonia) Acute Hypoxia Acute Pneumonia Acute Sepsis Acute Shortness of breath Acute Hepatitis C Chronic
[2017-10-10] MEDS: oxyCODONE IR 5 MG TAB PO PRN ×5 (03:29→21:21)
[2017-10-10] MEDS: NICOTINE 7 MG/24 HR PATCH TD SCH (09:30)
[2017-10-10] MEDS: predniSONE 20 MG TAB PO SCH (09:30)
--- NOTE | 2017-10-10 11:58 | ASMTCMCOM ---
CM Note CM Note Notes: Chart reviewed. Attempted to see patient who looked at me and stated " your not my nurse" He jumped out of bed and hurried down the peng to request his pain medication. He is overtly SOB and refused to wear his oxygen.I asked about the alf and [facility] He replies that the "bitch" overseeing the path [facility] made sure he can't get housing or stay at the alf. 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 He mentions that he needs housing as he must have oxygen. When I suggest he wear his oxygen it as he is SOB he yelled for me to leave his room using profanities. I left his room per his request. Plan: He seems resistant to solutions or discussing problem solving ideas at this time. Date Signed: 10/10/2017 11:57 AM Electronically Signed By:Pamela Mathur RN
[2017-10-10] MEDS: IPRATROPIUM/ALBUTEROL 3 ML DEYVIAL IH PRN (15:31)
--- NOTE | 2017-10-10 15:46 | HOSPPROG ---
Hospitalist Progress Note Assessment/Plan: 57 yo M w/ COPD, tobacco abuse, unclear psychiatric hx, and chronic pain p/w COPD exacerbation. Plan: # COPD w/ acute exacerbation - Exacerbation 2/2 pneumonia in combination with continued tobacco use and lack of daily controller medication. - Duonebs QID, albuterol PRN, short course of prednisone. Improving slowly. # pneumonia - Lingular consolidation noted on CXR in combination with above acute presentation. - currently treating with ctx/levofloxacin, repeat cxr in am, if imaging improved as well as continued clinical improvement could likely dc abx after short course of 5-7 days # AHRF - 2/2 COPD exacerbation and pna, o2 sats remain in mid 80s on RA however patient is not compliant with o2 for the most part. He is homeless and likely cannot have o2 at discharge # psychiatric - unclear diagnosis but patient somewhat pressured in speech and thinking slightly disorganized, does not appear grossly psychotic, denies HI/SI # Chronic pain - 2/2 DJD, not on opiates as outpatient. # Hep C - 2/2 previous IVDU. Diet - Regular Code - Full Ppx - SCDs, ambulating Dispo - Admit under inpatient status, patient homeless, he is hoping to discharge to snf or respite, CM involved Subjective: no significant overnight events, patient very somnolent today but otherwise no complaints Objective: Vital Signs Temp Pulse Resp BP Pulse Ox 36.4 C 70 18 119/68 92 10/10/17 08:00 10/10/17 08:00 10/10/17 08:00 10/10/17 08:00 10/10/17 08:00 Laboratory Results 10/08/17 04:45 10/08/17 04:45 10/09/17 10/10/17 10/11/17 05:59 05:59 05:59 Intake Total 950 630 Output Total 700 Balance 250 630 anicteric op clear rrr no mrg scattered wheeze rhonchi increased wob soft nt nd no cce warm dry well perfused oriented slightly anxious/agitated ICD10 Worksheet Patient Problems: Problems Problem Status Onset COPD exacerbation Acute Hypoxemia Acute Pneumonia Acute Acute bronchitis Acute Bronchitis Acute COPD (chronic obstructive pulmonary disease) Acute COPD exacerbation Acute Cellulitis Acute Chronic obstructive pulmonary disease with acute exacerbation Acute Dyspnea Acute Facial abscess Acute HCAP (healthcare-associated pneumonia) Acute Hypoxia Acute Pneumonia Acute Sepsis Acute Shortness of breath Acute Hepatitis C Chronic
[2017-10-11] MEDS: oxyCODONE IR 5 MG TAB PO PRN ×4 (04:58→21:04)
[2017-10-11] MEDS: predniSONE 20 MG TAB PO SCH (09:18)
[2017-10-11] MEDS: NICOTINE 7 MG/24 HR PATCH TD SCH (09:18)
--- NOTE | 2017-10-11 12:35 | HOSPPROG ---
Hospitalist Progress Note Assessment/Plan: 57 yo M w/ COPD, tobacco abuse, unclear psychiatric hx, and chronic pain p/w COPD exacerbation. First encounter, chart reviewed. D/W CM. Plan: # COPD w/ acute exacerbation - Exacerbation 2/2 pneumonia in combination with continued tobacco use and lack of daily controller medication. - Duonebs QID, albuterol PRN, short course of prednisone. Improving slowly. # pneumonia - Lingular consolidation noted on CXR in combination with above acute presentation. - repeat CXR improved, personally reviewed - currently treating with ctx/levofloxacin, short course of 5-7 days # AHRF - 2/2 COPD exacerbation and pna, o2 sats improving on RA however patient is not compliant with o2 for the most part. - He is homeless and likely cannot have o2 at discharge # psychiatric - unclear diagnosis but patient somewhat pressured in speech and thinking slightly disorganized, does not appear grossly psychotic, denies HI/SI # Chronic pain - 2/2 DJD, not on opiates as outpatient. - noncompliant and unable to get opiates -hx of IVDA # Hep C - 2/2 previous IVDU. Diet - Regular Code - Full Ppx - SCDs, ambulating Dispo - leyda MS in am to the street Subjective: Unpleasant. Upset that he doesn't have housing. No other issues. Objective: Vital Signs Temp Pulse Resp BP Pulse Ox 36.5 C 49 L 12 112/76 94 10/11/17 08:00 10/11/17 09:58 10/11/17 09:58 10/11/17 08:00 10/11/17 09:58 Laboratory Results 10/08/17 04:45 10/08/17 04:45 10/10/17 10/11/17 10/12/17 05:59 05:59 05:59 Intake Total 630 500 Balance 630 500 - Physical Exam Constitutional: appears nourished, not in pain, chronically ill appearing Eyes: PERRL, anicteric sclera, EOMI Ears, Nose, Mouth, Throat: moist mucous membranes, hearing normal, ears appear normal Cardiovascular: regular rate and rhythym, No JVD, No edema Respiratory: no respiratory distress, no rales or rhonchi, reduced air movement Gastrointestinal: No tenderness, No ascites, No guarding Skin: warm, normal color, No mottled Musculoskeletal: normal joint ROM, no joint effusions, generalized weakness Neurologic: AAOx3 Psychiatric: not encephalopathic, anxious, poor judgement ICD10 Worksheet Patient Problems: Problems Problem Status Onset Pneumonia Acute Hepatitis C Chronic HCAP (healthcare-associated pneumonia) Acute Sepsis Acute Chronic obstructive pulmonary disease with acute exacerbation Acute COPD (chronic obstructive pulmonary disease) Acute Bronchitis Acute Facial abscess Acute Acute bronchitis Acute Pneumonia Acute Shortness of breath Acute Cellulitis Acute Dyspnea Acute COPD exacerbation Acute Hypoxemia Acute COPD exacerbation Acute Hypoxia Acute
[2017-10-12] MEDS: oxyCODONE IR 5 MG TAB PO PRN ×2 (03:54→08:10)
[2017-10-12] MEDS: IPRATROPIUM/ALBUTEROL 3 ML DEYVIAL IH PRN (05:42)
[2017-10-12 07:35] VITALS: BP 129/75
[2017-10-12] MEDS: predniSONE 20 MG TAB PO SCH (08:10)
[2017-10-12] MEDS: NICOTINE 7 MG/24 HR PATCH TD SCH (08:11)
--- NOTE | 2017-10-12 11:47 | GDS ---
[f rep st] DISCHARGE SUMMARY DISCHARGE DIAGNOSES: 1. Community-acquired pneumonia. 2. Chronic obstructive pulmonary disease exacerbation. 3. Jezov-[id number]-[id number] hypoxemia. 4. Chronic pain. 5. History of hepatitis C. STUDIES AND PROCEDURES DONE: Chest x-rays. PHYSICAL EXAM: GENERAL: The patient is alert. VITAL SIGNS: Afebrile at 36.5, pulse 87, respirator y rate 16, blood pressure 129/75. He is saturating 87% on room air. I have seen and evaluated the p atient on the day of discharge. HOSPITAL COURSE: Mr. Goldstein is a 57-year-old homeless male who presented to the emergency room with complaints of shortness of breath. He was evaluated and diagnosed with: 1. COPD with acute exacerbation. He was treated with steroids during this hospitalization. He got Duo Nebs and albuterol. His symptoms have improved, and he will continue on prednisone in the outpat ient setting; 5 mg daily has been provided for the patient as a prescription. 2. Community-acquired pneumonia. This has significantly improved, per chest x-ray. He has been elisabet ated with Rocephin as well as Levaquin during this hospital course. He has not required further anti biotic therapy. 3. Acute hypoxemic respiratory failure. This is in the setting of acute COPD exacerbation and pneum onia. The patient is saturating 87% on room air. Supplemental oxygen has been offered to him at the time of disposition; however, he is refusing. 4. Chronic pain. The patient will not receive any prescriptions at the time of disposition secondar y to his history of IV drug abuse and noncompliance. 5. Hepatitis C; this is stable. DISPOSITION: Mr. Goldstein will be discharged from the hospital. FOLLOWUP: Followup will be in the outpatient setting with [facility] as Mr. Goldstein sees fit. DISCHARGE MEDICATIONS: He has been provided a prescription for albuterol as well as Spiriva and pred nisone. I spent greater than 35 minutes in the care, coordination, and management of the patient's dispositio n. /[id number]/MODL
--- NOTE | 2017-10-12 14:19 | ASMTCMCOM ---
CM Note CM Note Notes: Pt requesting to speak to CM, advised RN that CM would be available in 20 minutes. Pt became angry and left before CM could speak with him. DC Plan: Independent Date Signed: 10/12/2017 02:19 PM Electronically Signed By:Angela Sharp RN
== END 2017-10-12 11:41 | disposition home or self-care (01) | DRG 139 ==
LOC: EDUNIT# → F2N 10-08 00:05 → F3E 10-09 16:54
PROVIDERS: ADMIT Student in an Organized Health Care Education/Training Program; ATTEND Internal Medicine
DX: J18.9 Pneumonia, unspecified organism (principal); J96.01 Acute respiratory failure with hypoxia; J44.0 Chronic obstructive pulmonary disease with (acute) lower respiratory infection; J44.1 Chronic obstructive pulmonary disease with (acute) exacerbation; B18.2 Chronic viral hepatitis C; G89.4 Chronic pain syndrome; B18.1 Chronic viral hepatitis B without delta-agent; F43.10 Post-traumatic stress disorder, unspecified; K02.9 Dental caries, unspecified; F29 Unspecified psychosis not due to a substance or known physiological condition; Z59.0 Homelessness; Z72.0 Tobacco use
CPT/HCPCS: 96374; J0456; J0696; J1956; J2930; J7512

== ENCOUNTER 2018-01-13 15:36 | Emergency (ER) | payer MEDICAID ==
[~2018-01-13 15:36] MED LIST changes: -DOXYCYCLINE HYCLATE 100 MG CAP/TAB PO SCH; +predniSONE 20 MG TAB PO SCH
--- NOTE | 2018-01-13 17:27 | EDPHY ---
H & P Stated Complaint: Hypoxia Time Seen by Provider: 01/13/18 17:27 HPI/ROS: CHIEF COMPLAINT: Dyspnea HISTORY OF PRESENT ILLNESS: Patient is a homeless gentleman with history of COPD who presents to the ED with complaints of acute dyspnea after running out of his albuterol inhaler earlier today. The patient frequently visits the emergency department to get refills of his albuterol inhaler and does not have very regular follow-up with a primary care provider. The patient does smoke. He reports that he has a dry nonproductive cough. He feels lightheaded and dizzy with symptoms which are worsened with exertion. The patient denies fever. He denies abdominal pain, vomiting, history of trauma or other acute complaints. REVIEW OF SYSTEMS: A comprehensive 10 point review of systems is otherwise negative aside from elements mentioned in the history of present illness. Source: Patient - Personal History Current Tetanus/Diphtheria Vaccine: Yes Tetanus Vaccine Date: 2015 - Medical/Surgical History Hx Asthma: Yes Hx Chronic Respiratory Disease: Yes Hx Diabetes: No Hx Cardiac Disease: No Hx Renal Disease: No Hx Cirrhosis: Yes Hx Alcoholism: No Hx HIV/AIDS: No Hx Splenectomy or Spleen Trauma: Yes Other PMH: CHRONIC PAIN, RA, COPD/ASTHMA, HEPATITIS (B,C,D,E,F), C-DIFF, wears home O2(non compliant),"self medicates for pain," HEROIN ABUSE/IVDA, C diff. DENTAL CARIES, MIGRAINES, PTSD, "broken back", "broken neck", FLU X2 YRS, Pneum (November 05), POSS SCHIZOPHRENIA - Social History Smoking Status: Current some day smoker - Physical Exam Exam: General Appearance: Alert, no distress Eyes: Pupils equal and round no pallor or injection ENT, Mouth: Mucous membranes moist Respiratory: Mild tachypnea, diffuse expiratory wheezing Cardiovascular: Regular rate and rhythm Gastrointestinal: Abdomen is soft and nontender, no masses, bowel sounds normal Neurological: 5/5 strength all 4 extremities Skin: Warm and dry, no rashes Musculoskeletal: Neck is supple nontender Extremities: symmetrical, full range of motion Psychiatric: Patient is oriented X 3, there is no agitation Constitutional: Initial Vital Signs Temperature (C) 37.0 C 01/13/18 15:56 Heart Rate 64 01/13/18 15:56 Respiratory Rate 18 01/13/18 15:56 Blood Pressure 121/70 H 01/13/18 15:56 O2 Sat (%) 88 L 01/13/18 15:56 O2 Delivery Mode Room Air O2 (L/minute) 2 Allergies/Adverse Reactions: acetaminophen [Acetaminophen] Allergy (Severe, Verified 01/13/18 15:58) heparin Allergy (Unknown, Verified 01/13/18 15:58) Heparin Analogues Allergy (Unknown, Verified 01/13/18 15:58) propoxyphene HCl [From Darvon] Allergy (Unknown, Verified 01/13/18 15:58) amoxicillin [Amoxicillin] Allergy (Verified 01/13/18 15:58) Other-Enter Comments aspirin [Aspirin] Allergy (Verified 01/13/18 15:58) Iodinated Contrast- Oral and IV Dye [Iodinated Contrast Media - Oral and] Allergy (Verified 01/13/18 15:58) Other-Enter Comments Home Medications: Medication Instructions Recorded Albuterol [Proventil Inhaler HFA 1 - 2 puffs IH Q4H PRN #1 mdi 10/12/17 (*)] Tiotropium Inhaler [Spiriva 18 mcg IH DAILY #1 mdi 10/12/17 Inhaler] predniSONE 5 mg PO DAILY #10 tab 10/12/17 predniSONE [prednisone 20mg (RX)] 3 tab PO DAILY #15 tab 01/13/18 Medical Decision Making ED Course/Re-evaluation: The patient was given a DuoNeb and 60 mg of prednisone orally. Patient's chest x-ray demonstrates COPD without evidence of an infiltrate. Re-evaluated the patient at 6:30 p.m.. His wheezing has improved. He is not hypoxic. The patient will be discharged home with a prescription for prednisone. He is given a refill of his albuterol inhaler. We have filled the patient's prednisone through the [facility]. I have encouraged the patient to follow up with [facility] which she has been reluctant to do in the past. Differential Diagnosis: Differential diagnosis considered includes asthma, bronchitis, pneumonia - Data Points Medications Given: Discontinued Medications Albuterol/Ipratropium (Duoneb) 3 ml IH EDNOW ONE Stop: 01/13/18 17:32 Last Admin: 01/13/18 17:35 Dose: 3 ml Prednisone (Prednisone) 60 mg PO EDNOW ONE Stop: 01/13/18 17:32 Last Admin: 01/13/18 17:35 Dose: 60 mg Departure - Departure Disposition: Home, Routine, Self-Care Clinical Impression: Chronic obstructive pulmonary disease with acute exacerbation Condition: Good Instructions: COPD (Chronic Obstructive Pulmonary Disease) (ED) Additional Instructions: 1. Take prednisone as directed for next 5 days. 2. Albuterol inhaler up to every 2 hr as needed for shortness of breath. 3. I recommend establishing primary care with [facility] Referrals: [facility],. [Clinic] - As per Instructions Prescriptions: predniSONE [prednisone 20mg (RX)] 3 tab PO DAILY #15 tab
[2018-01-13] MEDS: IPRATROPIUM/ALBUTEROL 3 ML DEYVIAL IH ONE (17:35)
[2018-01-13] MEDS: predniSONE 20 MG TAB PO ONE (17:35)
[2018-01-13] MEDS: ALBUTEROL INH PREPACK MDI TAKEHOME ONE (18:32)
[2018-01-13 18:35] VITALS: BP 123/81
== END 2018-01-13 18:45 | disposition home or self-care (01) ==
DX: J44.1 Chronic obstructive pulmonary disease with (acute) exacerbation (principal); Z87.01 Personal history of pneumonia (recurrent); Z99.81 Dependence on supplemental oxygen; M06.9 Rheumatoid arthritis, unspecified
CPT/HCPCS: J7512

== ENCOUNTER 2018-01-21 19:34 | Emergency (ER) | payer MEDICAID ==
[2018-01-21] MEDS ORDERED: ALBUTEROL 3 ML DEYVIAL IH ONE ×3 (19:47→20:29)
[2018-01-21] MEDS ORDERED: predniSONE 20 MG TAB PO ONE (19:48)
--- NOTE | 2018-01-21 19:49 | EDPHY ---
H & P Smoking Status: Current some day smoker Time Seen by Provider: 01/21/18 19:34 HPI/ROS: CHIEF COMPLAINT: Short of breath for 24 hr HISTORY OF PRESENT ILLNESS: 57-year-old tobacco smoker with COPD ran out of his inhaler 24 hr ago. He was last admitted for 5 days in September with COPD exacerbation and pneumonia. Presents with severe shortness of breath coughing and wheezing which just started today. Worse with exertion. Brought in by EMS and received albuterol and Atrovent. Symptoms severe and not associated with fever or chest pain. REVIEW OF SYSTEMS: Eye: no change in vision ENT: no sore throat Cardiac: no chest pain or syncope Pulmonary: HPI Abdomen: no vomiting, diarrhea, abdominal pain Musculoskeletal: Diffuse aches and pains but nothing new Skin: no rash Neuro: no headache Constitutional: no fever : no urinary symptoms A comprehensive 10 point review of systems is otherwise negative aside from elements mentioned in the history of present illness. PAST MEDICAL HISTORY: Includes COPD, hepatitis-C Social history: Tobacco smoker General Appearance: Alert and conversant, cooperative. Eyes: No scleral icterus. ENT, Mouth: Normal mucous membranes. Respiratory: Bilateral wheezing and prolonged expiratory phase, no focal lung sounds. Cardiovascular: Regular rate and rhythm. Gastrointestinal: Abdomen is soft and non tender. Neurological: Alert, face symmetric, normal motor and sensory in extremities. Skin: Warm and dry, no rashes. Musculoskeletal: No peripheral edema. Psychiatric: Not agitated. Emergency Department course/MDM: Albuterol neb, oral prednisone 60mg, chest x-ray. Patient refused IV. Patient has typical exacerbation of his COPD. He does not have chest pain or lower extremity swelling to suggest pulmonary embolism is likely. ACS unlikely. Does not have pneumonia on chest x-ray. 2038: Still wheezing, additional nebs given. 12-lead EKG interpreted by me; official reading is in computer system. My interpretation is sinus rhythm, no acute ischemic changes, rate 61. Signed out to Sangita at 2100 disposition pending response to treatment. (William Donovan) Constitutional: Initial Vital Signs Temperature (C) 36.6 C 01/21/18 19:42 Heart Rate 83 01/21/18 19:42 Respiratory Rate 24 H 01/21/18 19:42 Blood Pressure 117/76 01/21/18 19:42 O2 Sat (%) 88 L 01/21/18 19:42 O2 Delivery Mode Room Air O2 (L/minute) 4 Allergies/Adverse Reactions: acetaminophen [Acetaminophen] Allergy (Severe, Verified 01/13/18 15:58) heparin Allergy (Unknown, Verified 01/13/18 15:58) Heparin Analogues Allergy (Unknown, Verified 01/13/18 15:58) propoxyphene HCl [From Darvon] Allergy (Unknown, Verified 01/13/18 15:58) amoxicillin [Amoxicillin] Allergy (Verified 01/13/18 15:58) Other-Enter Comments aspirin [Aspirin] Allergy (Verified 01/13/18 15:58) Iodinated Contrast- Oral and IV Dye [Iodinated Contrast Media - Oral and] Allergy (Verified 01/13/18 15:58) Other-Enter Comments Home Medications: Medication Instructions Recorded Albuterol [Proventil Inhaler HFA 1 - 2 puffs IH Q4H PRN #1 mdi 10/12/17 (*)] Tiotropium Inhaler [Spiriva 18 mcg IH DAILY #1 mdi 10/12/17 Inhaler] predniSONE [prednisone 20mg (RX)] 40 mg PO DAILY 10 Days tab 01/21/18 Medical Decision Making - Diagnostics Imaging: I viewed and interpreted images myself - Diagnostics Imaging Results: Chest x-ray personally interpreted at 8:30 p.m. Shows COPD without infiltrate or pneumothorax. (William Donovan) Differential Diagnosis: Differential diagnosis considered for shortness of breath including but not limited to pulmonary infectious process, COPD, asthma, pulmonary embolus and congestive heart failure. (William Donovan) Other Provider: I assumed care of the patient at 9pm I re-evaluated the patient at 10:00 p.m.. His lungs are clear to auscultation bilaterally. Vital signs are stable. Patient does not meet criteria for inpatient hospitalization. The patient is eligible to go to the homeless senior care this evening. The patient was offered a cab voucher to the senior care however has declined and left the department. (Gideon Quesada) - Data Points Medications Given: Discontinued Medications Albuterol (Proventil Neb) 3 ml IH EDNOW ONE Stop: 01/21/18 19:48 Last Admin: 01/21/18 19:52 Dose: 3 ml Albuterol (Proventil Neb) 3 ml IH EDNOW ONE Stop: 01/21/18 19:49 Last Admin: 01/21/18 19:52 Dose: 3 ml Albuterol (Proventil Neb) 9 ml IH EDNOW ONE Stop: 01/21/18 20:30 Last Admin: 01/21/18 20:37 Dose: 9 ml Prednisone (Prednisone) 60 mg PO EDNOW ONE Stop: 01/21/18 19:49 Last Admin: 01/21/18 19:52 Dose: 60 mg Departure - Departure Disposition: Home, Routine, Self-Care Clinical Impression: COPD exacerbation Condition: Good Instructions: COPD (Chronic Obstructive Pulmonary Disease) (ED) Additional Instructions: 1. Take medications as prescribed. 2. Albuterol inhaler up to every 4 hr as needed for cough. Referrals: [facility],. [Clinic] - As per Instructions Prescriptions: predniSONE [prednisone 20mg (RX)] 40 mg PO DAILY 10 Days tab
[2018-01-21 20:27] VITALS: BP 112/67
--- NOTE | 2018-01-21 20:40 | CPEKG ---
Test Reason : OPEN Blood Pressure : / mmHG Vent. Rate : 061 BPM Atrial Rate : 061 BPM P-R Int : 157 ms QRS Dur : 087 ms QT Int : 401 ms P-R-T Axes : 075 080 083 degrees QTc Int : 404 ms Sinus rhythm Minimal ST elevation, inferior leads Confirmed by William Donovan ([id number]) on 01/21/2018 8:39:37 PM Referred By: Confirmed By:William Donovan
[2018-01-21] MEDS ORDERED: ALBUTEROL INH PREPACK MDI TAKEHOME ONE ×2 (21:32→21:34)
== END 2018-01-21 21:37 | disposition home or self-care (01) ==
LOC: EDUNIT#
DX: J44.1 Chronic obstructive pulmonary disease with (acute) exacerbation (principal); F17.200 Nicotine dependence, unspecified, uncomplicated; Z59.0 Homelessness
CPT/HCPCS: J7512; J7613

== ENCOUNTER 2018-01-29 23:38 | Emergency (ER) | payer MEDICAID ==
--- NOTE | 2018-01-29 23:54 | EDPHY ---
H & P Stated Complaint: right flank pain Time Seen by Provider: 01/29/18 23:40 HPI/ROS: HPI The patient presents with right-sided abdominal pain which began at about 3:00 p.m. Today when he awoke from a [place] He thought he would just slept in an odd position, however the pain persisted, was constant, became progressively worse. The pain is sharp in nature. It is worse with movement. It is not associated with any nausea, vomiting, dizziness , diaphoresis. He has had this pain previously and attributes it to his hepatitis-C. He was last in the emergency department about 1 week ago when he was seen for shortness of breath thought to be related to underlying COPD exacerbation, he was started on a course of prednisone. He has no respiratory complaints currently. REVIEW OF SYSTEMS 10 systems were reviewed and negative with the exception of the elements mentioned in the history of present illness. PMHx: COPD, hepatitis-C, followed at [facility] Hx: Homeless, frequent ER user PHYSICAL General Appearance: Alert, no distress Eyes: Pupils equal and round no pallor or injection ENT, Mouth: Mucous membranes moist Respiratory: There are no retractions, lungs are clear to auscultation Cardiovascular: Regular rate and rhythm Gastrointestinal: Abdomen is soft and tender in the right upper quadrant and right flank without any guarding or rebound no masses, bowel sounds normal Neurological: A&O, moves all extremities Skin: Warm and dry, no rashes Musculoskeletal: Neck is supple non tender Extremities: symmetrical, full range of motion Psychiatric: Patient is oriented X 3, there is no agitation Source: Patient, EMS Exam Limitations: No limitations - Personal History Current Tetanus/Diphtheria Vaccine: Yes Current Tetanus Diphtheria and Acellular Pertussis (TDAP): Yes Tetanus Vaccine Date: 2015 - Medical/Surgical History Hx Asthma: Yes Hx Chronic Respiratory Disease: Yes Hx Diabetes: No Hx Cardiac Disease: No Hx Renal Disease: No Hx Cirrhosis: Yes Hx Alcoholism: No Hx HIV/AIDS: No Hx Splenectomy or Spleen Trauma: Yes Other PMH: CHRONIC PAIN, RA, COPD/ASTHMA, HEPATITIS (B,C,D,E,F), C-DIFF, wears home O2(non compliant),"self medicates for pain," HEROIN ABUSE/IVDA, C diff. DENTAL CARIES, MIGRAINES, PTSD, "broken back", "broken neck", FLU X2 YRS, Pneum (November 05), POSS SCHIZOPHRENIA - Social History Smoking Status: Current some day smoker Constitutional: Initial Vital Signs Temperature (C) 36.7 C 01/29/18 23:42 Heart Rate 83 01/29/18 23:42 Respiratory Rate 16 01/29/18 23:42 Blood Pressure 113/77 01/29/18 23:42 O2 Sat (%) 90 L 01/29/18 23:42 O2 Delivery Mode Room Air Allergies/Adverse Reactions: acetaminophen [Acetaminophen] Allergy (Severe, Verified 01/29/18 23:43) heparin Allergy (Unknown, Verified 01/29/18 23:43) Heparin Analogues Allergy (Unknown, Verified 01/29/18 23:43) propoxyphene HCl [From Darvon] Allergy (Unknown, Verified 01/29/18 23:43) amoxicillin [Amoxicillin] Allergy (Verified 01/29/18 23:43) Other-Enter Comments aspirin [Aspirin] Allergy (Verified 01/29/18 23:43) Iodinated Contrast- Oral and IV Dye [Iodinated Contrast Media - Oral and] Allergy (Verified 01/29/18 23:43) Other-Enter Comments Home Medications: Medication Instructions Recorded Albuterol [Proventil Inhaler HFA 1 - 2 puffs IH Q4H PRN #1 mdi 10/12/17 (*)] Tiotropium Inhaler [Spiriva 18 mcg IH DAILY #1 mdi 10/12/17 Inhaler] Medical Decision Making - Diagnostics Imaging Results: Imaging Impressions Chest X-Ray 01/29/18 23:41 Impression: COPD and mild stable chronic perihilar bronchitis, without a focal infiltrate. CT abdomen pelvis without IV contrast demonstrates no acute findings, discussed with the radiologist human resource professional. Imaging: Discussed imaging studies w/ weight caller Radiologist, I viewed and interpreted images myself Differential Diagnosis: This is a 57-year-old man who has history of COPD, hepatitis-C, homelessness who presents brought in by ambulance for right-sided flank pain which he has had progressively over the course of the day. It is atraumatic. He has no respiratory complaints different from his usual. He does not have any chest pain. Differential diagnosis includes pneumonia, biliary colic, ureterolithiasis, pyelonephritis. In the emergency department, the patient was monitored, he was given Toradol for pain with improvement in his symptoms. He had labs checked which were relatively unremarkable. He did have a CT scan of his abdomen pelvis which was normal. He was observed for several hours and felt well enough to be discharged. The cause of his pain is not entirely clear though at this point I suspect it is musculoskeletal. - Data Points Laboratory Results: Laboratory Results 01/30/18 01:10 01/30/18 00:05 01/30/18 01/30/18 01/30/18 01:10 00:30 00:05 WBC 8.63 10^3/uL 10^3/uL (3.80-9.50) RBC 4.32 10^6/uL L 10^6/uL (4.40-6.38) Hgb 14.7 g/dL g/dL (13.7-17.5) Hct 40.7 % % (40.0-51.0) MCV 94.2 fL fL (81.5-99.8) MCH 34.0 pg pg (27.9-34.1) MCHC 36.1 g/dL g/dL (32.4-36.7) RDW 12.9 % % (11.5-15.2) Plt Count 146 10^3/uL L 10^3/uL (150-400) MPV 10.9 fL fL (8.7-11.7) Neut % (Auto) 55.8 % % (39.3-74.2) Lymph % (Auto) 32.3 % % (15.0-45.0) Larue % (Auto) 8.0 % % (4.5-13.0) Eos % (Auto) 3.2 % % (0.6-7.6) Baso % (Auto) 0.5 % % (0.3-1.7) Nucleat RBC Rel Count 0.0 % % (0.0-0.2) Absolute Neuts (auto) 4.81 10^3/uL 10^3/uL (1.70-6.50) Absolute Lymphs (auto) 2.79 10^3/uL 10^3/uL (1.00-3.00) Absolute Monos (auto) 0.69 10^3/uL 10^3/uL (0.30-0.80) Absolute Eos (auto) 0.28 10^3/uL 10^3/uL (0.03-0.40) Absolute Basos (auto) 0.04 10^3/uL 10^3/uL (0.02-0.10) Absolute Nucleated RBC 0.00 10^3/uL 10^3/uL (0-0.01) Immature Gran % 0.2 % % (0.0-1.1) Immature Gran # 0.02 10^3/uL 10^3/uL (0.00-0.10) Sodium 138 mEq/L mEq/L (135-145) Potassium 4.2 mEq/L mEq/L (3.3-5.0) Chloride 100 mEq/L mEq/L (97-110) Carbon Dioxide 34 mEq/l H mEq/l (22-31) Anion Gap 4 mEq/L L mEq/L (8-16) BUN 11 mg/dL mg/dL (7-23) Creatinine 0.9 mg/dL mg/dL (0.7-1.3) Estimated GFR > 60 Glucose 94 mg/dL mg/dL (70-100) Calcium 8.7 mg/dL mg/dL (8.5-10.4) Total Bilirubin 0.9 mg/dL mg/dL (0.1-1.4) Conjugated Bilirubin 0.1 mg/dL mg/dL (0.0-0.5) Unconjugated Bilirubin 0.8 mg/dL mg/dL (0.0-1.1) AST 32 IU/L IU/L (17-59) ALT 32 IU/L IU/L (21-72) Alkaline Phosphatase 71 IU/L IU/L (38-126) Total Protein 6.1 g/dL L g/dL (6.3-8.2) Albumin 3.4 g/dL L g/dL (3.5-5.0) Lipase 89 IU/L IU/L (23-300) Urine Color YELLOW Urine Appearance CLEAR Urine pH 7.0 (5.0-7.5) Ur Specific [place] 1.011 (1.002-1.030) Urine Protein NEGATIVE (NEGATIVE) Urine Ketones NEGATIVE (NEGATIVE) Urine Blood NEGATIVE (NEGATIVE) Urine Nitrate NEGATIVE (NEGATIVE) Urine Bilirubin NEGATIVE (NEGATIVE) Urine Urobilinogen NEGATIVE EU EU (0.2-1.0) Ur Leukocyte Esterase NEGATIVE (NEGATIVE) Urine Glucose NEGATIVE (NEGATIVE) 10/11/18 00:05 WBC REJ RBC REJ Hgb REJ Hct REJ MCV REJ MCH REJ MCHC REJ RDW REJ Plt Count REJ MPV REJ Neut % (Auto) REJ Lymph % (Auto) REJ Larue % (Auto) REJ Eos % (Auto) REJ Baso % (Auto) REJ Nucleat RBC Rel Count REJ Absolute Neuts (auto) REJ Absolute Lymphs (auto) REJ Absolute Monos (auto) REJ Absolute Eos (auto) REJ Absolute Basos (auto) REJ Absolute Nucleated RBC REJ Immature Gran % REJ Immature Gran # REJ Sodium Potassium Chloride Carbon Dioxide Anion Gap BUN Creatinine Estimated GFR Glucose Calcium Total Bilirubin Conjugated Bilirubin Unconjugated Bilirubin AST ALT Alkaline Phosphatase Total Protein Albumin Lipase Urine Color Urine Appearance Urine pH Ur Specific [place] Urine Protein Urine Ketones Urine Blood Urine Nitrate Urine Bilirubin Urine Urobilinogen Ur Leukocyte Esterase Urine Glucose Medications Given: Discontinued Medications Ketorolac Tromethamine (Toradol) 15 mg IVP EDNOW ONE Stop: 01/30/18 01:29 Last Admin: 01/30/18 01:31 Dose: 15 mg Departure - Departure Disposition: Home, Routine, Self-Care Clinical Impression: Acute right flank pain, Homeless COPD (chronic obstructive pulmonary disease) Qualifiers: COPD type: emphysema Emphysema type: unspecified Qualified Code(s): J43.9 - Emphysema, unspecified Hepatitis C Qualifiers: Viral hepatitis chronicity: chronic Hepatic coma status: without hepatic coma Qualified Code(s): B18.2 - Chronic viral hepatitis C Condition: Good Instructions: Flank Pain (ED) Additional Instructions: Please return to the emergency department if your worse in any way. Referrals: NONE *PRIMARY CARE P,. [Primary Care Provider] - As per Instructions
[2018-01-30 01:24] LABS: PLATELET COUNT 146 10^3/uL (150-400)
[2018-01-30] MEDS ORDERED: KETOROLAC 15 MG/1 ML SDV IVP ONE (01:28)
[2018-01-30 01:35] VITALS: BP 116/79
[2018-01-30] MEDS ORDERED: ALBUTEROL INH PREPACK MDI TAKEHOME ONE ×2 (02:07)
== END 2018-01-30 02:08 | disposition home or self-care (01) ==
LOC: EDUNIT#
DX: R10.31 Right lower quadrant pain (principal); J44.9 Chronic obstructive pulmonary disease, unspecified; B19.20 Unspecified viral hepatitis C without hepatic coma; Z59.0 Homelessness
CPT/HCPCS: J1885

== ENCOUNTER 2018-03-13 18:28 | Observation (INO) | payer MEDICAID ==
--- NOTE | 2018-03-13 18:40 | EDPHY ---
HPI/HX/ROS/PE/MDM Narrative: CHIEF COMPLAINT: "Hard to breath" HISTORY OF PRESENT ILLNESS: The patient is a 57 y/o male with a history of COPD and Hepatitis C complaining that it's "hard to breath". He has been seen in this emergency department numerous times for a similar complaint. He is known to have significant COPD and should be on home oxygen. However, given his social situation, this has not been possible. For the [facility] and was on supplemental oxygen, nebulizer inhalers, and Prednisone while there. Yesterday at 3pm he was released from [facility] and subsequently started to feel like he "can' t get any air". Today he has been coughing up "green yellow chunks that feel like pus". He last smoke cigarettes 30 days ago and last used IV drugs 3 months ago. No fever, chills, chest pain, palpitations, vomiting, diarrhea, urinary complaints, headache, lightheadedness. REVIEW OF SYSTEMS: Aside from elements discussed in the HPI, a comprehensive 10-system review of systems was reviewed and is negative. PAST MEDICAL HISTORY: COPD, hepatitis C, DVT, cellulitis SOCIAL HISTORY: Transient, single, not employed VITAL SIGNS: Reviewed by me GENERAL: Well-developed, well-nourished. HEENT: Atraumatic. Eyes: No icterus, no injection. Mouth: moist mucous membranes. No erythema or lesions. Neck: supple with no adenopathy. LUNGS: Accessory muscle use, wheezes throughout. No rhonchi or rales. CARDIAC: Regular rate and rhythm, no rubs, murmurs or gallops. ABDOMEN: Soft, nontender, nondistended, bowel sounds normal. BACK: No CVA tenderness. EXTREMITIES: No trauma. No edema. Range of motion is normal throughout. NEURO: Alert and oriented, grossly nonfocal. SKIN: Warm and dry, no rash. PSYCHIATRIC: Normal mentation, no agitation. Portions of this note were transcribed by a certified medical coding specialist. I personally performed a history, physical exam, medical decision making, and confirmed accuracy of information the transcribed note. ED Course: The patient is a 57 y/o male with a history of COPD and Hepatitis C stating that it's "hard to breath". He has been seen in this emergency department numerous times for a similar complaint. He denies using his nebulizer inhaler, Prednisone or supplemental oxygen since being [facility]. On exam he has wheezes throughout and accessory muscle use. His O2Sats are 90%. This is his baseline as he is noncompliant with his medications. Chest x-ray ordered; 2 albuterol inhalers, DuoNeb 1L IV NS, and 60mg PO Prednisone administered. 1923: Reassessed patient after he received medication. He states he feels mildly better, but his O2Sats are now as low as 85%. He continues to have diffuse wheezes throughout and poor air movement. I discussed his chest x-ray which revealed bronchitis. He is requesting to be admitted for a 24 hour observation, which is not at all in reasonable given his significant ongoing wheezing and now hypoxemia. Patient will be placed on azithromycin for bronchitis. 1943: I consulted with Dr. Vásquez, hospitalist, regarding this patient. He agrees to admit this patient for further observation. MDM: Differential diagnosis for the patient's shortness of breath was considered including but not limited to pulmonary infectious processes, COPD exacerbation, pulmonary emboli, pulmonary edema, congestive heart failure, and cardiac causes. - Data Points Imaging Results: Imaging Impressions Chest X-Ray 03/13/18 18:49 Impression: Underlying COPD, without acute abnormality.. Imaging: I viewed and interpreted images myself Medications Given: Albuterol/Ipratropium (Duoneb) 3 ml IH QID BRAYDEN Stop: 09/09/18 20:59 Last Admin: 03/13/18 23:06 Dose: Not Given Promethazine HCl/Codeine (Phenergan W/ Codeine) 5 ml PO Q6HRS PRN PRN Reason: Cough, Moderate Stop: 09/09/18 21:17 Last Admin: 03/13/18 22:02 Dose: 5 ml Discontinued Medications Albuterol (Proventil Neb) 3 ml IH EDNOW ONE Stop: 03/13/18 18:49 Last Admin: 03/13/18 18:54 Dose: 3 ml Albuterol (Proventil Neb) 3 ml IH EDNOW ONE Stop: 03/13/18 18:49 Last Admin: 03/13/18 18:51 Dose: Not Given Albuterol (Proventil Neb) 3 ml IH EDNOW ONE Stop: 03/13/18 19:30 Last Admin: 03/13/18 19:55 Dose: 3 ml Albuterol/Ipratropium (Duoneb) 3 ml IH EDNOW ONE Stop: 03/13/18 18:49 Last Admin: 03/13/18 18:54 Dose: 3 ml Albuterol/Ipratropium (Duoneb) 3 ml IH EDNOW ONE Stop: 03/13/18 18:50 Last Admin: 03/13/18 18:51 Dose: Not Given Azithromycin (Zithromax) 500 mg PO EDNOW ONE PRN Reason: Protocol Stop: 03/13/18 19:40 Last Admin: 03/13/18 19:57 Dose: 500 mg Sodium Chloride (Ns) 1,000 mls @ 0 mls/hr IV ONCE ONE; Wide Open PRN Reason: Protocol Stop: 03/13/18 18:49 Last Admin: 03/13/18 18:51 Dose: Not Given Prednisone (Prednisone) 60 mg PO EDNOW ONE Stop: 03/13/18 18:49 Last Admin: 03/13/18 18:54 Dose: 60 mg General Time Seen by Provider: 03/13/18 18:38 Initial Vital Signs: Initial Vital Signs Heart Rate 82 03/13/18 18:32 Respiratory Rate 22 H 03/13/18 18:32 Blood Pressure 130/82 H 03/13/18 18:32 O2 Sat (%) 91 L 03/13/18 18:32 O2 Delivery Mode Nasal Cannula O2 (L/minute) 2 Allergies/Adverse Reactions: acetaminophen [Acetaminophen] Allergy (Severe, Verified 03/13/18 18:35) heparin Allergy (Unknown, Verified 03/13/18 18:35) Heparin Analogues Allergy (Unknown, Verified 03/13/18 18:35) propoxyphene HCl [From Darvon] Allergy (Unknown, Verified 03/13/18 18:35) amoxicillin [Amoxicillin] Allergy (Verified 03/13/18 18:35) Other-Enter Comments aspirin [Aspirin] Allergy (Verified 03/13/18 18:35) Iodinated Contrast- Oral and IV Dye [Iodinated Contrast Media - Oral and] Allergy (Verified 03/13/18 18:35) Other-Enter Comments Home Medications: Medication Instructions Recorded NK [No Known Home Meds] 03/13/18 Departure - Departure Disposition: [facility] Clinical Impression: Bronchitis, COPD exacerbation, Hypoxia Condition: Good Report Scribed for: Mercedes Marcos Report Scribed by: Lian Nevarez Date of Report: 03/13/18 Time of Report: 18:40
[2018-03-13] MEDS ORDERED: ALBUTEROL 3 ML DEYVIAL IH ONE ×3 (18:48→19:29)
[2018-03-13] MEDS ORDERED: predniSONE 20 MG TAB PO ONE (18:48)
[2018-03-13] MEDS ORDERED: NS 1,000 ML IV ONE (18:48)
[2018-03-13] MEDS ORDERED: IPRATROPIUM/ALBUTEROL 3 ML DEYVIAL IH ONE ×2 (18:48→18:49)
[2018-03-13] MEDS ORDERED: AZITHROMYCIN 250 MG TAB PO ONE (19:39)
[2018-03-13] MEDS ORDERED: ONDANSETRON 4 MG/2 ML VIAL IVP PRN (20:32)
[2018-03-13] MEDS ORDERED: ONDANSETRON DISINTEGRATING 4 MG TAB PO PRN (20:32)
[2018-03-13 20:47] LABS: PLATELET COUNT 91 10^3/uL (150-400)
--- NOTE | 2018-03-13 21:30 | GHP ---
DATE OF ADMISSION: 03/13/2018 CHIEF COMPLAINT: Short of breath. HISTORY OF PRESENT ILLNESS: This is a 57-year-old homeless man with COPD and multiple emergency room visits this year who presents with shortness of breath. He had been incarcerated for the last 30 da ys, was just released yesterday. There he was receiving oxygen as well as inhaler treatments. He wa s not discharged with any medications. He got very short of breath. Did not have any fevers. He castro s been coughing up some purulent sputum. He thus presents to the emergency department for further wo rkup. PAST MEDICAL/SURGICAL HISTORY: 1. COPD. 2. Chronic pain. 3. Questionable schizophrenia. 4. Hepatitis C. 5. History of tooth extraction. 6. Bronchoscopy. 7. Thoracentesis. MEDICATIONS: Please see medication reconciliation. ALLERGIES: Acetaminophen, heparin, Darvon, amoxicillin, aspirin, iodinated contrast. FAMILY HISTORY: Reviewed and noncontributory. SOCIAL HISTORY: He continues to smoke. REVIEW OF SYSTEMS: A 10-point review of systems is conducted and is negative except per HPI. PHYSICAL EXAM: VITAL SIGNS: Blood pressure 115/63, heart rate 71, respiration rate 18, saturating 8 4% on room air. GENERAL: The patient is a pleasant man who appears somewhat dyspneic, in mild respi ratory distress. HEENT: Normocephalic, atraumatic. CARDIOVASCULAR: Regular rate and rhythm. No mu rmurs, rubs, or gallops. PULMONARY: Diffuse wheezes as well as rhonchi. He is in some respiratory distress. ABDOMEN: Soft, nontender, nondistended. SKIN: Shows no rash. : No Pro. NEUROLOGI C: Alert and oriented x3. He is moving all extremities. PSYCHIATRIC: Normal mood and affect. LABS: Labs are currently pending. I reviewed them from his last hospitalization. He has notably no rmal renal function. He had an elevated bicarb. DATA: 1. Discussed with Dr. Marcos. Will admit to Med/Surg. 2. I personally viewed and interpreted his chest x-ray. This shows no acute infiltrates. He has hy perexpanded lungs bilaterally. IMPRESSION/PLAN: 1. Chronic obstructive pulmonary disease with acute exacerbation: Likely due to running out of his inhalers. I do not see any pneumonia on his x-ray. We will treat him with prednisone as well as faustino thromycin and nebulizers. 2. Acute hypoxic respiratory failure due to the above: He was visibly dyspneic with an abnormal aus cultation. 3. Homelessness: Certainly complicates his overall care. He has had difficulty demonstrating that he can successfully establish outpatient care in the past. Would appreciate case management assistjavier oliver. 4. Tobacco use: Cessation counseled. 5. Venous thromboembolism risk: He is moderate to high risk. However, he has an allergy to heparin . We will place him on sequential compression devices. /[id number]/MODL
[2018-03-13] MEDS: CODEINE/PROMETHAZINE 5 ML UDL PO PRN (22:02)
[2018-03-13] MEDS: IPRATROPIUM/ALBUTEROL 3 ML DEYVIAL IH SCH (23:06)
[2018-03-14] MEDS: CYCLOBENZAPRINE 10 MG TAB PO PRN ×2 (03:05→10:09)
[2018-03-14] MEDS: IPRATROPIUM/ALBUTEROL 3 ML DEYVIAL IH SCH ×2 (05:26→11:06)
[2018-03-14 06:27] LABS: PLATELET COUNT 56 10^3/uL (150-400)
[2018-03-14] MEDS: CODEINE/PROMETHAZINE 5 ML UDL PO PRN (08:51)
[2018-03-14] MEDS ORDERED: predniSONE 20 MG TAB PO SCH (09:00)
[2018-03-14] MEDS ORDERED: AZITHROMYCIN 250 MG TAB PO SCH (09:00)
--- NOTE | 2018-03-14 10:18 | ASMTCMCOM ---
CM Note CM Note Notes: Met with pt, he was recently released from long-term. He is homeless, he refuses to stay at any kind of [facility]. Pt exhibiting racing paranoid thought process. Will dc to street when medically stable. DC Plan: Independent Date Signed: 03/14/2018 10:17 AM Electronically Signed By:Angela Sharp RN
[2018-03-14 12:01] VITALS: BP 146/83
--- NOTE | 2018-03-14 12:05 | HOSPPROG ---
Hospitalist Progress Note Assessment/Plan: Mr Goldstein presented to the ER w Shortness of breath, was recently incarcerated and dc. First encounter, chart reviewed. * Chronic obstructive pulmonary disease with acute exacerbation - Likely due to running out of his inhalers - no pneumonia on his x-ray. - treat him with prednisone, azithromycin and nebulizers. * Acute hypoxic respiratory failure due to the above * Homelessness * Tobacco use: Cessation counseled. *plan:dc today, he was getting more anxious and stressed being in the hospital, scripts were given to him along w a bus pass. Subjective: talat was very upset seeing the security sergeant, said his breathing is better. Objective: Vital Signs Temp Pulse Resp BP Pulse Ox 36.8 C 102 H 16 146/83 H 88 L 03/14/18 11:59 03/14/18 11:59 03/14/18 11:59 03/14/18 11:59 03/14/18 11:59 Microbiology 03/14/18 00:20 Respiratory Panel (PCR) - Final Nasal, Sinus - Swab No Organism Detected By Pcr Laboratory Results 03/14/18 06:19 03/14/18 04:57 - Physical Exam Constitutional: chronically ill appearing, unkempt, other (thin) Eyes: PERRL Ears, Nose, Mouth, Throat: hearing normal Cardiovascular: regular rate and rhythym Respiratory: reduced air movement, expiratory wheeze Skin: warm Musculoskeletal: full muscle strength Neurologic: AAOx3 Psychiatric: anxious, agitated, poor insight ICD10 Worksheet Patient Problems: Problems Problem Status Onset Acute bronchitis Acute Bronchitis Acute COPD (chronic obstructive pulmonary disease) Acute COPD exacerbation Acute COPD exacerbation Acute Cellulitis Acute Chronic obstructive pulmonary disease with acute exacerbation Acute Dyspnea Acute Facial abscess Acute HCAP (healthcare-associated pneumonia) Acute Hypoxemia Acute Hypoxia Acute Pneumonia Acute Pneumonia Acute Sepsis Acute Shortness of breath Acute
--- NOTE | 2018-03-14 15:24 | GDS ---
DISCHARGE DIAGNOSES: 1. Chronic obstructive pulmonary disease exacerbation. 2. Acute hypoxemic respiratory failure. 3. Homelessness. 4. Nicotine dependence. HISTORY OF PRESENT ILLNESS: Briefly, the patient is a gentleman who presents to our ER frequently. He was recently incarcerated and discharged. He said he did not have all his medications. He came t o the emergency room because he was very short of breath. Today, he got very anxious about seeing a security intern. He has had issues with authority. He wanted to be discharged quickly. Overall, he was quite stable and will get his prescriptions filled at [facility]. HOSPITAL COURSE BY PROBLEM: 1. Chronic obstructive pulmonary disease with acute exacerbation. This is likely due to running out of his inhalers. I gave him a prescription of this. We will continue him on prednisone and nebuliz er. 2. Acute hypoxemic respiratory failure. Oxygen levels on room air were 88% to 90%. 3. Homelessness. He says he cannot go to the nursing home. 4. Tobacco use. Cessation was recommended. DISCHARGE CONDITION: Stable. Blood pressure 146/83, heart rate of 102, respiratory rate of 16, O2 s ats on room air 88%, temperature is 36.8 Celsius. MEDICATIONS AT DISCHARGE: Please see EMR. DISCHARGE INSTRUCTIONS: 1. Take the prednisone as instructed. 2. If he develops fever, chills, worsening shortness of breath, return to the ER. /[id number]/MODL
== END 2018-03-14 13:35 | disposition home or self-care (01) ==
LOC: F3E 21:05
PROVIDERS: ADMIT Student in an Organized Health Care Education/Training Program; ATTEND Student in an Organized Health Care Education/Training Program
DX: J44.1 Chronic obstructive pulmonary disease with (acute) exacerbation (principal); J96.01 Acute respiratory failure with hypoxia; Z59.0 Homelessness; Z72.0 Tobacco use
CPT/HCPCS: 71046; G0378; J7512; J7613

== ENCOUNTER 2018-03-24 11:44 | Emergency (ER) | payer MEDICAID ==
--- NOTE | 2018-03-24 12:45 | EDPHY ---
General - History Smoking Status: Current some day smoker Time Seen by Provider: 03/24/18 12:38 Narrative: CHIEF COMPLAINT: Chest pain, shortness of breath, cough HISTORY OF PRESENT ILLNESS: Patient presents with complaints of chest pain, shortness of breath, "pain all over my body." Patient seems very agitated and conversing with me in a very belligerent disrespectful manner. He is yelling at me stating that we have not done anything for his previous pain. He says that his chest pain has been present for several years but has worsened over the past 2 days. He a shortness of breath and cough of worsened over the past few days. He says that he is homeless and not living the shelters because he is not welcome there. He was discharged from this facility on March 14 with prescription for prednisone but has not been taking it. He also has not been taking the nebulized they prescribed as he does not have a nebulizer. He will not describe any modifying factors or quantify his symptoms for me. He will not answer my questions regarding his tobacco use. No other associated complaints or modifying factors obtainable. REVIEW OF SYSTEMS: 10 systems were reviewed and negative with the exception of the elements mentioned in the history of present illness. PCP: [facility] SPECIALISTS: Denies PAST MEDICAL HISTORY: COPD, chronic pain, rheumatoid arthritis, hepatitis-C, C diff infection, substance abuse, migraines, PTSD PAST SURGICAL HISTORY: Denies any recent surgeries SOCIAL HISTORY: Currently homeless. Will not answer my questions regarding his tobacco use FAMILY HISTORY: Noncontributory EXAMINATION: Vitals: Triage VS reviewed. Mild hypoxemia on room air, 88%. General Appearance: Alert, no distress. Ambulatory and well-appearing. Head: normocephalic, atraumatic Eyes: Pupils equal and round, no conjunctival pallor or injection ENT, Mouth: Mucous membranes moist. Very poor dentition with multiple dental caries. Neck: Normal inspection, supple, non-tender Respiratory: Scattered harsh rhonchi with mild expiratory wheezes. No retractions or distress. No diminishment. No consolidation. Cardiovascular: Regular rate and rhythm. No murmur. Gastrointestinal: Abdomen is soft and nontender Back: non-tender, no bony abnormalities Neurological: A&O, nonfocal, normal gait Skin: Warm and dry, no rash Extremities: Nontender, no pedal edema Psychiatric: Agitated. DIFFERENTIAL DIAGNOSES: Including but not limited to COPD exacerbation, pneumonia, bronchitis, ACS, PE, bronchiolitis, bronchiectasis MDM: 12:40 p.m. Worsening shortness of breath and chest pain from his chronic levels of both. The patient is very agitated and belligerent with me. He is threatening to keep coming back to the emergency department until we find him home to live in. He is not very cooperative with my history examination. He does not appear to be in any acute distress. Vital signs are within normal limits with very mild hypoxemia on room air, 88%. His work of breathing is nonlabored. He does have harsh scattered rhonchi with mild expiratory wheezing. I feel that all the symptoms are pulmonary in etiology. I have ordered chest x-ray. He is in no acute distress. 1:50 p.m. Chest x-ray is unremarkable for any acute findings. 2:15 p.m. Case discussed with Dr. Quesada. Patient re-evaluated. He remains belligerent and agitated. He is yelling at me to find him a place to live. I discussed that there is no other emergent scenario that warrants further workup in the emergency department. He will be discharged with albuterol inhaler in hand. We discussed ED precautions. He voices dissatisfaction for this. He remains well-appearing and ambulatory. He is in no acute distress. He is discharged stable condition. SUPERVISION: Patient was evaluated and examined in conjunction with my secondary supervising physician as documented. We have both examined the patient. CONSULTATION: None (Srinivas Ortiz) Medical Decision Making: PHYSICIAN DOCUMENTATION: The patient was evaluated and managed by the Physician Police Stenographer. My co- signature indicates that I have reviewed this chart and I agree with the findings and plan of care as documented. I am the secondary supervising physician. (Gideon Quesada) - Diagnostics Imaging Results: Imaging Impressions Chest X-Ray 03/24/18 12:46 Impression: Stable chest.. - Objective Vital Signs: Initial Vital Signs Temperature (C) 36.4 C 03/24/18 11:52 Heart Rate 89 03/24/18 11:52 Respiratory Rate 20 03/24/18 11:52 Blood Pressure 100/79 03/24/18 11:52 O2 Sat (%) 88 L 03/24/18 11:52 O2 Delivery Mode Room Air Allergies/Adverse Reactions: acetaminophen [Acetaminophen] Allergy (Severe, Verified 03/24/18 11:55) heparin Allergy (Unknown, Verified 03/24/18 11:55) Heparin Analogues Allergy (Unknown, Verified 03/24/18 11:55) propoxyphene HCl [From Darvon] Allergy (Unknown, Verified 03/24/18 11:55) amoxicillin [Amoxicillin] Allergy (Verified 03/24/18 11:55) Other-Enter Comments aspirin [Aspirin] Allergy (Verified 03/24/18 11:55) Iodinated Contrast- Oral and IV Dye [Iodinated Contrast Media - Oral and] Allergy (Verified 03/24/18 11:55) Other-Enter Comments Home Medications: Medication Instructions Recorded Ipratropium/Albuterol [Duoneb (*)] 3 ml IH QID #1 deyvial 03/14/18 Medications Given: Discontinued Medications Albuterol/Ipratropium (Duoneb) 6 ml IH EDNOW ONE Stop: 03/24/18 12:52 Last Admin: 03/24/18 13:09 Dose: 6 ml Prednisone (Prednisone) 60 mg PO EDNOW ONE Stop: 03/24/18 13:08 Last Admin: 03/24/18 13:09 Dose: 60 mg Departure - Departure Disposition: Home, Routine, Self-Care Clinical Impression: COPD exacerbation Condition: Good Instructions: Albuterol (By breathing), COPD (Chronic Obstructive Pulmonary Disease) (ED) Additional Instructions: 1. Albuterol inhaler as needed 2. Follow up with primary care physician on-call. Referrals: Alton Garcia DO [Doctor of Osteopathy] - As per Instructions
[2018-03-24] MEDS ORDERED: methylPREDNISolone SOD SUCC 125 MG/2 ML VIAL IVP ONE (12:51)
[2018-03-24] MEDS ORDERED: IPRATROPIUM/ALBUTEROL 3 ML DEYVIAL IH ONE (12:51)
[2018-03-24] MEDS ORDERED: predniSONE 20 MG TAB PO ONE (13:07)
[2018-03-24] MEDS ORDERED: predniSONE 20 MG TAB ONE (13:08)
[2018-03-24 13:54] VITALS: BP 138/72
[2018-03-24] MEDS ORDERED: ALBUTEROL INH PREPACK MDI TAKEHOME ONE (14:18)
== END 2018-03-24 14:30 | disposition home or self-care (01) ==
LOC: EEVIPCON 11:44
DX: J44.1 Chronic obstructive pulmonary disease with (acute) exacerbation (principal); Z59.0 Homelessness
CPT/HCPCS: J7512

== ENCOUNTER 2018-03-26 04:17 | Emergency (ER) | payer MEDICAID ==
[2018-03-26] MEDS ORDERED: predniSONE 20 MG TAB PO ONE (04:25)
--- NOTE | 2018-03-26 04:32 | EDPHY ---
H & P Stated Complaint: asthma exacerbation, out of inhaler Time Seen by Provider: 03/26/18 04:19 HPI/ROS: HPI The patient presents brought in by ambulance for wheezing and shortness of breath for the last 2 days, thought to be related to COPD exacerbation. The patient says that he was using an albuterol inhaler which was helping him, however it stopped helping yesterday and he developed increasing wheezing, shortness of breath, cough. Symptoms are moderate currently. He is brought in by ambulance and received a DuoNeb treatment with improvement in his symptoms. He refused IV placement. He has been in the emergency department on March 24 and about 1 week ago. Prior to this, he was incarcerated and on supplemental oxygen and was receiving nebulizer treatments. [place] [address] He has not filled any of his prescriptions for prednisone that he has received. He has an albuterol inhaler as his only medication for COPD. He is not smoking cigarettes currently though is around a lot of cigarette smokers.. REVIEW OF SYSTEMS 10 systems were reviewed and negative with the exception of the elements mentioned in the history of present illness. PMHx: COPD, hepatitis-C Soc Hx: Recently incarcerated, homeless, on the street PHYSICAL General Appearance: Alert, no distress Eyes: Pupils equal and round no pallor or injection ENT, Mouth: Mucous membranes moist Respiratory: He is slightly tachypneic, occasionally purse lipped breathing, speaking full sentences, no retractions, diminished breath sounds with expiratory wheeze present Cardiovascular: Regular rate and rhythm Gastrointestinal: Abdomen is soft and non-tender, no masses, bowel sounds normal Neurological: A&O, moves all extremities Skin: Warm and dry, no rashes Musculoskeletal: Neck is supple non tender Extremities: symmetrical, full range of motion Psychiatric: Patient is oriented X 3, there is no agitation Source: Patient Exam Limitations: No limitations - Personal History Current Tetanus/Diphtheria Vaccine: Yes Tetanus Vaccine Date: 2015 - Medical/Surgical History Hx Asthma: Yes Hx Chronic Respiratory Disease: Yes Hx Diabetes: No Hx Cardiac Disease: No Hx Renal Disease: No Hx Cirrhosis: Yes Hx Alcoholism: No Hx HIV/AIDS: No Hx Splenectomy or Spleen Trauma: Yes Other PMH: CHRONIC PAIN, RA, COPD/ASTHMA, HEPATITIS (B,C,D,E,F), C-DIFF, wears home O2(non compliant),"self medicates for pain," HEROIN ABUSE/IVDA, C diff. DENTAL CARIES, MIGRAINES, PTSD, "broken back", "broken neck", FLU X2 YRS, Pneum (November 05), POSS SCHIZOPHRENIA - Social History Smoking Status: Current some day smoker Constitutional: Initial Vital Signs Temperature (C) 36.4 C 03/26/18 04:19 Heart Rate 66 03/26/18 04:19 Respiratory Rate 24 H 03/26/18 04:19 Blood Pressure 139/84 H 03/26/18 04:19 O2 Sat (%) 92 03/26/18 04:19 O2 Delivery Mode Room Air Allergies/Adverse Reactions: acetaminophen [Acetaminophen] Allergy (Severe, Verified 03/26/18 04:22) heparin Allergy (Unknown, Verified 03/26/18 04:22) Heparin Analogues Allergy (Unknown, Verified 03/26/18 04:22) propoxyphene HCl [From Darvon] Allergy (Unknown, Verified 03/26/18 04:22) amoxicillin [Amoxicillin] Allergy (Verified 03/26/18 04:22) Other-Enter Comments aspirin [Aspirin] Allergy (Verified 03/26/18 04:22) Iodinated Contrast- Oral and IV Dye [Iodinated Contrast Media - Oral and] Allergy (Verified 03/26/18 04:22) Other-Enter Comments Home Medications: Medication Instructions Recorded Ipratropium/Albuterol [Duoneb (*)] 3 ml IH QID #1 deyvial 03/14/18 predniSONE 40 mg PO DAILY 4 Days tab 03/26/18 Medical Decision Making - Diagnostics Imaging Results: Chest x-ray demonstrates peribronchial thickening, interpreted by me, radiology interpretation is pending. Imaging: I viewed and interpreted images myself Differential Diagnosis: 57-year-old male with history of COPD, hepatitis-C, homelessness presents brought in by ambulance for progressive shortness of breath, wheeze, cough. On exam, oxygen saturations are normal currently, he does have diminished breath sounds and wheezing present. It seems that he is supposed to have supplemental oxygen, however due to his lifestyle this is not the case. I suspect he has a COPD exacerbation though of considered pneumonia or bronchitis as well. The patient was given prednisone here and albuterol. He was observed for several hours and slept with fairly normal oxygen saturations at about 90%. He was in no respiratory distress. Eventually, he felt well enough to go home and was discharged. I have provided him with a prescription for prednisone with pills that he can take home. He was also given an albuterol inhaler to take home. - Data Points Medications Given: Discontinued Medications Prednisone (Prednisone) 40 mg PO EDNOW ONE Stop: 03/26/18 04:26 Last Admin: 03/26/18 04:29 Dose: 40 mg Departure - Departure Disposition: Home, Routine, Self-Care Clinical Impression: COPD exacerbation Condition: Good Instructions: Albuterol (By breathing), Prednisone (By mouth), COPD (Chronic Obstructive Pulmonary Disease) (ED) Additional Instructions: Please use 1-2 puffs of the albuterol every 2-4 hours as needed for shortness of breath. Referrals: [facility],. [Clinic] - As per Instructions Prescriptions: predniSONE 40 mg PO DAILY 4 Days tab
[2018-03-26] MEDS ORDERED: ALBUTEROL INH PREPACK MDI TAKEHOME ONE (06:02)
[2018-03-26 06:12] VITALS: BP 116/74
== END 2018-03-26 06:11 | disposition home or self-care (01) ==
LOC: EDUNIT#
DX: J44.1 Chronic obstructive pulmonary disease with (acute) exacerbation (principal); Z91.14 Patient's other noncompliance with medication regimen; Z79.51 Long term (current) use of inhaled steroids; Z88.0 Allergy status to penicillin; Z59.0 Homelessness
CPT/HCPCS: J7512

== ENCOUNTER 2018-03-30 21:21 | Emergency (ER) | payer MEDICAID ==
--- NOTE | 2018-03-30 21:45 | EDPHY ---
H & P Time Seen by Provider: 03/30/18 21:38 HPI/ROS: CHIEF COMPLAINT: Shortness of breath HISTORY OF PRESENT ILLNESS: Patient is a 57-year-old male presents emergency department with shortness of breath. Patient has frequent visits for the emergency department for similar symptoms. Patient was last seen on 03/26/2018. At that time he had an x-ray which did not show focal infiltrate. He was given prednisone x4 days. Patient states that he has had worsening shortness of breath over the past couple of days. He states he did was not given enough prednisone to make it better. Patient denies chest pain. No new leg pain or swelling. No fevers or chills. REVIEW OF SYSTEMS: 10 systems were reveiwed and are negative with the exception of the elements mentioned in the history of present illness. Past Medical/Surgical History: Includes COPD, hepatitis-C Social history: The patient is homeless Smoking Status: Current some day smoker Physical Exam: Vitals noted. 36.7, 127/99, 106, 32, 88% on room air. When I went checked on the patient his oxygen saturation was 94% on room air. GENERAL: Mild increased work of breathing, alert. HEENT: Eyes normal to inspection, normal pharynx, no signs of dehydration. NECK: Normal, supple. RESPIRATORY: Scattered wheezing. No rales or rhonchi. CVS: Regular rate and rhythm, no rubs, murmurs, or gallops. ABDOMEN: Soft, nontender, nondistended, no organomegaly. BACK: Normal to inspection, no CVA tenderness. SKIN: Normal color, no rash, warm, dry. No pallor. EXTREMITIES: No pedal edema, no calf tenderness, no Homans sign or cords, no joint swelling. NEURO/PSYCH: Alert and oriented, normal mood and affect, normal motor sensory exam. Constitutional: Initial Vital Signs Temperature (C) 36.7 C 03/30/18 21:28 Heart Rate 106 H 03/30/18 21:28 Respiratory Rate 32 H 03/30/18 21:28 Blood Pressure 127/99 H 03/30/18 21:28 O2 Sat (%) 95 03/30/18 21:28 O2 Delivery Mode Room Air O2 (L/minute) 6 Allergies/Adverse Reactions: acetaminophen [Acetaminophen] Allergy (Severe, Verified 03/30/18 21:24) heparin Allergy (Unknown, Verified 03/30/18 21:24) Heparin Analogues Allergy (Unknown, Verified 03/30/18 21:24) propoxyphene HCl [From Darvon] Allergy (Unknown, Verified 03/30/18 21:24) amoxicillin [Amoxicillin] Allergy (Verified 03/30/18 21:24) Other-Enter Comments aspirin [Aspirin] Allergy (Verified 03/30/18 21:24) Iodinated Contrast- Oral and IV Dye [Iodinated Contrast Media - Oral and] Allergy (Verified 03/30/18 21:24) Other-Enter Comments Home Medications: Medication Instructions Recorded Ipratropium/Albuterol [Duoneb (*)] 3 ml IH QID #1 deyvial 03/14/18 predniSONE 40 mg PO DAILY 4 Days tab 03/26/18 predniSONE 40 mg PO DAILY 4 Days tab 03/30/18 Medical Decision Making ED Course/Re-evaluation: In the emergency department I discussed possible etiologies with the patient. I answered all his questions. I reviewed the patient's previous record. This is 24th visit recently. Patient was last seen on 03/26/2018. Patient was given prednisone 60 mg orally. Patient was given a DuoNeb treatment. Patient states he does not have his MDI. I spoke with the nurse who cared for him on his previous visit. He was given his prednisone prescription as well as an MDI at discharge. The patient has been here numerous times. I do not feel the patient needs repeat laboratory studies are chest x-ray. Patient will be discharged from the emergency department. Patient is stable Differential Diagnosis: My differential includes but is not limited to COPD exacerbation, and pneumonia , bronchitis, empyema, ACS, acute ID - Data Points Medications Given: Discontinued Medications Albuterol/Ipratropium (Duoneb) 3 ml IH EDNOW ONE Stop: 03/30/18 21:48 Last Admin: 03/30/18 21:53 Dose: 3 ml Prednisone (Prednisone) 60 mg PO EDNOW ONE Stop: 03/30/18 21:48 Last Admin: 03/30/18 21:53 Dose: 60 mg Departure - Departure Disposition: Home, Routine, Self-Care Clinical Impression: COPD (chronic obstructive pulmonary disease) Qualifiers: COPD type: COPD with acute exacerbation Qualified Code(s): J44.1 - Chronic obstructive pulmonary disease with (acute) exacerbation Condition: Good Instructions: COPD (Chronic Obstructive Pulmonary Disease) (ED) Additional Instructions: Return with increasing shortness of breath or any other concerns. Referrals: [facility],. [Clinic] - 5-7 days, call for appt. Prescriptions: predniSONE 40 mg PO DAILY 4 Days tab
[2018-03-30] MEDS ORDERED: IPRATROPIUM/ALBUTEROL 3 ML DEYVIAL IH ONE (21:47)
[2018-03-30] MEDS ORDERED: predniSONE 20 MG TAB PO ONE (21:47)
[2018-03-30] MEDS ORDERED: ALBUTEROL INH PREPACK MDI TAKEHOME ONE ×2 (22:10)
[2018-03-30 22:15] VITALS: BP 112/80
== END 2018-03-30 22:15 | disposition home or self-care (01) ==
DX: J44.1 Chronic obstructive pulmonary disease with (acute) exacerbation (principal); F17.200 Nicotine dependence, unspecified, uncomplicated
CPT/HCPCS: J7512

== ENCOUNTER 2018-04-02 12:04 | Emergency (ER) | payer MEDICAID ==
[2018-04-02 12:10] VITALS: BP 137/80
[2018-04-02] MEDS ORDERED: predniSONE 20 MG TAB PO ONE (12:12)
[2018-04-02] MEDS ORDERED: IPRATROPIUM/ALBUTEROL 3 ML DEYVIAL IH ONE (12:12)
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
--- NOTE | 2018-04-02 14:52 | ASMTCMCOM ---
CM Note CM Note Notes: Patient well known to this ED presented today and was seen/discharged from ED while CM not present. 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 This CM left message with ASHLYN Rothman at [facility] as well as [facility] for care coordination. Patient is known to not follow through with scheduled appointments or long-term services. Date Signed: 04/02/2018 02:51 PM Electronically Signed By:Aleksandra Baumann RN
== END 2018-04-02 12:42 | disposition home or self-care (01) ==
LOC: EDUNIT#
DX: J44.1 Chronic obstructive pulmonary disease with (acute) exacerbation (principal); F17.210 Nicotine dependence, cigarettes, uncomplicated; G89.29 Other chronic pain; Z76.0 Encounter for issue of repeat prescription; Z59.0 Homelessness
CPT/HCPCS: J7512

== ENCOUNTER 2018-04-09 13:02 | Inpatient (IN) | payer MEDICAID ==
[2018-04-09] MEDS ORDERED: NS 1,000 ML IV ONE (15:08)
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
[2018-04-09] MEDS ORDERED: IPRATROPIUM/ALBUTEROL 3 ML DEYVIAL IH ONE (15:11)
[2018-04-09] MEDS ORDERED: methylPREDNISolone SOD SUCC 125 MG/2 ML VIAL IVP ONE (15:24)
[2018-04-09] MEDS ORDERED: ONDANSETRON DISINTEGRATING 4 MG TAB PO PRN (16:26)
[2018-04-09] MEDS ORDERED: OXYCODONE/APAP 5/325 TAB PO PRN (16:26)
[2018-04-09] MEDS ORDERED: ACETAMINOPHEN 325 MG TAB PO PRN (16:26)
[2018-04-09] MEDS ORDERED: ONDANSETRON 4 MG/2 ML VIAL IVP PRN (16:26)
[2018-04-09] MEDS ORDERED: NS 1,000 ML IV SCH (16:30)
[2018-04-09 16:33] LABS: INR 0.98 (0.83-1.16); PROTIME(PATIENT) 13.2 SEC (12.0-15.0)
--- NOTE | 2018-04-09 17:16 | GHP ---
DATE OF ADMISSION: 04/09/2018 CHIEF COMPLAINT: Cough, as well as shortness of breath. HISTORY OF PRESENT ILLNESS: The patient is a 57-year-old male who presented to the emergency room with increased work of breathing and shortness of breath. He was here on March 13 for similar symptoms. He shares that another homeless person noted that he was having increased trouble with breathing. He was unable to sleep and had to keep sitting up. He also describes having chest pain that is constant, as well as coughing up yellow sputum. He frequently smokes cannabis, as well as cigarettes. He describes losing approximately 30 pounds over the past few months. He attributes it to being in the residential. He was incarcerated prior to his previous admission in February. During my interview, he is extremely short of breath. He is having trouble talking, and his speech is fragmented, and he has to stop to catch his breath. PAST MEDICAL HISTORY: 1. Teeth extraction. 2. History of dyslexia. 3. Thoracentesis. 4. Bronchoscopy. 5. Concern for possible schizophrenia. 6. Hepatitis C, has not received treatment. 7. Chronic back pain. 8. Chronic COPD. 9. Hand abscess that was drained after getting bitten by a cat. SOCIAL HISTORY: He is homeless. He states that he is not allowed to go to the prison anymore. He smokes cannabis and cigarettes. He does not use any drugs , such as cocaine, meth, or heroin. He is in 3 relationships with different women. He has 13 children from various relationships. He says they are all in foster homes. FAMILY HISTORY: Noncontributory. He has not been in touch with his parents in a very long time. ALLERGIES: Acetaminophen, Heparin, Darvon, amoxicillin, aspirin, and iodine contrast. HOME MEDICATIONS: None listed. REVIEW OF SYSTEMS: A 10-point review of systems was performed and was negative , other than the pertinent positives in the HPI and past medical history. PHYSICAL EXAM: GENERAL: The patient is a 57-year-old male who appears to be in distress. VITAL SIGNS: Blood pressure is 125/79. Heart rate is 58. Respiratory rate is 24. O2 saturation on room air is 84%; on 2 L, is 92%. Temperature is 36.4 Celsius. EYES: Pupils are equal and reactive. EOMs are intact. Positive conjunctival injection. ENT: Normal ears, hearing intact. Airway is very dry. NECK: Trachea is midline. CARDIOVASCULAR: He is in a regular rate and rhythm. No murmurs, rubs, or gallops noted. CHEST/LUNGS: He is tachypneic. He is using his accessory muscles and is having fragmented speech when he does speak to me. His lung sounds are very diminished from the mid lobes down. He has a few scattered wheezes, with a few crackles noted at his left lung. ABDOMEN: Soft, nontender. SKIN: No rashes or ulcers noted. MUSCULOSKELETAL: He has equal upper and lower extremity strength. PSYCHIATRIC : He is alert and oriented. He is very impulsive. He does not have good insight or judgment, but he does have normal memory. DATA REVIEW: His CBC, chemistry, troponin, and all his labs are pending. A chest x-ray shows large lung volumes suggesting emphysema. Nothing acute is noted. EKG, which I evaluated myself, shows a sinus rhythm, without any type of ST elevation or depression. I reviewed his care with Dr. Kennedy Padron, ER physician. ASSESSMENT/PLAN: 1. Severe chronic obstructive pulmonary disease exacerbation. He has significant increased work of breathing. Will treat him with Levaquin, nebulizers and IV steroids. Will check a respiratory panel. An ABG is currently pending. 2. Acute hypoxemic respiratory failure due to the above. He is visibly dyspneic during my evaluation. Supportive care. 3. Homelessnes. He will likely be discharged back to the streets. 4. Nicotine dependence. Encouraged him to consider cessation. I am doubtful he will stop smoking. 5. Chronic cannabis use. 6. Chest pain. Reviewed his EKG which shows nothing acute. Will check a troponin. 7. Code status: Full. 8. Length of stay: I suspect the patient will require greater than a 2- midnight stay due to the severity of his chronic obstructive pulmonary disease. 9. Deep venous thrombosis prophylaxis: Low risk. Will place him on low molecular weight heparin. /[id number]/MODL MTDD
[2018-04-09] MEDS: IPRATROPIUM/ALBUTEROL 3 ML DEYVIAL IH SCH ×2 (18:31→22:56)
[2018-04-09] MEDS: methylPREDNISolone SOD SUCC 125 MG/2 ML VIAL IVP SCH (20:35)
[2018-04-09] MEDS: oxyCODONE IR 5 MG TAB PO PRN (20:36)
[2018-04-09] MEDS: NICOTINE 21 MG/24 HR PATCH TD SCH (20:37)
[2018-04-09] MEDS: guaiFENesin/CODEINE PHOS 10 ML UDCUP PO PRN (22:28)
--- NOTE | 2018-04-09 22:34 | CPEKG ---
Test Reason : OPEN Blood Pressure : / mmHG Vent. Rate : 061 BPM Atrial Rate : 062 BPM P-R Int : 144 ms QRS Dur : 085 ms QT Int : 407 ms P-R-T Axes : 073 068 072 degrees QTc Int : 410 ms Sinus rhythm Confirmed by Lui Padron ([id number]) on 04/09/2018 10:33:46 PM Referred By: Confirmed By:Lui Padron
[2018-04-10] MEDS: guaiFENesin/CODEINE PHOS 10 ML UDCUP PO PRN ×3 (04:09→18:48)
[2018-04-10] MEDS: methylPREDNISolone SOD SUCC 125 MG/2 ML VIAL IVP SCH ×3 (04:10→21:25)
[2018-04-10] MEDS: oxyCODONE IR 5 MG TAB PO PRN ×4 (04:10→21:25)
[2018-04-10] MEDS: IPRATROPIUM/ALBUTEROL 3 ML DEYVIAL IH SCH ×4 (05:16→22:15)
--- NOTE | 2018-04-10 07:30 | PDMN ---
Medical Necessity Medical necessity: MCG M100 COPD: 57 yo w/ severe COPD exacerbation. Sig increased work of breathing. Acute hypoxemic resp fx, Sat 84% on RA, pt visibly dyspneic. Pt is homeless. O2, IV antibx, IVF, IV steroids and nebs started. BC pending. Anticipate>2MN for severity of COPD. Meets MCG IP criteria w/ severity of s/sx: dyspnea, new onset hypoxemia/resp fx
[2018-04-10] MEDS: NICOTINE 21 MG/24 HR PATCH TD SCH (07:46)
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
--- NOTE | 2018-04-10 13:05 | HOSPPROG ---
Hospitalist Progress Note Assessment/Plan: #COPD Exacerbation #Human Rhinovirus #Homelessness #Tobacco abuse d/o, not interested in cessation #Cannabis use Plan: -decrease Solu-Medrol -bronchodilator -stop abx -Nicotine replacement if he is willing to take -cont inpatient Subjective: less sob, but still hypoxic. + cough. afebrile Objective: Vital Signs Temp Pulse Resp BP Pulse Ox 36.6 C 99 16 152/92 H 87 L 04/10/18 07:53 04/10/18 12:15 04/10/18 12:15 04/10/18 12:15 04/10/18 12:15 Microbiology 04/09/18 17:23 Respiratory Panel (PCR) - Final Nasal, Sinus - Swab Human Rhinovirus/Enterovirus 04/09/18 04/10/18 04/11/18 05:59 05:59 05:59 Intake Total 2800 Balance 2800 PT 13.2 SEC (12.0-15.0) 04/09/18 16:04 INR 0.98 (0.83-1.16) 04/09/18 16:04 - Physical Exam Constitutional: no apparent distress Eyes: PERRL Ears, Nose, Mouth, Throat: moist mucous membranes, hearing normal Cardiovascular: No edema Respiratory: reduced air movement, expiratory wheeze Gastrointestinal: normoactive bowel sounds, soft, non-tender abdomen Skin: warm Neurologic: AAOx3 Psychiatric: interacting appropriately, not anxious, not encephalopathic Lymph, Heme, Immunologic: No petechiae ICD10 Worksheet Patient Problems: Problems Problem Status Onset COPD exacerbation Acute Acute bronchitis Acute Bronchitis Acute COPD (chronic obstructive pulmonary disease) Acute COPD exacerbation Acute Cellulitis Acute Chronic obstructive pulmonary disease with acute exacerbation Acute Dyspnea Acute Facial abscess Acute HCAP (healthcare-associated pneumonia) Acute Hypoxemia Acute Hypoxia Acute Pneumonia Acute Pneumonia Acute Sepsis Acute Shortness of breath Acute
[2018-04-11] MEDS: IPRATROPIUM/ALBUTEROL 3 ML DEYVIAL IH SCH ×5 (05:56→21:15)
[2018-04-11] MEDS: NICOTINE 21 MG/24 HR PATCH TD SCH (08:55)
[2018-04-11] MEDS: guaiFENesin/CODEINE PHOS 10 ML UDCUP PO PRN ×4 (09:25→21:35)
[2018-04-11] MEDS: methylPREDNISolone SOD SUCC 125 MG/2 ML VIAL IVP SCH (09:26)
[2018-04-11] MEDS: oxyCODONE IR 5 MG TAB PO PRN ×4 (09:55→23:39)
--- NOTE | 2018-04-11 10:38 | ASMTCMCOM ---
CM Note CM Note Notes: Patient seen this am by hospitalist. He has placed new orders changing steroid from IV to po. Patient dc plans remain unchanged He will dc to the street when medically cleared for discharge. He has been banned form the homeless retirement and [facility] will no longer see him. CM available should needs arise. Plan: Dc to streets when medically cleared for discharge. Date Signed: 04/11/2018 10:37 AM Electronically Signed By:Pamela Mathur RN
[2018-04-11] MEDS ORDERED: ALBUTEROL 3 ML DEYVIAL IH PRN (11:09)
[2018-04-11] MEDS ORDERED: predniSONE 20 MG TAB PO ONE (13:00)
--- NOTE | 2018-04-11 13:17 | HOSPPROG ---
Hospitalist Progress Note Assessment/Plan: #COPD Exacerbation #Human Rhinovirus #Homelessness #Tobacco abuse d/o, not interested in cessation #Cannabis use #Agitation #Personality D/O, non specified Plan: -change to Prednisone. Refuses SoluMedrol -Stop Solu-Medrol -bronchodilator, scheduled/PRN -Nicotine replacement if he is willing to take -cont inpatient Subjective: still SOB. Refused SoluMedrol this morning. Very agitated Objective: Vital Signs Temp Pulse Resp BP Pulse Ox 36.5 C 118 H 36 H 118/71 89 L 04/11/18 08:38 04/11/18 10:30 04/11/18 10:30 04/11/18 08:38 04/11/18 10:30 04/10/18 04/11/18 04/12/18 05:59 05:59 05:59 Intake Total 2800 900 Balance 2800 900 PT 13.2 SEC (12.0-15.0) 04/09/18 16:04 INR 0.98 (0.83-1.16) 04/09/18 16:04 - Physical Exam Constitutional: chronically ill appearing Eyes: PERRL, EOMI Ears, Nose, Mouth, Throat: moist mucous membranes, hearing normal Cardiovascular: regular rate and rhythym, No edema Respiratory: reduced air movement, expiratory wheeze Gastrointestinal: normoactive bowel sounds, soft, non-tender abdomen Skin: warm Neurologic: AAOx3 Psychiatric: interacting appropriately, not anxious, not encephalopathic Lymph, Heme, Immunologic: No petechiae ICD10 Worksheet Patient Problems: Problems Problem Status Onset COPD exacerbation Acute Acute bronchitis Acute Bronchitis Acute COPD (chronic obstructive pulmonary disease) Acute COPD exacerbation Acute Cellulitis Acute Chronic obstructive pulmonary disease with acute exacerbation Acute Dyspnea Acute Facial abscess Acute HCAP (healthcare-associated pneumonia) Acute Hypoxemia Acute Hypoxia Acute Pneumonia Acute Pneumonia Acute Sepsis Acute Shortness of breath Acute
[2018-04-12] MEDS: IPRATROPIUM/ALBUTEROL 3 ML DEYVIAL IH SCH ×4 (05:38→22:00)
[2018-04-12] MEDS: oxyCODONE IR 5 MG TAB PO PRN ×2 (05:47→12:09)
[2018-04-12] MEDS: guaiFENesin/CODEINE PHOS 10 ML UDCUP PO PRN ×3 (07:57→22:53)
[2018-04-12] MEDS: predniSONE 20 MG TAB PO SCH (07:58)
[2018-04-12] MEDS: NICOTINE 21 MG/24 HR PATCH TD SCH (07:59)
--- NOTE | 2018-04-12 13:20 | HOSPPROG ---
Hospitalist Progress Note Assessment/Plan: #COPD Exacerbation #Human Rhinovirus #Homelessness #Tobacco abuse d/o, not interested in cessation #Cannabis use #Agitation #Personality D/O, non specified #chronic Pain: reports chronic longstanding pain to neck, back, shoulder, knees , and ankles due to OA. Plan: -cont Prednison -Pain mgmt: He is requesting a change from Oxycontin to Morphine. Will change -bronchodilator, scheduled/PRN -Nicotine replacement if he is willing to take -cont inpatient Subjective: requesting change to pain meds. still with SOB. Does not feel safe for discharge Objective: Vital Signs Temp Pulse Resp BP Pulse Ox 36.5 C 86 20 126/72 H 90 L 04/12/18 08:00 04/12/18 08:00 04/12/18 08:00 04/12/18 08:00 04/12/18 08:00 04/11/18 04/12/18 04/13/18 05:59 05:59 05:59 Intake Total 900 1000 Balance 900 1000 PT 13.2 SEC (12.0-15.0) 04/09/18 16:04 INR 0.98 (0.83-1.16) 04/09/18 16:04 - Physical Exam Constitutional: chronically ill appearing Eyes: PERRL Ears, Nose, Mouth, Throat: moist mucous membranes, hearing normal Cardiovascular: regular rate and rhythym, no murmur, rub, or gallop Respiratory: no respiratory distress, reduced air movement, expiratory wheeze Gastrointestinal: normoactive bowel sounds, soft, non-tender abdomen Skin: warm Neurologic: AAOx3 Psychiatric: interacting appropriately, not anxious, not encephalopathic Lymph, Heme, Immunologic: No petechiae ICD10 Worksheet Patient Problems: Problems Problem Status Onset COPD exacerbation Acute Acute bronchitis Acute Bronchitis Acute COPD (chronic obstructive pulmonary disease) Acute COPD exacerbation Acute Cellulitis Acute Chronic obstructive pulmonary disease with acute exacerbation Acute Dyspnea Acute Facial abscess Acute HCAP (healthcare-associated pneumonia) Acute Hypoxemia Acute Hypoxia Acute Pneumonia Acute Pneumonia Acute Sepsis Acute Shortness of breath Acute
[2018-04-12] MEDS: IPRATROPIUM/ALBUTEROL 3 ML DEYVIAL IH PRN (23:31)
[2018-04-13] MEDS: IPRATROPIUM/ALBUTEROL 3 ML DEYVIAL IH SCH ×2 (06:04→13:25)
[2018-04-13] MEDS: guaiFENesin/CODEINE PHOS 10 ML UDCUP PO PRN ×3 (09:03→21:05)
[2018-04-13] MEDS: predniSONE 20 MG TAB PO SCH (09:03)
[2018-04-13] MEDS: IPRATROPIUM/ALBUTEROL 3 ML DEYVIAL IH PRN (09:27)
[2018-04-13] MEDS: NICOTINE 21 MG/24 HR PATCH TD SCH (10:52)
--- NOTE | 2018-04-13 14:07 | HOSPPROG ---
Hospitalist Progress Note Assessment/Plan: #COPD Exacerbation, chronic COPD #Human Rhinovirus #Homelessness #Tobacco abuse d/o, not interested in cessation #Cannabis use #Agitation #Personality D/O, non specified #chronic Pain: reports chronic longstanding pain to neck, back, shoulder, knees , and ankles due to OA. Plan: -cont Prednisone. This patient has had multiple ER visits. Would taper steroids -Pain mgmt: continue current opiates as in while hospitalized. High risk for abuse. He does not have a PCP to follow up with. Would not continue any narcotics on discharge -bronchodilator: will change to Albuterol HFA. We discussed other options/ additions such as inhaled steroids. He feels that this has caused him pneumonia in the past. He is opposed to other inhalers -Nicotine replacement if he is willing to take -cont inpatient for now. He feels like he is not safe for discharge to back to the streets and shelters are not an option. However, there have been multiple safety concerns regarding the patients agitation and aggressive behavior towards staff. Including the need to remove a knife from his bed side. This was discussed with nursing, hospital staff, case management and the pharmacist. The events and the concern for saftery was also discussed with the patient and nursing staff at the pts bedside. It was agreed that if there are further safety concerns or events, the patient will be discharged to ensure the safety of the nursing staff. If there is a need, security and/or the Police department will be notified. In addition, while the patient does not feel like he is safe for discharge, he is noted to be hypoxic on RA at mid to high 80's, has no resp distress, and reports that this is likely his baseline. Further he feels comfortable enough to refuse the supplemental oxygen which has been provided for him. Subjective: still with cough. not using oxygen. somewhat agitated Objective: Vital Signs Temp Pulse Resp BP Pulse Ox 36.7 C 74 20 122/75 H 84 L 04/13/18 09:30 04/13/18 09:30 04/13/18 09:30 04/13/18 09:30 04/13/18 09:30 04/12/18 04/13/18 04/14/18 05:59 05:59 05:59 Intake Total 1000 400 Balance 1000 400 PT 13.2 SEC (12.0-15.0) 04/09/18 16:04 INR 0.98 (0.83-1.16) 04/09/18 16:04 - Physical Exam Constitutional: chronically ill appearing Eyes: PERRL, EOMI Ears, Nose, Mouth, Throat: moist mucous membranes, hearing normal Cardiovascular: regular rate and rhythym, No edema Respiratory: no respiratory distress, reduced air movement, expiratory wheeze Gastrointestinal: normoactive bowel sounds, soft, non-tender abdomen Skin: warm Neurologic: AAOx3 Psychiatric: agitated Lymph, Heme, Immunologic: No petechiae ICD10 Worksheet Patient Problems: Problems Problem Status Onset COPD exacerbation Acute Acute bronchitis Acute Bronchitis Acute COPD (chronic obstructive pulmonary disease) Acute COPD exacerbation Acute Cellulitis Acute Chronic obstructive pulmonary disease with acute exacerbation Acute Dyspnea Acute Facial abscess Acute HCAP (healthcare-associated pneumonia) Acute Hypoxemia Acute Hypoxia Acute Pneumonia Acute Pneumonia Acute Sepsis Acute Shortness of breath Acute
--- NOTE | 2018-04-13 16:10 | ASMTCMCOM ---
CM Note CM Note Notes: Savage of care reviewed in rounds. 57 year old male patient with chronic COPD and homelessness,He continues to have outbursts at time. He is to continue inpatient with a plan that should he escalate or threaten staff he will be discharged. Plan: TBD Date Signed: 04/13/2018 04:09 PM Electronically Signed By:Pamela Mathur RN
[2018-04-13] MEDS: ALBUTEROL 60 PUFFS/8 GM MDI IH PRN ×2 (16:44→21:55)
[2018-04-14] MEDS: guaiFENesin/CODEINE PHOS 10 ML UDCUP PO PRN ×4 (03:05→20:59)
[2018-04-14] MEDS: predniSONE 20 MG TAB PO SCH (08:46)
[2018-04-14] MEDS ORDERED: ALBUTEROL 3 ML DEYVIAL ONE (08:50)
[2018-04-14] MEDS: NICOTINE 21 MG/24 HR PATCH TD SCH (09:01)
[2018-04-14] MEDS: ALBUTEROL 3 ML DEYVIAL IH PRN ×3 (09:07→22:15)
[2018-04-14] MEDS ORDERED: ACETAMINOPHEN/ASA/CAFFEINE 1 EACH TAB PO PRN (12:17)
[2018-04-14] MEDS ORDERED: SUMAtriptan 25 MG TAB PO PRN (12:17)
--- NOTE | 2018-04-14 19:32 | HOSPPROG ---
Hospitalist Progress Note Assessment/Plan: The patient is a 57-year-old male with PMH COPD who was admitted for COPD exacerbation. ASSESSMENT/PLAN: #COPD Exacerbation, chronic COPD #Human Rhinovirus #Homelessness #Tobacco abuse d/o, not interested in cessation #Cannabis use #Agitation #Personality D/O, non specified #chronic Pain: reports chronic longstanding pain to neck, back, shoulder, knees , and ankles due to OA. -SVNs. -Pt refusing O2 in hospital, but admits he needs portable O2 for DC. -Pt really wants to stay in hospital, perseverates that it is illegal to send him out of the hospital with no fpc. -For DC planning: ordering O2 portable. Albuterol HFA. Steroid taper. -No narcotics on DC, as he has high potential for abuse. -Pt refusing to ambulate today to check SpO2. -Ordered ABG today - pt is well compensated for COPD w/o hypoxemia at rest. -I have d/w nursing staff. -He has received Levaquin earlier in admission. VTE prophylaxis: ambulatory, SCDs. Code Status: full code Status: inpt Disposition: medsurg w/ DC anticipated for tomorrow. ____ SUBJECTIVE: Today pt says he has trouble breathing and cannot be discharged. OBJECTIVE: Physical Exam: General: The patient is an elderly male who is alert and in no acute distress. HEENT: normocephalic, extraocular movements intact, conjunctivae clear. Mucous membranes moist. Neck: trachea midline, no visible masses. CV: +S1/S2, RRR, no MRG. Resp: Pre bronchodilator: Bilateral diffuse moderate wheezing. Post bronchodilators: unlabored, CTAB no RRW. Abd: soft and nondistended. Musculoskeletal: Normal muscle tone/bulk. Neuro: cranial nerves II XII grossly intact. Intact gross motor and sensory function. Psych: Irritable. Perseverating. Anxious. Skin: No pallor. No petechiae. Heme/lymph: No peripheral edema at bilateral lower extremities. Labs/Imaging/Other Tests: Personally reviewed/interpreted. Objective: Vital Signs Temp Pulse Resp BP Pulse Ox 36.6 C 96 18 134/72 H 85 L 04/14/18 08:48 04/14/18 15:17 04/14/18 15:17 04/14/18 08:48 04/14/18 15:40 04/13/18 04/14/18 04/15/18 05:59 05:59 05:59 Intake Total 400 Balance 400 PT 13.2 SEC (12.0-15.0) 04/09/18 16:04 INR 0.98 (0.83-1.16) 04/09/18 16:04 - Time Spent With Patient Time Spent with Patient: greater than 35 minutes Time Spent with Patient: Greater than 35 minutes spent on this patients care, greater than 50% of time spent counseling, educating, and coordinating care regarding the above mentioned plan. - Pending Discharge Pending Discharge Within 24 Hours: Yes Pending Discharge Date: 04/15/18 Pending Discharge Time: 11:00 ICD10 Worksheet Patient Problems: Problems Problem Status Onset COPD exacerbation Acute Acute bronchitis Acute Bronchitis Acute COPD (chronic obstructive pulmonary disease) Acute COPD exacerbation Acute Cellulitis Acute Chronic obstructive pulmonary disease with acute exacerbation Acute Dyspnea Acute Facial abscess Acute HCAP (healthcare-associated pneumonia) Acute Hypoxemia Acute Hypoxia Acute Pneumonia Acute Pneumonia Acute Sepsis Acute Shortness of breath Acute
[2018-04-15] MEDS: guaiFENesin/CODEINE PHOS 10 ML UDCUP PO PRN ×2 (02:56→09:10)
--- NOTE | 2018-04-15 09:00 | PDHOMEO2F ---
Home Oxygen Face to Face Home Orders: I certify that a physician or a nurse practitioner or physician's librarian assistant has had a [id number] encounter with this patient on the date of this order due to the diagnosis listed, which relates to the primary reason the patient requires home oxygen. Alternative treatments have been tried, or considered, and deemed ineffective. It is anticipated that supplemental oxygen will result in improvement with treatment. Home oxygen qualifying diagnosis: COPD Home oxygen secondary diagnosis: Tobacco dependence SpO2 on room air (%): 86 Frequency of home oxygen needed: with activity, continuous Home oxygen liters per minute: 2 Home oxygen delivery device: nasal cannula Concentrator: Yes E-tanks for mobility and back up: Yes If ordering portable O2, is the patient mobile in the home?: Yes I certify that, based on these findings, the home oxygen is medically necessary for this patient for the following length of time. Length of time home oxygen needed: 99 years
[2018-04-15 09:09] VITALS: BP 111/69
[2018-04-15] MEDS: predniSONE 20 MG TAB PO SCH (09:10)
[2018-04-15] MEDS: ALBUTEROL 3 ML DEYVIAL IH PRN (09:24)
--- NOTE | 2018-04-15 09:24 | PDDCSUM ---
Discharge Summary Discharge Summary: Date of Admission: April 09, 2018 Date of Discharge: April 15, 2018 Discharge Diagnoses: COPD exacerbation, resolved -Tx'd with SVNs, steroid, antibiotic -2/2 rhinovirus Chronic hypoxemic respiratory failure, well compensated Tobacco dependence Cannabis use Chronic back and neck pain Hepatitis-C Unspecified personality disorder Dyslexia Poor dentition with history of tooth extraction Chest pain, resolved Admission Diagnoses: Severe COPD exacerbation Homelessness Nicotine dependence Chronic cannabis use Chest pain Consultants: None. Hospital Course: Patient is a 57-year-old homeless male with past medical history of COPD, poor dentition, tobacco dependence, cannabis use who presented with an acute COPD exacerbation secondary to rhinovirus. Patient was treated with antibiotics, steroid, and SVNs. He improved and returned back to baseline over the course of 1 week. Prior to discharge, arterial blood gas on room air revealed adequate compensation for chronic respiratory acidosis. Patient tends to saturate around 88-89 % on room air at baseline at rest and this improves with the use of the Proventil inhaler or nebulizer treatments. Patient was counseled on tobacco and marijuana cessation, but he admits that he may resume using these substances upon discharge. Unfortunately there are multiple barriers to providing the patient with oxygen on discharge; logistically since patient is homeless and has been rejected from all homeless shelters in the area, there is no place to deliver oxygen supplies to in the outpatient setting. The hospital was unable to coordinate and pay for a temporary hotel room upon discharge. The patient has been terminated from multiple outpatient clinics because he has been combative and abusive toward staff. No snf facility, acute rehab, or mental health facility was willing to accept the patient for transfer. During this hospitalization, the patient was noncompliant and considered a danger to the staff multiple times. He was hoarding his narcotic pain medications after pretending to take them. Nursing staff felt threatened because he was found to have a knife and security/ police were called on the patient several times during the admission. Since COPD exacerbation has resolved, patient is being discharged from the hospital. Physical Exam: General: The patient is a male who is alert and in no acute distress. HEENT: normocephalic, extraocular movements intact, conjunctivae clear, no lesions on face. Nares and oral mucosa pink and moist. Neck: trachea midline, no visible masses, no external lesions. Resp: unlabored breathing. Abd: soft and nondistended. Musculoskeletal: Normal gait. Neuro: cranial nerves II - XII grossly intact. Intact gross motor and sensory function. Psych: Perseverating. Flight of ideas. Mildly anxious. Skin: no pallor. Condition: Fair. Pertinent tests/labs/imaging: Arterial blood gas-pH 7.38 pCO2 51 pO2 65 HCO3 29 SpO2 89% RA. WBC 8.96, hemoglobin 15.4, proBNP 50. Troponin I less than 0.012. Procalcitonin 0.05. Chest x-ray: No acute cardiopulmonary abnormality. Chronic changes consistent with emphysema. Medications: Please see med rec form. New meds: prednisone taper 40mg x 2 days, 30 mg x 2 days, 20 mg x 2 days, 10mg x 2 days. Proventil inhaler prn shortness of breath/wheezing. Special instructions: Stop smoking tobacco/marijuana. Get established with a new PCP. Follow up: Follow up with PCP in 1-2 weeks. >30 minutes of total time was spent on counseling and coordination of care for this patient's discharge.
[2018-04-15] MEDS: NICOTINE 21 MG/24 HR PATCH TD SCH (10:03)
--- NOTE | 2018-04-15 12:37 | ASMTCMCOM ---
CM Note CM Note Notes: Patient plan of care reviewed with MD. He is medically cleared for discharge to the street. Medications will be mapped. Bus ticket provided. CM available should other needs arise. Plan: Dc to the streets. Date Signed: 04/15/2018 12:36 PM Electronically Signed By:Pamela Mathur RN
== END 2018-04-15 12:42 | disposition home or self-care (01) | DRG 140 ==
LOC: OBSVTOIN 16:30 → F1N 18:09
PROVIDERS: ADMIT Internal Medicine; ATTEND Internal Medicine
DX: J44.1 Chronic obstructive pulmonary disease with (acute) exacerbation (principal); J96.11 Chronic respiratory failure with hypoxia; F17.200 Nicotine dependence, unspecified, uncomplicated; F12.90 Cannabis use, unspecified, uncomplicated; Z91.19 Patient's noncompliance with other medical treatment and regimen; E86.9 Volume depletion, unspecified; G89.29 Other chronic pain; B19.20 Unspecified viral hepatitis C without hepatic coma; F60.9 Personality disorder, unspecified; R48.0 Dyslexia and alexia; B34.8 Other viral infections of unspecified site; Z59.0 Homelessness
CPT/HCPCS: 84484-ER; 96374; J1956; J2930; J7512; J7613

== ENCOUNTER 2018-04-17 14:46 | Inpatient (IN) | payer MEDICAID ==
[2018-04-17] MEDS ORDERED: methylPREDNISolone SOD SUCC 125 MG/2 ML VIAL IVP ONE (15:07)
[2018-04-17] MEDS ORDERED: ALBUTEROL 3 ML DEYVIAL IH ONE (15:07)
[2018-04-17] MEDS ORDERED: IPRATROPIUM/ALBUTEROL 3 ML DEYVIAL IH ONE ×2 (15:07→16:15)
--- NOTE | 2018-04-17 15:08 | EDPHY ---
H & P Time Seen by Provider: 04/17/18 15:01 HPI/ROS: CHIEF COMPLAINT: Shortness of breath HISTORY OF PRESENT ILLNESS: 57-year-old man with known COPD discharged on April 15. He has homelessness multiple barriers to getting oxygen on discharge. Essentially does not have a place to stay, therefore concentrator is not possible. He is discharged on a prednisone taper and Proventil inhaler. He still smokes a couple of cigarettes a day. Presents today by EMS with worsening shortness of breath associated with nonproductive cough, worse with exertion. Says symptoms today are moderate to severe. REVIEW OF SYSTEMS: Eye: no change in vision ENT: no sore throat Cardiac: no chest pain or syncope Pulmonary: HPI Abdomen: no vomiting, diarrhea, abdominal pain Musculoskeletal: Diffuse myalgias"all over"unchanged from usual. Skin: no rash Neuro: no headache Constitutional: no fever : no urinary symptoms A comprehensive 10 point review of systems is otherwise negative aside from elements mentioned in the history of present illness. PAST MEDICAL HISTORY: Includes COPD, chronic pain, hepatitis-C. Social history: Homeless, smokes tobacco. General Appearance: Alert and conversant, cooperative. Eyes: No scleral icterus. ENT, Mouth: Normal mucous membranes. Respiratory: Bilateral expiratory wheezes, saturation 90% on nasal cannula, is speaking in full sentences, no focal lung sounds. Cardiovascular: Regular rate and rhythm. Gastrointestinal: Abdomen is soft and non tender. Neurological: Alert, face symmetric, normal motor and sensory in extremities. Skin: Warm and dry, no rashes. Musculoskeletal: No peripheral edema. Psychiatric: Not agitated. Emergency Department course/MDM: DuoNeb and albuterol, chest x-ray, IV Solu-Medrol. Serial exams. 1614: Still hypoxic with saturation 82-83%, on room air. Still wheezing. Additional nebulizer ordered. 1734: O2 sat 75% after going to the bathroom, admission for further evaluation and treatment. Smoking Status: Heavy smoker Constitutional: Initial Vital Signs Temperature (C) 36.4 C 04/17/18 14:52 Heart Rate 80 04/17/18 14:52 Respiratory Rate 26 H 04/17/18 14:52 Blood Pressure 146/95 H 04/17/18 14:52 O2 Sat (%) 90 L 04/17/18 14:52 O2 Delivery Mode Room Air O2 (L/minute) 2 Allergies/Adverse Reactions: acetaminophen [Acetaminophen] Allergy (Severe, Verified 04/17/18 14:52) heparin Allergy (Unknown, Verified 04/17/18 14:52) Heparin Analogues Allergy (Unknown, Verified 04/17/18 14:52) propoxyphene HCl [From Darvon] Allergy (Unknown, Verified 04/17/18 14:52) amoxicillin [Amoxicillin] Allergy (Verified 04/17/18 14:52) Other-Enter Comments aspirin [Aspirin] Allergy (Verified 04/17/18 14:52) Iodinated Contrast- Oral and IV Dye [Iodinated Contrast Media - Oral and] Allergy (Verified 04/17/18 14:52) Other-Enter Comments Home Medications: Medication Instructions Recorded Albuterol [Proventil Inhaler HFA 2 puffs IH Q4HRS PRN 30 Days #1 mdi 04/15/18 (*)] predniSONE [Prednisone] 10 mg PO DAILY #12 tablet 04/15/18 Medical Decision Making - Diagnostics Imaging Results: Imaging Impressions Chest X-Ray 04/17/18 16:15 Impression: Large lung volumes. No pneumonia. Imaging: I viewed and interpreted images myself Differential Diagnosis: Differential diagnosis considered for shortness of breath including but not limited to pulmonary infectious process, COPD, asthma, pulmonary embolus and congestive heart failure. Consult/Admit Bed Type: [place] [id number] - Data Points Laboratory Results: Laboratory Results 04/17/18 14:50 04/17/18 14:50 04/17/18 04/17/18 14:50 14:50 WBC 10.37 10^3/uL H 10^3/uL (3.80-9.50) RBC 4.57 10^6/uL 10^6/uL (4.40-6.38) Hgb 15.8 g/dL g/dL (13.7-17.5) Hct 45.4 % % (40.0-51.0) MCV 99.3 fL fL (81.5-99.8) MCH 34.6 pg H pg (27.9-34.1) MCHC 34.8 g/dL g/dL (32.4-36.7) RDW 13.3 % % (11.5-15.2) Plt Count TNP MPV TNP Neut % (Auto) 58.1 % % (39.3-74.2) Lymph % (Auto) 30.8 % % (15.0-45.0) Harris % (Auto) 8.0 % % (4.5-13.0) Eos % (Auto) 2.1 % % (0.6-7.6) Baso % (Auto) 0.3 % % (0.3-1.7) Nucleat RBC Rel Count 0.0 % % (0.0-0.2) Absolute Neuts (auto) 6.03 10^3/uL 10^3/uL (1.70-6.50) Absolute Lymphs (auto) 3.19 10^3/uL H 10^3/uL (1.00-3.00) Absolute Monos (auto) 0.83 10^3/uL H 10^3/uL (0.30-0.80) Absolute Eos (auto) 0.22 10^3/uL 10^3/uL (0.03-0.40) Absolute Basos (auto) 0.03 10^3/uL 10^3/uL (0.02-0.10) Absolute Nucleated RBC 0.00 10^3/uL 10^3/uL (0-0.01) Immature Gran % 0.7 % % (0.0-1.1) Immature Gran # 0.07 10^3/uL 10^3/uL (0.00-0.10) Sodium 134 mEq/L L mEq/L (135-145) Potassium 4.4 mEq/L mEq/L (3.5-5.2) Chloride 99 mEq/L mEq/L (97-110) Carbon Dioxide 32 mEq/l H mEq/l (22-31) Anion Gap 3 mEq/L L mEq/L (6-14) BUN 22 mg/dL mg/dL (7-23) Creatinine 0.9 mg/dL mg/dL (0.7-1.3) Estimated GFR > 60 Glucose 100 mg/dL mg/dL (70-100) Calcium 8.6 mg/dL mg/dL (8.5-10.4) Medications Given: Discontinued Medications Albuterol (Proventil Neb) 3 ml IH EDNOW ONE Stop: 04/17/18 15:08 Last Admin: 04/17/18 15:15 Dose: 3 ml Albuterol/Ipratropium (Duoneb) 3 ml IH EDNOW ONE Stop: 04/17/18 15:08 Last Admin: 04/17/18 15:15 Dose: 3 ml Albuterol/Ipratropium (Duoneb) 12 ml IH EDNOW ONE Stop: 04/17/18 16:16 Last Admin: 04/17/18 16:26 Dose: 12 ml Methylprednisolone Sodium Succinate (Solu-Medrol) 125 mg IVP EDNOW ONE Stop: 04/17/18 15:08 Last Admin: 04/17/18 15:15 Dose: 125 mg Departure - Departure Disposition: [facility] Inpatient Acute Clinical Impression: Chronic obstructive pulmonary disease with acute exacerbation Acute respiratory failure Qualifiers: Respiratory failure complication: hypoxia Qualified Code(s): J96.01 - Acute respiratory failure with hypoxia Condition: Good Instructions: COPD (Chronic Obstructive Pulmonary Disease) (ED) Referrals: [facility],. [Clinic] - As per Instructions
[2018-04-17] MEDS ORDERED: ALBUTEROL 3 ML DEYVIAL IH PRN (18:37)
[2018-04-17] MEDS ORDERED: ONDANSETRON 4 MG/2 ML VIAL IVP PRN (18:37)
[2018-04-17] MEDS ORDERED: ONDANSETRON DISINTEGRATING 4 MG TAB PO PRN (18:37)
--- NOTE | 2018-04-17 18:43 | PDGENHP ---
History and Physical - Chief Complaint SOB - History of Present Illness 57-year-old man with known COPD discharged on April 15. He has homelessness multiple barriers to getting oxygen on discharge. Essentially does not have a place to stay, therefore concentrator is not possible. He is discharged on a prednisone taper and Proventil inhaler. Reports compliance. Heavy tobacco use. Afebrile. no cp, palpitations, or leg swelling CXR reviewed: no infiltrate O2 sat 75% on RA PAST MEDICAL HISTORY: Includes COPD, chronic pain, hepatitis-C., tobacco use Social history: Homeless, smokes tobacco. FmHx: non contributory History Information - Allergies/Home Medication List Allergies/Adverse Reactions: acetaminophen [Acetaminophen] Allergy (Severe, Verified 04/17/18 14:52) heparin Allergy (Unknown, Verified 04/17/18 14:52) Heparin Analogues Allergy (Unknown, Verified 04/17/18 14:52) propoxyphene HCl [From Darvon] Allergy (Unknown, Verified 04/17/18 14:52) amoxicillin [Amoxicillin] Allergy (Verified 04/17/18 14:52) Other-Enter Comments aspirin [Aspirin] Allergy (Verified 04/17/18 14:52) Iodinated Contrast- Oral and IV Dye [Iodinated Contrast Media - Oral and] Allergy (Verified 04/17/18 14:52) Other-Enter Comments I have personally reviewed and updated: medical history, social history - Past Medical History COPD Additional medical history: copd. chronic hepatitis b andc. PTSD. chronic pain syndrome - Surgical History Additional surgical history: teeth extractions - Family History Positive for: non-pertinent Additional family history: Asked, denies - Social History Smoking Status: Heavy smoker Additional social history: homeless M Review of Systems Review of Systems: ROS: 10pt was reviewed & negative except for what was stated in HPI & below Physical Exam Physical Exam: Temp Pulse Resp BP Pulse Ox 36.5 C 77 20 119/81 H 93 04/17/18 18:00 04/17/18 18:00 04/17/18 18:00 04/17/18 18:00 04/17/18 18:00 O2 (L/minute) 2 Constitutional: no apparent distress Eyes: PERRL Ears, Nose, Mouth, Throat: moist mucous membranes, hearing normal Cardiovascular: regular rate and rhythym, no murmur, rub, or gallop, No edema Respiratory: no respiratory distress, reduced air movement, expiratory wheeze Gastrointestinal: normoactive bowel sounds, soft, non-tender abdomen Skin: warm Musculoskeletal: full muscle strength Neurologic: AAOx3 Lymph, Heme, Immunologic: No petechiae Lab Data & Imaging Review 04/17/18 14:50 04/17/18 14:50 WBC 10.37 10^3/uL (3.80-9.50) H 04/17/18 14:50 RBC 4.57 10^6/uL (4.40-6.38) 04/17/18 14:50 Hgb 15.8 g/dL (13.7-17.5) 04/17/18 14:50 Hct 45.4 % (40.0-51.0) 04/17/18 14:50 MCV 99.3 fL (81.5-99.8) 04/17/18 14:50 MCH 34.6 pg (27.9-34.1) H 04/17/18 14:50 MCHC 34.8 g/dL (32.4-36.7) 04/17/18 14:50 RDW 13.3 % (11.5-15.2) 04/17/18 14:50 Plt Count TNP 04/17/18 14:50 MPV TNP 04/17/18 14:50 Neut % (Auto) 58.1 % (39.3-74.2) 04/17/18 14:50 Lymph % (Auto) 30.8 % (15.0-45.0) 04/17/18 14:50 Barton % (Auto) 8.0 % (4.5-13.0) 04/17/18 14:50 Eos % (Auto) 2.1 % (0.6-7.6) 04/17/18 14:50 Baso % (Auto) 0.3 % (0.3-1.7) 04/17/18 14:50 Nucleat RBC Rel Count 0.0 % (0.0-0.2) 04/17/18 14:50 Absolute Neuts (auto) 6.03 10^3/uL (1.70-6.50) 04/17/18 14:50 Absolute Lymphs (auto) 3.19 10^3/uL (1.00-3.00) H 04/17/18 14:50 Absolute Monos (auto) 0.83 10^3/uL (0.30-0.80) H 04/17/18 14:50 Absolute Eos (auto) 0.22 10^3/uL (0.03-0.40) 04/17/18 14:50 Absolute Basos (auto) 0.03 10^3/uL (0.02-0.10) 04/17/18 14:50 Absolute Nucleated RBC 0.00 10^3/uL (0-0.01) 04/17/18 14:50 Immature Gran % 0.7 % (0.0-1.1) 04/17/18 14:50 Immature Gran # 0.07 10^3/uL (0.00-0.10) 04/17/18 14:50 Sodium 134 mEq/L (135-145) L 04/17/18 14:50 Potassium 4.4 mEq/L (3.5-5.2) 04/17/18 14:50 Chloride 99 mEq/L (97-110) 04/17/18 14:50 Carbon Dioxide 32 mEq/l (22-31) H 04/17/18 14:50 Anion Gap 3 mEq/L (6-14) L 04/17/18 14:50 BUN 22 mg/dL (7-23) 04/17/18 14:50 Creatinine 0.9 mg/dL (0.7-1.3) 04/17/18 14:50 Estimated GFR > 60 04/17/18 14:50 Glucose 100 mg/dL (70-100) 04/17/18 14:50 Calcium 8.6 mg/dL (8.5-10.4) 04/17/18 14:50 Assessment & Plan Assessment: Acute respiratory failure (Acute) Chronic obstructive pulmonary disease with acute exacerbation (Acute) Tobacco abuse disorder chronic pain: at risk for abuse of narcotics Plan: admission cont steroids. He does not tolerate SoluMedrol as he gets very agitated, will change to Prednisone. He will need a long taper Nicotine replacement if he tolerates there was concern about him pocketing his pain meds last admission. He does not endorse any pain currently. Will hold off on narcotics. Acetaminophen and Aspirin are listed as allergies and restrict our non opiate options
[2018-04-17] MEDS: NICOTINE 21 MG/24 HR PATCH TD SCH (19:15)
[2018-04-17] MEDS: IPRATROPIUM/ALBUTEROL 3 ML DEYVIAL IH SCH (21:29)
[2018-04-18] MEDS ORDERED: KETOROLAC 15 MG/1 ML SDV IVP ONE (03:23)
[2018-04-18] MEDS: IPRATROPIUM/ALBUTEROL 3 ML DEYVIAL IH SCH ×4 (05:00→22:53)
[2018-04-18 06:12] LABS: PLATELET COUNT 169 10^3/uL (150-400)
--- NOTE | 2018-04-18 08:37 | HOSPPROG ---
Hospitalist Progress Note Assessment/Plan: 57-year-old man with known COPD discharged on April 15. He returned to the ER w acute respiratory failure. *Acute respiratory failure (Acute) -on 4 liters of O2 -difficult to dc w O2 due to being homeless -his is ok at rest but w any activity, his O2 levels decrease *Chronic obstructive pulmonary disease with acute exacerbation (Acute) -oral steroids *Tobacco abuse disorder *chronic pain: at risk for abuse of narcotics -concern on last admission he was pocketing pain meds *hepatitis C *homelessness *plan: Bello would benefit from a SNF, has severe lung disease and likely to do poorly anytime he is discharged. CM to discuss w him. Subjective: Bello is short of breath w rest, he is willing to go to a SNF and would stay there. Objective: Vital Signs Temp Pulse Resp BP Pulse Ox 36.4 C 65 16 130/70 H 90 L 04/18/18 07:33 04/18/18 07:33 04/18/18 07:33 04/18/18 07:33 04/18/18 07:33 Laboratory Results 04/18/18 04:42 04/18/18 04:42 - Physical Exam Constitutional: chronically ill appearing, unkempt Eyes: PERRL Ears, Nose, Mouth, Throat: ears appear normal Cardiovascular: regular rate and rhythym Respiratory: reduced air movement (mid lobes down, has exertional dyspnea) Gastrointestinal: normoactive bowel sounds Skin: warm Musculoskeletal: full muscle strength Neurologic: AAOx3 Psychiatric: interacting appropriately, poor insight ICD10 Worksheet Patient Problems: Problems Problem Status Onset Acute respiratory failure Acute Chronic obstructive pulmonary disease with acute exacerbation Acute Acute bronchitis Acute Bronchitis Acute COPD (chronic obstructive pulmonary disease) Acute COPD exacerbation Acute COPD exacerbation Acute Cellulitis Acute Dyspnea Acute Facial abscess Acute HCAP (healthcare-associated pneumonia) Acute Hypoxemia Acute Hypoxia Acute Pneumonia Acute Pneumonia Acute Sepsis Acute Shortness of breath Acute
[2018-04-18] MEDS: predniSONE 20 MG TAB PO SCH (09:30)
[2018-04-18] MEDS: NICOTINE 21 MG/24 HR PATCH TD SCH (10:13)
--- NOTE | 2018-04-18 10:42 | PDMN ---
Medical Necessity Medical necessity: [facility] M100 COPD: 57 yo w/ hx COPD w/ recent multiple hospitalizations presents in acute resp fx and acute COPD exacerbation. Meets [facility] IP criteria for worsening COPD w/ acute resp fx w/ hypoxemia requiring O2 to maintain sats>90%. Steroids and nebs started. Hx COPD, chronic hep B and C , PTSD, chronic pain, homelessness, smoker.
--- NOTE | 2018-04-18 15:16 | ASMTCMCOM ---
CM Note CM Note Notes: Pt admitted for SOB, he has a hx of COPD. He needs O2 but is homeless and is unable to get a concentrator. Currently needing 4L. COMPONENT ASSEMBLER SUPERVISOR recommends SNF, unsure if he will qualify, he has Medicaid. CM met with pt and he is interested, he is aware he may not qualify. Ultc done and faxed, email sent to [employer] for [facility]iki. DC Plan: TBD Date Signed: 04/18/2018 03:15 PM Electronically Signed By:Angela hSarp RN
[2018-04-19] MEDS: IPRATROPIUM/ALBUTEROL 3 ML DEYVIAL IH SCH ×4 (05:11→21:33)
[2018-04-19] MEDS: NICOTINE 21 MG/24 HR PATCH TD SCH (08:06)
[2018-04-19] MEDS: predniSONE 20 MG TAB PO SCH (08:07)
[2018-04-19] MEDS ORDERED: METHOCARBAMOL 750 MG TAB PO PRN (09:05)
[2018-04-19] MEDS ORDERED: IBUPROFEN 600 MG TAB PO ONE (12:47)
[2018-04-19] MEDS ORDERED: oxyCODONE IR 5 MG TAB PO ONE (12:48)
--- NOTE | 2018-04-19 12:51 | HOSPPROG ---
Hospitalist Progress Note Assessment/Plan: 57-year-old man with known COPD discharged on April 15. He returned to the ER w acute respiratory failure. *Acute respiratory failure (Acute) -difficult to dc w O2 due to being homeless -his is ok at rest but w any activity, his O2 levels decrease *Chronic obstructive pulmonary disease with acute exacerbation (Acute) -oral steroids *Tobacco abuse disorder *chronic pain: at risk for abuse of narcotics -concern on last admission he was pocketing pain meds * right hip pain -will get a hip x ray -Ibuprofen prn, told him no IV narcotics *hepatitis C *homelessness *plan: hip x ray, CM looking into possible placement. Subjective: Bello is c/o hip pain and low back pain Objective: Vital Signs Temp Pulse Resp BP Pulse Ox 36.6 C 70 24 H 107/68 91 L 04/19/18 08:00 04/19/18 10:33 04/19/18 10:33 04/19/18 08:15 04/19/18 10:33 Laboratory Results 04/18/18 04:42 04/18/18 04:42 04/18/18 04/19/18 04/20/18 05:59 05:59 05:59 Intake Total 960 Balance 960 - Physical Exam Constitutional: chronically ill appearing Eyes: PERRL Ears, Nose, Mouth, Throat: poor dentition Cardiovascular: regular rate and rhythym Respiratory: no respiratory distress, reduced air movement Skin: warm Musculoskeletal: generalized weakness Neurologic: AAOx3 Psychiatric: interacting appropriately (impulsive) ICD10 Worksheet Patient Problems: Problems Problem Status Onset Acute respiratory failure Acute Chronic obstructive pulmonary disease with acute exacerbation Acute Acute bronchitis Acute Bronchitis Acute COPD (chronic obstructive pulmonary disease) Acute COPD exacerbation Acute COPD exacerbation Acute Cellulitis Acute Dyspnea Acute Facial abscess Acute HCAP (healthcare-associated pneumonia) Acute Hypoxemia Acute Hypoxia Acute Pneumonia Acute Pneumonia Acute Sepsis Acute Shortness of breath Acute
[2018-04-19] MEDS: GUAIFENESIN/DM 10 ML UDCUP PO PRN (20:07)
[2018-04-19] MEDS: IBUPROFEN 200 MG TAB PO PRN (20:08)
[2018-04-20] MEDS: IPRATROPIUM/ALBUTEROL 3 ML DEYVIAL IH SCH ×4 (04:08→21:19)
[2018-04-20] MEDS: IBUPROFEN 200 MG TAB PO PRN ×3 (06:13→19:41)
[2018-04-20] MEDS: GUAIFENESIN/DM 10 ML UDCUP PO PRN ×3 (06:14→19:41)
[2018-04-20] MEDS: NICOTINE 21 MG/24 HR PATCH TD SCH (07:11)
[2018-04-20] MEDS: predniSONE 20 MG TAB PO SCH (07:40)
--- NOTE | 2018-04-20 11:39 | HOSPPROG ---
Hospitalist Progress Note Assessment/Plan: 57-year-old man with known COPD discharged on April 15. He returned to the ER w acute respiratory failure. First encounter, chart reviewed. *Acute respiratory failure (Acute) -difficult to dc w O2 due to being homeless -his is ok at rest but w any activity, his O2 levels decrease *Chronic obstructive pulmonary disease with acute exacerbation (Acute) -oral steroids *Tobacco abuse disorder *chronic pain: -at risk for abuse of narcotics -concern on last admission he was pocketing pain meds * right hip pain -hip x ray shows some degeneration -Ibuprofen prn, told him no IV narcotics *hepatitis C *homelessness *plan: CM looking into possible placement not likely will likely need to DC to street Subjective: Feeling ok. Still SOB. C/O back pain. Objective: Vital Signs Temp Pulse Resp BP Pulse Ox 36.2 C 87 22 H 126/80 H 87 L 04/20/18 07:37 04/20/18 11:09 04/20/18 11:09 04/20/18 07:37 04/20/18 11:09 Laboratory Results 04/18/18 04:42 04/18/18 04:42 04/19/18 04/20/18 04/21/18 05:59 05:59 05:59 Intake Total 960 Balance 960 - Physical Exam Constitutional: appears nourished, chronically ill appearing, uncomfortable Eyes: PERRL, anicteric sclera, EOMI Ears, Nose, Mouth, Throat: moist mucous membranes, hearing normal, ears appear normal Cardiovascular: regular rate and rhythym, No JVD, No edema Respiratory: no respiratory distress, reduced air movement, expiratory wheeze Gastrointestinal: normoactive bowel sounds, No tenderness, No ascites Skin: warm, normal color, No mottled Musculoskeletal: normal joint ROM, no joint effusions, generalized weakness Neurologic: AAOx3 Psychiatric: not anxious, not encephalopathic, poor insight, poor judgement ICD10 Worksheet Patient Problems: Problems Problem Status Onset Pneumonia Acute HCAP (healthcare-associated pneumonia) Acute Sepsis Acute Chronic obstructive pulmonary disease with acute exacerbation Acute COPD (chronic obstructive pulmonary disease) Acute Bronchitis Acute Facial abscess Acute Acute bronchitis Acute Pneumonia Acute Shortness of breath Acute Cellulitis Acute Dyspnea Acute COPD exacerbation Acute Hypoxemia Acute COPD exacerbation Acute Hypoxia Acute Acute respiratory failure Acute
--- NOTE | 2018-04-20 14:44 | ASMTCMCOM ---
CM Note CM Note Notes: Patient refuses therapy due to his independence. He has no goals for SNF or In-pt Rehab. His problem is homelessness and need for O2. CM to talk with patient about Saturday discharge. Date Signed: 04/20/2018 02:44 PM Electronically Signed By:Anna Chavez LCSW
[2018-04-21] MEDS: IPRATROPIUM/ALBUTEROL 3 ML DEYVIAL IH SCH ×2 (04:21→12:27)
[2018-04-21] MEDS: GUAIFENESIN/DM 10 ML UDCUP PO PRN ×2 (07:10→12:56)
[2018-04-21] MEDS: IBUPROFEN 200 MG TAB PO PRN ×2 (07:11→12:57)
[2018-04-21] MEDS: predniSONE 20 MG TAB PO SCH (07:12)
[2018-04-21 07:46] VITALS: BP 147/82
[2018-04-21] MEDS: NICOTINE 21 MG/24 HR PATCH TD SCH (09:17)
--- NOTE | 2018-04-21 14:52 | ASMTLACE ---
LACE Length of stay for Answers: 4-6 days current admission Acuity / Level of Answers: Yes Care: Did the patient have an inpatient admission? Comorbidities - select Answers: Chronic pulmonary disease all that apply Opioid dependence / Chronic pain # of Emergency department Answers: 9-12 visits in the last 6 months Social determinants Answers: Homelessness (street, skilled nursing) Score: 21 Date Signed: 04/21/2018 02:51 PM Electronically Signed By:DI Deal
--- NOTE | 2018-04-21 15:03 | ASMTDCNOTE ---
Case Management Discharge Discharge Order Complete? Answers: Yes Patient to Obtain Answers: Independently Medications Transportation Arranged Answers: Bus Tokens EMTALA Complete Answers: No Case Management Transport Answers: No Form Complete Faxed Final Orders Answers: No Agency/Facility Transfer Answers: No Report Printed & Faxed to Receiving Agency Family Notified Answers: No Discharge Comments Notes: CM discussed case w/ Patricia Garrett LINE RIDER. Pt is being d/c'd today. CM met w/ pt and initially refused d/c until he was assessed by [facility]. Pt requesting SNF respite for 30 days. Pt is independent within his room. Pt refuses to wear o2 because he report that it dries out his throat. CM got Poly Marino involved. Pt agreed to d/c. Pt preferred a bus pass instead of a taxi voucher. CM checked w/ [facility] and they state that he has not been banned and welcomed there. Pt has agreed to follow up with coordinated entry. CM made pt an appointment with [facility] and the appointment has been inputted into [facility]. CM available for changes. Plan: Independent Date Signed: 04/21/2018 03:02 PM Electronically Signed By:DI Deal
--- NOTE | 2018-04-21 16:53 | GDS ---
DISCHARGE DIAGNOSES: 1. Acute chronic obstructive pulmonary disease exacerbation. 2. Chronic hypoxemic respiratory failure. 3. Acute hypoxemic respiratory failure. 4. Chronic obstructive pulmonary disease. 5. Tobacco abuse. 6. Chronic pain. 7. History of hepatitis C. 8. Homelessness. STUDIES AND PROCEDURES DONE: 1. Chest x-ray. 2. Hip x-ray. PHYSICAL EXAM: GENERAL: The patient is alert. VITAL SIGNS: Afebrile at 36.7. Pulse is 68. Respi ratory rate is 18. Blood pressure is 147/82. He is saturating 91% on room air. I have seen and catrachita luated the patient on the day of discharge. HOSPITAL COURSE: The patient is a 57-year-old male, presents to the emergency room with complaints o f shortness of breath and cough. He was evaluated and diagnosed with: 1. Acute on chronic respiratory failure. The patient has a known history of respiratory failure, ho wally, has refused supplemental oxygen in the past. He is saturating 91% on room air today prior to disposition, and appears to be mildly better than his baseline oxygen requirements. 2. Acute chronic obstructive pulmonary disease exacerbation. He is responding well to oral steroids . He has been provided a prescription for prednisone, as well as albuterol. It has been recommended that the patient remain on low-dose prednisone in the outpatient setting. He is refusing this at th is time. I hope the patient will follow with his primary care provider at [facility] regarding this treatment. 3. Tobacco abuse. Cessation education has been provided. However, the patient continues to smoke t obacco. 4. Chronic pain. The patient has not been provided any narcotic pain medications during this hospit alization. He has a history of narcotic abuse and manipulation. 5. Right hip pain. A hip x-ray was performed, noting degeneration. This is a chronic problem for t he patient with nothing acute to be evaluated during this hospitalization. 6. History of hepatitis C. This is stable. 7. Homelessness. Had a long discussion with Case Management regarding the patient's disposition. Betty rudolph has been offered several resources at the time of discharge, and is refusing all of them. He has b een offered a respite bed in [place], however, refusing. A custodial bed at the [facility] has richa soto arranged for the patient at the time of disposition. He is provided a bus pass, although taxi vouc her was offered. [facility] appointment has been arranged for the patient prior to discharge. There are no pending studies. DISCHARGE MEDICATIONS: Please refer to EMR form. Again, a prescription for albuterol, as well as pr ednisone, have been provided at the time of disposition. I spent greater than 35 minutes in the care , coordination, and management of the patient's discharge. /[id number]/MODL
--- NOTE | 2018-04-22 13:32 | ASDISCHSUM ---
Discharge Information Plan Status:Home with No Needs Medically Cleared to Leave: Discharge Date:04/21/2018 03:33 PM D/C Disposition: ADT D/C Disposition:Home, Routine, Self-Care Projected Discharge Date:04/21/2018 11:00 AM Transportation at D/C: Discharge Delay Reason: Follow-Up Date:04/21/2018 11:00 AM Discharge Slot: Final Diagnosis:Acute respiratory failure, COPD, Chronic pain Placement Information Referral Type:*[facility]/SNF Referral ID:[id number] Provider Name: Address 1: Phone Number: Address 2: Fax Number: City: Selection Factors: State: Patient Contact Information Contact Name:NIXON Relationship: Address: Home Phone: Work Phone: City: Alternate Phone: [facility] Code: Email: Financial Information Financial Class:Medicaid Primary Plan Desc:MEDICAID HEALTH FIRST [place] Primary Plan Number:[id number] Secondary Plan Desc: Secondary Plan Number: Assessment Information LACE LACE Length of stay for Answers: 4-6 days current admission Acuity / Level of Answers: Yes Care: Did the patient have an inpatient admission? Comorbidities - select Answers: Chronic pulmonary disease all that apply Opioid dependence / Chronic pain # of Emergency department Answers: 9-12 visits in the last 6 months Social determinants Answers: Homelessness (street, fci) Score: 21 Date Signed: 04/21/2018 02:51 PM Electronically Signed By:DI Deal [facility] CM Progress Note CM Note CM Note Notes: Pt admitted for SOB, he has a hx of COPD. He needs O2 but is homeless and is unable to get a concentrator. Currently needing 4L. ACTIVITY DIRECTOR recommends SNF, unsure if he will qualify, he has Medicaid. CM met with pt and he is interested, he is aware he may not qualify. [facility] done and faxed, email sent to [facility]. DC Plan: TBD Date Signed: 04/18/2018 03:15 PM Electronically Signed By:Angela Sharp RN [facility] CM Progress Note CM Note MARIA ELENA Note Notes: Patient refuses therapy due to his independence. He has no goals for SNF or In-pt Rehab. His problem is homelessness and need for O2. CM to talk with patient about Saturday discharge. Date Signed: 04/20/2018 02:44 PM Electronically Signed By:Anna Chavez LCSW Case Management Discharge Plan Note Case Management Discharge Discharge Order Complete? Answers: Yes Patient to Obtain Answers: Independently Medications Transportation Arranged Answers: Bus Tokens GIANFRANCO Complete Answers: No Case Management Transport Answers: No Form Complete Faxed Final Orders Answers: No Agency/Facility Transfer Answers: No Report Printed & Faxed to Receiving Agency Family Notified Answers: No Discharge Comments Notes: CM discussed case w/ Patricia Garrett NP. Pt is being d/c'd today. CM met w/ pt and initially refused d/c until he was assessed by [facility]. Pt requesting SNF respite for 30 days. Pt is independent within his room. Pt refuses to wear o2 because he report that it dries out his throat. CM got Poly Marino involved. Pt agreed to d/c. Pt preferred a bus pass instead of a taxi voucher. CM checked w/ [facility] and they state that he has not been banned and welcomed there. Pt has agreed to follow up with coordinated entry. CM made pt an appointment with [facility] and the appointment has been inputted into [facility]. CM available for changes. Plan: Independent Date Signed: 04/21/2018 03:02 PM Electronically Signed By:DI Deal Intervention Information Intervention Type:*Incorrect Registration Date of Service:04/18/2018 09:22 AM Patient Type:Observation Staff Member:Yanet Robledo Hours: Discipline: Severity: Comment:
== END 2018-04-21 15:33 | disposition home or self-care (01) | DRG 140 ==
LOC: EDUNIT# → OBSVTOIN 18:36 → F3E 18:38
PROVIDERS: ADMIT Family Medicine; ATTEND Family Medicine
DX: J44.1 Chronic obstructive pulmonary disease with (acute) exacerbation (principal); J96.21 Acute and chronic respiratory failure with hypoxia; F17.210 Nicotine dependence, cigarettes, uncomplicated; G89.29 Other chronic pain; M25.551 Pain in right hip; B19.20 Unspecified viral hepatitis C without hepatic coma; Z59.0 Homelessness
CPT/HCPCS: 96374; 97161-GP; 97165-GO; J1885; J2930; J7512; J7613

== ENCOUNTER 2018-04-22 16:06 | Emergency (ER) | payer MEDICAID ==
--- NOTE | 2018-04-22 16:06 | EDPHY ---
H & P Time Seen by Provider: 04/22/18 16:07 Constitutional: Initial Vital Signs Temperature (C) 36.8 C 04/22/18 16:26 Heart Rate 65 04/22/18 16:26 Respiratory Rate 18 04/22/18 16:26 Blood Pressure 153/95 H 04/22/18 16:26 O2 Sat (%) 92 04/22/18 16:26 O2 Delivery Mode Room Air Allergies/Adverse Reactions: acetaminophen [Acetaminophen] Allergy (Severe, Verified 04/17/18 14:52) heparin Allergy (Unknown, Verified 04/17/18 14:52) Heparin Analogues Allergy (Unknown, Verified 04/17/18 14:52) propoxyphene HCl [From Darvon] Allergy (Unknown, Verified 04/17/18 14:52) amoxicillin [Amoxicillin] Allergy (Verified 04/17/18 14:52) Other-Enter Comments aspirin [Aspirin] Allergy (Verified 04/17/18 14:52) Iodinated Contrast- Oral and IV Dye [Iodinated Contrast Media - Oral and] Allergy (Verified 04/17/18 14:52) Other-Enter Comments Home Medications: Medication Instructions Recorded Albuterol 5 mg/ml INH [Proventil] 2.5 mg IH QID #1 btl 04/21/18 Ibuprofen [Motrin (*)] 400 mg PO Q6HRS PRN tab 04/21/18 predniSONE 60 mg PO DAILY #9 tablet 04/21/18 Medical Decision Making ED Course/Re-evaluation: CHIEF COMPLAINT: Cough HISTORY OF PRESENT ILLNESS: The patient is a homeless 57 y/o male well-known to this department with a history of COPD, heavy tobacco use, and medication noncompliance who returns via EMS from the bus station less than 24 hours after discharge with his baseline complaint of cough. He has multiple barriers to obtaining O2 out of the hospital and during admissions here has refused to wear O2 multiple times. His symptoms and O2 saturations today are unchanged from baseline, currently at 91% on room air upon assessment. He was discharged with a script for prednisone that he did not fill. No fever, vomiting, abdominal pain , diarrhea, urinary symptoms. REVIEW OF SYSTEMS: A comprehensive 10 system review of systems is otherwise negative aside from elements mentioned in the history of present illness and medical decision making. PHYSICAL EXAM: HR, BP, O2 Sat 91% on room air, RR. Temp noted General Appearance: Alert, well hydrated, appropriate, and non-toxic appearing. Head: Atraumatic without scalp tenderness or obvious injury Eyes: Pupils equal, round, reactive to light and accommodation, EOMI, no trauma , no injection. Nose: Atraumatic, no rhinorrhea, clear. Throat: Mucus membranes moist. Neck: Supple, nontender, no lymphadenopathy. Respiratory: No retractions, no distress, and no accessory muscle use. Lungs have wheezing bilaterally to auscultation. Cardiovascular: Regular rate and rhythm, no murmurs, rubs, or gallops. Good capillary refill all extremities. Gastrointestinal: Abdomen is soft, nontender, non-distended, no masses, no rebound, no guarding, no peritoneal signs. Musculoskeletal: Normal active ROM of all extremities, atraumatic. Neurological: Alert, appropriate, and interactive. The patient has non-focal cranial nerves, motor, sensory, and cerebellar exam. Skin: No rashes, good turgor, no nodules on palpation. Past medical history: COPD, chronic pain, hepatitis C, mediation noncompliance. Past surgical history: Noncontributory Family history: Noncontributory Social history: Tobacco use, homeless. Prior medical records reviewed including admission 04/17/18 for the same symptoms. DIFFERENTIAL DIAGNOSIS: The differential diagnosis for the patient's cough included but was not limited to COPD, medication noncompliance, viral URI, malingering, pneumonia. MEDICAL DECISION MAKING: This is a 57 y/o male with COPD and medication noncompliance who returns less than 24 hours after discharge complaining of an ongoing cough. He presents at his baseline with a normal SpO2 and wheezing bilaterally. Plan for 10mg PO Decadron and duo neb treatment here and discharge home with the same follow up instructions as given yesterday. - Data Points Medications Given: Discontinued Medications Albuterol/Ipratropium (Duoneb) 3 ml IH EDNOW ONE Stop: 04/22/18 16:14 Last Admin: 04/22/18 16:18 Dose: 3 ml Dexamethasone (Decadron Injection) 10 mg IVP EDNOW ONE Stop: 04/22/18 16:12 Last Admin: 04/22/18 16:18 Dose: 10 mg Departure - Departure Disposition: Home, Routine, Self-Care Clinical Impression: Noncompliance with medication regimen COPD (chronic obstructive pulmonary disease) Qualifiers: COPD type: unspecified COPD Qualified Code(s): J44.9 - Chronic obstructive pulmonary disease, unspecified Condition: Good Instructions: COPD (Chronic Obstructive Pulmonary Disease) (ED) Additional Instructions: Fill your prednisone prescription. Follow up with the resources provided by case management during prior visits. Referrals: [facility],. [Clinic] - As per Instructions Report Scribed for: Sg Lux Report Scribed by: Gilda Mathis Date of Report: 04/22/18 Time of Report: 16:11
[2018-04-22] MEDS ORDERED: DEXAMETHASONE 10 MG/ML VIAL IVP ONE (16:11)
[2018-04-22] MEDS ORDERED: IPRATROPIUM/ALBUTEROL 3 ML DEYVIAL IH ONE (16:13)
[2018-04-22] MEDS ORDERED: DEXAMETHASONE 4 MG/ML VIAL ONE (16:15)
[2018-04-22 16:29] VITALS: BP 153/95
--- NOTE | 2018-04-22 17:21 | ASMTCMCOM ---
CM Note CM Note Notes: Reviewed chart, spoke with ASHLYN Avendaño. Pt presented to the Emergency Department with a persistent cough. Pt was discharged from the hospital on 04/17/18. History includes Hep C, COPD, chronic pain, tobacco use, medication noncompliance. Pt is homeless. Per prior records, pt refused oxygen at the time of discharge and continues to refuse oxygen this ER visit. The pt refused to fill his prescription for prednisone and has a long history of medication noncompliance. Pt provided with information on his follow up appointment at [facility], as well as information on [facility], [facility], community tables, medication benefits and risks, and importance of follow up treatment. [facility] beds previously [facility]). Pt to follow up as directed. CM available for any further issues or concerns. Date Signed: 04/22/2018 05:20 PM Electronically Signed By:Bianca Moralez RN
== END 2018-04-22 16:41 | disposition home or self-care (01) ==
LOC: EDUNIT#
DX: J44.9 Chronic obstructive pulmonary disease, unspecified (principal); Z91.14 Patient's other noncompliance with medication regimen; F17.200 Nicotine dependence, unspecified, uncomplicated; B19.20 Unspecified viral hepatitis C without hepatic coma; G89.29 Other chronic pain; Z59.0 Homelessness
CPT/HCPCS: 96374; J1100

== ENCOUNTER 2018-04-23 13:35 | Emergency (ER) | payer MEDICAID ==
--- NOTE | 2018-04-23 13:41 | EDPHY ---
H & P Time Seen by Provider: 04/23/18 13:35 HPI/ROS: Chief complaint. Shortness of breath HPI. Patient is a 57-year-old male presents emergency department by EMS with shortness of breath. Patient was recently hospitalized. He was seen last night in the emergency department for same symptoms. He tells me that when he went to fill his prescription that it had already been filled by someone else. He also tells me he is out of his inhalers. Review of the chart shows that he was prescribed prednisone last night. Patient is well-known to the emergency department. He is noncompliant with medication. It has been recommended that he wear oxygen 12/11 but as he is homeless he does not have an address to send the oxygen to so he does not wear oxygen. EMS found the patient have an O2 saturation of 86%. He received an albuterol nebulizer treatment per EMS. On arrival patient's O2 saturation is 90%. ROS 10 systems were reviewed and negative with the exception of the elements mentioned in the history of present illness Past Medical/Surgical History: COPD, chronic pain, hepatitis, noncompliant with home oxygen, heroin abuse/IVDA , migraines, PTSD Social History: Single, homeless, heavy smoker, denies alcohol Smoking Status: Heavy smoker Physical Exam: General Appearance: Alert well-developed male mild distress vital signs are stable Eyes: Pupils equal and round no pallor or injection. ENT, Mouth: Mucous membranes are moist. Respiratory: There are no retractions. Patient is speaking in full sentences. Bilateral end expiratory rhonchi. No rales. Cardiovascular: Regular rate and rhythm. Gastrointestinal: Abdomen is soft and nontender, no masses, bowel sounds normal. Neurological: Awake and alert, sensory and motor exams grossly normal. Skin: Warm and dry, no rashes. Musculoskeletal: Neck is supple nontender. Extremities symmetrical, full range of motion. Psychiatric: Patient is oriented X 3, there is no agitation. Constitutional: Initial Vital Signs Temperature (C) 36.6 C 04/23/18 13:40 Heart Rate 82 04/23/18 13:40 Respiratory Rate 20 04/23/18 13:40 Blood Pressure 120/85 H 04/23/18 13:40 O2 Sat (%) 91 L 04/23/18 13:40 O2 Delivery Mode Room Air Allergies/Adverse Reactions: acetaminophen [Acetaminophen] Allergy (Severe, Verified 04/17/18 14:52) heparin Allergy (Unknown, Verified 04/17/18 14:52) Heparin Analogues Allergy (Unknown, Verified 04/17/18 14:52) propoxyphene HCl [From Darvon] Allergy (Unknown, Verified 04/17/18 14:52) amoxicillin [Amoxicillin] Allergy (Verified 04/17/18 14:52) Other-Enter Comments aspirin [Aspirin] Allergy (Verified 04/17/18 14:52) Iodinated Contrast- Oral and IV Dye [Iodinated Contrast Media - Oral and] Allergy (Verified 04/17/18 14:52) Other-Enter Comments Home Medications: Medication Instructions Recorded Albuterol 5 mg/ml INH [Proventil] 2.5 mg IH QID #1 btl 04/21/18 Ibuprofen [Motrin (*)] 400 mg PO Q6HRS PRN tab 04/21/18 predniSONE 60 mg PO DAILY #9 tablet 04/21/18 Albuterol Hfa Anes Only [Proair 2 puffs IH QID PRN #1 mdi 04/23/18 Hfa Icu (*)] predniSONE 40 mg PO DAILY #8 tablet 04/23/18 Medical Decision Making Procedures: Prednisone orally. DuoNeb updraft ED Course/Re-evaluation: Re-evaluation at 2:20 p.m.. Patient has no respiratory distress. He is speaking and arguing in full sentences. Listening to his lungs I hear no wheezing, rales or rhonchi. Patient and I discussed treatment plan including criteria for return and importance of follow-up and further evaluation. He expresses understanding and agreement Patient has been seen by case management rn as well Differential Diagnosis: This appears to be COPD exacerbation. No evidence for pneumonia. Symptoms appear to be complicated by noncompliance. He tells me he has no inhalers or medication. He does agree to take prescriptions of pharmacy to be filled. - Data Points Medications Given: Discontinued Medications Albuterol/Ipratropium (Duoneb) 3 ml IH EDNOW ONE Stop: 04/23/18 13:51 Last Admin: 04/23/18 14:04 Dose: 3 ml Prednisone (Prednisone) 60 mg PO EDNOW ONE Stop: 04/23/18 13:51 Last Admin: 04/23/18 14:04 Dose: 60 mg Departure - Departure Disposition: Home, Routine, Self-Care Clinical Impression: COPD exacerbation Condition: Good Instructions: COPD (Chronic Obstructive Pulmonary Disease) (ED) Additional Instructions: Take prednisone daily as prescribed Albuterol inhaler using 2 puffs every 4-6 hours to help with breathing Return for worsening symptoms Follow-up at [facility] for further evaluation Referrals: NONE *PRIMARY CARE P,. [Primary Care Provider] - As per Instructions [facility] [Outside] - 1-2 days without fail Prescriptions: Albuterol Hfa Anes Only [Proair Hfa Icu (*)] 2 puffs IH QID PRN #1 mdi PRN Reason: Short Of Breath/Dyspnea predniSONE 40 mg PO DAILY #8 tablet
[2018-04-23] MEDS ORDERED: IPRATROPIUM/ALBUTEROL 3 ML DEYVIAL IH ONE (13:50)
[2018-04-23] MEDS ORDERED: predniSONE 20 MG TAB PO ONE (13:50)
--- NOTE | 2018-04-23 14:31 | ASMTCMCOM ---
CM Note CM Note Notes: Patient well known to ED and this CM. Patient reminded of warming long term location tonight and message left with Lorna GOLDBERG at [facility] Date Signed: 04/23/2018 02:31 PM Electronically Signed By:Aleksandra Baumann RN
[2018-04-23 14:41] VITALS: BP 108/83
== END 2018-04-23 14:48 | disposition home or self-care (01) ==
LOC: EDUNIT#
DX: J44.1 Chronic obstructive pulmonary disease with (acute) exacerbation (principal); F17.200 Nicotine dependence, unspecified, uncomplicated
CPT/HCPCS: J7512

== ENCOUNTER 2018-04-27 15:34 | Emergency (ER) | payer MEDICAID ==
[2018-04-27] MEDS ORDERED: IPRATROPIUM/ALBUTEROL 3 ML DEYVIAL IH ONE (15:38)
[2018-04-27] MEDS ORDERED: predniSONE 20 MG TAB PO ONE (15:38)
[2018-04-27 15:40] VITALS: BP 107/81
--- NOTE | 2018-04-27 15:44 | EDPHY ---
H & P Time Seen by Provider: 04/27/18 15:36 HPI/ROS: HPI Shortness of breath, COPD. 57-year-old male by ambulance. This patient is very familiar to our emergency department and staff. He is homeless. He has a history of COPD. He frequently comes into the emergency department with complaint of shortness of breath. He states that he ran out of his prednisone yesterday and has been getting progressively more short of breath since that time. He was unable to get to his primary care physician at [facility] because it is the weekend. He denies cough. He was brought in by EMS from the street. EMS reports that initial room air pulse oximetry was 89%. They put him on 2 L of nasal cannula oxygen and his pulse oximetry came up to 100%. He was given 1 albuterol nebulizer by EMS on the way to the emergency department. ROS: Constitutional: No fever, no chills. No weakness. Eyes: No discharge. No changes in vision. ENT: No sore throat. No nasal congestion or rhinorrhea. Respiratory: No cough. As above. Cardiac: No chest pain, no palpitations. Gastrointestinal: No abdominal pain, no vomiting, no diarrhea. Genitourinary: No hematuria. No dysuria or increased frequency with urination. Musculoskeletal: No back pain. No neck pain. No myalgias or arthralgias. Skin: No rashes. Neurological: No headache. No focal weakness or altered sensation. Past medical history: COPD. Social history: Heavy smoker. Homeless. History of alcohol abuse. Here by himself. Physical Exam: General Appearance: Alert, he is not in distress. Dirty and disheveled. This patient is responding to questions appropriately and in full sentences. This patient appears well-hydrated and well-nourished. Eyes: Pupils equal and round no pallor or injection. No lid edema, erythema or injection. Respiratory: There are no retractions, lungs are clear but with moderately diminished air movement bilaterally. No tachypnea. Cardiovascular: Regular rate and rhythm. No murmur. Neurological: Motor sensory function is grossly intact. Cranial nerves are normal. Gait is normal. Skin: Warm and dry, no rashes. Musculoskeletal: Neck is supple and nontender, no JVD. Extremities are symmetrical. All joints range without pain or impingement. Psychiatric: No agitation. No depression. Database: EKG: Imaging: Procedures: Emergency department course: Triage vital signs reviewed. Initial room air oxygen saturation here is 90%. He was placed on 2 L of nasal cannula oxygen. Pulse oximetries come up to the mid to high 90s. He will be given 60 mg of oral prednisone and [id number] albuterol/Atrovent nebulizer treatments. 4:25 p.m., the patient was re-evaluated, he is feeling better. Repeat pulmonary exam he has improved air movement bilaterally. Room air pulse oximetry is 94%. I will prescribe him prednisone, 60 mg to be taken daily over the next 4 days. I have instructed him to follow up with [facility] through their walk-in clinic on Saturday or Saturday of this week for re- evaluation and refill of his prescriptions. The patient will also be given a take-home pack of albuterol and his prednisone will be filled by our assistance program. The patient feels comfortable with this plan. Return to emergency department precautions were reviewed with him, all of his questions were answered. He was discharged from the emergency department in good condition. Differential Diagnosis: The differential diagnosis on this patient includes but is not limited to COPD exacerbation. Pneumonia, congestive heart failure, tamponade unlikely. This represents a partial list of diagnoses considered. These considerations are based on history, physical exam, past history, reassessment and diagnostic testing. Smoking Status: Heavy smoker Constitutional: Initial Vital Signs Temperature (C) 36.5 C 04/27/18 15:37 Heart Rate 72 04/27/18 15:37 Respiratory Rate 20 04/27/18 15:37 Blood Pressure 107/81 H 04/27/18 15:37 O2 Sat (%) 90 L 04/27/18 15:37 O2 Delivery Mode Room Air Allergies/Adverse Reactions: acetaminophen [Acetaminophen] Allergy (Severe, Verified 04/17/18 14:52) heparin Allergy (Unknown, Verified 04/17/18 14:52) Heparin Analogues Allergy (Unknown, Verified 04/17/18 14:52) propoxyphene HCl [From Darvon] Allergy (Unknown, Verified 04/17/18 14:52) amoxicillin [Amoxicillin] Allergy (Verified 04/17/18 14:52) Other-Enter Comments aspirin [Aspirin] Allergy (Verified 04/17/18 14:52) Iodinated Contrast- Oral and IV Dye [Iodinated Contrast Media - Oral and] Allergy (Verified 04/17/18 14:52) Other-Enter Comments Home Medications: Medication Instructions Recorded Albuterol 5 mg/ml INH [Proventil] 2.5 mg IH QID #1 btl 04/21/18 Ibuprofen [Motrin (*)] 400 mg PO Q6HRS PRN tab 04/21/18 predniSONE 60 mg PO DAILY #9 tablet 04/21/18 Albuterol Hfa Anes Only [Proair 2 puffs IH QID PRN #1 mdi 04/23/18 Hfa Icu (*)] predniSONE 40 mg PO DAILY #8 tablet 04/23/18 predniSONE [prednisone 20mg (RX)] 60 mg PO DAILY #9 tab 04/27/18 Medical Decision Making - Data Points Medications Given: Discontinued Medications Albuterol/Ipratropium (Duoneb) 6 ml IH EDNOW ONE Stop: 04/27/18 15:39 Last Admin: 04/27/18 15:43 Dose: 6 ml Prednisone (Prednisone) 60 mg PO EDNOW ONE Stop: 04/27/18 15:39 Last Admin: 04/27/18 15:42 Dose: 60 mg Departure - Departure Disposition: Home, Routine, Self-Care Clinical Impression: COPD exacerbation Condition: Good Instructions: COPD (Chronic Obstructive Pulmonary Disease) (ED) Additional Instructions: Read and follow provided instructions. Follow-up with your primary care physician at [facility] in 1-2 days for re -evaluation as discussed. Take 60 mg of prednisone daily for the next 3 days. Albuterol meter dose inhaler: 1-2 puffs every 2-4 hours as needed for shortness of breath. Return to the emergency department for worsening symptoms or other serious concerns. Referrals: [facility],. [Clinic] - As per Instructions Prescriptions: predniSONE [prednisone 20mg (RX)] 60 mg PO DAILY #9 tab
== END 2018-04-27 17:00 | disposition home or self-care (01) ==
LOC: EDUNIT# → EDBD
DX: R06.02 Shortness of breath (principal); J44.1 Chronic obstructive pulmonary disease with (acute) exacerbation; Z59.0 Homelessness; Z79.899 Other long term (current) drug therapy
CPT/HCPCS: J7512

== ENCOUNTER 2018-05-02 18:42 | Emergency (ER) | payer MEDICAID ==
[2018-05-02] MEDS ORDERED: predniSONE 20 MG TAB PO ONE (22:19)
[2018-05-02] MEDS ORDERED: IPRATROPIUM/ALBUTEROL 3 ML DEYVIAL IH ONE (22:19)
[2018-05-02] MEDS ORDERED: KETOROLAC 15 MG/1 ML SDV IVP ONE (22:25)
--- NOTE | 2018-05-02 22:29 | EDPHY ---
H & P Stated Complaint: SOB X 3 YEARS, AND PAIN EVERYWHERE Time Seen by Provider: 05/02/18 22:16 HPI/ROS: HPI The patient presents with cough, shortness of breath which has been progressive over the last several days. The patient has been in the ER on April 23 in April 27 for similar complaints. He finished 4 days of prednisone a few days ago and since then has been getting progressively worse. He says he can walk about 10 ft before he has dyspnea on exertion. He said he is coughing up whitish sputum. He does not have a fever though is complaining of diffuse body pain related to arthritis. He does not have any chest pain. This patient is homeless, was previously prescribed supplemental oxygen as an outpatient but because he does not have a place to stay has not had it for the last 3 years. He has been banned from [facility] and does not have a way to get routine prescriptions he reports.. REVIEW OF SYSTEMS 10 systems were reviewed and negative with the exception of the elements mentioned in the history of present illness. PMHx: COPD, arthritis per his report, hepatitis-C Soc Hx: Homeless, cigarette smoker PHYSICAL General Appearance: Alert, disheveled, upset about his situation and illness Eyes: Pupils equal and round no pallor or injection ENT, Mouth: Mucous membranes moist Respiratory: Pursed lip breathing, somewhat tachypneic, speaking full sentences , breath sounds diminished throughout all lung benson Cardiovascular: Regular rate and rhythm Gastrointestinal: Abdomen is soft and non-tender, no masses, bowel sounds normal Neurological: A&O, moves all extremities Skin: Warm and dry, no rashes Musculoskeletal: Neck is supple non tender Extremities: symmetrical, full range of motion Psychiatric: Patient is oriented X 3, there is no agitation Source: Patient Exam Limitations: No limitations - Personal History Current Tetanus Diphtheria and Acellular Pertussis (TDAP): Yes Tetanus Vaccine Date: 2015 - Medical/Surgical History Hx Asthma: Yes Hx Chronic Respiratory Disease: Yes Hx Diabetes: No Hx Cardiac Disease: No Hx Renal Disease: No Hx Cirrhosis: Yes Hx Alcoholism: No Hx HIV/AIDS: No Hx Splenectomy or Spleen Trauma: Yes Other PMH: CHRONIC PAIN, RA, COPD/ASTHMA, HEPATITIS (B,C,D,E,F), C-DIFF, wears home O2(non compliant),"self medicates for pain," HEROIN ABUSE/IVDA, C diff., severe emphysema. DENTAL CARIES, MIGRAINES, PTSD, "broken back", "broken neck" , FLU X2 YRS, Pneum (November 05), POSS SCHIZOPHRENIA - Social History Smoking Status: Heavy smoker Constitutional: Initial Vital Signs Temperature (C) 36.8 C 05/02/18 19:20 Heart Rate 78 05/02/18 19:20 Respiratory Rate 28 H 05/02/18 19:20 Blood Pressure 107/78 05/02/18 19:20 O2 Sat (%) 85 L 05/02/18 19:20 O2 Delivery Mode Room Air O2 (L/minute) 2 Allergies/Adverse Reactions: acetaminophen [Acetaminophen] Allergy (Severe, Verified 04/17/18 14:52) heparin Allergy (Unknown, Verified 04/17/18 14:52) Heparin Analogues Allergy (Unknown, Verified 04/17/18 14:52) propoxyphene HCl [From Darvon] Allergy (Unknown, Verified 04/17/18 14:52) amoxicillin [Amoxicillin] Allergy (Verified 04/17/18 14:52) Other-Enter Comments aspirin [Aspirin] Allergy (Verified 04/17/18 14:52) Iodinated Contrast- Oral and IV Dye [Iodinated Contrast Media - Oral and] Allergy (Verified 04/17/18 14:52) Other-Enter Comments Home Medications: Medication Instructions Recorded Doxycycline Hyclate 100 mg PO BID #14 tab 05/03/18 predniSONE 60 mg PO DAILY #15 tab 05/03/18 Medical Decision Making - Diagnostics Imaging Results: Imaging Impressions Chest X-Ray 05/02/18 22:25 Impression: Mild bronchitis. Mild diskoid atelectasis or scarring lingula. Other chronic findings as above. Imaging: Discussed imaging studies w/ yard caller Radiologist, I viewed and interpreted images myself Differential Diagnosis: 57-year-old homeless man with longstanding history of COPD which is poorly treated because of his homelessness and poor compliance with medical treatments , presents with progressive dyspnea on exertion and productive cough. On arrival, oxygen saturation is 85% on room air, however while at rest it is about 92%. The patient does have diminished breath sounds throughout. He has been seen in the emergency department on April 23 and for similar complaints. He recently finished a prednisone burst. He has not had a fever, rhinorrhea, sore throat. He does not have any chest pain. Differential diagnosis includes COPD exacerbation, pneumonia, pneumothorax, less likely CHF. In the emergency department, patient received DuoNeb and prednisone. Chest x-ray demonstrated likely bronchitis. Labs were unremarkable. He was observed for many hours and was not hypoxic. We performed an ambulatory sat and it was in the low 90s. He will be discharged. We will give him doxycycline , prednisone, albuterol for his symptoms, suspect COPD exacerbation as cause. We have requested MAP rxs. He will be discharged from the emergency department. - Data Points Laboratory Results: Laboratory Results 05/02/18 22:37 05/02/18 22:37 05/02/18 05/02/18 05/02/18 22:37 22:37 22:37 WBC 10.25 10^3/uL H 10^3/uL (3.80-9.50) RBC 4.30 10^6/uL L 10^6/uL (4.40-6.38) Hgb 15.1 g/dL g/dL (13.7-17.5) Hct 43.3 % % (40.0-51.0) MCV 100.7 fL H fL (81.5-99.8) MCH 35.1 pg H pg (27.9-34.1) MCHC 34.9 g/dL g/dL (32.4-36.7) RDW 13.1 % % (11.5-15.2) Plt Count 186 10^3/uL 10^3/uL (150-400) MPV 9.6 fL fL (8.7-11.7) Neut % (Auto) 55.9 % % (39.3-74.2) Lymph % (Auto) 34.4 % % (15.0-45.0) Borden % (Auto) 7.2 % % (4.5-13.0) Eos % (Auto) 1.8 % % (0.6-7.6) Baso % (Auto) 0.3 % % (0.3-1.7) Nucleat RBC Rel Count 0.0 % % (0.0-0.2) Absolute Neuts (auto) 5.75 10^3/uL 10^3/uL (1.70-6.50) Absolute Lymphs (auto) 3.54 10^3/uL H 10^3/uL (1.00-3.00) Absolute Monos (auto) 0.74 10^3/uL 10^3/uL (0.30-0.80) Absolute Eos (auto) 0.19 10^3/uL 10^3/uL (0.03-0.40) Absolute Basos (auto) 0.03 10^3/uL 10^3/uL (0.02-0.10) Absolute Nucleated RBC 0.00 10^3/uL 10^3/uL (0-0.01) Immature Gran % 0.4 % % (0.0-1.1) Immature Gran # 0.04 10^3/uL 10^3/uL (0.00-0.10) D-Dimer 0.55 ug/mLFEU H ug/mLFEU (0.00-0.50) Sodium 133 mEq/L L mEq/L (135-145) Potassium 4.2 mEq/L mEq/L (3.5-5.2) Chloride 103 mEq/L mEq/L (97-110) Carbon Dioxide 29 mEq/l mEq/l (22-31) Anion Gap 1 mEq/L L mEq/L (6-14) BUN 20 mg/dL mg/dL (7-23) Creatinine 1.1 mg/dL mg/dL (0.7-1.3) Estimated GFR > 60 Glucose 97 mg/dL mg/dL (70-100) Calcium 8.3 mg/dL L mg/dL (8.5-10.4) Medications Given: Discontinued Medications Albuterol Sulfate (Proventil Inh Prepack) 1 mdi TAKEHOME EDNOW ONE Stop: 05/03/18 02:46 Last Admin: 05/03/18 03:08 Dose: 1 mdi Albuterol/Ipratropium (Duoneb) 3 ml IH EDNOW ONE Stop: 05/02/18 22:20 Last Admin: 05/02/18 22:30 Dose: 3 ml Ketorolac Tromethamine (Toradol) 15 mg IVP EDNOW ONE Stop: 05/02/18 22:26 Last Admin: 05/02/18 22:37 Dose: 15 mg Prednisone (Prednisone) 60 mg PO EDNOW ONE Stop: 05/02/18 22:20 Last Admin: 05/02/18 22:30 Dose: 60 mg Departure - Departure Disposition: Home, Routine, Self-Care Clinical Impression: COPD exacerbation Condition: Good Instructions: COPD (Chronic Obstructive Pulmonary Disease) (ED) Referrals: [facility],. [Clinic] - As per Instructions Prescriptions: Doxycycline Hyclate 100 mg PO BID #14 tab predniSONE 60 mg PO DAILY #15 tab
[2018-05-02 23:22] LABS: PLATELET COUNT 186 10^3/uL (150-400)
[2018-05-03] MEDS ORDERED: DOXYCYCLINE HYCLATE 100 MG CAP/TAB PO SCH
[2018-05-03] MEDS ORDERED: predniSONE 20 MG TAB PO SCH
[2018-05-03] MEDS ORDERED: ALBUTEROL INH PREPACK MDI TAKEHOME ONE (02:45)
[2018-05-03 04:00] VITALS: BP 125/79
== END 2018-05-03 03:59 | disposition home or self-care (01) ==
LOC: EDUNIT#
DX: J44.1 Chronic obstructive pulmonary disease with (acute) exacerbation (principal); Z59.0 Homelessness
CPT/HCPCS: 96374; J1885; J7512

== ENCOUNTER 2018-05-07 03:47 | Emergency (ER) | payer MEDICAID ==
[2018-05-07 03:50] VITALS: BP 119/84
--- NOTE | 2018-05-07 03:51 | EDPHY ---
H & P Stated Complaint: SOB, COPD, doesn't wear oxygen Time Seen by Provider: 05/07/18 03:51 HPI/ROS: HPI CHIEF COMPLAINT: Shortness of breath, wheezing, possible COPD exacerbation. HISTORY OF PRESENT ILLNESS: 49-year-old male, well known to myself as well as the emergency room as underlying COPD supposed to be wearing oxygen, he continues to smoke tobacco and drink alcohol. The patient was recently here on the 02 of May. He presents back to the emergency room tonight with worsening shortness of breath, wheezing cough with productive green sputum. He reports to me he is out of his inhaler. Denies chest pain. Main complaint shortness of breath Productive cough Increasing sputum No fever. Past Medical History: Significant medical history for COPD, acute on chronic respiratory failure, hepatitis-C, ongoing tobacco use. Oxygen dependency. Past Surgical History: No recent surgery Social History: Homeless smokes tobacco continuously. Family History: Noncontributory ROS REVIEW OF SYSTEMS: 10 Systems were reviewed and negative with the exception of the elements mentioned in the history of present illness. Exam Constitutional nontoxic, no distress triage nursing summary reviewed, vital signs reviewed, awake/alert. Eyes normal conjunctivae and sclera, EOMI, PERRLA. HENT normal inspection, atraumatic, moist mucus membranes, no epistaxis, neck supple/ no meningismus, no raccoon eyes. Respiratory decreased bilaterally. Wheezing bilaterally. Bronchitic sounding cough. Sounds wet at times. Cardiovascular rate normal, regular rhythm, no murmur, no edema, distal pulses normal. Gastrointestinal soft, non-tender, no rebound, no guarding, normal bowel sounds, no distension, no pulsatile mass. Genitourinary no CVA tenderness. Musculoskeletal no midline vertebral tenderness, full range of motion, no calf swelling, no tenderness of extremities, no meningismus, good pulses, neurovascularly intact. Skin pink, warm, & dry, no rash, skin atraumatic. Neurologic awake, alert and oriented x 3, AAOx3, moves all 4 extremities equally, motor intact, sensory intact, CN II-XII intact, normal cerebellar, normal vision, normal speech. Psychiatric normal mood/affect. Heme/Lymph/Immune no lymphadenopathy. Differential Diagnosis: Includes but is not limited to in a particular order acute bronchitis, COPD exacerbation, emphysema, viral pneumonia, bacterial pneumonia Medical Decision Making: Plan for this patient IV establishment IV fluid bolus IV Solu-Medrol, DuoNeb breathing treatment, chest x-ray, EKG, basic blood work, alcohol level re-evaluate. Re-evaluation: 0400: Patient is refusing blood work. Refusing any medical attention. Patient refusing IV establishment or chest x-ray. 0405: Patient continues to yelling cursing me. States he is refusing blood draw patient requesting inhaler any wants to leave. After long discussion with the patient I do recommend he get a chest x-ray DuoNeb breathing treatment. If he does not want IV fluids, IV steroids or IV antibiotics that is his choice. He understands this. Patient is very agitated and yelling and angry. Security at bedside. Patient continues to yell at me. We have agreed on chest x-ray, DuoNeb breathing treatment. Patient requesting albuterol inhaler, steroids, antibiotics. Patient declined IV establishment or blood work or medications. He understands by limiting his workup puts him at risk for medical decline, cardiac arrest, great morbidity, mortality. He understands by not received IV steroids, check blood work, full evaluation for his COPD and shortness of breath these putting his life at risk. Patient will need to sign out against medical advice. This was not my recommendation I recommend he has a full evaluation for shortness of breath. ED x-ray chest one view COPD appearing. Overlying necklace. No pneumothorax or pneumonia. Image interpreted by myself. 0502: Patient re-evaluated after DuoNeb breathing treatment feeling much better. States he can take a deeper breath without any difficulty. Denies chest pain. Patient requesting leave the emergency room. Requesting inhaler and prednisone. Patient declined IV establishment, blood work, EKG for further evaluation. He will sign out against medical advice. Understands the risk of doing so. 0511: Patient refusing to sign against medical advice paperwork, however he has declined further medical evaluation here in the emergency room. Refusing IV blood work EKG or further evaluation. Patient asking for albuterol, prednisone and antibiotic. I have prescribed doxycycline, prednisone, albuterol he also was given albuterol inhaler. I recommend that he stays for further observation or further evaluation however he has declined and is leaving against medical advice. Refusing to sign paperwork. Denilson Tovar RN. at bedside. Witness. Source: Patient - Personal History Current Tetanus Diphtheria and Acellular Pertussis (TDAP): Yes Tetanus Vaccine Date: 2015 - Medical/Surgical History Hx Asthma: Yes Hx Chronic Respiratory Disease: Yes Hx Diabetes: No Hx Cardiac Disease: No Hx Renal Disease: No Hx Cirrhosis: Yes Hx Alcoholism: No Hx HIV/AIDS: No Hx Splenectomy or Spleen Trauma: Yes Other PMH: CHRONIC PAIN, RA, COPD/ASTHMA, HEPATITIS (B,C,D,E,F), C-DIFF, wears home O2(non compliant),"self medicates for pain," HEROIN ABUSE/IVDA, C diff., severe emphysema. DENTAL CARIES, MIGRAINES, PTSD, "broken back", "broken neck" , FLU X2 YRS, Pneum (November 05), POSS SCHIZOPHRENIA - Social History Smoking Status: Heavy smoker Constitutional: Initial Vital Signs Heart Rate 96 05/07/18 03:48 Respiratory Rate 20 05/07/18 03:48 Blood Pressure 119/84 H 05/07/18 03:48 O2 Sat (%) 93 05/07/18 03:48 O2 Delivery Mode Nasal Cannula O2 (L/minute) 3 Allergies/Adverse Reactions: acetaminophen [Acetaminophen] Allergy (Severe, Verified 05/07/18 03:50) heparin Allergy (Unknown, Verified 05/07/18 03:50) Heparin Analogues Allergy (Unknown, Verified 05/07/18 03:50) propoxyphene HCl [From Darvon] Allergy (Unknown, Verified 05/07/18 03:50) amoxicillin [Amoxicillin] Allergy (Verified 05/07/18 03:50) Other-Enter Comments aspirin [Aspirin] Allergy (Verified 05/07/18 03:50) Iodinated Contrast- Oral and IV Dye [Iodinated Contrast Media - Oral and] Allergy (Verified 05/07/18 03:50) Other-Enter Comments Home Medications: Medication Instructions Recorded Doxycycline Hyclate 100 mg PO BID #14 tab 05/03/18 predniSONE 60 mg PO DAILY #15 tab 05/03/18 Albuterol [Proventil Inhaler HFA 1 - 2 puffs IH Q4H #1 mdi 05/07/18 (*)] Doxycycline Hyclate 100 mg PO BID #14 tablet 05/07/18 predniSONE 60 mg PO DAILY #15 tab 05/07/18 Medical Decision Making - Data Points Medications Given: Discontinued Medications Albuterol Sulfate (Proventil Inh Prepack) 1 mdi TAKEHOME EDNOW ONE Stop: 05/07/18 04:04 Last Admin: 05/07/18 04:13 Dose: 1 mdi Albuterol/Ipratropium (Duoneb) 3 ml IH EDNOW ONE Stop: 05/07/18 03:57 Last Admin: 05/07/18 04:07 Dose: 3 ml Azithromycin (Zithromax) 500 mg PO EDNOW ONE PRN Reason: Protocol Stop: 05/07/18 04:04 Last Admin: 05/07/18 04:12 Dose: 500 mg Prednisone (Prednisone) 60 mg PO EDNOW ONE Stop: 05/07/18 04:04 Last Admin: 05/07/18 04:11 Dose: 40 mg Departure - Departure Disposition: Against Medical Advice Clinical Impression: COPD exacerbation Instructions: COPD (Chronic Obstructive Pulmonary Disease) (ED) Referrals: NONE *PRIMARY CARE P,. [Primary Care Provider] - As per Instructions [facility],. [Clinic] - As per Instructions Prescriptions: Albuterol [Proventil Inhaler HFA (*)] 1 - 2 puffs IH Q4H #1 mdi Doxycycline Hyclate 100 mg PO BID #14 tablet predniSONE 60 mg PO DAILY #15 tab
[2018-05-07] MEDS ORDERED: NS 1,000 ML IV ONE (03:56)
[2018-05-07] MEDS ORDERED: IPRATROPIUM/ALBUTEROL 3 ML DEYVIAL IH ONE (03:56)
[2018-05-07] MEDS ORDERED: methylPREDNISolone SOD SUCC 125 MG/2 ML VIAL IVP ONE (03:56)
[2018-05-07] MEDS ORDERED: AZITHROMYCIN 250 MG TAB PO ONE (04:03)
[2018-05-07] MEDS ORDERED: ALBUTEROL INH PREPACK MDI TAKEHOME ONE (04:03)
[2018-05-07] MEDS ORDERED: predniSONE 20 MG TAB PO ONE (04:03)
== END 2018-05-07 05:00 | disposition left against medical advice (07) ==
LOC: EDUNIT#
DX: J44.1 Chronic obstructive pulmonary disease with (acute) exacerbation (principal); F17.200 Nicotine dependence, unspecified, uncomplicated; Z99.81 Dependence on supplemental oxygen; Z59.0 Homelessness
CPT/HCPCS: J7512

== ENCOUNTER 2018-05-12 08:58 | Emergency (ER) | payer MEDICAID ==
[2018-05-12 09:05] VITALS: BP 146/99
--- NOTE | 2018-05-12 09:24 | EDPHY ---
H & P Time Seen by Provider: 05/12/18 09:22 HPI/ROS: CHIEF COMPLAINT: " I need a place to live " HISTORY OF PRESENT ILLNESS: 57-year-old man who is homeless with known bad oxygen-dependent COPD presents because he is out of his inhaler and his prednisone. He is brought in by EMS saying to me "I need a place to live" and "you need to call to group account director right now" and tell him I need a place to live. Patient has a chronic cough which is unchanged. No chest pain or hemoptysis or fever or chills. He has chronic shortness of breath which she says is worse since he ran out of his inhaler and prednisone yesterday. REVIEW OF SYSTEMS: Eye: no change in vision ENT: no sore throat Cardiac: no chest pain or syncope Pulmonary: HPI Abdomen: no vomiting, diarrhea, abdominal pain Musculoskeletal: no back pain Skin: Patient says he had bruises yesterday but when asked to see them he says "they are gone." Neuro: no headache Constitutional: no fever : no urinary symptoms A comprehensive 10 point review of systems is otherwise negative aside from elements mentioned in the history of present illness. PAST MEDICAL HISTORY: COPD and chronic pain, hepatitis-C Social history: Currently homeless General Appearance: Alert and conversant, cooperative. Eyes: No scleral icterus. ENT, Mouth: Normal mucous membranes. Respiratory: Decreased breath sounds but minimal wheezing today and no rhonchi or rales. Cardiovascular: Regular rate and rhythm. Gastrointestinal: Abdomen is soft and non tender. Neurological: Alert, face symmetric, normal motor and sensory in extremities. Skin: Warm and dry, no rashes. Musculoskeletal: No peripheral edema. Psychiatric: Intermittently cooperative and then yelling at me. Emergency Department course/MDM: Mild exacerbation of COPD due to out of his medications. Reasonable to refill his inhalers and prednisone, primary care follow-up. Does not appear to have pneumonia or pneumothorax or CHF or pulmonary embolism or other acutely emergent medical or surgical condition today. 91% room air oxygen saturation which is actually pretty good for him. Smoking Status: Light smoker Constitutional: Initial Vital Signs Temperature (C) 36.7 C 05/12/18 09:02 Heart Rate 90 05/12/18 09:02 Respiratory Rate 18 05/12/18 09:02 Blood Pressure 146/99 H 05/12/18 09:02 O2 Sat (%) 91 L 05/12/18 09:02 O2 Delivery Mode Room Air O2 (L/minute) 2 Allergies/Adverse Reactions: acetaminophen [Acetaminophen] Allergy (Severe, Verified 05/12/18 09:01) heparin Allergy (Unknown, Verified 05/12/18 09:01) Heparin Analogues Allergy (Unknown, Verified 05/12/18 09:01) propoxyphene HCl [From Darvon] Allergy (Unknown, Verified 05/12/18 09:01) amoxicillin [Amoxicillin] Allergy (Verified 05/12/18 09:01) Other-Enter Comments aspirin [Aspirin] Allergy (Verified 05/12/18 09:01) Iodinated Contrast- Oral and IV Dye [Iodinated Contrast Media - Oral and] Allergy (Verified 05/12/18 09:01) Other-Enter Comments Home Medications: Medication Instructions Recorded Doxycycline Hyclate 100 mg PO BID #14 tab 05/03/18 predniSONE 60 mg PO DAILY #15 tab 05/03/18 Albuterol [Proventil Inhaler HFA 1 - 2 puffs IH Q4H #1 mdi 05/07/18 (*)] Doxycycline Hyclate 100 mg PO BID #14 tablet 05/07/18 predniSONE 60 mg PO DAILY #15 tab 05/07/18 Albuterol Hfa Anes Only [Proair 2 puffs IH QID #1 mdi 05/12/18 Hfa Icu (*)] predniSONE [prednisone 20mg (RX)] 20 mg PO Q12 #15 tab 05/12/18 Medical Decision Making Differential Diagnosis: Differential diagnosis considered for shortness of breath including but not limited to pulmonary infectious process, COPD, asthma, pulmonary embolus and congestive heart failure. - Data Points Medications Given: Discontinued Medications Albuterol Sulfate (Proventil Inh Prepack) 1 mdi TAKEZACK MCCLAINNOW ONE Stop: 05/12/18 09:35 Last Admin: 05/12/18 09:52 Dose: 1 mdi Departure - Departure Disposition: Home, Routine, Self-Care Clinical Impression: COPD exacerbation Condition: Good Instructions: COPD (Chronic Obstructive Pulmonary Disease) (ED) Referrals: [facility],. [Clinic] - As per Instructions Prescriptions: Albuterol Hfa Anes Only [Proair Hfa Icu (*)] 2 puffs IH QID #1 mdi predniSONE [prednisone 20mg (RX)] 20 mg PO Q12 #15 tab
[2018-05-12] MEDS ORDERED: ALBUTEROL INH PREPACK MDI TAKEHOME ONE ×2 (09:29→09:34)
== END 2018-05-12 09:57 | disposition home or self-care (01) ==
LOC: EDUNIT#
DX: J44.1 Chronic obstructive pulmonary disease with (acute) exacerbation (principal); G89.29 Other chronic pain; Z59.0 Homelessness
CPT/HCPCS: J7512

== ENCOUNTER 2018-05-18 06:51 | Emergency (ER) | payer MEDICAID ==
[2018-05-18 06:57] VITALS: BP 152/94
--- NOTE | 2018-05-18 07:11 | EDPHY ---
HPI/HX/ROS/PE/MDM Narrative: CHIEF COMPLAINT: "The same thing that's been going on every day for the last 3 years. I come in every 4 days for an inhaler and prednisone." HPI: This is a homeless 57 y/o male COPD and 27 prior ED visits here in the last year arriving via EMS who states, "I'm out of my inhaler and I need prednisone. It's the least you can do." He was most recently seen here earlier this week requesting a "place to live" and medication refills. His inhalers and prednisone were refilled and he was discharged with instructions to follow up with his PCP. He has a chronic cough. No fever. REVIEW OF SYSTEMS: A comprehensive 10 system review of systems is otherwise negative aside from elements mentioned in the history of present illness. PMH: COPD, chronic hypoxemic respiratory failure, non-compliance, chronic pain, hepatitis C SOCIAL HISTORY: Homeless, tobacco abuse, not employed. Prior medical records reviewed including admission 04/17/18 and ED visit . PHYSICAL EXAM: General:Patient is alert, in no acute distress. ENT:Eyes are normal to inspection. ENT inspection normal. Neck: Normal inspection. Full range of motion. Respiratory:No respiratory distress. Breath sounds normal bilaterally. Cardiovascular: Regular rate and rhythm. Strong peripheral pulses. Normal cap refill. Abdomen:The abdomen is nontender to palpation. There are no peritoneal signs. Back: Normal to inspection. No tenderness to palpation. Skin: Normal color. No rash. Warm and dry. Extremities: Normal appearance. Full range of motion. Neuro: Oriented x3. Normal motor function. Normal sensory function. ED Course: This is a 57 y/o male with COPD well-known to this department who presents requesting medication refills. He is 94% on room air today and afebrile. He does not appear septic nor have other emergent medical condition currently. He will be discharged with scripts for prednisone and albuterol with referral to PCP. General Initial Vital Signs: Initial Vital Signs Temperature (C) 36.4 C 05/18/18 06:56 Heart Rate 62 05/18/18 06:56 Respiratory Rate 22 H 05/18/18 06:56 Blood Pressure 152/94 H 05/18/18 06:56 O2 Sat (%) 94 05/18/18 06:56 O2 Delivery Mode Room Air Allergies/Adverse Reactions: acetaminophen [Acetaminophen] Allergy (Severe, Verified 05/18/18 06:56) heparin Allergy (Unknown, Verified 05/18/18 06:56) Heparin Analogues Allergy (Unknown, Verified 05/18/18 06:56) propoxyphene HCl [From Darvon] Allergy (Unknown, Verified 05/18/18 06:56) amoxicillin [Amoxicillin] Allergy (Verified 05/18/18 06:56) Other-Enter Comments aspirin [Aspirin] Allergy (Verified 05/18/18 06:56) Iodinated Contrast- Oral and IV Dye [Iodinated Contrast Media - Oral and] Allergy (Verified 05/18/18 06:56) Other-Enter Comments Home Medications: Medication Instructions Recorded Doxycycline Hyclate 100 mg PO BID #14 tab 05/03/18 predniSONE 60 mg PO DAILY #15 tab 05/03/18 Albuterol [Proventil Inhaler HFA 1 - 2 puffs IH Q4H #1 mdi 05/07/18 (*)] Doxycycline Hyclate 100 mg PO BID #14 tablet 05/07/18 predniSONE 60 mg PO DAILY #15 tab 05/07/18 Albuterol Hfa Anes Only [Proair 2 puffs IH QID #1 mdi 05/12/18 Hfa Icu (*)] predniSONE [prednisone 20mg (RX)] 20 mg PO Q12 #15 tab 05/12/18 Departure - Departure Disposition: Home, Routine, Self-Care Clinical Impression: Medication refill Condition: Good Instructions: Albuterol (By breathing), Prednisone (By mouth) Additional Instructions: Use medications as prescribed. Follow up with your primary care provider. Referrals: [facility],. [Clinic] - As per Instructions Report Scribed for: Moses Kenny Report Scribed by: Gilda Mathis Date of Report: 05/18/18 Time of Report: 06:58 Physician Review and Approval Statement: Portions of this note were transcribed by an ED scribe. I personally performed the history, physical exam, and medical decision making; and confirm the accuracy of the information in the transcribed note.
[2018-05-18] MEDS ORDERED: ALBUTEROL INH PREPACK MDI TAKEHOME ONE (07:16)
[2018-05-18] MEDS ORDERED: predniSONE 20 MG TAB PO ONE (07:17)
== END 2018-05-18 07:27 | disposition home or self-care (01) ==
LOC: EDUNIT#
DX: J44.9 Chronic obstructive pulmonary disease, unspecified (principal); Z76.0 Encounter for issue of repeat prescription; J96.11 Chronic respiratory failure with hypoxia; Z91.14 Patient's other noncompliance with medication regimen; G89.29 Other chronic pain; F17.200 Nicotine dependence, unspecified, uncomplicated; Z59.0 Homelessness; Z88.0 Allergy status to penicillin
CPT/HCPCS: J7512

== ENCOUNTER 2018-05-21 00:54 | Inpatient (IN) | payer MEDICAID ==
[2018-05-21] MEDS ORDERED: IPRATROPIUM/ALBUTEROL 3 ML DEYVIAL ONE (01:02)
[2018-05-21] MEDS ORDERED: IPRATROPIUM/ALBUTEROL 3 ML DEYVIAL IH ONE ×2 (01:04→01:22)
--- NOTE | 2018-05-21 01:07 | EDPHY ---
H & P Stated Complaint: by EMS, cough SOB wheezing, 82% RA. Michelle garcia in route Time Seen by Provider: 05/21/18 01:06 HPI/ROS: HPI CHIEF COMPLAINT: Shortness of breath HISTORY OF PRESENT ILLNESS: 57-year-old male, history of COPD, and medication noncompliance, also homeless, does not wear oxygen continues to smoke tobacco presents to the emergency room with shortness of breath. Patient states he ran out of his inhaler around 830 this evening he became progressively worsening shortness of breath with productive sputum. Patient reports to me this same thing that always happens to him. Of note this patient is 27 ER visits for the same similar complaint of shortness of breath. Patient's long history of COPD with medication noncompliance. He arrived to the emergency room by EMS his initial room air sat was 82%. Here in emergency room he is placed into ER room 6 where I greeted him, he has wheezing audible, and tachypnea present. Past Medical History: COPD, medication noncompliance, hepatitis-C, chronic hypoxic respiratory failure, ongoing tobacco use Past Surgical History: Denies recent surgery Social History: homeless with ongoing tobacco use. Family History: Noncontributory ROS REVIEW OF SYSTEMS: 10 Systems were reviewed and negative with the exception of the elements mentioned in the history of present illness. Exam Constitutional triage nursing summary reviewed, vital signs reviewed, awake/ alert. 82% room air sat, tachypneic. Eyes normal conjunctivae and sclera, EOMI, PERRLA. HENT normal inspection, atraumatic, moist mucus membranes, no epistaxis, neck supple/ no meningismus, no raccoon eyes. Respiratory tachypnea, wheezing. Cardiovascular rate normal, regular rhythm, no murmur, no edema, distal pulses normal. Gastrointestinal soft, non-tender, no rebound, no guarding, normal bowel sounds, no distension, no pulsatile mass. Genitourinary no CVA tenderness. Musculoskeletal no midline vertebral tenderness, full range of motion, no calf swelling, no tenderness of extremities, no meningismus, good pulses, neurovascularly intact. Skin pink, warm, & dry, no rash, skin atraumatic. Neurologic awake, alert and oriented x 3, AAOx3, moves all 4 extremities equally, motor intact, sensory intact, CN II-XII intact, normal cerebellar, normal vision, normal speech. Psychiatric normal mood/affect. Heme/Lymph/Immune no lymphadenopathy. Differential Diagnosis: Includes but is not limited to in a particular order COPD exacerbation, pneumonia, reactive airway disease, ongoing tobacco abuse, pneumothorax, empyema Medical Decision Making: Plan for this patient chest x-ray, DuoNeb breathing treatment and re-evaluate. Re-evaluation: Chest x-ray one view reviewed: COPD. No pneumothorax. No pneumonia. Image interpreted by myself. [id number]: On re-evaluation at this time this patient still has tachypnea in the high 20s, O2 sat 86%. Plan for 2nd breathing treatment. Patient has agreed for an IV establishment IV fluid bolus IV Levaquin and IV Solu-Medrol. Plan for this patient will need hospital admission for shortness of breath, hypoxic, COPD exacerbation. I will ask the hospitalist service for admission. The patient additionally agrees for admission. I spoke with Dr. Zuniga, Agrees to admit. Source: Patient, EMS - Personal History Current Tetanus/Diphtheria Vaccine: Yes Current Tetanus Diphtheria and Acellular Pertussis (TDAP): Yes Tetanus Vaccine Date: 2015 - Medical/Surgical History Hx Asthma: Yes Hx Chronic Respiratory Disease: Yes Hx Diabetes: No Hx Cardiac Disease: No Hx Renal Disease: No Hx Cirrhosis: Yes Hx Alcoholism: No Hx HIV/AIDS: No Hx Splenectomy or Spleen Trauma: Yes Other PMH: CHRONIC PAIN, RA, COPD/ASTHMA, HEPATITIS (B,C,D,E,F), C-DIFF, wears home O2(non compliant),"self medicates for pain," HEROIN ABUSE/IVDA, C diff., severe emphysema. DENTAL CARIES, MIGRAINES, PTSD, "broken back", "broken neck" , FLU X2 YRS, Pneum (November 05), POSS SCHIZOPHRENIA - Social History Smoking Status: Light smoker Constitutional: Initial Vital Signs Temperature (C) 36.6 C 05/21/18 00:58 Heart Rate 85 05/21/18 00:58 Respiratory Rate 24 H 05/21/18 00:58 Blood Pressure 104/80 05/21/18 00:58 O2 Sat (%) 86 L 05/21/18 00:58 O2 Delivery Mode Nasal Cannula O2 (L/minute) 2 Allergies/Adverse Reactions: acetaminophen [Acetaminophen] Allergy (Severe, Verified 05/21/18 00:56) heparin Allergy (Unknown, Verified 05/21/18 00:56) Heparin Analogues Allergy (Unknown, Verified 05/21/18 00:56) propoxyphene HCl [From Darvon] Allergy (Unknown, Verified 05/21/18 00:56) amoxicillin [Amoxicillin] Allergy (Verified 05/21/18 00:56) Other-Enter Comments aspirin [Aspirin] Allergy (Verified 05/21/18 00:56) Iodinated Contrast- Oral and IV Dye [Iodinated Contrast Media - Oral and] Allergy (Verified 05/21/18 00:56) Other-Enter Comments Home Medications: Medication Instructions Recorded Albuterol [Proventil Inhaler HFA 1 puffs PO DAILY PRN 05/21/18 (*)] Ascorbic Acid [Vitamin C 500 mg 500 mg PO DAILY 05/21/18 (*)] Multivitamins [Multivitamin (*)] 1 each PO DAILY 05/21/18 Medical Decision Making - Data Points Laboratory Results: Laboratory Results 05/21/18 01:53 05/21/18 01:53 Microbiology Results: MICROBIOLOGY 05/21/18 01:55 Nasal, Sinus - Swab Respiratory Panel (PCR) - Final No Organism Detected By Pcr Medications Given: Albuterol (Proventil Neb) 3 ml IH Q2HRS PRN PRN Reason: Short of Breath/Dyspnea Stop: 11/17/18 02:06 Last Admin: 05/21/18 02:40 Dose: 3 ml Albuterol/Ipratropium (Duoneb) 3 ml IH QID [facility] Stop: 11/17/18 05:59 Last Admin: 05/21/18 20:59 Dose: 3 ml Prednisone (Prednisone) 40 mg PO DAILY [facility] Stop: 11/17/18 08:59 Last Admin: 05/21/18 08:54 Dose: 40 mg Fluticasone/Salmeterol (Advair) 1 puffs IH BID [facility] Stop: 11/17/18 20:59 Last Admin: 05/21/18 21:13 Dose: 1 puffs Discontinued Medications Albuterol (Proventil Neb) 3 ml IH EDNOW ONE Stop: 05/21/18 02:40 Last Admin: 05/21/18 02:45 Dose: Not Given Albuterol/Ipratropium (Duoneb) 3 ml IH EDNOW ONE Stop: 05/21/18 01:05 Last Admin: 01/30/19 01:05 Dose: 3 ml Albuterol/Ipratropium (Duoneb) 3 ml IH EDNOW ONE Stop: 05/21/18 01:23 Last Admin: 05/21/18 01:23 Dose: 3 ml Azithromycin (Zithromax) 500 mg PO ONCE ONE PRN Reason: Protocol Stop: 05/21/18 09:01 Last Admin: 05/21/18 08:54 Dose: 500 mg Sodium Chloride (Ns) 1,000 mls @ 0 mls/hr IV ONCE ONE; Wide Open PRN Reason: Protocol Stop: 05/21/18 01:47 Last Admin: 05/21/18 01:52 Dose: 1,000 mls Levofloxacin/Dextrose (Levaquin 750 Mg (Premix)) 150 mls @ 100 mls/hr IV EDNOW ONE PRN Reason: Protocol Stop: 05/21/18 03:15 Last Admin: 05/21/18 01:52 Dose: 150 mls Methylprednisolone Sodium Succinate (Solu-Medrol) 125 mg IVP EDNOW ONE Stop: 05/21/18 01:47 Last Admin: 05/21/18 01:52 Dose: 125 mg Oxycodone HCl (Oxycodone Ir) 10 mg PO ONCE ONE Stop: 05/21/18 17:10 Last Admin: 05/21/18 17:20 Dose: 10 mg Departure - Departure Disposition: [facility] Clinical Impression: COPD exacerbation Condition: Good
[2018-05-21] MEDS ORDERED: methylPREDNISolone SOD SUCC 125 MG/2 ML VIAL IVP ONE (01:46)
[2018-05-21] MEDS ORDERED: NS 1,000 ML IV ONE (01:46)
[2018-05-21] MEDS ORDERED: ACETAMINOPHEN 325 MG TAB PO PRN ×2 (02:07→18:02)
[2018-05-21] MEDS ORDERED: ONDANSETRON DISINTEGRATING 4 MG TAB PO PRN (02:07)
[2018-05-21] MEDS ORDERED: ONDANSETRON 4 MG/2 ML VIAL IVP PRN (02:07)
[2018-05-21 02:22] LABS: PLATELET COUNT 103 10^3/uL (150-400)
[2018-05-21] MEDS ORDERED: oxyCODONE IR 5 MG TAB PO PRN (02:25)
--- NOTE | 2018-05-21 02:28 | PDGENHP ---
History and Physical - Chief Complaint Shortness of breath - History of Present Illness 57 yo M w/ hx of COPD presents with shortness of breath. He tells me he ran out of his inhaler today and since has been feeling very short of breath. He has severe COPD but uses only an albuterol inhaler to control symptoms. He uses this 10+ times daily. He is very elusive as to whether he continues to smoke cigarettes. He says he is not on O2 because he is homeless. He complains of cough and chills but unclear on the acuity. His room air sats in the ED are in the mid 80's so he is being admitted for presumed COPD exacerbation. Case discussed with ED physician Dr. Schofield; records reviewed and summarized above. History Information - Allergies/Home Medication List Allergies/Adverse Reactions: acetaminophen [Acetaminophen] Allergy (Severe, Verified 05/21/18 00:56) heparin Allergy (Unknown, Verified 05/21/18 00:56) Heparin Analogues Allergy (Unknown, Verified 05/21/18 00:56) propoxyphene HCl [From Darvon] Allergy (Unknown, Verified 05/21/18 00:56) amoxicillin [Amoxicillin] Allergy (Verified 05/21/18 00:56) Other-Enter Comments aspirin [Aspirin] Allergy (Verified 05/21/18 00:56) Iodinated Contrast- Oral and IV Dye [Iodinated Contrast Media - Oral and] Allergy (Verified 05/21/18 00:56) Other-Enter Comments Home Medications: NK [No Known Home Meds] 05/21/18 [Last Taken Unknown] I have personally reviewed and updated: family history, medical history - Past Medical History COPD Additional medical history: copd. chronic hepatitis b andc. PTSD. chronic pain syndrome - Surgical History Additional surgical history: teeth extractions - Family History Positive for: non-pertinent Additional family history: Asked, denies - Social History Smoking Status: Light smoker Additional social history: homeless M Review of Systems Review of Systems: ROS: 10pt was reviewed & negative except for what was stated in HPI & below Physical Exam Physical Exam: Temp Pulse Resp BP Pulse Ox 36.6 C 87 22 H 132/81 H 93 05/21/18 00:58 05/21/18 02:00 05/21/18 02:00 05/21/18 02:00 05/21/18 02:00 Constitutional: chronically ill appearing, unkempt Eyes: PERRL, EOMI Ears, Nose, Mouth, Throat: moist mucous membranes, no oral mucosal ulcers Cardiovascular: regular rate and rhythym, no murmur, rub, or gallop Respiratory: no respiratory distress, expiratory wheeze, rhonchi Gastrointestinal: normoactive bowel sounds, soft, non-tender abdomen Skin: warm, normal color Musculoskeletal: full muscle strength, no muscle tenderness Neurologic: AAOx3, CN II-XII Intact Psychiatric: interacting appropriately, not anxious Lab Data & Imaging Review 05/21/18 01:53 05/21/18 01:53 WBC 7.26 10^3/uL (3.80-9.50) 05/21/18 01:53 RBC 3.85 10^6/uL (4.40-6.38) L 05/21/18 01:53 Hgb 13.3 g/dL (13.7-17.5) L 05/21/18 01:53 Hct 38.5 % (40.0-51.0) L 05/21/18 01:53 MCV 100.0 fL (81.5-99.8) H 05/21/18 01:53 MCH 34.5 pg (27.9-34.1) H 05/21/18 01:53 MCHC 34.5 g/dL (32.4-36.7) 05/21/18 01:53 RDW 13.3 % (11.5-15.2) 05/21/18 01:53 Plt Count 103 10^3/uL (150-400) L 05/21/18 01:53 MPV TNP 05/21/18 01:53 Neut % (Auto) 68.8 % (39.3-74.2) 05/21/18 01:53 Lymph % (Auto) 21.9 % (15.0-45.0) 05/21/18 01:53 Stevens % (Auto) 6.6 % (4.5-13.0) 05/21/18 01:53 Eos % (Auto) 2.3 % (0.6-7.6) 05/21/18 01:53 Baso % (Auto) 0.3 % (0.3-1.7) 05/21/18 01:53 Nucleat RBC Rel Count 0.0 % (0.0-0.2) 05/21/18 01:53 Absolute Neuts (auto) 4.99 10^3/uL (1.70-6.50) 05/21/18 01:53 Absolute Lymphs (auto) 1.59 10^3/uL (1.00-3.00) 05/21/18 01:53 Absolute Monos (auto) 0.48 10^3/uL (0.30-0.80) 05/21/18 01:53 Absolute Eos (auto) 0.17 10^3/uL (0.03-0.40) 05/21/18 01:53 Absolute Basos (auto) 0.02 10^3/uL (0.02-0.10) 05/21/18 01:53 Absolute Nucleated RBC 0.00 10^3/uL (0-0.01) 05/21/18 01:53 Immature Gran % 0.1 % (0.0-1.1) 05/21/18 01:53 Immature Gran # 0.01 10^3/uL (0.00-0.10) 05/21/18 01:53 Sodium 139 mEq/L (135-145) 05/21/18 01:53 Potassium 3.6 mEq/L (3.5-5.2) 05/21/18 01:53 Chloride 106 mEq/L (97-110) 05/21/18 01:53 Carbon Dioxide 31 mEq/l (22-31) 05/21/18 01:53 Anion Gap 2 mEq/L (6-14) L 05/21/18 01:53 BUN 25 mg/dL (7-23) H 05/21/18 01:53 Creatinine 1.0 mg/dL (0.7-1.3) 05/21/18 01:53 Estimated GFR > 60 05/21/18 01:53 Glucose 114 mg/dL (70-100) H 05/21/18 01:53 Calcium 8.1 mg/dL (8.5-10.4) L 05/21/18 01:53 Visualized and Interpreted Chest x-ray results: Yes Chest X-Ray results: no infiltrate Assessment & Plan Assessment: 57 yo M w/ hx of COPD presents with shortness of breath. Plan: 1. COPD w/ acute exacerbation - Overall this appears quite mild; he is not in respiratory distress and only requiring 2 L/min O2 to maintain O2 sats >89%. It is difficult to say how far off baseline he is at the moment noting poor compliance and ongoing tobacco use. - Admit for observation - Duonebs QID + albuterol q2h PRN - Prednisone and azithromycin x5 days - Counseled tobacco cessation - Check respiratory PCR, procalcitonin 2. AHRF - Mild, secondary to COPD exacerbation. - O2 PRN to maintain O2 sats>89% - Incentive spirometry 3. Thrombocytopenia - Mild, chronic. - Monitor CBC 4. Hepatitis B and C 5. Chronic pain Diet - Regular Code - Full Ppx - SCDs (allergy to heparin products) Dispo - Admit under observation status
[2018-05-21] MEDS ORDERED: ALBUTEROL 3 ML DEYVIAL ONE (02:38)
[2018-05-21] MEDS ORDERED: ALBUTEROL 3 ML DEYVIAL IH ONE (02:39)
[2018-05-21] MEDS: ALBUTEROL 3 ML DEYVIAL IH PRN (02:40)
[2018-05-21] MEDS: IPRATROPIUM/ALBUTEROL 3 ML DEYVIAL IH SCH ×5 (06:19→20:59)
[2018-05-21] MEDS: predniSONE 20 MG TAB PO SCH (08:54)
[2018-05-21] MEDS ORDERED: AZITHROMYCIN 250 MG TAB PO ONE (09:00)
--- NOTE | 2018-05-21 11:31 | ASMTCMCOM ---
CM Note CM Note Notes: Patient is well known to this CM. He presents to the ED for the 8th visit this month with COPD exacerbation. I have contacted the [facility] and confirmed that his designated PCP is Dr. Rosa Ervin at [address]. However, patient is most frequently seen per the homeless outreach team and the last known contact was per Dr. Pang on 05/08. Ashley GOLDBERG ([facility] homeless outreach) also confirms that they continue to attempt engaging patient to services but he has been consistently resistent. This CM has contacted Yvrose GOLDBERG at [facility] and confirmed that patient has NOT gone through [facility] despite multiple attempts to encourage patient to do so. Today, I have met with patient and he tells me that he needs housing. He informs me that he is not interested in [facility] services or "communal living". I have explained to patient that [facility] can provide CM services and help him to obtain housing even if he chooses to not stay at the longterm. Additionally, I have told patient that he will need to follow up with the clinic for his ongoing medication and prescription needs Patient admits to an SSI income and patient DOES have [place] Medicaid which will cover his prescriptions for a $2 to $4 co-pay This CM encourages contact with [facility] to inform of patient's discharge. Message may be left with Ashley GOLDBERG at [phone] OR on the clinic 'backline' at any time. PLEASE DO NOT give out either of these numbers. They are for CM use ONLY. Additionally, I would encourage patient to follow up with coordinated [facility] and reinforce the housing assistance that is available to him if he engages in their case management services. CM avaialble prn to assist with coordination of this complex care patient Date Signed: 05/21/2018 11:31 AM Electronically Signed By:Aleksandra Baumann RN
--- NOTE | 2018-05-21 11:31 | HOSPPROG ---
Hospitalist Progress Note Assessment/Plan: * COPD exacerbation -prednisone, azithro, nebs -needs better outpatient control -38 ER visits in the last year -start Advair -[facility] but comes to ER repeatedly instead -comes to ER for sample albuterol inhalers rather than filling at pharmacy * Acute respiratory failure -recurrent trips to ER for respiratory distress, still tachypneic at this time -likely borderline O2 sats at baseline * Chronic pain -tylenol and ASA allergy -avoid narcotics * Homeless - possible schizophrenia but no previous MH eval -needs MHP as outpatient - conspiracy theories abound * Tobacco dependence * Hep C * Positive Rheumatoid factor -patient tells me he has been diagnosed with RA -clarify if there are any NSAIDS that he can take Subjective: SOB, comes to ER repeatedly for inability to breath Objective: Vital Signs Temp Pulse Resp BP Pulse Ox 36.5 C 82 22 H 162/89 H 94 05/21/18 10:00 05/21/18 10:00 05/21/18 10:00 05/21/18 10:00 05/21/18 10:00 OLD chart reviewed, multiple previous similar admits CXR - negative Laboratory Tests 05/21/18 05/21/18 01:53 01:55 WBC 7.26 Hct 38.5 L Plt Count 103 L Procalcitonin 0.11 H - Time Spent With Patient Time Spent with Patient: greater than 35 minutes Time Spent with Patient: Greater than 35 minutes spent on this patients care, greater than 50% of time spent counseling, educating, and coordinating care regarding the above mentioned plan. - Physical Exam Constitutional: unkempt, other (breathing heavily with conversation, sats 85% room air) Cardiovascular: regular rate and rhythym, no murmur, rub, or gallop Respiratory: expiratory wheeze, respiratory distress, rhonchi Gastrointestinal: normoactive bowel sounds, soft, non-tender abdomen, no palpable masses Skin: no rashes or abrasions, no fluctuance, no induration Neurologic: AAOx3, sensation intact bilaterally Psychiatric: anxious, poor insight, poor judgement, No interacting appropriately , No thought process linear, No encephalopathic ICD10 Worksheet Patient Problems: Problems Problem Status Onset COPD exacerbation Acute Acute bronchitis Acute Acute respiratory failure Acute Bronchitis Acute COPD (chronic obstructive pulmonary disease) Acute COPD exacerbation Acute Cellulitis Acute Chronic obstructive pulmonary disease with acute exacerbation Acute Dyspnea Acute Facial abscess Acute HCAP (healthcare-associated pneumonia) Acute Hypoxemia Acute Hypoxia Acute Pneumonia Acute Pneumonia Acute Sepsis Acute Shortness of breath Acute
--- NOTE | 2018-05-21 11:32 | ASMTLACE ---
MELANIE Comorbidities - select Answers: Chronic pulmonary disease all that apply Opioid dependence / Chronic pain # of Emergency department Answers: 12+ visits in the last 6 months Social determinants Answers: History of substance abuse (ETOH, street drugs, prescription drugs, etc.) Homelessness (street, custodial) Mental health diagnosis (anxiety, depression, pers onality disorders, etc.) Score: 21 Date Signed: 05/21/2018 11:32 AM Electronically Signed By:Aleksandra Baumann RN
[2018-05-21] MEDS ORDERED: LORazepam 2 MG/ML INJ IVP PRN (16:59)
[2018-05-21] MEDS ORDERED: ZIPRASIDONE MESYLATE 20 MG VIAL IM PRN (16:59)
[2018-05-21] MEDS ORDERED: oxyCODONE IR 5 MG TAB PO ONE ×2 (17:09→17:30)
[2018-05-21] MEDS ORDERED: IBUPROFEN 200 MG TAB PO PRN (17:10)
--- NOTE | 2018-05-21 18:09 | HOSPPROG ---
Hospitalist Progress Note Assessment/Plan: Bello was escalating today on the floor and security was asked to see be present. RT was giving him a treatment and Bello said inappropriate things to her. He has severe COPD and chronic back pain. He is homeless and has an underlying mental health issue. He calmed w talking to him. He requested one dose of oxy IR for his pain. I ordered it and he agreed to stay calm and not yell at the nursing staff. He knows it is only one dose. I ordered ibuprofen and Tylenol prn for pain. He said he is allergic to Tylenol due to hepatitis, but will take Percocet. Will see if these meds help him. He has been to this hospital multiple times and likely to go AMA. I think the best way to deal w Bello is to stay calm and not react to him. He is extremely fearful of any security. Security will need to search his back pack to assure safety for the staff and is willing to do this later when he is calmer. Objective: Vital Signs Temp Pulse Resp BP Pulse Ox 36.9 C 60 24 H 168/88 H 89 L 05/21/18 12:24 05/21/18 16:03 05/21/18 16:03 05/21/18 12:24 05/21/18 16:03 05/20/18 05/21/18 05/22/18 05:59 05:59 05:59 Intake Total 100 Balance 100 ICD10 Worksheet Patient Problems: Problems Problem Status Onset COPD exacerbation Acute Acute bronchitis Acute Acute respiratory failure Acute Bronchitis Acute COPD (chronic obstructive pulmonary disease) Acute COPD exacerbation Acute Cellulitis Acute Chronic obstructive pulmonary disease with acute exacerbation Acute Dyspnea Acute Facial abscess Acute HCAP (healthcare-associated pneumonia) Acute Hypoxemia Acute Hypoxia Acute Pneumonia Acute Pneumonia Acute Sepsis Acute Shortness of breath Acute
[2018-05-21] MEDS: FLUTICASONE/SALMETER 250/50MCG DISKUS IH SCH (21:13)
[2018-05-22] MEDS: IPRATROPIUM/ALBUTEROL 3 ML DEYVIAL IH SCH ×4 (05:16→21:23)
[2018-05-22] MEDS: predniSONE 20 MG TAB PO SCH (08:24)
[2018-05-22] MEDS: FLUTICASONE/SALMETER 250/50MCG DISKUS IH SCH ×2 (08:40→21:17)
[2018-05-22] MEDS ORDERED: NICOTINE 21 MG/24 HR PATCH TD SCH (09:00)
[2018-05-22] MEDS ORDERED: AZITHROMYCIN 250 MG TAB PO SCH (09:00)
--- NOTE | 2018-05-22 14:29 | PDMN ---
Medical Necessity Medical necessity: Pt meets IP criteria as of 05/22/2018 per and MCG M-100 ( COPD); los > 2 mn for ongoing tx and management of acute COPD exacerbation with new hypoxia and tachypnea that have persisted despite observation care treatment.
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
[2018-05-22] MEDS ORDERED: OLANZapine DISINTEGR 5 MG TAB PO PRN (17:03)
--- NOTE | 2018-05-22 17:10 | HOSPPROG ---
Hospitalist Progress Note Assessment/Plan: * COPD exacerbation -prednisone, azithro, nebs -needs better outpatient control -38 ER visits in the last year -start Advair -has PCP at [facility] but comes to ER repeatedly instead -comes to ER for sample albuterol inhalers rather than filling at pharmacy * Acute respiratory failure -recurrent trips to ER for respiratory distress, still tachypneic at this time -likely borderline O2 sats at baseline -75% room air today with ambulation and noted respiratory distress * Chronic pain -tylenol and ASA intolerance (due to hepatitis?) -limit narcotics * Homeless - possible schizophrenia but no previous MH eval * Tobacco dependence * Hep C * Positive Rheumatoid factor -patient tells me he has been diagnosed with RA - but never seen art appraiser Patient is very volatile and at time a danger to others, swinging at staff. It is impossible to problem solve alternative plan other than repeat trips to ER as he is convinced someone has stolen his medicaid number and using it at [facility], "making a million dollars off of me" Very disorganized thought. Ideas of persecution. Can't get him proper outpatient care or meds because he can't organize his thought process enough to seek help with PCP, MHP or even fill any prescriptions at the pharmacy. M1 hold. Gravely disabled and a danger to others. Psychosis, possible undiagnosed schizophrenia. Subjective: Still very SOB Objective: Vital Signs Temp Pulse Resp BP Pulse Ox 36.5 C 90 22 H 119/71 90 L 05/22/18 08:00 05/22/18 16:13 05/22/18 16:13 05/22/18 08:00 05/22/18 16:13 - Time Spent With Patient Time Spent with Patient: greater than 35 minutes Time Spent with Patient: Greater than 35 minutes spent on this patients care, greater than 50% of time spent counseling, educating, and coordinating care regarding the above mentioned plan. - Physical Exam Constitutional: no apparent distress, appears nourished, not in pain Cardiovascular: regular rate and rhythym, no murmur, rub, or gallop Respiratory: expiratory wheeze, respiratory distress, rhonchi Gastrointestinal: normoactive bowel sounds, soft, non-tender abdomen, no palpable masses Skin: no rashes or abrasions, no fluctuance, no induration Musculoskeletal: full muscle strength, no muscle tenderness, normal joint ROM Neurologic: AAOx3 Psychiatric: encephalopathic, anxious, agitated, poor insight, poor judgement, No interacting appropriately, No poor memory ICD10 Worksheet Patient Problems: Problems Problem Status Onset Pneumonia Acute HCAP (healthcare-associated pneumonia) Acute Sepsis Acute Chronic obstructive pulmonary disease with acute exacerbation Acute COPD (chronic obstructive pulmonary disease) Acute Bronchitis Acute Facial abscess Acute Acute bronchitis Acute Pneumonia Acute Shortness of breath Acute Cellulitis Acute Dyspnea Acute COPD exacerbation Acute Hypoxemia Acute COPD exacerbation Acute Hypoxia Acute Acute respiratory failure Acute
[2018-05-22] MEDS ORDERED: oxyCODONE IR 5 MG TAB PO ONE (20:00)
[2018-05-22] MEDS: ALBUTEROL 3 ML DEYVIAL IH PRN (21:17)
--- NOTE | 2018-05-22 22:26 | ASMTTLCEVL ---
[facility] Evaluation - Basic Information Evaluation Start Date and 05/22/2018 09:00 PM Time Hospital Status Answers: M1 Hold 72-hr M1 Hold Start Date 05/22/2018 01:40 PM and Time Patient statement Notes: Mental health hold right?" Narrative Notes: Pt is 57 year old male who was brought to [facility] ed after pt himself called [phone] when he was having shortness of breath and had ran out of his inhaler. Pt was admitted to ICU due to having tachypnea and 02 sat of 86%. WHile in ICU, pt was placed on an M1 that read, "Psychosis suspected, undiagnosed schizophrenia, at times violent towards others, needing security, no organized thought, can't care for self due to persistent ideas of persecution, gravely disabled, 38 ER visits in last year." Pt was sent to ED for an evaluation. Pt stated, " I haven't threatened anyone else or myself. That's what gets you placed on an M1 hold for. I have frustration aggravation but not violent." Diagnosis History Notes: None reported Prior suicide attempts Notes: Pt denied Prior hospitalizations Notes: Pt denied any prior hospitlizations. Treatment Responses Notes: N/A History of violence Notes: Pt denied any HI and stated, " I'm just pissy elder I had my financial benefits cut off since May." Therapist: None Psychiatrist: None Medications (name, dosage, route, freq uency) Notes: No psychiatric medications Allergies/Reaction Notes: Tylenol; heparin, heparin analogues,darvon,amoxicillan Sleep Notes: Wnl Appetite Notes: Wnl Medical/Surgical history Notes: COPD,med non-compliance,Hep-C, chronic hypoxic respiratory failure Substance use history (frequency, intensity, his tory, duration) Notes: Pt has a hx of etoh use and THC use. Utox was positive for THC. Family composition Notes: Unable to assess Need for family Answers: No participation in patient's care Family psychiatric/substance abuse history Notes: Unable to assess. Developmental history Notes: Unable to assess. Marital status/children Notes: Pt state he is single and has 13 children from 13 different women. He tates 3 of his children who are minors are in state custody due to him"living on the streets." Living situation Notes: Pt is homeless Sexual history/orientation Notes: Pt is heterosexual. Peer support/family strengths Notes: Pt reports having friends. Education level/history Notes: Unable to assess. Work history Notes: Pt is on disability Notes: None reported. Legal Notes: Pt responded, " I don't do mornings see, so I didn't show up to court at 8am for a hearing and I told the shipping and receiving specialist 8am is too early, so i had to go to usp." Pt also stated he has 2 trespassing charges from [facility]. Christianity/Spiritual Notes: Unable to assess. Leisure Notes: Unable to assess. Collateral Notes: [facility] records Patient's strengths Answers: Funny/Using Humor (Please select at least TWO strengths): Willingness [facility] Evaluation - Mental Status Exam Appearance: Answers: Unkempt Disheveled Eye Contact: Answers: Good/Direct Mood: Answers: Elevated Affect: Answers: Cheerful Behavior: Answers: Cooperative Talkative Speech: Answers: Relevant Irrelevant Rambling Thought Process: Answers: Organized Tangential Insight: Answers: Fair Judgement: Answers: Poor Hallucinations: Answers: None Pt reported to have Answers: No suicidal/self-injuring ideation/behavior? Pt reported to be making Answers: No suicidal/self-injuring threats? Pt reported to have Answers: No aggression/assault ideation/behavior? Pt reported to be making Answers: No aggression/assault threats? Pt exhibits inability to Answers: No care for self/grave disability? Ideation/behavior is Answers: No chronic? Patient has a specific Answers: No plan? Ideation involves Answers: No serious/lethal intent? Ideation has Answers: No delusional/hallucinatory content? History of Answers: No suicidal/self-injuring ideation, behavior, or threats? History of Answers: No aggressive/assaultive ideation, behavior, or threats? History of serious Answers: No physical harm to self/others while in treatment setting? [facility] Evaluation - Suicide/Homicide Risk Suicide Risk Factors: Answers: None Homicide/violence risk Answers: None factors: Current Suicidal Answers: No Ideation? Current Suicidal Ideation Answers: No in the Past 48 Hours? Current Suicidal Ideation Answers: No in the Past Month? Current Suicidal Answers: No Ideation, Worst Ever? Suicide Internal Answers: Absence of Psychosis Protective Factors: Suicide External Answers: Responsibility to Protective Factors: Children Ranking of patient's Answers: Low suicidal risk: Ranking of patient's Answers: Low homicidal risk: [facility] Evaluation - Wrap-up AXIS I Diagnosis (include DSM-V and ICD-10 codes), must also be entered in [employer], which is the source of truth. Notes: Cannabis Use Disorder, severe 304.30 (F12.20) In consultation with [facility] ED physician, Sg Lux MD, and on-call psychiatrist, Mayra Desai MD, both concurred that pt does not appear to meet 27-65 criteria requiring psychiatric hospitalization as pt does not appear to be an imminent risk of harm to self/others/gravely disabled due to a mental illness condition. Evaluation End Date and 05/22/2018 10:30 PM Time (HH:MM): Date Signed: 05/22/2018 10:25 PM Electronically Signed By:Liz Leung
--- NOTE | 2018-05-22 22:27 | ASMTTCLDSP ---
T[facility] Discharge Disposition Disposition: Answers: Discharge If Answers: Yes DISCHARGED: Patient/family given suicide hotline info & SAM[employer] brochure? Disposition Notes: Notes: Pt will stay in the ED for medical reasons Discharge Concerns/Recommendations: Notes: In consultation with [facility] ED physician, Sg Lux MD, and on-call psychiatrist, Mayra Desai MD, both concurred that pt does not appear to meet 27-65 criteria requiring psychiatric hospitalization as pt does not appear to be an imminent risk of harm to self/others/gravely disabled due to a mental illness condition. Psychiatrist vacating M1 Mayra Desai MD Hold: Date and time M1 hold 05/22/2018 09:45 PM vacated (time format is hh:mm): Date Signed: 05/22/2018 10:26 PM Electronically Signed By:Liz Leung
[2018-05-23 02:12] VITALS: BP 118/64
--- NOTE | 2018-05-23 08:43 | GDS ---
[f rep st] DISCHARGE SUMMARY DISPOSITION: The patient left AMA. ALL DIAGNOSES: 1. Chronic obstructive pulmonary disease with acute exacerbation. 2. Acute respiratory failure. 3. Chronic pain. 4. Homelessness. 5. Tobacco dependence. 6. Hepatitis C. 7. Positive rheumatoid factor. HOSPITAL COURSE: This is a 57-year-old man with known COPD, multiple ED visits and admissions to the hospital for respiratory failure, comes in with shortness of breath. He has been treated appropriat beverly with prednisone, azithromycin as well as albuterol inhaler. He has improved but he is still tach ypneic. He was initially saturating 75% on room air today, his last measured saturation was 93% on r oom air. He was placed on an M1 hold yesterday. He was evaluated by [facility] as well as Psychiatry j luis lara, who determined that he did not meet criteria for an M1 hold as he was not gravely disabled, was not an imminent risk to harm himself or others. Thus, the hold was vacated overnight. When I am se eing him, he clearly has capacity. He is expressing the desire to leave AMA as well. He is frustrat ed with the fact that he is boarding in the ED as there are no other inpatient beds available at this time. He understands the reasons that he is being treated, is requesting specific doses on medicati ons on departure. I informed him that his respiratory status may worsen if he leaves and he may . He understands this and prefers to leave at this time. Given that his M1 hold was vacated by Psych iatry, and he does not meet criteria for medical incapacity hold, he will be allowed to leave AMA. Betty rudolph departs in guarded condition. I did give him a prescription for an albuterol inhaler as well as a course of prednisone. BILLING: I spent greater than 30 minutes coordinating his care, discussing with him as well as Dr. Hunter Mancuso and nursing regarding his condition. /[id number]/MODL
== END 2018-05-23 08:06 | disposition left against medical advice (07) | DRG 140 ==
LOC: EDUNIT# → EDBD → UNDOADMOB 02:06 → F2W 12:15 → OBSVTOIN 05-22 08:57 → INTOOBSV 05-22 08:57
PROVIDERS: ADMIT Student in an Organized Health Care Education/Training Program; ATTEND Student in an Organized Health Care Education/Training Program
DX: J44.1 Chronic obstructive pulmonary disease with (acute) exacerbation (principal); J96.00 Acute respiratory failure, unspecified whether with hypoxia or hypercapnia; G89.29 Other chronic pain; Z59.0 Homelessness; F17.208 Nicotine dependence, unspecified, with other nicotine-induced disorders; B19.20 Unspecified viral hepatitis C without hepatic coma
CPT/HCPCS: 80305; 96374; G0378; J1956; J2930; J3486; J7512; J7613

== ENCOUNTER 2018-05-29 01:03 | Emergency (ER) | payer MEDICAID ==
[2018-05-29] MEDS ORDERED: ALBUTEROL 3 ML DEYVIAL ONE (01:25)
[2018-05-29] MEDS ORDERED: ALBUTEROL 3 ML DEYVIAL IH ONE (01:27)
--- NOTE | 2018-05-29 01:54 | EDPHY ---
H & P Stated Complaint: found down-2mg narcan given by EMS-denies drug use Time Seen by Provider: 05/29/18 01:15 HPI/ROS: Chief Complaint: Found down HPI: 57-year-old male with a history of end-stage COPD, well known to this emergency department. EMS was called to [facility] where the patient had decreased level responsiveness. Per staff there bystanders had to pick him up and put him back into a chair. On EMS arrival the patient had sonorous respirations and was not following commands. They gave him 0.25 mg of Narcan IV. The patient then awoke briskly is awake and alert and answering questions. Patient denies taking any opioids or other medications. Patient states that he has has not slept in 3 days and is just feeling very tired. No fevers or chills. His COPD is at his baseline and says that he is actually feeling pretty good from his respiratory status. No headache. No falls or recent trauma. No nausea or vomiting. Patient initially tried to refuse transport to the hospital but then agreed at EMS recommendations. ROS: 10 systems were reviewed and were negative except those elements noted in the HPI. PMH: COPD Social History: Positive smoking, no alcohol, denies other drug use Family History: non-contributory Physical Exam: Gen: Awake, Alert, No Distress HEENT: Nose: no rhinorrhea Eyes: PERRLA, EOMI Mouth: Moist mucosa Neck: Supple, no JVD Chest: nontender, diffuse expiratory wheeze Heart: S1, S2 normal, no murmur Abd: Soft, non-tender, no guarding Back: no CVA tenderness, no midline tenderness Ext: no edema, non-tender Skin: no rash Neuro: CN II-XII intact, Sensation grossly intact, Strength 5/5 in bilateral upper and lower extremities - Personal History Current Tetanus Diphtheria and Acellular Pertussis (TDAP): Yes Tetanus Vaccine Date: 2015 - Medical/Surgical History Hx Asthma: Yes Hx Chronic Respiratory Disease: Yes Hx Diabetes: No Hx Cardiac Disease: No Hx Renal Disease: No Hx Cirrhosis: Yes Hx Alcoholism: No Hx HIV/AIDS: No Hx Splenectomy or Spleen Trauma: Yes Other PMH: CHRONIC PAIN, RA, COPD/ASTHMA, HEPATITIS (B,C,D,E,F), C-DIFF, wears home O2(non compliant),"self medicates for pain," HEROIN ABUSE/IVDA, C diff., severe emphysema. DENTAL CARIES, MIGRAINES, PTSD, "broken back", "broken neck" , FLU X2 YRS, Pneum (November 05), POSS SCHIZOPHRENIA - Social History Smoking Status: Light smoker Constitutional: Initial Vital Signs Temperature (C) 36.5 C 05/29/18 01:08 Heart Rate 90 05/29/18 01:08 Respiratory Rate 18 05/29/18 01:08 Blood Pressure 159/97 H 05/29/18 01:08 O2 Sat (%) 91 L 05/29/18 01:08 O2 Delivery Mode Nasal Cannula O2 (L/minute) 2 Allergies/Adverse Reactions: acetaminophen [Acetaminophen] Allergy (Severe, Verified 05/29/18 01:08) heparin Allergy (Unknown, Verified 05/29/18 01:08) Heparin Analogues Allergy (Unknown, Verified 05/29/18 01:08) propoxyphene HCl [From Darvon] Allergy (Unknown, Verified 05/29/18 01:08) amoxicillin [Amoxicillin] Allergy (Verified 05/29/18 01:08) Other-Enter Comments aspirin [Aspirin] Allergy (Verified 05/29/18 01:08) Iodinated Contrast- Oral and IV Dye [Iodinated Contrast Media - Oral and] Allergy (Verified 05/29/18 01:08) Other-Enter Comments Home Medications: Medication Instructions Recorded Albuterol [Proventil Inhaler HFA 1 puffs PO DAILY PRN 05/21/18 (*)] Ascorbic Acid [Vitamin C 500 mg 500 mg PO DAILY 05/21/18 (*)] Multivitamins [Multivitamin (*)] 1 each PO DAILY 05/21/18 Fluticasone/Salmeter 250/50Mcg 1 puffs IH BID disk 05/23/18 [Advair 250/50 (*)] OLANZapine DISINTEGR [ZyPREXA 5 mg PO Q6 PRN tab 05/23/18 ZYDIS (*)] predniSONE 60 mg PO DAILY tablet 05/23/18 Medical Decision Making ED Course/Re-evaluation: Patient has been resting comfortably emergency department. He has been up and ambulatory without any difficulties. He has been easily arousable. Possible that he had a substance ingestion however is also possible that he is just somnolent and possibly hypoxemic. His oxygen saturations have been good here. He is currently has baseline. Will discharge with outpatient follow-up. - Data Points Medications Given: Discontinued Medications Albuterol (Proventil Neb) 3 ml IH EDNOW ONE Stop: 05/29/18 01:28 Last Admin: 05/29/18 01:28 Dose: 3 ml Departure - Departure Disposition: Home, Routine, Self-Care Clinical Impression: COPD (chronic obstructive pulmonary disease), Altered mental status Condition: Good Instructions: COPD (Chronic Obstructive Pulmonary Disease) (ED) Additional Instructions: Follow up with primary care physician in 2-3 days for further evaluation. Referrals: NONE *PRIMARY CARE P,. [Primary Care Provider] - As per Instructions
[2018-05-29 05:59] VITALS: BP 143/74
== END 2018-05-29 06:23 | disposition home or self-care (01) ==
LOC: EDUNIT#
DX: J44.1 Chronic obstructive pulmonary disease with (acute) exacerbation (principal); R41.82 Altered mental status, unspecified; Z99.81 Dependence on supplemental oxygen
CPT/HCPCS: J7613

== ENCOUNTER 2018-06-02 09:08 | Emergency (ER) | payer MEDICAID ==
[2018-06-02] MEDS ORDERED: IPRATROPIUM/ALBUTEROL 3 ML DEYVIAL IH ONE ×2 (09:13→11:23)
[2018-06-02] MEDS ORDERED: predniSONE 20 MG TAB PO ONE (09:13)
[2018-06-02] MEDS ORDERED: AZITHROMYCIN 250 MG TAB PO ONE (09:13)
--- NOTE | 2018-06-02 09:17 | EDPHY ---
H & P Time Seen by Provider: 06/02/18 09:09 HPI/ROS: CHIEF COMPLAINT: COPD exacerbation HISTORY OF PRESENT ILLNESS: The patient is a 57-year-old homeless man with a history of COPD with multiple admissions to the hospital for respiratory failure. He states that over the last couple of days he has felt short of breath. He states that he lost his albuterol inhaler. He refused nebulizer or treatment by EMS. He has not had a fever. No chest pain. No GI symptoms. He has had cough productive of yellow sputum. He is also reportedly noncompliant with his home oxygen. During previous admissions he has left AMA. Severity: Moderate Modifying factors: None REVIEW OF SYSTEMS: Constitutional: denies: chills, fever, recent illness, recent injury EENTM: denies: blurred vision, double vision, nose congestion Respiratory: See HPI Cardiac: denies: chest pain, irregular heart rate, lightheadedness, palpitations Gastrointestinal/Abdominal: denies: abdominal pain, diarrhea, nausea, vomiting, blood streaked stools Genitourinary: denies: dysuria, frequency, hematuria, pain Musculoskeletal: denies: joint pain, muscle pain Skin: denies: lesions, rash, jaundice, bruising Neurological: denies: headache, numbness, paresthesia, tingling, dizziness, weakness Hematologic/Lymphatic: denies: blood clots, easy bleeding, easy bruising Immunologic/allergic: denies: HIV/AIDS, transplant 10 systems reviewed and negative except as noted EXAM: GENERAL: Moderate distress, mouth breathing HEAD: Atraumatic, normocephalic. EYES: Pupils equal round and reactive to light, extraocular movements intact, sclera anicteric, conjunctiva are normal. ENT: TMs normal, nares patent, oropharynx clear without exudates. Moist mucous membranes. NECK: Normal range of motion, supple without lymphadenopathy or JVD. LUNGS: Bilateral wheezing and mild rhonchi. HEART: Regular rate and rhythm without murmurs, rubs or gallops. ABDOMEN: Soft, nontender, normoactive bowel sounds. No guarding, no rebound. No masses appreciated. BACK: No CVA tenderness, no spinal tenderness, step-offs or deformities EXTREMITIES: Normal range of motion, no pitting or edema. No clubbing or cyanosis. NEUROLOGICAL: Cranial nerves II through XII grossly intact. Normal speech, normal gait. 5/5 strength, normal movement in all extremities, normal sensation , normal reflexes PSYCH: Normal mood, normal affect. SKIN: Warm, dry, normal turgor, no visible rashes or lesions. Source: Patient, EMS Exam Limitations: No limitations - Personal History Tetanus Vaccine Date: 2015 - Medical/Surgical History Hx Asthma: Yes Hx Chronic Respiratory Disease: Yes Hx Diabetes: No Hx Cardiac Disease: No Hx Renal Disease: No Hx Cirrhosis: Yes Hx Alcoholism: No Hx HIV/AIDS: No Hx Splenectomy or Spleen Trauma: Yes Other PMH: CHRONIC PAIN, RA, COPD/ASTHMA, HEPATITIS (B,C,D,E,F), C-DIFF, wears home O2(non compliant),"self medicates for pain," HEROIN ABUSE/IVDA, C diff., severe emphysema. DENTAL CARIES, MIGRAINES, PTSD, "broken back", "broken neck" , FLU X2 YRS, Pneum (November 05), POSS SCHIZOPHRENIA - Family History Significant Family History: No pertinent family hx - Social History Smoking Status: Light smoker Alcohol Use: Heavy Drug Use: Marijuana Constitutional: Initial Vital Signs Temperature (C) 37.3 C 06/02/18 09:08 Heart Rate 111 H 06/02/18 09:08 Respiratory Rate 30 H 06/02/18 09:08 Blood Pressure 135/87 H 06/02/18 09:08 O2 Sat (%) 90 L 06/02/18 09:08 O2 Delivery Mode Room Air O2 (L/minute) 2 Allergies/Adverse Reactions: acetaminophen [Acetaminophen] Allergy (Severe, Verified 06/02/18 09:26) heparin Allergy (Unknown, Verified 06/02/18 09:26) Heparin Analogues Allergy (Unknown, Verified 06/02/18 09:26) propoxyphene HCl [From Darvon] Allergy (Unknown, Verified 06/02/18 09:26) amoxicillin [Amoxicillin] Allergy (Verified 06/02/18 09:26) Other-Enter Comments aspirin [Aspirin] Allergy (Verified 06/02/18 09:26) Iodinated Contrast- Oral and IV Dye [Iodinated Contrast Media - Oral and] Allergy (Verified 06/02/18 09:26) Other-Enter Comments Home Medications: Medication Instructions Recorded Albuterol [Proventil Inhaler HFA 1 puffs PO DAILY PRN 05/21/18 (*)] Ascorbic Acid [Vitamin C 500 mg 500 mg PO DAILY 05/21/18 (*)] Multivitamins [Multivitamin (*)] 1 each PO DAILY 05/21/18 predniSONE 60 mg PO DAILY tablet 05/23/18 Azithromycin 250 mg PO DAILY #4 tablet 06/02/18 Medical Decision Making - Diagnostics Imaging: Discussed imaging studies w/ bread dough mixer Radiologist ED Course/Re-evaluation: 10:15 a.m. patient is still saturating 89%. Will treat with 2nd neb. X-ray has not yet been done. Patient is sleeping comfortably. 11:20 p.m. the patient is very sleepy. He is arousable. He is saturating 89% on 2 L. Will treat with another neb and then make decision for admit. His baseline oxygen is likely between 85 and 90%. Chest x-rays reassuring. 11:45 a.m. After the most recent had the patient is saturating 98% on room air even while asleep. Will discharge at this time. Discussed follow-up and indications for returning. Differential Diagnosis: Partial list of the Differential diagnosis considered include but were not limited to; COPD exacerbation, pneumonia, bronchitis and although unlikely based on the history and physical exam, I also considered sepsis, acute coronary disease, pneumothorax. I discussed these differential diagnoses and the plan with the patient as well as the usual and expected course. The patient understands that the diagnosis is provisional and that in medicine we are not always correct and that further workup is often warranted. Usual and customary warnings were given. All of the patient's questions were answered. The patient was instructed to return to the emergency department should the symptoms at all worsen or return, otherwise to followup with the physician as we discussed. - Data Points Medications Given: Discontinued Medications Albuterol (Proventil Neb) 3 ml IH EDNOW ONE Stop: 06/02/18 10:18 Last Admin: 06/02/18 10:20 Dose: 3 ml Albuterol/Ipratropium (Duoneb) 3 ml IH EDNOW ONE Stop: 06/02/18 09:14 Last Admin: 06/02/18 09:20 Dose: 3 ml Albuterol/Ipratropium (Duoneb) 3 ml IH EDNOW ONE Stop: 06/02/18 11:24 Last Admin: 06/02/18 11:23 Dose: 3 ml Azithromycin (Zithromax) 500 mg PO EDNOW ONE PRN Reason: Protocol Stop: 06/02/18 09:14 Last Admin: 06/02/18 09:19 Dose: 500 mg Prednisone (Prednisone) 60 mg PO EDNOW ONE Stop: 06/02/18 09:14 Last Admin: 06/02/18 09:18 Dose: 60 mg Departure - Departure Disposition: Home, Routine, Self-Care Clinical Impression: COPD (chronic obstructive pulmonary disease) Qualifiers: COPD type: chronic bronchitis Chronic bronchitis type: unspecified Qualified Code(s): J42 - Unspecified chronic bronchitis Condition: Fair Instructions: COPD (Chronic Obstructive Pulmonary Disease) (ED) Referrals: NONE *PRIMARY CARE P,. [Primary Care Provider] - As per Instructions [facility],. [Clinic] - 2-3 days without fail Prescriptions: Azithromycin 250 mg PO DAILY #4 tablet
[2018-06-02] MEDS ORDERED: ALBUTEROL 3 ML DEYVIAL IH ONE (10:17)
[2018-06-02] MEDS ORDERED: IPRATROPIUM/ALBUTEROL 3 ML DEYVIAL ONE (11:21)
[2018-06-02 11:43] VITALS: BP 104/71
--- NOTE | 2018-06-02 17:15 | ASMTCMCOM ---
CM Note CM Note Notes: This CM spoke with Ashley homeless outreach RN regarding coordination of care. Ashley states that she has met patient once at the group home and he was not interested in engaging in services stating, " if you people can't just find me a place to live, then there is no point in talking further". This CM met with patient briefly during this visit, again encouraging him to follow up with community resources ([facility], [facility], [facility], etc.). Date Signed: 06/02/2018 05:14 PM Electronically Signed By:Aleksandra Baumann RN
== END 2018-06-02 12:08 | disposition home or self-care (01) ==
LOC: EDUNIT#
DX: J44.1 Chronic obstructive pulmonary disease with (acute) exacerbation (principal); Z99.81 Dependence on supplemental oxygen; Z59.0 Homelessness
CPT/HCPCS: J7512; J7613

== ENCOUNTER 2018-06-03 10:44 | Inpatient (IN) | payer MEDICAID ==
[2018-06-03] MEDS ORDERED: IPRATROPIUM/ALBUTEROL 3 ML DEYVIAL IH ONE (11:33)
[2018-06-03] MEDS ORDERED: NS 500 ML IV ONE (11:33)
[2018-06-03] MEDS ORDERED: MAGNESIUM SULF 2 GM/WATER 50 ML IV ONE (11:33)
[2018-06-03] MEDS ORDERED: methylPREDNISolone SOD SUCC 125 MG/2 ML VIAL IVP ONE (11:33)
--- NOTE | 2018-06-03 11:39 | EDPHY ---
H & P Time Seen by Provider: 06/03/18 11:33 HPI/ROS: HPI Short of breath. COPD. 57-year-old male by ambulance from the street. He is very familiar to our emergency department. He was just seen here yesterday with complaint of COPD. He was diagnosed with a COPD exacerbation and bronchitis. His chest x-ray showed perihilar bronchitis but no infiltrate and no pneumothorax yesterday. He improved and was discharged. He was given azithromycin, prednisone and albuterol MDI on discharge. He presents from the street by ambulance with complaint of worsening shortness of breath. Unknown if he is taking any of his medications. Pulse oximetry per EMS on room air 75%. His baseline is in the mid 80s. ROS: Constitutional: No fever, no chills. No weakness. Eyes: No discharge. No changes in vision. ENT: No sore throat. No nasal congestion or rhinorrhea. Respiratory: As above. Cardiac: No chest pain, no palpitations. Gastrointestinal: No abdominal pain, no vomiting, no diarrhea. Genitourinary: No hematuria. No dysuria or increased frequency with urination. Musculoskeletal: No back pain. No neck pain. No myalgias or arthralgias. Skin: No rashes. Neurological: No headache. No focal weakness or altered sensation. Past medical history: Chronic pain, COPD/asthma, hepatitis a, he is supposed to wear home oxygen but is not compliant with this, heroin and IV drug abuse, migraine headaches, PTSD, possible schizophrenia. Social history: Heavy smoker. Alcohol abuse, IV and street drug abuse. Homeless. Physical Exam: General Appearance: Diaphoretic, tachypneic, retracting, intermittent cough. He is confused. Answering questions in short yes or no answers Dirty and disheveled. This patient appears generally well-hydrated and well-nourished. Eyes: Pupils equal and round no pallor or injection. No lid edema, erythema or injection. Respiratory: Retractions present, tachypnea at 30, shallow and poor air movement throughout, faint rhonchi throughout. Cardiovascular: Regular rate and rhythm. Tachycardia. No murmur. Gastrointestinal: Abdomen is soft and nontender, no masses, bowel sounds normal. No focal tenderness at McBurney's point. No Nath sign. Neurological: Motor sensory function is grossly intact. Cranial nerves are normal. Skin: Warm and dry, no rashes. Musculoskeletal: Neck is supple and nontender. Extremities are symmetrical. All joints range without pain or impingement. Psychiatric: No agitation. No depression. Database: EKG: Imaging: Chest x-ray PA and lateral; the cardiac mediastinal silhouette is unremarkable. No evidence of infiltrate or pneumothorax. No acute cardiopulmonary disease process noted. Interpreted by me. Procedures: Emergency department course: Triage vital signs reviewed. He is on 15 L by face mask oxygen with pulse oximetry of 92%. IV was started. He was placed on a cafeteria monitor. He will initially be given 3 [id number] duo nebs. He will be given 125 mg of Solu- Medrol. He will be given 2 g of IV magnesium. 11:50 a.m., the patient is becoming more altered. He is diaphoretic. He is pulling off his mass. He will be transferred to room 1. Respiratory therapy has been paged to start noninvasive ventilation. He will be given ketamine IV 30-40 mg for sedation, bronchodilation and toleration of noninvasive and ventilation. 12:05 p.m., the patient is mildly sedated. He is tolerating noninvasive ventilation well. We are running albuterol Atrovent nebulizers through this. He will be given ketamine at 30-40 mg as needed for agitation. 12:25 p.m., patient re-evaluated, pulse oximetry on noninvasive ventilation is 92%. He is much more relaxed. Blood pressure 132/72. He is receiving his nebulizer treatments through the noninvasive ventilation. Heart rate is 96, narrow complex sinus rhythm on the monitor. 12:50 p.m., spoke with on-call hospitalist Dr. Olson. Patient accepted for admission to the step-down unit initially. He continues to do well on noninvasive ventilation. 94% on noninvasive ventilation. Hospitalist staff is very familiar with him. His remaining emergency department course under my care has been uneventful. He was admitted in stable and improved condition. Differential Diagnosis: The differential diagnosis on this patient includes but is not limited to COPD exacerbation, bronchitis, pneumonia. This represents a partial list of diagnoses considered. These considerations are based on history, physical exam , past history, reassessment and diagnostic testing. Smoking Status: Light smoker Constitutional: Initial Vital Signs Temperature (C) 37 C 06/03/18 10:52 Heart Rate 110 H 06/03/18 10:52 Respiratory Rate 20 06/03/18 10:52 Blood Pressure 126/80 H 06/03/18 10:52 O2 Sat (%) 93 06/03/18 10:52 O2 Delivery Mode CPAP O2 (L/minute) 10 Allergies/Adverse Reactions: acetaminophen [Acetaminophen] Allergy (Severe, Verified 06/02/18 09:26) heparin Allergy (Unknown, Verified 06/02/18 09:26) Heparin Analogues Allergy (Unknown, Verified 06/02/18 09:26) propoxyphene HCl [From Darvon] Allergy (Unknown, Verified 06/02/18 09:26) amoxicillin [Amoxicillin] Allergy (Verified 06/02/18 09:26) Other-Enter Comments aspirin [Aspirin] Allergy (Verified 06/02/18 09:) Iodinated Contrast- Oral and IV Dye [Iodinated Contrast Media - Oral and] Allergy (Verified 06/02/18 09:) Other-Enter Comments Home Medications: Medication Instructions Recorded Albuterol [Proventil Inhaler HFA 1 puffs PO DAILY PRN 05/21/18 (*)] Ascorbic Acid [Vitamin C 500 mg 500 mg PO DAILY 05/21/18 (*)] Multivitamins [Multivitamin (*)] 1 each PO DAILY 05/21/18 predniSONE 60 mg PO DAILY tablet 05/23/18 Azithromycin 250 mg PO DAILY #4 tablet 06/02/18 Medical Decision Making Critical Care Time: I spent a total of 42 minutes of critical care time in obtaining history, performing a physical exam, bedside monitoring of interventions, collecting and interpreting tests and discussion with consultants but not including time spent performing procedures. - Data Points Laboratory Results: Laboratory Results 06/03/18 11:00 06/03/18 11:00 Medications Given: Albuterol/Ipratropium (Duoneb) 3 ml IH Q4VENT BRAYDEN Stop: 11/30/18 19:59 Last Admin: 06/04/18 08:14 Dose: 3 ml Chlorhexidine Gluconate (Peridex) 15 ml PO Q12@08,20 BRAYDEN Stop: 11/30/18 19:59 Last Admin: 06/04/18 08:49 Dose: 15 ml Azithromycin 500 mg/ Sodium (Chloride) 255 mls @ 255 mls/hr IV DAILY BRAYDEN PRN Reason: Protocol Stop: 07/03/18 15:29 Last Admin: 06/04/18 09:27 Dose: 255 mls Cefepime HCl 2 gm/ Sodium (Chloride) 100 mls @ 200 mls/hr IV Q8HRS BRAYDEN PRN Reason: Protocol Stop: 07/03/18 15:29 Last Admin: 06/04/18 05:39 Dose: 100 mls Famotidine/Sodium Chloride (Pepcid 20 Mg (Premix)) 50 mls @ 200 mls/hr IV Q12HRS BRAYDEN Stop: 11/30/18 20:59 Last Admin: 06/04/18 08:47 Dose: 50 mls Vancomycin/Sodium Chloride (Vancomycin 1 Gm (Premix)) 250 mls @ 250 mls/hr IV Q12H BRAYDEN Stop: 07/03/18 16:59 Last Admin: 06/04/18 04:28 Dose: 250 mls Propofol (Diprivan 10 Mg/Ml (Premix)) 100 mls @ 0 mls/hr IV CONT BRAYDEN; Per Protocol PRN Reason: Protocol Stop: 11/30/18 17:17 Last Admin: 06/04/18 05:35 Dose: 100 mls Fentanyl/Sodium Chloride (Fentanyl 10 Mcg/Ml (Premix)) 100 mls @ 0 mls/hr IV CONT BRAYDEN; Per Protocol PRN Reason: Protocol Stop: 06/13/18 19:35 Last Admin: 06/03/18 19:53 Dose: 100 mls Thiamine HCl 500 mg/ Sodium (Chloride) 105 mls @ 210 mls/hr IV Q24H BRAYDEN Stop: 06/04/18 21:30 Last Admin: 06/03/18 21:41 Dose: 105 mls Norepinephrine 4 mg/ Sodium (Chloride) 504 mls @ 0 mls/hr IV CONT BRAYDEN; Per Protocol PRN Reason: Protocol Stop: 12/01/18 09:29 Last Admin: 06/04/18 09:46 Dose: 504 mls Lorazepam (Ativan Injection) 0 mg IVP Q1H PRN; Protocol PRN Reason: Alcohol Withdrawal w/IV access Stop: 11/30/18 20:20 Last Admin: 06/04/18 05:58 Dose: 2 mg Methylprednisolone Sodium Succinate (Solu-Medrol) 40 mg IVP DAILY BRAYDEN Stop: 12/01/18 08:59 Last Admin: 06/04/18 09:27 Dose: 40 mg Discontinued Medications Albuterol/Ipratropium (Duoneb) 9 ml IH EDNOW ONE Stop: 06/03/18 11:34 Last Admin: 06/03/18 11:43 Dose: 9 ml Furosemide (Lasix Injection) 40 mg IVP ONCE ONE Stop: 06/04/18 08:43 Last Admin: 06/04/18 09:50 Dose: 40 mg Sodium Chloride (Ns) 500 mls @ 1,000 mls/hr IV EDNOW ONE PRN Reason: Protocol Stop: 06/03/18 12:02 Last Admin: 06/03/18 11:39 Dose: 500 mls Magnesium Sulfate (Magnesium Sulf 2 Gm (Premix)) 50 mls @ 50 mls/hr IV EDNOW ONE Stop: 06/03/18 12:32 Last Admin: 06/03/18 11:42 Dose: 50 mls Ketamine HCl (Ketamine) 40 mg IV EDNOW ONE Stop: 06/03/18 11:57 Last Admin: 06/03/18 11:59 Dose: 40 mg Ketamine HCl (Ketamine) 30 mg IVP EDNOW PRN PRN Reason: Agitation, Acute Stop: 11/30/18 12:04 Last Admin: 06/03/18 13:33 Dose: 20 mg Ketamine HCl (Ketamine) 200 mg IVP ONCE ONE Stop: 06/03/18 16:31 Last Admin: 06/03/18 15:45 Dose: 200 mg Lidocaine HCl (Lidocaine Hcl 1%) 1 - 300 mg MISC ONCALL ONE Stop: 06/03/18 15:23 Last Admin: 06/03/18 15:45 Dose: 300 mg Lidocaine HCl (Lidocaine Hcl 1%) 300 mg MISC ONCE ONE Stop: 06/03/18 16:31 Last Admin: 06/03/18 16:41 Dose: 300 mg Methylprednisolone Sodium Succinate (Solu-Medrol) 125 mg IVP EDNOW ONE Stop: 06/03/18 11:34 Last Admin: 06/03/18 11:43 Dose: 125 mg Oseltamivir Phosphate (Tamiflu) 75 mg PO BIDMEAL BRAYDEN Stop: 06/08/18 08:01 Last Admin: 06/04/18 09:53 Dose: Not Given Rocuronium Williams (Zemuron) 200 mg IVP ONCE ONE Stop: 06/03/18 16:31 Last Admin: 06/03/18 15:45 Dose: 200 mg Departure - Departure Disposition: [facility] Inpatient Acute Clinical Impression: COPD exacerbation, Hypoxia Condition: Fair
[2018-06-03] MEDS ORDERED: KETAMINE 200 MG/20 ML VIAL ONE ×2 (11:55→18:40)
[2018-06-03] MEDS ORDERED: KETAMINE 200 MG/20 ML VIAL IV ONE (11:56)
[2018-06-03] MEDS ORDERED: ALBUTEROL 3 ML DEYVIAL ONE (12:03)
[2018-06-03] MEDS ORDERED: KETAMINE 500 MG/10 ML VIAL IVP PRN (12:05)
[2018-06-03] MEDS ORDERED: ACETAMINOPHEN 325 MG TAB PO PRN (13:34)
[2018-06-03] MEDS ORDERED: ALBUTEROL 3 ML DEYVIAL IH PRN (13:40)
--- NOTE | 2018-06-03 14:31 | PDGENHP ---
<Madelaine Patrick - Last Filed: 06/03/18 17:32> History and Physical - Chief Complaint Shortness of breath/COPD exacerbation - History of Present Illness HPI: This is a 57 y/o male with history of homelessness, COPD with non- compliance of home oxygen, asthma, IV and street drug user presenting to the emergency room via ambulance. He was picked up from the streets. Apparently, he presented to the emergency room yesterday with same symptoms of COPD exacerbation (shortness of breath) and his condition improved while in ED so he was discharged with prednisone, azithromycin, and albuterol MDI. It is uncertain whether he took these medications because as stated above, he was picked up from the streets with worsening shortness of breath, RA 75% which his baseline is thought to be somewhere in the middle 80s. CXR compared to yesterday CXR, there is an increasing bronchial wall thickening and interstitial lung disease. There is a component of fluid overloading vs developing interstitial pneumonia (viral)? During his time today in the ED, he became more altered and diaphoretic, pulling off his oxygen face mask. He was sedated with Ketamine, bronchodilated and was placed on a non-invasive ventilation. As he was being transferred to the step-down unit, he became agitated again and required another dose of Ketamine. He is being admitted for further diagnostic work-up and monitoring. Past Medical History: Chronic pain, COPD s/p supposed to utilize oxygen at home but non-compliant, asthma, Hepatitis B and C, heroin/IV drug abuse, migraines, PTSD, migraines Past Surgical History: Teeth extractions Social: Homeless. Per health records, heavy smoker and alcohol abuse. IV and street drug abuse. History Information - Allergies/Home Medication List Allergies/Adverse Reactions: acetaminophen [Acetaminophen] Allergy (Severe, Verified 06/02/18 09:26) heparin Allergy (Unknown, Verified 06/02/18 09:26) Heparin Analogues Allergy (Unknown, Verified 06/02/18 09:26) propoxyphene HCl [From Darvon] Allergy (Unknown, Verified 06/02/18 09:26) amoxicillin [Amoxicillin] Allergy (Verified 06/02/18 09:26) Other-Enter Comments aspirin [Aspirin] Allergy (Verified 06/02/18 09:26) Iodinated Contrast- Oral and IV Dye [Iodinated Contrast Media - Oral and] Allergy (Verified 06/02/18 09:26) Other-Enter Comments Home Medications: Albuterol [Proventil Inhaler HFA (*)] 1 puffs PO DAILY PRN 05/21/18 [Last Taken Unknown] Ascorbic Acid [Vitamin C 500 mg (*)] 500 mg PO DAILY 05/21/18 [Last Taken Unknown] Multivitamins [Multivitamin (*)] 1 each PO DAILY 05/21/18 [Last Taken Unknown] I have personally reviewed and updated: family history, medical history, social history, surgical history - Past Medical History COPD Additional medical history: copd. chronic hepatitis b andc. PTSD. chronic pain syndrome - Surgical History Additional surgical history: teeth extractions - Family History Positive for: non-pertinent Additional family history: Asked, denies - Social History Smoking Status: Heavy smoker Review of Systems Review of Systems: ROS: 1pt was reviewed & negative except for what was stated in HPI & below ( Unable to review as pt is sedated with non-invasive ventilation) Physical Exam Physical Exam: Lab data and imaging were reviewed. Case discussed with admitting physician, Dr. Meño Wallace. Na: 134 BUN/Cr: 29/1.0 CXR: Compared to yesterday CXR, there is an increasing bronchial wall thickening and interstitial lung disease. There is a component of fluid overloading vs developing interstitial pneumonia (viral)? Temp Pulse Resp BP Pulse Ox 36.8 C 88 17 105/61 95 06/03/18 13:57 06/03/18 14:00 06/03/18 14:00 06/03/18 14:00 06/03/18 14:00 FIO2 (%) 100 Constitutional: unkempt, other (Sedated with non-invasive ventilation) Eyes: other (DANYELLE) Ears, Nose, Mouth, Throat: other (DANYELLE) Cardiovascular: regular rate and rhythym, no murmur, rub, or gallop, tachycardia , No edema Peripheral Pulses: 2+: dorsalis-pedis (R) (Radial 2+), dorsalis-pedis (L) ( Radial 2+) Respiratory: no respiratory distress, no rales or rhonchi, clear to auscultation Gastrointestinal: normoactive bowel sounds, soft, non-tender abdomen, no palpable masses Genitourinary: no bladder fullness, no bladder tenderness Skin: warm, normal color, no rashes or abrasions, no fluctuance, no induration, No mottled Musculoskeletal: other (DANYELLE) Neurologic: other (DANYELLE) Psychiatric: other (DANYELLE) Lymph, Heme, Immunologic: no cervical LAD, no supraclavicular LAD Lab Data & Imaging Review 06/03/18 11:00 06/03/18 11:00 WBC 11.46 10^3/uL (3.80-9.50) H 06/03/18 11:00 RBC 4.41 10^6/uL (4.40-6.38) 06/03/18 11:00 Hgb 15.2 g/dL (13.7-17.5) 06/03/18 11:00 Hct 43.8 % (40.0-51.0) 06/03/18 11:00 MCV 99.3 fL (81.5-99.8) 06/03/18 11:00 MCH 34.5 pg (27.9-34.1) H 06/03/18 11:00 MCHC 34.7 g/dL (32.4-36.7) 06/03/18 11:00 RDW 14.9 % (11.5-15.2) 06/03/18 11:00 Plt Count TNP 06/03/18 11:00 MPV TNP 06/03/18 11:00 Neut % (Auto) Not Reported 06/03/18 11:00 Lymph % (Auto) Not Reported 06/03/18 11:00 [place] % (Auto) Not Reported 06/03/18 11:00 Eos % (Auto) Not Reported 06/03/18 11:00 Baso % (Auto) Not Reported 06/03/18 11:00 Nucleat RBC Rel Count Not Reported 06/03/18 11:00 Absolute Neuts (auto) Not Reported 06/03/18 11:00 Absolute Lymphs (auto) Not Reported 06/03/18 11:00 Absolute Monos (auto) Not Reported 06/03/18 11:00 Absolute Eos (auto) Not Reported 06/03/18 11:00 Absolute Basos (auto) Not Reported 06/03/18 11:00 Absolute Nucleated RBC Not Reported 06/03/18 11:00 Immature Gran % Not Reported 06/03/18 11:00 Seg Neutrophils % 60.0 % 06/03/18 11:00 Band Neutrophils % 17.0 % 06/03/18 11:00 Lymphocytes % 7.0 % 06/03/18 11:00 Monocytes % 16.0 % 06/03/18 11:00 Eosinophils % 0.0 % 06/03/18 11:00 Basophils % 0.0 % 06/03/18 11:00 Metamyelocytes % 0.0 % 06/03/18 11:00 Myelocytes % 0.0 % 06/03/18 11:00 Promyelocytes % 0.0 % 06/03/18 11:00 Blast Cells % 0.0 % 06/03/18 11:00 Immature Gran # Not Reported 06/03/18 11:00 Absolute Seg Neuts 6.88 10^3/uL (1.70-6.50) H 06/03/18 11:00 Absolute Band Neuts 1.95 10^3/uL (0.00-0.70) H 06/03/18 11:00 Absolute Lymphocytes 0.80 10^3/uL (1.00-3.00) L 06/03/18 11:00 Absolute Monocytes 1.83 10^3/uL (0.30-0.80) H 06/03/18 11:00 Absolute Eosinophils 0.00 10^3/uL (0.03-0.40) L 06/03/18 11:00 Absolute Basophils 0.00 10^3/uL (0.02-0.10) L 06/03/18 11:00 Absolute Metamyelocyte 0.00 10^3/mL (0.00-0.00) 06/03/18 11:00 Absolute Myelocytes 0.00 10^3/mL (0.00-0.00) 06/03/18 11:00 Absolute Promyelocytes 0.00 10^3/uL (0.00-0.00) 06/03/18 11:00 Absolute Plasma Cells 0.00 10^3/uL (0.00-0.00) 06/03/18 11:00 Nucleated RBCs 0 /100 WBC (0-0) 06/03/18 11:00 RBC/WBC/PLT Morphology NORMAL (NORMAL) 06/03/18 11:00 Absolute Blast Cells 0.00 10^3/uL (0.00-0.00) 06/03/18 11:00 Plasma Cells % 0.0 % 06/03/18 11:00 Platelet Estimate TNP 06/03/18 11:00 Sodium 134 mEq/L (135-145) L 06/03/18 11:00 Potassium 4.7 mEq/L (3.5-5.2) 06/03/18 11:00 Chloride 98 mEq/L (97-110) 06/03/18 11:00 Carbon Dioxide 29 mEq/l (22-31) 06/03/18 11:00 Anion Gap 7 mEq/L (6-14) 06/03/18 11:00 BUN 29 mg/dL (7-23) H 06/03/18 11:00 Creatinine 1.0 mg/dL (0.7-1.3) 06/03/18 11:00 Estimated GFR > 60 06/03/18 11:00 Glucose 139 mg/dL (70-100) H 06/03/18 11:00 Calcium 8.6 mg/dL (8.5-10.4) 06/03/18 11:00 Assessment & Plan Plan: This is a 57 y/o male with history of COPD, asthma, homelessness, IV and street drug user, alcohol abuse presenting with worsening shortness of breath, altered mental status (per ED), and agitation. Differential diagnoses includes but not limited to: COPD exacerbation, bronchitis, pneumonia, alcohol withdrawal. #Acute hypoxemic respiratory failure on chronic 2/2 COPD exacerbation #Right middle lobe pneumonia #Severe COPD #Encephalopathic Plan -Transferred to ICU -Sedate and intubate -Treat pneumonia with vancomycin, zosyn, zithromax; if cultures negative for MRSA and Pseudomonas, will deescalate antibiotics -Prednisone QD -Respiratory pathogen panel PCR -HOB elevated -Please review admitting physician, Dr. Meño Wallace's note for further details of additional plans. Diet: NPO Code: Full VTE ppx: Lovenox subq Dispo: Admit to inpatient <Meño Wallace - Last Filed: 06/03/18 18:06> History and Physical - History of Present Illness Review of Systems Review of Systems: Physical Exam Physical Exam: Temp Pulse Resp BP Pulse Ox 38.6 C H 96 22 H 123/61 H 92 06/03/18 17:00 06/03/18 17:00 06/03/18 17:00 06/03/18 17:00 06/03/18 17:00 FIO2 (%) 50 Lab Data & Imaging Review 06/03/18 11:00 06/03/18 11:00 WBC 11.46 10^3/uL (3.80-9.50) H 06/03/18 11:00 RBC 4.41 10^6/uL (4.40-6.38) 06/03/18 11:00 Hgb 15.2 g/dL (13.7-17.5) 06/03/18 11:00 Hct 43.8 % (40.0-51.0) 06/03/18 11:00 MCV 99.3 fL (81.5-99.8) 06/03/18 11:00 MCH 34.5 pg (27.9-34.1) H 06/03/18 11:00 MCHC 34.7 g/dL (32.4-36.7) 06/03/18 11:00 RDW 14.9 % (11.5-15.2) 06/03/18 11:00 Plt Count TNP 06/03/18 11:00 MPV TNP 06/03/18 11:00 Neut % (Auto) Not Reported 06/03/18 11:00 Lymph % (Auto) Not Reported 06/03/18 11:00 [place] % (Auto) Not Reported 06/03/18 11:00 Eos % (Auto) Not Reported 06/03/18 11:00 Baso % (Auto) Not Reported 06/03/18 11:00 Nucleat RBC Rel Count Not Reported 06/03/18 11:00 Absolute Neuts (auto) Not Reported 06/03/18 11:00 Absolute Lymphs (auto) Not Reported 06/03/18 11:00 Absolute Monos (auto) Not Reported 06/03/18 11:00 Absolute Eos (auto) Not Reported 06/03/18 11:00 Absolute Basos (auto) Not Reported 06/03/18 11:00 Absolute Nucleated RBC Not Reported 06/03/18 11:00 Immature Gran % Not Reported 06/03/18 11:00 Seg Neutrophils % 60.0 % 06/03/18 11:00 Band Neutrophils % 17.0 % 06/03/18 11:00 Lymphocytes % 7.0 % 06/03/18 11:00 Monocytes % 16.0 % 06/03/18 11:00 Eosinophils % 0.0 % 06/03/18 11:00 Basophils % 0.0 % 06/03/18 11:00 Metamyelocytes % 0.0 % 06/03/18 11:00 Myelocytes % 0.0 % 06/03/18 11:00 Promyelocytes % 0.0 % 06/03/18 11:00 Blast Cells % 0.0 % 06/03/18 11:00 Immature Gran # Not Reported 06/03/18 11:00 Absolute Seg Neuts 6.88 10^3/uL (1.70-6.50) H 06/03/18 11:00 Absolute Band Neuts 1.95 10^3/uL (0.00-0.70) H 06/03/18 11:00 Absolute Lymphocytes 0.80 10^3/uL (1.00-3.00) L 06/03/18 11:00 Absolute Monocytes 1.83 10^3/uL (0.30-0.80) H 06/03/18 11:00 Absolute Eosinophils 0.00 10^3/uL (0.03-0.40) L 06/03/18 11:00 Absolute Basophils 0.00 10^3/uL (0.02-0.10) L 06/03/18 11:00 Absolute Metamyelocyte 0.00 10^3/mL (0.00-0.00) 06/03/18 11:00 Absolute Myelocytes 0.00 10^3/mL (0.00-0.00) 06/03/18 11:00 Absolute Promyelocytes 0.00 10^3/uL (0.00-0.00) 06/03/18 11:00 Absolute Plasma Cells 0.00 10^3/uL (0.00-0.00) 06/03/18 11:00 Nucleated RBCs 0 /100 WBC (0-0) 06/03/18 11:00 RBC/WBC/PLT Morphology NORMAL (NORMAL) 06/03/18 11:00 Absolute Blast Cells 0.00 10^3/uL (0.00-0.00) 06/03/18 11:00 Plasma Cells % 0.0 % 06/03/18 11:00 Platelet Estimate TNP 06/03/18 11:00 Puncture Site RIGHT RADIAL 06/03/18 16:55 Patient Temperature 38.6 DEGREES 06/03/18 16:55 pCO2 69 mmHg (34-38) H 06/03/18 16:55 pO2 75 mmHg (65-75) 06/03/18 16:55 Total CO2 30 mEq/L (23-27) H 06/03/18 16:55 ABG pH 7.24 (7.35-7.45) L 06/03/18 16:55 ABG PO2/FiO2 Ratio 150 RATIO 06/03/18 16:55 ABG HCO3 28 mEq/L (22-26) H 06/03/18 16:55 ABG O2 Saturation 90 % (92-95) L 06/03/18 16:55 ABG Base Excess -0.5 mEq/L (-2.5-2.5) 06/03/18 16:55 VBG pH 7.29 (7.31-7.42) L 06/03/18 15:33 VBG HCO3 29 mEQ/L (22-26) H 06/03/18 15:33 VBG Total CO2 31 mEq/L (21-27) H 06/03/18 15:33 VBG O2 Saturation 92 % (65-75) H 06/03/18 15:33 VBG Base Excess 1.0 mEq/L (-2.5-2.5) 06/03/18 15:33 Mixed VBG pCO2 62 mmHg (40-44) H 06/03/18 15:33 Mixed VBG pO2 71 mmHG (35-40) H 06/03/18 15:33 O2 Concentration % 50 % (0-100) 06/03/18 16:55 Respiration Rate 22 06/03/18 16:55 Set Respiration Rate 22 06/03/18 16:55 Assist Control YES 06/03/18 16:55 Tidal Volume 470 06/03/18 16:55 End Tidal CO2 57 06/03/18 16:55 PEEP 5 06/03/18 16:55 Sodium 134 mEq/L (135-145) L 06/03/18 11:00 Potassium 4.7 mEq/L (3.5-5.2) 06/03/18 11:00 Chloride 98 mEq/L (97-110) 06/03/18 11:00 Carbon Dioxide 29 mEq/l (22-31) 06/03/18 11:00 Anion Gap 7 mEq/L (6-14) 06/03/18 11:00 BUN 29 mg/dL (7-23) H 06/03/18 11:00 Creatinine 1.0 mg/dL (0.7-1.3) 06/03/18 11:00 Estimated GFR > 60 06/03/18 11:00 Glucose 139 mg/dL (70-100) H 06/03/18 11:00 Calcium 8.6 mg/dL (8.5-10.4) 06/03/18 11:00 Fluid [place] % Cancelled 06/03/18 16:25 Pleural Fluid Source Cancelled 06/03/18 16:25 Pleural Color Cancelled 06/03/18 16:25 Pleural WBC Cancelled 06/03/18 16:25 Pleural RBC Cancelled 06/03/18 16:25 Pleural Neutrophils Cancelled 06/03/18 16:25 Pleural Eosinophils Cancelled 06/03/18 16:25 Pleural Basophils Cancelled 06/03/18 16:25 Pleural Plasma Cells Cancelled 06/03/18 16:25 Pleural Lymphocytes % Cancelled 06/03/18 16:25 Pleural Other Cells % Cancelled 06/03/18 16:25 Assessment & Plan Assessment: COPD exacerbation (Acute) Hypoxia (Acute) Plan: Chart reviewed, patient personally examined, and case discussed with Mercedes Patrick NP. Please see my separate note for additional details.
--- NOTE | 2018-06-03 14:31 | ASMTLACE ---
MELANIE Comorbidities - select Answers: Chronic pulmonary disease all that apply Opioid dependence / Chronic pain Other Notes: Hep A # of Emergency department Answers: 12+ visits in the last 6 months Social determinants Answers: History of substance abuse (ETOH, street drugs, prescription drugs, etc.) Homelessness (street, care home) History of trauma (PTSD, child abuse, domestic violence, etc.) Mental health diagnosis (anxiety, depression, pers onality disorders, etc.) Lack of community resources and/or lack of social support (no pcp, lives alone, transportation, jordy d) Score: 29 Date Signed: 06/03/2018 02:30 PM Electronically Signed By:Radha Yo
--- NOTE | 2018-06-03 15:19 | HOSPPROG ---
Hospitalist Progress Note Assessment/Plan: Case discussed with Mercedes Patrick [employer] and agree with plan outlined in her note with following exceptions: Briefly, 57yo M with severe COPD, homelessness who is well known to this hospital presents with worsenig shortness of breath. Seen yesterday in ED, diagnosed with AECOPD and discharged from ED on appropriate medications. Returned today where O2 sats were 75% on room air. He was given a dose of solumedrol and placed on PPV. Apparently became quite agitated and was given a dose of ketamine and admitted to the SDU. On my examination, he had a significantly prolonged expiratory phase. His legs are quite edematous but symmetric. He was minimally responsive with copious green secretions in CPAP mask. Case was then discussed with the tree trimmer helper and he was urgently intubated. 1. Acute hypoxemic hypercarbic respiratory failure - Now intubated, lung protective ventilation per tree trimmer helper - Propofol for sedation, fentanyl for analgesia 2. Acute COPD exacerbation: - Scheduled bronchodilators, steroids, antibiotics (see below) 3. Right middle/lower lobe pneumonia: Will cover for HCAP - Check respiratory viral PCR, sputum culture - Pulm planning on bronchoscopy - Start vancomycin, cefepime, azithromcyin - Adding tamiflu until ruled out 4. BLE edema: Likely r/t RV failure from chronic hypoxia. - Diurese when hemodynamically stable 5. Acute metabolic encephalopathy: Related to hypoxia/hypercarbia. VTE ppx: SCDs (allergy listed to heparin) GI ppx: famotidine Diet: NPO Code: full Dispo: Admit as inpatient to ICU with respiratory failure Objective: Vital Signs Temp Pulse Resp BP Pulse Ox 36.8 C 88 17 105/61 95 06/03/18 13:57 06/03/18 14:00 06/03/18 14:00 06/03/18 14:00 06/03/18 14:00 06/02/18 06/03/18 06/04/18 05:59 05:59 05:59 Intake Total 500 Balance 500 ICD10 Worksheet Patient Problems: Problems Problem Status Onset COPD exacerbation Acute Hypoxia Acute Acute bronchitis Acute Acute respiratory failure Acute Bronchitis Acute COPD (chronic obstructive pulmonary disease) Acute COPD exacerbation Acute Cellulitis Acute Chronic obstructive pulmonary disease with acute exacerbation Acute Dyspnea Acute Facial abscess Acute HCAP (healthcare-associated pneumonia) Acute Hypoxemia Acute Pneumonia Acute Pneumonia Acute Sepsis Acute Shortness of breath Acute
[2018-06-03] MEDS ORDERED: PROPOFOL/EMULSION 1,000 MG/100 ML BOTTLE IV ONE (15:21)
[2018-06-03] MEDS ORDERED: LIDOCAINE 1% 300 MG/30 ML SDV MISC ONE ×2 (15:22→16:30)
--- NOTE | 2018-06-03 15:32 | PDCONSULT ---
Scrubber Operator Note: ASSESSMENT 57-year-old homeless male with severe COPD polysubstance abuse admitted with severe COPD exacerbation and right middle lobe pneumonia. # acute hypoxemic hypercarbic respiratory failure requiring intubation and mechanical ventilation # acute exacerbation of COPD # encephalopathy # pneumonia, risk factors for MDR given frequent hospitalizations # severe COPD # bilateral lower extremity edema. I suspect patient has a component of RV failure and cor pulmonale given longstanding severe COPD. PLAN # failed BiPAP will proceed with emergent endotracheal intubation and bronchoscopy # lung protective ventilation # vanc, Zosyn, Zithromax # if cultures negative for MRSA and Pseudomonas at 48 to 72 hr will deescalate antibiotics # methyl Pred 40 daily # diuresis as able # RPNA to rule out viral pathogen # add Tamiflu until our P&A results negative for influenza # Feeding - NPO, will start trickle feeds if hemodynamics stable after intubation # A goals of care conversation and advanced directives after critical illness resolves # Analgesia APAP, fentanyl # Sedation propofol # Thromboprophylaxis - SQ hep # Head of bed elevated # Ulcer prophylaxis - H2 shirley # Glucose SSI # Skin no skin breakdown # Delirium - delirium precautions Patient is critical ill due to life threatening organ dysfunction and is at high risk for decompensation and . Total critical care time, excluding procedures: 143 min which was spent evaluating patient at bedside, discussions with hospice, reviewing chart and imaging as well as titrating ventilator. ABX EVENTS 06/03/2018 intubation, bronchoscopy, admission CX Data 06/03/2018 sputum cultures pending, or PND pending IMAGING 06/03/2018 chest x-ray right middle lobe infiltrate, increased interstitial opacifications hyperinflated lung CONSULT I was asked by Dr Wallace to evaluate this patient for respiratory failure and ICU care CC SOB HPI 57-year-old male with homelessness, severe COPD and treatment non adherence as well as polysubstance abuse and multiple admissions for COPD exacerbations who was brought in by ambulance with shortness of breath and productive cough. He was actually seen yesterday, day prior to admission, with a mild COPD exacerbation was given prednisone, azithromycin and albuterol on discharge. It is unclear whether he took these medications. We presents emergency department setting 75% on room air with increased work of breathing. He was initially placed on CPAP with a possible improvements in clinical status. However when I evaluate patient at bedside he was obtunded and his BiPAP mask was full pooled thick productive phlegm. Allergies Acetaminophen, heparin, Past medical history Severe COPD, chronic hypoxemic respiratory failure noncompliant with therapy and oxygen, hepatitis B and C, heroin abuse, PTSD, chronic pain, migraines Social history A homeless, heavy drinker heavy smoker, IV drug abuse Family history Unable to be obtained secondary to patient's obtunded status Review of systems Unable to be obtained secondary to patient's mental status Physical exam Pulse 120, blood pressure 128/76, respiratory rate 18 with prolonged expiratory phase, satting 98% on BiPAP on 100% FiO2 GEN: Obtunded minimally arousable NEURO: Minimally arousable, no focal neurologic deficits, require sternal rub to awakening quickly falls asleep HEENT: NIPPV mask in place. Thick tenacious secretions pooled in mask NECK: supple, trachea midline CHEST normal shape, no pes excavatum CVS: rrr no m/r/g PULM: Prolonged expiratory phase, use of accessory muscles ABD: soft, NT, ND, NABS EXT: 1 to 2+ bilateral lower extremity edema, no cyanosis, full ROM SKIN: warm, dry, intact, no rash PSYCH obtunded Labs Reviewed
--- NOTE | 2018-06-03 16:14 | SUROPNOTE ---
[facility] Operative Report - Surgery Emergency Endotracheal Intubation Date and Time 06/03/2018 1545 Operators S Hunter Butt MD Indication Respiratory failure Consent Emergency procedure in a critically ill decompensating patient Preoxygenation NIPPV Medications Ketamine 200 mg Rocuronium 200 mg Equipment Mac 4 7.5 ETT, bougie Maccormick navarro grade view intubation 1 Number of Attempts 1 Post Procedure Placement was confirmed with capnography, breath sounds were ausculated bilaterally. ETT mueller, 25 cm at teeth, placement confirmed with bronchoscope CXR ordered Complications None
--- NOTE | 2018-06-03 16:16 | SUROPNOTE ---
[facility] Operative Report - Surgery PROCEDURE NOTE: Flexible bronchoscopy with bronchoalveolar lavage and therapeutic aspiration Procedure Manufacturing Shift Supervisor S Reinaldo Ervin MD Procedure: Flexible bronchoscopy with bronchoalveolar lavage and therapeutic aspiration Indication: Pneumonia Preoperative diagnosis: Pneumonia Postoperative diagnosis: Pneumonia Consent: Unable to obtain consent due to not finding proxy an emergent situation Anesthesiologist NA Sedation Type: deep sedation Sedation Medications: propofol Medications: None Procedure Summary: Time out was performed. The bronchoscope was then introduced via the endotracheal tube into the trachea. Thick today schaffer secretions were noted in left upper lobe, right middle lobe and right lower lobe. All secretions were therapeutically aspirated. Multiple aliquots with saline were instilled to loosen secretions in order to facilitate aspiration. Next a formal bronchoalveolar lavage was performed in the left upper lobe by instilling 120 mL of saline with return of 40 cc of purulent cloudy material. Next a subsequent right middle lobe BAL was performed with instillation of 120 mL of saline with return of 38 cc of cloudy fluid. Patient tolerated the procedure well without complication. EBL none Complications: None Impression: Pneumonia Items to Follow-up: BAL fluid sent for cell count diff Gram stain culture S Reinaldo Ervin MD Pulmonary and Critical Care Medicine [phone]
[2018-06-03] MEDS ORDERED: ROCURONIUM 100 MG/10 ML VIAL IVP ONE (16:30)
[2018-06-03] MEDS ORDERED: KETAMINE 200 MG/20 ML VIAL IVP ONE (16:30)
[2018-06-03] MEDS: CEFEPIME HCL 2 GM in NS 100 ML IV SCH ×2 (16:41→21:57)
[2018-06-03] MEDS: AZITHROMYCIN IV 500 MG in NS 250 ML IV SCH (16:41)
[2018-06-03] MEDS ORDERED: LR 1,000 ML IV SCH (17:30)
[2018-06-03] MEDS ORDERED: IPRATROPIUM/ALBUTEROL 3 ML DEYVIAL IH SCH (18:00)
[2018-06-03] MEDS ORDERED: ROCURONIUM 100 MG/10 ML VIAL ONE ×2 (18:40→18:43)
[2018-06-03] MEDS: OSELTAMIVIR PHOSPHATE 75 MG CAP PO SCH (19:26)
[2018-06-03] MEDS ORDERED: fentaNYL/NACL 100 ML IV SCH (19:36)
[2018-06-03] MEDS: VANCOMYCIN HCL/NORMAL SALINE 250 ML IV SCH (19:44)
[2018-06-03] MEDS: CHLORHEXIDINE GLUCONATE 15 ML UDL PO SCH (19:44)
[2018-06-03] MEDS: FAMOTIDINE 20 MG/NACL 50 ML IV SCH (19:44)
[2018-06-03] MEDS: PROPOFOL/EMULSION 100 ML IV SCH (19:46)
[2018-06-03] MEDS: IPRATROPIUM/ALBUTEROL 3 ML DEYVIAL IH SCH (20:03)
[2018-06-03] MEDS ORDERED: FLUMAZENIL 0.5 MG/5 ML MDV IVP PRN (20:21)
[2018-06-03] MEDS: LORazepam 2 MG/ML INJ IVP PRN ×2 (20:40→21:57)
[2018-06-03] MEDS: THIAMINE HCL 500 MG in NS 100 ML IV SCH (21:41)
[2018-06-04] MEDS: IPRATROPIUM/ALBUTEROL 3 ML DEYVIAL IH SCH ×7 (00:08→21:31)
[2018-06-04] MEDS: LORazepam 2 MG/ML INJ IVP PRN ×5 (01:41→20:14)
[2018-06-04] MEDS: VANCOMYCIN HCL/NORMAL SALINE 250 ML IV SCH ×2 (04:28→17:10)
[2018-06-04 04:43] LABS: PLATELET COUNT 141 10^3/uL (150-400)
[2018-06-04] MEDS: PROPOFOL/EMULSION 100 ML IV SCH (05:35)
[2018-06-04] MEDS: CEFEPIME HCL 2 GM in NS 100 ML IV SCH ×2 (05:39→14:05)
--- NOTE | 2018-06-04 08:30 | HOSPPROG ---
Hospitalist Progress Note Assessment/Plan: 57yo M with severe COPD, homelessness who is well known to this hospital presents with worsening shortness of breath found to be hypoxic, hypercarbic, and encephalopathic. He is not intubated. 1. Acute hypoxemic hypercarbic respiratory failure - Remains intubated, lung protective ventilation per corrections unit supervisor - Propofol for sedation, fentanyl for analgesia - Trial 40mg IV lasix (net + 3L yesterday) 2. Acute COPD exacerbation: Precipitated by infection - Scheduled bronchodilators, methylpred 40mg qd, antibiotics (see below) 3. Pneumonia: Involving RML. Will cover for HCAP. Resp viral PCR negative. BAL with gram negative coccobacilli (per pulm, consistent with Heamophilus) - Stopping tamiflu - Continue vancomycin, cefepime, azithromcyin - narrow as able via culture data 4. Hypotension: - Norepinephrine as needed to keep MAP>65 5. BLE edema: Likely r/t RV failure from chronic hypoxia. - Diuresis as above - Ordered TTE to evaluate ventricular function 6. Acute metabolic encephalopathy: Related to hypoxia/hypercarbia. Now sedated. VTE ppx: SCDs (allergy listed to heparin) GI ppx: famotidine Diet: NPO Code: full Dispo: Remain inpatient in ICU with respiratory failure I spent a total of 35 minutes of critical care time. Subjective: Sedated on ventilator. Objective: Vital Signs Temp Pulse Resp BP Pulse Ox 36.4 C 68 22 H 83/58 L 96 06/04/18 08:00 06/04/18 08:00 06/04/18 08:00 06/04/18 08:00 06/04/18 08:00 Microbiology 06/03/18 16:25 Gram Stain - Final Bronchial Washing - Left Upper Lobe 06/03/18 16:26 Gram Stain - Final Bronchial Washing - Right Middle Lobe 06/03/18 16:00 Respiratory Panel (PCR) - Final Nasal, Sinus - Unspecified No Organism Detected By Pcr Laboratory Results 06/04/18 04:34 06/04/18 04:34 06/03/18 06/04/18 06/05/18 05:59 05:59 05:59 Intake Total 2997.6 Output Total 180 Balance 2817.6 - Physical Exam Constitutional: no apparent distress Eyes: PERRL Ears, Nose, Mouth, Throat: other (ETT in place) Cardiovascular: regular rate and rhythym, edema (2+ BLE) Respiratory: reduced air movement, other (mechanical breath sounds), No expiratory wheeze Gastrointestinal: normoactive bowel sounds, soft, non-tender abdomen, no palpable masses Genitourinary: hong in urethra Skin: no rashes or abrasions, no fluctuance, no induration Neurologic: other (sedated) Psychiatric: other (sedated) ICD10 Worksheet Patient Problems: Problems Problem Status Onset COPD exacerbation Acute Hypoxia Acute Acute bronchitis Acute Acute respiratory failure Acute Bronchitis Acute COPD (chronic obstructive pulmonary disease) Acute COPD exacerbation Acute Cellulitis Acute Chronic obstructive pulmonary disease with acute exacerbation Acute Dyspnea Acute Facial abscess Acute HCAP (healthcare-associated pneumonia) Acute Hypoxemia Acute Pneumonia Acute Pneumonia Acute Sepsis Acute Shortness of breath Acute
[2018-06-04] MEDS ORDERED: FUROSEMIDE 40 MG/4 ML VIAL IVP ONE (08:42)
[2018-06-04] MEDS: FAMOTIDINE 20 MG/NACL 50 ML IV SCH ×2 (08:47→20:54)
[2018-06-04] MEDS: CHLORHEXIDINE GLUCONATE 15 ML UDL PO SCH ×2 (08:49→20:54)
[2018-06-04] MEDS ORDERED: ENOXAPARIN 40 MG/0.4 ML SYR SC SCH (09:00)
[2018-06-04] MEDS ORDERED: predniSONE 20 MG TAB PO SCH (09:00)
[2018-06-04] MEDS ORDERED: NOREPINEPHRINE BITARTRATE 16 MG in NS 250 ML IV SCH (09:00)
[2018-06-04] MEDS: methylPREDNISolone SOD SUCC 40 MG/ML VIAL IVP SCH (09:27)
[2018-06-04] MEDS: AZITHROMYCIN IV 500 MG in NS 250 ML IV SCH (09:27)
[2018-06-04] MEDS ORDERED: NOREPINEPHRINE BITARTRATE 4 MG in NS 500 ML IV SCH (09:30)
--- NOTE | 2018-06-04 09:52 | PDMN ---
Medical Necessity Medical necessity: [facility] Respiratory Failure GR yo w/ SOB found in acute hypoxemic resp fx on chronic COPD exacerbation and R middle lobe pneumonia. Pt is encephalopathic. Intubation required for resp fx. Hx: homelessness, COPD with non-compliance of home oxygen, asthma, IVDU, etoh abuse , heavy smoker, Hep B/C, PTSD
[2018-06-04] MEDS: OSELTAMIVIR PHOSPHATE 75 MG CAP PO SCH (09:53)
--- NOTE | 2018-06-04 12:24 | ECHO ---
[email or web address] [address] [address] Main: [phone] Fax: Transthoracic Echocardiogram Name: KATHRYN MERIDA MR#: [id number] Study Date: 06/04/2018 Study Time: 09:43 AM Date of : 1960 Age: 57 year(s) Height: 172.7 cm (68 in.) Weight: 72.58 kg (160 lb.) BSA: 1.86 m2 Gender: Male Examination: Echo Indication: eval ventricular function Image Quality: Technically Difficult Contrast: Requested by: Meño Wallace BP: 85 mmHg/50 mmHg Heart Rate: Rhythm: Indication: eval ventricular function Procedure Staff Manager Of Photography: Rose Turner [facility] Reading Physician: Anselmo Cortez MD Requesting Provider: Conclusions: Normal size left ventricle. Low normal left ventricular systolic function. EF is 47 %. Cannot rule out wall motion abnormalities due to limited acoustical windows. Possible septal hypokinesis. Mildly dilated right ventricle. Mildly reduced RV function. Mild mitral valve regurgitation is present. There is no tricuspid valve regurgitation. Dilated IVC. Measurements: Chambers Valvular Assessment AV/MV Valvular Assessment TV/PV Normal Normal Normal Name Value Range Name Value Range Name Value Range Ao Ella (MM): 3.2 cm (2.2 cm-3.7 AV Vmax: 1.11 m/s (1 m/s-1.7 PV Vmax: 1.00 m/s (0.6 m/s-0.9 cm) m/s) m/s) IVSd (2D): 0.8 cm (0.6 cm-1.1 AV maxP mmHg ( - ) PV PGmax: 4 mmHg ( - ) cm) LVOT Vmax: 0.56 m/s (0.7 m/s-1.1 LVDd (2D): 4.3 cm (4.2 cm-5.9 m/s) cm) VIOLET (Vmax): 1.7 cm2 ( - ) LVDs (2D): 3.3 cm (2.1 cm-4 MV E Vmax: 0.65 m/s ( - ) cm) MV A Vmax: 0.69 m/s ( - ) LVPWd (2D): 0.8 cm (0.6 cm-1 MV E/A: 0.94 ( - ) cm) LVOTd 2.1 cm 2.1 cm mm LVEF (2D): 47 (>=54 %) RVDd(2D): 3.8 cm (1.9 cm-3.8 cmmm) Patient: KATHRYN MERIDA Study Date: 06/04/2018 Page 1 of 2 09:43 AM Continued Measurements: Findings: Left Ventricle: Normal size left ventricle. No LV hypertrophy. Low normal left ventricular systolic function. EF is 47 %. Cannot rule out wall motion abnormalities due to limited acoustical windows. Possible septal hypokinesis. Unable to assess diastolic dysfunction. Right Ventricle: Mildly dilated right ventricle. Mildly reduced RV function. Left Atrium: The left atrium is normal in size. Right Atrium: The right atrium is normal in size. Mitral Valve: The mitral valve is normal in appearance. Mild mitral valve regurgitation is present. No mitral stenosis is present. Aortic Valve: Aortic valve is not well visualized. There is no aortic valve regurgitation. No aortic valve stenosis is present. Tricuspid Valve: The tricuspid valve appears normal. There is no tricuspid valve regurgitation. Pulmonic Valve: Pulmonary valve not well visualized. There is no pulmonic regurgitation seen. Aorta: Normal size aortic root measuring 3.2 cm. Pericardium: No pericardial effusion. (No Signature Object) Patient: KATHRYN MERIDA Study Date: 06/04/2018 Page 2 of 2 09:43 AM [id number]
[2018-06-04] MEDS ORDERED: IPRATROPIUM/ALBUTEROL 3 ML DEYVIAL IH SCH ×4 (16:30→21:00)
--- NOTE | 2018-06-04 17:47 | ASMTCMCOM ---
CM Note CM Note Notes: 06/04/2018 Case Management Note Pt admitted for COPD, PNA and hypoxia. Pt was intubated and placed in ICU. Pt is well known to [facility] and case management. At MD request, proxy process initiated. Phone call to HOT team officer Tonio and Fabiola Jimenez for emergency contact info. Phone call to [facility] for emergency contact info. Discussed with ethics to initiate MD Proxy process. Phone call from pt Mother Imani Goldstein and father Talon Goldstein [phone] (home) and [phone] (cell). They reside in [place]. They have not had contact with pt in 10 + years. Pt started using marijuana in his teens. Family paid for several drug rehab and detox admissions over the years. Talon is undergoing radiation currently and Imani has a surgery planned. They are unable to care for pt. Provided contact info to MD for phone call to parents updating on pt condition. Imani provided the following contact info: Pt brother Kraig Goldstein is in [place] [phone]. Pt sister is Savannah Duncan lives in [place] [phone]. Caroline requested time to contact Kraig and Savannah to decide who should be proxy. Case Management agreed to wait until tomorrow morning before calling Savannah and Kraig. Pt discharge needs are unclear and will be determined as pt recovery progresses. Case Management d/c poc: to be determined. Case Management to follow. Date Signed: 06/04/2018 05:46 PM Electronically Signed By:Samanta Shafer RN
[2018-06-04] MEDS: THIAMINE HCL 500 MG in NS 100 ML IV SCH (20:56)
[2018-06-05] MEDS: IPRATROPIUM/ALBUTEROL 3 ML DEYVIAL IH SCH ×5 (05:33→20:45)
[2018-06-05] MEDS: methylPREDNISolone SOD SUCC 40 MG/ML VIAL IVP SCH (08:14)
[2018-06-05] MEDS: FAMOTIDINE 20 MG/NACL 50 ML IV SCH ×2 (08:14→20:45)
[2018-06-05] MEDS: THIAMINE HCL 100 MG TAB PO SCH (08:15)
[2018-06-05] MEDS: LORazepam 2 MG/ML INJ IVP PRN ×6 (08:15→23:01)
[2018-06-05] MEDS: CHLORHEXIDINE GLUCONATE 15 ML UDL PO SCH ×2 (08:15→20:45)
--- NOTE | 2018-06-05 08:30 | PDINTPN ---
Mastic Sprayer Progress Note Assessment/Plan: ASSESSMENT 57-year-old homeless male with severe COPD polysubstance abuse admitted with severe COPD exacerbation and right middle lobe pneumonia. # acute hypoxemic hypercarbic respiratory failure requiring intubation and mechanical ventilation, self extubated 06/03/18, now requiring NIPPV # acute exacerbation of COPD # encephalopathy # H influenza pna, abx narrowed to CTX 06/04/18. # severe COPD # bilateral lower extremity edema. I suspect patient has a component of RV failure and cor pulmonale given longstanding severe COPD. PLAN # NIPPV, may need reintubation # CTX 2 grams daily # solumedrol 40 mg daily until able to take PO # diuresis as able # stopped tamiflu # Feeding - NPO, # A goals of care conversation and advanced directives after critical illness resolves # Analgesia APAP, fentanyl # Sedation propofol # Thromboprophylaxis - SQ hep # Head of bed elevated # Ulcer prophylaxis - H2 shirley # Glucose SSI # Skin no skin breakdown # Delirium - delirium precautions CULTURE DATA 06/02/18 BAL w H influenza, RPNA negative Subjective: BAL grew H influenza, abx narrowed to CTX, self extubated, placed on HFNC initially did well overnight but more somnolent with increased WOB this AM requiring NIPPV. Objective: Vital Signs Temp Pulse Resp BP Pulse Ox 37.1 C 107 H 35 H 101/77 90 L 06/05/18 08:00 06/05/18 08:00 06/05/18 08:00 06/05/18 08:00 06/05/18 08:00 Microbiology 06/03/18 16:26 Gram Stain - Final Bronchial Washing - Right Middle Lobe 06/03/18 16:25 Gram Stain - Final Bronchial Washing - Left Upper Lobe Laboratory Results 06/05/18 06:00 06/05/18 06:00 06/04/18 06/05/18 06/06/18 05:59 05:59 05:59 Intake Total 2997.6 1768.4 Output Total 180 2625 Balance 2817.6 -856.6 Physical Exam - Physical Exam General Appearance: obtunded EENT: PERRL/EOMI, normal ENT inspection Neck: non-tender, full range of motion Respiratory: other (Tachypneic, and mild use of accessory muscles, coarse breath sounds) Cardiac/Chest: normal peripheral pulses, regular rate, rhythm, No edema Abdomen: normal bowel sounds, non-tender Skin: normal color, warm/dry Neuro/Psych: other (Somnolent, arousable, delirious by CAM assessment. No focal deficits.) ICD10 Worksheet Patient Problems: Problems Problem Status Onset COPD exacerbation Acute Hypoxia Acute Acute bronchitis Acute Acute respiratory failure Acute Bronchitis Acute COPD (chronic obstructive pulmonary disease) Acute COPD exacerbation Acute Cellulitis Acute Chronic obstructive pulmonary disease with acute exacerbation Acute Dyspnea Acute Facial abscess Acute HCAP (healthcare-associated pneumonia) Acute Hypoxemia Acute Pneumonia Acute Pneumonia Acute Sepsis Acute Shortness of breath Acute
--- NOTE | 2018-06-05 09:55 | HOSPPROG ---
Hospitalist Progress Note Assessment/Plan: 57yo M with severe COPD, homelessness who is well known to this hospital presents with worsening shortness of breath found to be hypoxic, hypercarbic, and encephalopathic. 1. Acute hypoxemic hypercarbic respiratory failure: Initially intubated, self- extubated 2, now worsening respiratory mechanics. - NIPPV for now, may need re-intubation. Attempting to contact family to assess goals of care 2. Acute COPD exacerbation: Precipitated by infection - Scheduled bronchodilators, methylpred 40mg qd, antibiotics (see below) 3. Hemophilus influenza pneumonia: Involving RML. - Stopped vanco, cefepime, azithro, tamiflu - Narrowed to ceftriaxone 4. Hypotension: - Norepinephrine as needed to keep MAP>65 5. BLE edema: Likely r/t RV failure from chronic hypoxia. - Diurese as able 6. Acute metabolic encephalopathy: Related to hypoxia/hypercarbia. 7. Mild LV dysfunction: ? septal hypokinesis on echo. Of note, this was done while on ventilator. - Will hold on cardiology consultation/evaluation - Needs repeat echo once stabilized VTE ppx: SCDs (allergy listed to heparin) GI ppx: famotidine Diet: NPO Code: full Dispo: Remain inpatient in ICU with respiratory failure Proxy decision maker: clinical team manager working on this. Spoke with patients mother who has spoken to him in 30+ years. Will attempt to contact his brother and/or sister. I spent a total of 35 minutes of critical care time. Subjective: Self-extubated himself yesterday afternoon. Was doing ok on high flow nasal canula and doing ok until this morning. More somnolent, increased work of breathing so placed back on NIPPV. Objective: Vital Signs Temp Pulse Resp BP Pulse Ox 37.1 C 106 H 30 H 101/77 93 06/05/18 08:00 06/05/18 08:53 06/05/18 08:53 06/05/18 08:00 06/05/18 08:53 Microbiology 06/03/18 16:26 Gram Stain - Final Bronchial Washing - Right Middle Lobe 06/03/18 16:25 Gram Stain - Final Bronchial Washing - Left Upper Lobe Laboratory Results 06/05/18 06:00 06/05/18 06:00 06/04/18 06/05/18 06/06/18 05:59 05:59 05:59 Intake Total 2997.6 1768.4 Output Total 180 2625 Balance 2817.6 -856.6 - Physical Exam Constitutional: other (unarousable) Eyes: PERRL, anicteric sclera Ears, Nose, Mouth, Throat: other (PPV mask on) Cardiovascular: regular rate and rhythym, edema Respiratory: reduced air movement, expiratory wheeze, other (prolonged expiratory phase) Gastrointestinal: normoactive bowel sounds, soft, non-tender abdomen, no palpable masses Genitourinary: hong in urethra Skin: no rashes or abrasions, no fluctuance, no induration Neurologic: other (not arousable to sternal rub) Psychiatric: encephalopathic ICD10 Worksheet Patient Problems: Problems Problem Status Onset COPD exacerbation Acute Hypoxia Acute Acute bronchitis Acute Acute respiratory failure Acute Bronchitis Acute COPD (chronic obstructive pulmonary disease) Acute COPD exacerbation Acute Cellulitis Acute Chronic obstructive pulmonary disease with acute exacerbation Acute Dyspnea Acute Facial abscess Acute HCAP (healthcare-associated pneumonia) Acute Hypoxemia Acute Pneumonia Acute Pneumonia Acute Sepsis Acute Shortness of breath Acute
--- NOTE | 2018-06-05 10:21 | ASMTCMCOM ---
CM Note CM Note Notes: 06/05/2018 Case Management Note DESIGNATED PROXY: SAVANNAH AGUILAR [phone] Phone Call to Savannah Kellyailin this morning explaining proxy process. Phone call to Kraig Goldstein [phone] this am to discuss proxy process. Phone call to Imani Goldstein [phone]. Imani and Kraig verbally confirmed that Savannah is the designated proxy. spoke to both Imani and Savannah today. Case Management d/c poc: to be determined. Case Management to follow. Date Signed: 06/05/2018 10:20 AM Electronically Signed By:Samanta Shafer RN
[2018-06-05] MEDS ORDERED: ALTEPLASE 2 MG VIAL IVP PRN (10:54)
[2018-06-06] MEDS: LORazepam 2 MG/ML INJ IVP PRN ×7 (01:30→19:33)
[2018-06-06] MEDS ORDERED: OLANZapine 10 MG/2 ML VIAL IM ONE (03:54)
[2018-06-06] MEDS ORDERED: OLANZapine 10 MG/2 ML VIAL ONE (03:57)
[2018-06-06] MEDS: IPRATROPIUM/ALBUTEROL 3 ML DEYVIAL IH SCH ×3 (04:18→16:49)
[2018-06-06] MEDS: methylPREDNISolone SOD SUCC 40 MG/ML VIAL IVP SCH (09:21)
[2018-06-06] MEDS: FAMOTIDINE 20 MG/NACL 50 ML IV SCH (09:21)
[2018-06-06] MEDS: CHLORHEXIDINE GLUCONATE 15 ML UDL PO SCH (09:22)
[2018-06-06] MEDS: THIAMINE HCL 100 MG TAB PO SCH (09:50)
[2018-06-06] MEDS ORDERED: HALOPERIDOL LACT 5 MG/ML INJ IVP PRN (10:49)
--- NOTE | 2018-06-06 14:08 | PDINTPN ---
Biomedical Engineering Director Progress Note Assessment/Plan: ASSESSMENT 57-year-old homeless male with severe COPD polysubstance abuse admitted with severe COPD exacerbation and right middle lobe pneumonia. # acute hypoxemic hypercarbic respiratory failure requiring intubation and mechanical ventilation, self extubated 06/03/18, now requiring NIPPV # acute exacerbation of COPD # encephalopathy # H influenza pna, abx narrowed to CTX 06/04/18. # severe COPD # bilateral lower extremity edema. I suspect patient has a component of RV failure and cor pulmonale given longstanding severe COPD. PLAN # NIPPV # CTX 2 grams daily # solumedrol 40 mg daily until able to take PO # diuresis as able # Feeding - NPO, # A goals of care conversation and advanced directives after critical illness resolves # Analgesia APAP, fentanyl # Sedation propofol # Thromboprophylaxis - SQ hep # Head of bed elevated # Ulcer prophylaxis - H2 shirley # Glucose SSI # Skin no skin breakdown # Delirium - delirium precautions CULTURE DATA 06/02/18 BAL w H influenza, RPNA negative 06/06/18 16:02 Patient is critically ill due to life-threatening organ failure and is at high risk for . Total critical care time 85 minutes was spent at bedside titrating NIPPV, family meeting to discuss goals of care, interdisciplinary rounds. Subjective: worsening overnight requiring NIPPV, now more somnolent and not answering questions. Objective: Vital Signs Temp Pulse Resp BP Pulse Ox 37 C 78 8 L 97/60 L 95 06/06/18 10:00 06/06/18 12:00 06/06/18 12:00 06/06/18 12:00 06/06/18 12:00 Microbiology 06/05/18 09:40 - Final Sputum, Induced/Suctioned 06/03/18 16:25 Gram Stain - Final Bronchial Washing - Left Upper Lobe 06/03/18 16:26 Gram Stain - Final Bronchial Washing - Right Middle Lobe Laboratory Results 06/06/18 04:10 06/06/18 04:10 06/05/18 06/06/18 06/07/18 05:59 05:59 05:59 Intake Total 1768.4 1089 Output Total 2625 Balance -856.6 1089 Physical Exam - Physical Exam General Appearance: obtunded, unresponsive EENT: normal ENT inspection, other (NIPPV in place) Neck: non-tender, full range of motion Respiratory: chest non-tender, respiratory distress, prolonged expiration Cardiac/Chest: normal peripheral pulses, regular rate, rhythm Abdomen: normal bowel sounds, non-tender Back: Normal inspection Skin: normal color, warm/dry Extremities: normal range of motion, non-tender Neuro/Psych: no motor/sensory deficits, alert, depressed affect, other (obtunded , no focal deficits. ) ICD10 Worksheet Patient Problems: Problems Problem Status Onset COPD exacerbation Acute Hypoxia Acute Acute bronchitis Acute Acute respiratory failure Acute Bronchitis Acute COPD (chronic obstructive pulmonary disease) Acute COPD exacerbation Acute Cellulitis Acute Chronic obstructive pulmonary disease with acute exacerbation Acute Dyspnea Acute Facial abscess Acute HCAP (healthcare-associated pneumonia) Acute Hypoxemia Acute Pneumonia Acute Pneumonia Acute Sepsis Acute Shortness of breath Acute
[2018-06-06] MEDS ORDERED: ONDANSETRON 4 MG/2 ML VIAL IVP PRN (14:29)
[2018-06-06] MEDS ORDERED: GLYCOPYRROLATE 0.2 MG/1 ML VIAL IVP/IM PRN (14:29)
--- NOTE | 2018-06-06 15:10 | HOSPPROG ---
Hospitalist Progress Note Assessment/Plan: 57yo M with severe COPD, homelessness who is well known to this hospital presents with worsening shortness of breath found to be hypoxic, hypercarbic, and encephalopathic. Discussion by education and training coordinator and Proxy today has led to the decision to pursue comfort care. 1. Acute hypoxemic hypercarbic respiratory failure: Initially intubated, self- extubated 06/04 2. Acute COPD exacerbation: Precipitated by infection) 3. Hemophilus influenza pneumonia: Involving RML. 4. Hypotension: 5. BLE edema: Likely r/t RV failure from chronic hypoxia. 6. Acute metabolic encephalopathy: Related to hypoxia/hypercarbia. 7. Mild LV dysfunction: ? septal hypokinesis on echo. Of note, this was done while on ventilator. VTE ppx: SCDs (allergy listed to heparin) GI ppx: famotidine Diet: NPO Code: full Plan: Comfort care Subjective: obtundend. family discussion today Objective: Vital Signs Temp Pulse Resp BP Pulse Ox 37 C 73 20 117/71 89 L 06/06/18 10:00 06/06/18 14:00 06/06/18 14:00 06/06/18 14:00 06/06/18 14:00 Microbiology 06/03/18 16:26 Gram Stain - Final Bronchial Washing - Right Middle Lobe Bronchial Culture - Final Haemophilus Influenzae Strep Agalactiae Group B 06/03/18 16:25 Gram Stain - Final Bronchial Washing - Left Upper Lobe 06/05/18 09:40 - Final Sputum, Induced/Suctioned Laboratory Results 06/06/18 04:10 06/06/18 04:10 06/05/18 06/06/18 06/07/18 05:59 05:59 05:59 Intake Total 1768.4 1089 Output Total 2625 Balance -856.6 1089 - Physical Exam Constitutional: no apparent distress Ears, Nose, Mouth, Throat: moist mucous membranes Cardiovascular: regular rate and rhythym, edema Respiratory: reduced air movement Gastrointestinal: normoactive bowel sounds, No distension Skin: warm Neurologic: No AAOx3 Lymph, Heme, Immunologic: No petechiae ICD10 Worksheet Patient Problems: Problems Problem Status Onset COPD exacerbation Acute Hypoxia Acute Acute bronchitis Acute Acute respiratory failure Acute Bronchitis Acute COPD (chronic obstructive pulmonary disease) Acute COPD exacerbation Acute Cellulitis Acute Chronic obstructive pulmonary disease with acute exacerbation Acute Dyspnea Acute Facial abscess Acute HCAP (healthcare-associated pneumonia) Acute Hypoxemia Acute Pneumonia Acute Pneumonia Acute Sepsis Acute Shortness of breath Acute
--- NOTE | 2018-06-06 18:08 | ASMTCMCOM ---
CM Note CM Note Notes: 06/06/2018 Case Management Note Pt transferring to 3E on comfort cares. Contacted [facility]. One bed available at inpatient care center for [facility]. Faxed updates to [facility]. Notified MD of transfer to . Case Management d/c poc: to be determined. Case Management to follow. Date Signed: 06/06/2018 06:07 PM Electronically Signed By:Samanta Shafer RN
[2018-06-07] MEDS: FAMOTIDINE 20 MG/NACL 50 ML IV SCH ×2 (00:25→12:08)
[2018-06-07] MEDS: CHLORHEXIDINE GLUCONATE 15 ML UDL PO SCH ×2 (00:25→12:07)
[2018-06-07] MEDS: LORazepam 2 MG/ML INJ IVP PRN (00:38)
[2018-06-07 08:58] VITALS: BP 58/40
--- NOTE | 2018-06-07 10:01 | ASMTCMCOM ---
MARIA ELENA Note MARIA ELENA Note Notes: Discussed w/ , will arrange for [facility] to come and eval pt for [facility]. CM [facility], she needs to contact sister Savannah ([facility]) [phone] for consent. Eval and Treat order faxed via [employer]. DC Plan: [facility] Date Signed: 06/07/2018 10:01 AM Electronically Signed By:Angela Sharp RN
--- NOTE | 2018-06-07 10:34 | ASMTCMCOM ---
CM Note CM Note Notes: D/w , pt passing is imminent, cancelled samara harmon. Kyler to call sister Savannah. Date Signed: 06/07/2018 10:34 AM Electronically Signed By:Angela Sharp RN
[2018-06-07] MEDS: methylPREDNISolone SOD SUCC 40 MG/ML VIAL IVP SCH (12:08)
[2018-06-07] MEDS: THIAMINE HCL 100 MG TAB PO SCH (12:08)
--- NOTE | 2018-06-07 12:44 | ASMTCMCOM ---
CM Note CM Note Notes: Informed that pt has passed. Chester has notified family and pt's brother is calling [employer] to have pt cremated. Date Signed: 06/07/2018 12:43 PM Electronically Signed By:Angela Sharp RN
--- NOTE | 2018-06-07 16:23 | PDDCSUM ---
Discharge Summary Discharge Summary: HPI/Hospital course The patient is a 57yo M with severe COPD, homelessness who is well known to this hospital who was admitted with worsening shortness of breath found to be hypoxic, hypercarbic, and encephalopathic and in respiratory failure due to COPD Exacerbation and Pneumonia. The patient was intubated but eventually self extubated on 06/04. Family was contacted and a POA was chosen. Family/POA transitioned to comfort care on 06/06. The pt ultimately at 11:20 DDX: 1. Acute hypoxemic hypercarbic respiratory failure: Initially intubated, self- extubated 06/04 2. Acute COPD exacerbation 3. Hemophilus influenza pneumonia: Involving RML. 4. Hypotension: 5. BLE edema: Likely r/t RV failure from chronic hypoxia. 6. Acute metabolic encephalopathy: Related to hypoxia/hypercarbia. 7. Mild LV dysfunction Time of : 11:20 on 06/07/18
--- NOTE | 2018-06-07 16:26 | HOSPPROG ---
Hospitalist Progress Note Assessment/Plan: Pt seen around 10 a.m. 57yo M with severe COPD, homelessness who is well known to this hospital presents with worsening shortness of breath found to be hypoxic, hypercarbic, and encephalopathic. 1. Acute hypoxemic hypercarbic respiratory failure: Initially intubated, self- extubated 06/04 2. Acute COPD exacerbation: Precipitated by infection) 3. Hemophilus influenza pneumonia: Involving RML. 4. Hypotension 5. BLE edema: Likely r/t RV failure from chronic hypoxia. 6. Acute metabolic encephalopathy: Related to hypoxia/hypercarbia. 7. Mild LV dysfunction: ? septal hypokinesis on echo. Of note, this was done while on ventilator. Plan: comfort care The patient will likely pass this morning He appears very comfortable BP is soft D/W [employer] Supervisor, nurse, and patient case manager Subjective: bp is soft. on comfort care Objective: Vital Signs Temp Pulse Resp BP Pulse Ox 36.6 C 115 H 20 58/40 L 69 L 06/07/18 08:00 06/07/18 08:00 06/07/18 08:00 06/07/18 08:00 06/07/18 08:00 Microbiology 06/03/18 16:25 Gram Stain - Final Bronchial Washing - Left Upper Lobe 06/05/18 09:40 - Final Sputum, Induced/Suctioned 06/03/18 16:26 Gram Stain - Final Bronchial Washing - Right Middle Lobe Bronchial Culture - Final Haemophilus Influenzae Strep Agalactiae Group B Laboratory Results 06/06/18 04:10 06/06/18 04:10 06/06/18 06/07/18 06/08/18 05:59 05:59 05:59 Intake Total 1089 Output Total 100 Balance 1089 -100 - Physical Exam Constitutional: no apparent distress Ears, Nose, Mouth, Throat: moist mucous membranes Cardiovascular: regular rate and rhythym Respiratory: no respiratory distress, reduced air movement Gastrointestinal: No distension Neurologic: No AAOx3 ICD10 Worksheet Patient Problems: Problems Problem Status Onset Acute bronchitis Acute Acute respiratory failure Acute Bronchitis Acute COPD (chronic obstructive pulmonary disease) Acute COPD exacerbation Acute COPD exacerbation Acute Cellulitis Acute Chronic obstructive pulmonary disease with acute exacerbation Acute Dyspnea Acute Facial abscess Acute HCAP (healthcare-associated pneumonia) Acute Hypoxemia Acute Hypoxia Acute Pneumonia Acute Pneumonia Acute Sepsis Acute Shortness of breath Acute
[2018-06-07] MEDS ORDERED: FAMOTIDINE 20 MG/NACL 50 ML IV SCH (21:00)
== END 2018-06-07 13:23 | disposition expired | DRG 140 ==
LOC: EDUNIT# → OBSVTOIN 13:36 → F2N 13:48 → F3E 06-06 18:42
PROVIDERS: ADMIT Internal Medicine; ATTEND Family Medicine
PROC: 5A1935Z Respiratory Ventilation, Less than 24 Consecutive Hours (ICD-10-PCS; principal; 2018-06-03)
PROC: 0BH17EZ Insertion of Endotracheal Airway into Trachea, Via Natural or Artificial Opening (ICD-10-PCS; principal; 2018-06-03)
PROC: 5A09357 Assistance with Respiratory Ventilation, Less than 24 Consecutive Hours, Continuous Positive Airway Pressure (ICD-10-PCS; 2018-06-03)
PROC: 0B9D8ZZ Drainage of Right Middle Lung Lobe, Via Natural or Artificial Opening Endoscopic (ICD-10-PCS; 2018-06-03)
PROC: 3E1F88Z Irrigation of Respiratory Tract using Irrigating Substance, Via Natural or Artificial Opening Endoscopic (ICD-10-PCS; 2018-06-03)
PROC: 0B9G8ZZ Drainage of Left Upper Lung Lobe, Via Natural or Artificial Opening Endoscopic (ICD-10-PCS; 2018-06-03)
PROC: 0DH67UZ Insertion of Feeding Device into Stomach, Via Natural or Artificial Opening (ICD-10-PCS; 2018-06-03)
DX: J44.1 Chronic obstructive pulmonary disease with (acute) exacerbation (principal); J44.0 Chronic obstructive pulmonary disease with (acute) lower respiratory infection; J14 Pneumonia due to Hemophilus influenzae; J96.01 Acute respiratory failure with hypoxia; J96.02 Acute respiratory failure with hypercapnia; G93.41 Metabolic encephalopathy; I95.9 Hypotension, unspecified; I50.810 Right heart failure, unspecified; G89.4 Chronic pain syndrome; B19.10 Unspecified viral hepatitis B without hepatic coma; B19.20 Unspecified viral hepatitis C without hepatic coma; F43.10 Post-traumatic stress disorder, unspecified; F11.10 Opioid abuse, uncomplicated; F17.200 Nicotine dependence, unspecified, uncomplicated; K59.00 Constipation, unspecified; Z91.19 Patient's noncompliance with other medical treatment and regimen; Z66 Do not resuscitate; Z51.5 Encounter for palliative care
CPT/HCPCS: 96365; J0456; J0692; J0696; J1940; J2060; J2270; J2704; J2920; J2930; J2997; J3010; J3370; J3411; J3475; J7613